=== PATIENT | female | born 1945 | race Caucasian/White ===

== ENCOUNTER 2024-05-15 11:12 | Emergency (ER) | payer OTHER, SELFPAY ==
[2024-05-15] VITALS (11 sets, daily range): BP systolic 132–183; BP diastolic 53–93; PULSE 53–58; RESP 15–20; TEMP 36.6–37.1; O2SAT 95–100; BMI 19.3
--- NOTE | 2024-05-15 11:31 | PD.EDRME ---
Rapid Medical Screening Exam RME Arrival date/time: 05/15/24 11:12 79-year-old female dialysis patient presents the emergency department complains of back pain and low hemoglobin Chief Complaint: Recheck/Abnormal Lab/Rx Vital signs: Vital Signs Temperature 97.9 F 05/15/24 11:24 Pulse Rate 53 L 05/15/24 11:24 Respiratory Rate 15 05/15/24 11:24 Blood Pressure 132/58 H 05/15/24 11:24 Pulse Oximetry (%) 97 05/15/24 11:24 Oxygen Delivery Method Room Air 05/15/24 11:24
--- NOTE | 2024-05-15 11:56 | PD.EDRECHK ---
ED Recheck Abnl Lab Rx-RME/HPI General Chief Complaint: Recheck/Abnormal Lab/Rx Stated Complaint: Low hemoglobin, dry mouth Time Seen by Provider: 05/15/24 11:47 Arrival date/time: 05/15/24 11:12 RME / HPI RME / HPI narrative: 79-year-old female dialysis patient presents the emergency department complains of back pain and low hemoglobin. Patient had hemodialysis yesterday, and was advised to come to the emergency room today for anemia. Patient denies any vomiting blood denies any blood in the stool denies any changes to color of the stool. Denies any blood in the urine also. Also complained of dry mouth for several days now. Also complained of low back pain described as dull ache severity moderate. Denies any fever denies any fall denies any trauma to the back. No medication was taken prior to arrival Related Data Home Medications ?Medication ?Instructions ?Recorded ?Confirmed amiodarone 100 mg tablet 100 mg PO BID 06/03/21 09/03/22 vitamin B complex-vitamin C-folic 1 tab PO DAILY 06/03/21 11/20/22 acid 0.8 mg tablet (Shilpi-Janusz) alprazolam 0.5 mg tablet 0.5 mg PO BID PRN Anxiety 01/17/22 11/20/22 cyclobenzaprine 5 mg tablet 5 mg PO HS PRN Spasms 01/27/22 09/03/22 hydralazine 100 mg tablet 100 mg PO BID 11/20/22 11/20/22 labetalol 100 mg tablet 100 mg PO BID 11/20/22 11/20/22 nicardipine 20 mg capsule 20 mg PO BID 11/20/22 11/20/22 pantoprazole 20 mg tablet,delayed 20 mg PO QDAY 11/20/22 11/20/22 release paroxetine HCl 10 mg tablet 10 mg PO HS PRN Anxiety 11/20/22 11/20/22 Previous Rx's ?Medication ?Instructions ?Recorded valsartan 320 1 tab PO QDAY #30 tabs 11/21/22 mg-hydrochlorothiazide 12.5 mg tablet diphenhydramine HCl 2 % topical 1 applic topical BID #103 mL 06/24/23 gel (Benadryl) glycerin (adult) 1 supp UT QDAY PRN constipation 05/11/24 #12 ea ferrous sulfate, dried 144 mg (45 144 mg PO BID #60 tabs 05/15/24 mg iron) tablet,extended release Allergies Allergy/AdvReac Type Severity Reaction Status Date / Time gabapentin Allergy Intermediate RASH ALL Verified 06/24/23 13:43 OVER lisinopril Allergy Intermediate Rash Verified 06/24/23 13:43 tramadol Allergy Intermediate Redness of Verified 06/24/23 13:43 Skin olmesartan [From Benicar] Allergy Unknown Hypertensio Verified 06/24/23 13:43 n Penicillins AdvReac Severe Swelling Verified 06/24/23 13:43 of Lip/Tongue/Throat Review of Systems Review of Systems Narrative Review of Systems: Review of system reviewed and within normal limits except mentioned in HPI ED Exam Narrative Physical exam: VITAL SIGNS: Reviewed. GENERAL APPEARANCE: Alert and interactive, follows commands, no acute distress, HEAD AND FACE: Non-traumatic. ENT: PERRL, pale conjunctiva, eyelid no trauma, Mucous membrane moist. NECK: Supple, nontender, no nuchal rigidity. CHEST: No tenderness, no crepitus, no paradoxical movement, no retractions. LUNGS: Clear, well ventilated, symmetric, no rales, no wheezing, no ronchi, no stridor, good breath sounds bilaterally. HEART: Regular rate, regular rhythm, no murmur, no gallops. ABDOMEN: Soft, positive bowel sounds, nondistended, no guarding, nontender, no rebound, no masses, RECTAL: Deferred. GENITAL: Deferred. NEUROLOGICAL: Gross motor function intact sensory function intact, Appropriate for age. MUSCULOSKELETAL: low back nontender, full range of motion. EXTREMITIES: Nontender, full range of motion. SKIN: Color pale, dry, no rash, no lacerations, no abrasions, no contusions. LYMPHATICS: Deferred. Course Quality Measures none Orders Category Date Time Status Insert IV NOW Care 05/15/24 11:31 Active Transfuse,blood/blood products ONCE Care 05/15/24 11:55 Active Diet Regular Diet 05/15/24 Dinner Active CBC Stat Lab 05/15/24 12:17 Completed Comprehensive Metabolic Panel Stat Lab 05/15/24 12:17 Completed Lipase Stat Lab 05/15/24 12:17 Completed PT [Prothrombin Time with INR] Stat Lab 05/15/24 12:17 Completed PTT [Partial Thromboplastin Time] Stat Lab 05/15/24 12:17 Completed Type and Screen Stat Lab 05/15/24 12:17 Completed UA, C/S IF [Urinalysis, C/S if Indicated] Stat Lab 05/15/24 17:34 Completed prbc [Red Blood Cells] Stat Lab 05/15/24 12:17 Completed Vital Signs Vital signs: Vital Signs Temperature 97.9 F 05/15/24 11:24 Pulse Rate 53 L 05/15/24 11:24 Respiratory Rate 15 05/15/24 11:24 Blood Pressure 132/58 H 05/15/24 11:24 Pulse Oximetry (%) 97 05/15/24 11:24 Oxygen Delivery Method Room Air 05/15/24 11:24 Recheck / Abnormal Lab / Rx MDM Narrative MDM Narrative:: 79-year-old female dialysis patient presents the emergency department complains of back pain and low hemoglobin. Patient had hemodialysis yesterday, and was advised to come to the emergency room today for anemia. Patient denies any vomiting blood denies any blood in the stool denies any changes to color of the stool. Denies any blood in the urine also. Also complained of dry mouth for several days now. Also complained of low back pain described as dull ache severity moderate. Denies any fever denies any fall denies any trauma to the back. No medication was taken prior travel. Patient data External records reviewed:: None Clinical information provided by:: patient Social determinants that could affect healthcare access:: none Patient has the following chronic illnesses:: Hypertension, ESRD, How is presenting disease/condition affected by chronic disease/condition?: exacerbated by Evaluation data The following diagnostics were reviewed and interpreted by me:: lab results Lab and/or radiology exams considered but not ordered:: None Interpretation Summary: Patient's hemoglobin was noted to be 7.4. CMP significant for CKD/ESRD potassium is normal Medications / Prescriptions Medications or Prescriptions considered but not ordered:: None Medication administrations:: Patient received 2 units packed RBC with no complication noted Consultations Consultation(s) initiated? (list below): No Diagnosis Recheck Differential Diagnosis: other (Anemia of chronic disease, iron deficiency anemia, history of ESRD) Most likely diagnosis given after review of the tests above:: Anemia chronic disease Admission Indicated Admission indicated?: not indicated Admission Request Was there a request for admission?: No Disposition Plan Disposition Plan: Discharge Discharge Attestation Discharge Attestation: The patient was given an opportunity to ask questions and understood the discharge instructions. Discharge instructions specifically effects, indications for sooner follow up or return to the emergency department, and the expected course of current diagnosis. Patient condition: Stable Discharge Plan Plan Patient Disposition: HOME (Self Care) Disposition Comment: Stable Prescriptions/Referrals Prescriptions/Med Rec: New ferrous sulfate, dried 144 mg (45 mg iron) tablet extended release 144 mg PO BID Qty: 60 0RF No Action amiodarone 100 mg Tablet 100 mg PO BID Shilpi-Janusz 0.8 mg tablet 1 tab PO DAILY alprazolam 0.5 mg Tablet 0.5 mg PO BID PRN (Reason: Anxiety) cyclobenzaprine 5 mg tablet 5 mg PO HS PRN (Reason: Spasms) paroxetine HCl 10 mg Tablet 10 mg PO HS PRN (Reason: Anxiety) nicardipine 20 mg Capsule 20 mg PO BID pantoprazole 20 mg Tablet,Delayed Release (Dr/Ec) 20 mg PO QDAY hydralazine 100 mg Tablet 100 mg PO BID labetalol 100 mg Tablet 100 mg PO BID valsartan-hydrochlorothiazide 320-12.5 mg Tablet 1 tab PO QDAY Qty: 30 0RF Benadryl 2 % gel 1 applic topical BID Qty: 103 0RF glycerin (adult) Suppository 1 supp UT QDAY PRN (Reason: constipation) Qty: 12 0RF Referrals: Jaylene Muller MD [Primary Care Provider] - In 1 week Problem List Clinical Impression: Anemia due to chronic kidney disease Patient/Caregiver Discharge Instructions Discharge Activity: activity as tolerated Education Materials: Iron Supplements Additional Instructions: Thank you for the opportunity for serving you today. You are stable for discharged . You are advised to: Follow-up with your PCP in 1 to 2 days Return to ED for worsening of symptoms Take medication as prescribed Print Language: Sinhala Stand Alone Forms: Felisa Award Info., Patient Portal Info Letter PA/[employer] Supervising Physician KORIN/INGRIS Supervising Physician: MD Ben
[2024-05-15 12:39] LABS: Basophils # (Auto) 0.1 Thou/mm3 (0.0-0.2); Basophils % (Auto) 1 % (0-2.5); Eosinophils # (Auto) 0.4 Thou/mm3 (0.0-0.5); Eosinophils % (Auto) 5 % (0-10); Hematocrit 22.2 % (36.0-46.0); Immature Granulocytes % (Auto) 1 % (0-0); Immature Granulocytes Auto 0.04 Thou/mm3 (0.00-0.00); Lymphocytes # (Auto) 1.4 Thou/mm3 (1.0-4.8); Lymphocytes % (Auto) 16 % (10-50); Mean Corpuscular HGB Conc 33.3 g/dl (31.0-37.0); Mean Corpuscular Hemoglobin 31.2 pg (25.0-35.0); Mean Corpuscular Volume 94 fL (80-100); Monocytes # (Auto) 0.9 Thou/mm3 (0.0-0.8); Monocytes % (Auto) 10 % (0-12); Neutrophils # (Auto) 5.9 Thou/mm3 (1.8-7.7); Neutrophils % (Auto) 69 % (37-80); Nucleated Red Blood Cell % 0 /100 WBC (0); Platelet Count 394 Thou/mm3 (140-440); RDW Standard Deviation 53.4 fL (36.4-46.3); Red Blood Count 2.37 Miln/mm3 (4.00-5.20); White Blood Count 8.6 Thou/mm3 (3.6-11.0)
[2024-05-15 12:52] LABS: Partial Thromboplastin Time 24.2 Seconds (22.0-36.0); Prothrombin Time 11.4 Seconds (9.0-12.2)
[2024-05-15 13:07] LABS: Alanine Aminotransferase < 7 U/L (10-49); Albumin, Serum 4.4 gm/dL (3.4-4.8); Albumin/Globulin Ratio 1.4 (1.2-2.2); Alkaline Phosphatase 77 U/L (46-116); Anion Gap 8 (7-16); Aspartate Amino Transferase 17 U/L (0-34); BUN/Creatinine Ratio 5 Ratio (12-20); Bilirubin,Total 0.2 mg/dL (0.3-1.2); Blood Urea Nitrogen 19 mg/dL (9-23); Carbon Dioxide 32.8 mMol/L (20.0-31.0); Chloride 96 mMol/L (98-107); Creatinine (Component) 3.9 mg/dL (0.6-1.3); Globulin 3.1 gm/dL (2.3-3.5); Glucose 110 mg/dL (74-106); Lipase 28 U/L (12-53); Osmolality,Calculated 277 (275-295); Potassium 3.5 mMol/L (3.4-5.1); Sodium 137 mMol/L (136-145); Total Protein 7.5 gm/dL (5.7-8.2); eGFR 11 See Note
[2024-05-15 13:20] LABS: Hemoglobin 7.4 g/dL (12.0-16.0)
[2024-05-15 18:03] LABS: Collection Type, Urine Clean Catch
[2024-05-15 18:29] LABS: Bilirubin,Urine Negative (Negative); Blood,Urine Negative (Negative); Clarity,Urine Clear (Clear/Hazy); Color,Urine Lt-Yellow (Lt Yel-Yel); Culture Indicated,Urine Not Indicated; Glucose, Urine Negative (Negative); Ketones,Urine Negative (Negative); Leukocyte Esterase,Urine Negative (Negative); Nitrite,Urine Negative (Negative); PH,Urine 8.5 (5.0-7.0); Protein,Urine 3+ (Neg - Trace); RBC,Urine 2 /hpf (0-3); Specific Gravity,Urine 1.011 (1.001-1.035); Squamous Epithelial Cell,Urine 5 /hpf (0-5); Urobilinogen,Urine Negative mg/dL (0.0-1.0); WBC,Urine 1 /hpf (0-5)
== END 2024-05-15 21:33 | disposition home or self-care (01) ==
PROVIDERS: Nurse Practitioner Primary Care; Emergency Provider Emergency Medicine; PCP Internal Medicine
DX: N18.6 End stage renal disease (principal); D63.1 Anemia in chronic kidney disease; Z99.2 Dependence on renal dialysis
CPT/HCPCS: 36415; 36430; 80053; 81001; 81025; 83690; 85025; 85610; 85730; 86850; 86900; 86901; 86923; 99285; P9016

== ENCOUNTER 2024-06-02 04:03 | Emergency (ER) | payer OTHER, MEDICARE, SELFPAY ==
[2024-06-02] VITALS (33 sets, daily range): BP systolic 172–257; BP diastolic 80–126; PULSE 63–90; RESP 18–24; TEMP 36.7–36.9; O2SAT 82–99; BMI 19.3
--- NOTE | 2024-06-02 04:28 | PC.NURSE ---
Pt MATT from home, initial EMS call was for constipation. However pt mostly c/o nausea and one episode of non-bloody emesis along with abd pain. Pt states she had small BM this morning but still feels constipated.
--- NOTE | 2024-06-02 05:12 | PD.EDRME ---
Rapid Medical Screening Exam RME Arrival date/time: 06/02/24 04:03 Chief Complaint: Nausea/Vomiting/Diarrhea Vital signs: Vital Signs Temperature 98.2 F 06/02/24 04:19 Pulse Rate 77 06/02/24 04:19 Respiratory Rate 18 06/02/24 04:19 Blood Pressure 245/94 H 06/02/24 04:19 Pulse Oximetry (%) 93 L 06/02/24 04:19 Oxygen Delivery Method Nasal Cannula 06/02/24 04:19 Oxygen Flow Rate 2 06/02/24 04:19 Vital signs reviewed by provider: Yes RME Narrative: 79yo female with pmhx CHF, HTN, ESRD on HD (M/W/F) BIBA from home presents to the ED for complaints of abdominal pain and constipation.
--- NOTE | 2024-06-02 05:29 | XR_ITS ---
Examination: AP chest single view Technique one AP portable upright chest single view Exam date and time: June 02, 2024 at 0544 hrs. Indications: Onset abdominal pain today Shortness of breath chest pain Findings: Mild enlargement cardiac contour Prominent vascular congestion with perihilar edema Probable extensive bilateral pneumonia Pulmonary mass right upper lobe 34 mm Prominent osteopenia Impression: Mild enlargement cardiac contour Extensive pneumonia and/or pulmonary edema bilaterally.
--- NOTE | 2024-06-02 05:35 | PC.NURSE ---
Pt placed on bedpan. Pt urinated but was contaminated with fecal matter.
[2024-06-02] MEDS: SODIUM CHLORIDE 0.9% 500 ML 500 ML 999 ML IV (05:37)
[2024-06-02] MEDS: ONDANSETRON INJ 2 MG/ML INJ 2 ML 4 MG IV (05:37)
[2024-06-02] MEDS: hydrALAZINE INJ 20 MG/ML VIAL IV (05:39)
[2024-06-02 05:40] LABS: Basophils # (Auto) 0.1 Thou/mm3 (0.0-0.2); Basophils % (Auto) 1 % (0-2.5); Eosinophils # (Auto) 0.2 Thou/mm3 (0.0-0.5); Eosinophils % (Auto) 1 % (0-10); Hematocrit 29.8 % (36.0-46.0); Hemoglobin 10.1 g/dL (12.0-16.0); Immature Granulocytes % (Auto) 1 % (0-0); Immature Granulocytes Auto 0.07 Thou/mm3 (0.00-0.00); Lymphocytes % (Auto) 7 % (10-50); Mean Corpuscular HGB Conc 33.9 g/dl (31.0-37.0); Mean Corpuscular Hemoglobin 31.9 pg (25.0-35.0); Mean Corpuscular Volume 94 fL (80-100); Monocytes # (Auto) 0.7 Thou/mm3 (0.0-0.8); Monocytes % (Auto) 4 % (0-12); Neutrophils # (Auto) 13.4 Thou/mm3 (1.8-7.7); Neutrophils % (Auto) 87 % (37-80); Nucleated Red Blood Cell % 0 /100 WBC (0); Platelet Count 412 Thou/mm3 (140-440); RDW Standard Deviation 50.1 fL (36.4-46.3); Red Blood Count 3.17 Miln/mm3 (4.00-5.20); White Blood Count 15.5 Thou/mm3 (3.6-11.0)
[2024-06-02 05:54] LABS: Partial Thromboplastin Time 25.9 Seconds (22.0-36.0); Prothrombin Time 10.7 Seconds (9.0-12.2)
[2024-06-02 06:09] LABS: B-Type Natriuretic Peptide 741 pg/mL (0-100)
[2024-06-02 06:11] LABS: Alanine Aminotransferase < 7 U/L (10-49); Albumin, Serum 4.3 gm/dL (3.4-4.8); Albumin/Globulin Ratio 1.4 (1.2-2.2); Alkaline Phosphatase 74 U/L (46-116); Anion Gap 12 (7-16); Aspartate Amino Transferase 17 U/L (0-34); BUN/Creatinine Ratio 8 Ratio (12-20); Bilirubin,Total 0.3 mg/dL (0.3-1.2); Blood Urea Nitrogen 44 mg/dL (9-23); Chloride 95 mMol/L (98-107); Creatinine (Component) 5.3 mg/dL (0.6-1.3); Estimated Creatinine Clearance 6.9 mL/min (>60); Glucose 131 mg/dL (74-106); Lipase 30 U/L (12-53); Osmolality,Calculated 279 (275-295); Potassium 4.6 mMol/L (3.4-5.1); Sodium 133 mMol/L (136-145); Total Protein 7.3 gm/dL (5.7-8.2); Troponin I < 0.020 ng/mL (0.0-0.045); eGFR 8 See Note
--- NOTE | 2024-06-02 06:19 | PD.EDNV ---
Nausea/Vomit./Diarrhea-RME/HPI General Chief complaint: Nausea/Vomiting/Diarrhea Stated complaint: NAUSEA/VOMITING/CONSTIPATION Time Seen by Provider: 06/02/24 05:29 Arrival date/time: 06/02/24 04:03 Limitations: no limitations RME / HPI RME / HPI Narrative: 79yo female with pmhx CHF, HTN, ESRD on HD (M/W/F) BIBA from home presents to the ED for complaints of abdominal pain and constipation. DR. BLANCA MAIN ED EVALUATION: 79 year old female with history of CVA, AFib, ESRD on HD M/W/F, hypertension, chronic pain on Opioids, chronic constipation, anxiety presents to the ED for complaint of nausea, vomiting, and constipation today. States her last bowel movement was 4 days ago. Accompanied by diffuse abdominal pain. This morning reports her blood pressure dropped and feels that is what caused her to vomit. Patient additionally complains of a headache and shortness of breath that is worse with lying flat. States at home she has taken stool softeners with no relief. Denies fevers, chills, cough, or urinary symptoms. RN later reports the patient admitted to having been diagnosed with a kidney infection/UTI 1 week ago and took antibiotics for 7 days which she took her last dose yesterday. Related Data Home Medications ?Medication ?Instructions ?Recorded ?Confirmed amiodarone 100 mg tablet 100 mg PO BID 06/03/21 09/03/22 vitamin B complex-vitamin C-folic 1 tab PO DAILY 06/03/21 11/20/22 acid 0.8 mg tablet (Shilpi-Janusz) alprazolam 0.5 mg tablet 0.5 mg PO BID PRN Anxiety 01/17/22 11/20/22 cyclobenzaprine 5 mg tablet 5 mg PO HS PRN Spasms 01/27/22 09/03/22 hydralazine 100 mg tablet 100 mg PO BID 11/20/22 06/02/24 labetalol 100 mg tablet 100 mg PO BID 11/20/22 06/02/24 nicardipine 20 mg capsule 20 mg PO BID 11/20/22 11/20/22 pantoprazole 20 mg tablet,delayed 20 mg PO QDAY 11/20/22 11/20/22 release paroxetine HCl 10 mg tablet 10 mg PO HS PRN Anxiety 11/20/22 11/20/22 amiodarone 200 mg tablet 200 mg DAILY 06/02/24 06/02/24 amiodarone 200 mg tablet mg 06/02/24 nifedipine 60 mg tablet,extended 60 mg PO BID 06/02/24 06/02/24 release 24 hr nifedipine 60 mg tablet,extended mg PO 06/02/24 release 24 hr nifedipine 60 mg tablet,extended mg PO 06/02/24 release 24 hr nifedipine 60 mg tablet,extended mg PO 06/02/24 release 24 hr nifedipine 60 mg tablet,extended mg PO 06/02/24 release 24 hr nifedipine 60 mg tablet,extended mg PO 06/02/24 release 24 hr vitamin B complex-vitamin C-folic 0.8 tab PO DAILY 06/02/24 06/02/24 acid 0.8 mg tablet (Shilpi-Janusz) vitamin B complex-vitamin C-folic tab 06/02/24 acid 0.8 mg tablet (Shilpi-Janusz) vitamin B complex-vitamin C-folic tab 06/02/24 acid 0.8 mg tablet (Shilpi-Janusz) vitamin B complex-vitamin C-folic tab 06/02/24 acid 0.8 mg tablet (Shilpi-Janusz) vitamin B complex-vitamin C-folic tab 06/02/24 acid 0.8 mg tablet (Shilpi-Janusz) vitamin B complex-vitamin C-folic tab 06/02/24 acid 0.8 mg tablet (Shilpi-Janusz) vitamin B complex-vitamin C-folic tab 06/02/24 acid 0.8 mg tablet (Shilpi-Janusz) vitamin B complex-vitamin C-folic tab 06/02/24 acid 0.8 mg tablet (Shilpi-Janusz) vitamin B complex-vitamin C-folic tab 06/02/24 acid 0.8 mg tablet (Shilpi-Ajnusz) vitamin B complex-vitamin C-folic tab 06/02/24 06/02/24 acid 0.8 mg tablet (Shilpi-Janusz) Previous Rx's ?Medication ?Instructions ?Recorded valsartan 320 1 tab PO QDAY #30 tabs 11/21/22 mg-hydrochlorothiazide 12.5 mg tablet diphenhydramine HCl 2 % topical 1 applic topical BID #103 mL 06/24/23 gel (Benadryl) glycerin (adult) 1 supp [place] QDAY PRN constipation 11/03/23 #12 ea ferrous sulfate, dried 144 mg (45 144 mg PO BID #60 tabs 05/15/24 mg iron) tablet,extended release Allergies Allergy/AdvReac Type Severity Reaction Status Date / Time gabapentin Allergy Intermediate RASH ALL Verified 06/02/24 04:19 OVER lisinopril Allergy Intermediate Rash Verified 06/02/24 04:19 tramadol Allergy Intermediate Redness of Verified 06/02/24 04:19 Skin olmesartan [From Benicar] Allergy Unknown Hypertensio Verified 06/02/24 04:19 n Penicillins AdvReac Severe Swelling Verified 06/02/24 04:19 of Lip/Tongue/Throat Review of Systems Review of Systems Narrative Review of Systems: GEN: No fever, no chills, no weight loss EYES: No discharge, no visual changes, no pain HEENT: No ear pain, no congestion, no sore throat PULM: + shortness of breath, no cough, no congestion CV: No chest pain, no dyspnea on exertion, no palpitations GI: +nausea, +vomiting, no diarrhea, +pain, +constipation : No frequency, no urgency, no dysuria MUSC/SKEL: No joint pain, no back pain SKIN: No rash NEURO: No weakness, +headache Past Medical History Past Medical History NEUROLOGIC: Positive Neurological Disorders, Cerebrovascular Accident and Migraine CARDIAC: Positive Cardiac Disorders, Atrial Fibrillation, Heart Murmur, Congestive Heart Failure and Hypertension RESPIRATORY: Positive Asthma and Pneumonia GASTROINTESTINAL: Positive Gastrointestinal Disorders, Hepatitis, Gastrointestinal Bleed, Ulcerative Colitis, Ulcer and Gastroesophageal Reflux Disease GENITOURINARY: Positive Genitourinary Disorders, Renal Disease and Dialysis (MON/SUN/SUN) REPRODUCTIVE: Positive Previous Pregnancies MUSCULOSKELETAL: Positive Musculoskeletal Disorders and Arthritis ENT: Positive Cataracts and Macular Degeneration HEMATOLOGIC: Positive Blood Disorders and Anemia PSYCHO/SOCIAL: Positive Psychiatric Problems, Depression and Anxiety OTHER HISTORY: Positive Hospitalization, Shingles, Falls, Blood Transfusions, Chicken Pox, Measles and Mumps Family History FAMILY HISTORY: Positive Family Psychiatric Problems, Family Respiratory Disorders, Family Cardiac Disorders and Family Surgery Surgical History SURGICAL: Positive Tonsillectomy, Abdominal Surgery and Hysterectomy Social History SMOKING STATUS: Former smoker SECOND HAND EXPOSURE: No SUBSTANCE USE: does not use ED Exam General Limitations: Present no limitations General appearance: Present alert and in no apparent distress Head Head exam: Present atraumatic, normocephalic and normal inspection Eye Eye exam: Present normal appearance, PERRL and EOMI ENT ENT exam: Present normal exam, normal oropharynx and mucous membranes moist Neck Neck exam: Present normal inspection, full ROM and trachea midline Chest Chest inspection: Present normal inspection and symmetric chest wall rise Respiratory Respiratory exam: Present normal lung sounds bilaterally and other (Moderate rales bilaterally ); Absent respiratory distress Cardiovascular Cardiovascular exam: Present regular rate, normal rhythm, normal heart sounds and other (2/4 holosystolic murmur) Abdominal Exam Abdominal exam: Present soft, normal bowel sounds and other (Palpable mass in the LLQ that is mildly tender ); Absent distention, guarding, rebound or rigidity Extremities Exam Extremities exam: Present normal inspection and full ROM Back Exam Back exam: Present normal inspection and full ROM Neurological Exam Neurological exam: Present alert, oriented X3 and CN II-XII intact Psychiatric Psychiatric exam: Present normal affect and normal mood Skin Skin exam: Present warm, dry, intact and normal color Course Quality Measures none Orders Category Date Time Status Bedside COVID-19 Antigen Test NOW Care 06/02/24 07:11 Active Oracle Hrms Developer STAT Care 06/02/24 06:44 Active Continuous Pulse Oximetry ONCE Care 06/02/24 06:44 Completed EKG (ED ONLY) *Do not use* NOW Care 06/02/24 04:05 Completed Hemodialysis Urgent Care 06/02/24 08:19 Active Insert IV STAT Care 06/02/24 05:29 Completed Miscellaneous Nursing Order NOW Care 06/02/24 06:41 Active Urinary Catheter STAT Care 06/02/24 06:44 Active CXRP [XR chest 1V portable] Stat Exams 06/02/24 05:29 Completed EKG (ED Only) Stat Exams 06/02/24 04:05 Ordered XR abdomen flat and uprght Stat Exams 06/02/24 06:48 Completed BNP [B-Type Natriuretic Peptide] Stat Lab 06/02/24 05:15 Completed CBC Stat Lab 06/02/24 05:15 Completed Comprehensive Metabolic Panel Stat Lab 06/02/24 05:15 Completed Lipase Stat Lab 06/02/24 05:15 Completed Magnesium Stat Lab 06/02/24 05:15 Completed Partial Thromboplastin Time Stat Lab 06/02/24 05:15 Completed Prothrombin Time with INR Stat Lab 06/02/24 05:15 Completed Troponin I Stat Lab 06/02/24 05:15 Completed Troponin I Stat Lab 06/02/24 07:48 Completed Urinalysis Stat Lab 06/02/24 06:50 Completed Epoetin Russell-Epbx Inj [Retacrit Inj] Med 06/02/24 11:00 Discontinued 10,000 unit SC X1 ONE Furosemide Inj [Lasix Inj] Med 06/02/24 06:42 Discontinued 60 mg IVP X1 ONE Labetalol IV [Trandate IV] Med 06/02/24 06:42 Discontinued 10 mg IVP X1 ONE Labetalol IV [Trandate IV] Med 06/02/24 07:15 Discontinued 10 mg IVP X1 ONE Labetalol IV [Trandate IV] Med 06/02/24 07:47 Discontinued 10 mg IVP X1 ONE Ondansetron Inj [Zofran Inj] Med 06/02/24 05:30 Discontinued 4 mg IV X1 ONE Sodium Chloride 0.9% 500 ml [Ns] 500 ml Med 06/02/24 05:29 Discontinued IV 999 mls/hr cefTRIAXone/D5w 1gm IV premix [Rocephin/D5w 1gm IV Med 06/02/24 06:43 Discontinued premix] 50 ml IV X1 cefTRIAXone/D5w 1gm IV premix [Rocephin/D5w 1gm IV Med 06/02/24 07:13 Discontinued premix] 50 ml IV X1 cloNIDine HCL [Catapres] Med 06/02/24 08:18 Discontinued 0.2 mg PO X1 ONE hydrALAZINE INJ [Apresoline Inj] Med 06/02/24 05:36 Discontinued 20 mg IV X1 ONE Oxygen Delivery NOW RT 06/02/24 06:44 Active Reevaluation(s) Reevaluation #1: Patient was given 20mg IV Hydralazine @ 05:39 am. During my evaluation, patients blood pressure 227/120. Will order 10mg IV Labetalol and 60mg Lasix and reassess. Time: 06:40 Reevaluation #2: Blood pressure 235/94, will order additional 10mg IV Labetalol. Time: 07:10 Reevaluation #3: Blood pressure 211/96, will order additional 10mg IV Labetalol. Time: 07:47 Additional Reevaluation(s): 0815: Blood pressure 219/113, will order 0.2mg Clonidine. 1235: Patient has returned from dialysis, reports feeling somewhat better. Blood pressure 208/87. Plan to admit. 1320: Patient reports she does not want to be admitted. This patient is choosing to leave against medical advice. I discussed a great length that without further evaluation and monitoring there may be unforeseen circumstances and deterioration causing permanent bodily harm or as a result of their choice. The patient is alert, oriented and competent at this time. The patient states that they are aware of the serious risks as explained, but they continue to wish to leave against medical advice. Vital Signs Vital signs: Vital Signs Temperature 98.2 F 06/02/24 04:19 Pulse Rate 77 06/02/24 04:19 Respiratory Rate 18 06/02/24 04:19 Blood Pressure 245/94 H 06/02/24 04:19 Pulse Oximetry (%) 93 L 06/02/24 04:19 Oxygen Delivery Method Nasal Cannula 06/02/24 04:19 Oxygen Flow Rate 2 06/02/24 04:19 Pulse ox is 93% on 4L nasal cannula which is adequate. Nausea/Vomiting/Diarrhea MDM Narrative MDM Narrative:: Odette Flores am scribing for and in the presence of Dr. Blanca. Patient data External records reviewed:: [facility] previous records and EMS form Clinical information provided by:: patient Social determinants that could affect healthcare access:: none Patient has the following chronic illnesses:: CVA, AFib, ESRD on HD M/W/F, hypertension, chronic pain on Opioids, chronic constipation, anxiety How is presenting disease/condition affected by chronic disease/condition?: exacerbated by Evaluation data The following diagnostics were reviewed and interpreted by me:: lab results, radiology exam(s) (CXR my interpretation: Sharp costophrenic angles, normal diaphragmatic edge, small effusion on the right, cardiomegaly, moderate pulmonary edema. Abdominal XR interpreted by me shows large amounts of stool, no air fluid levels. ) and EKG tracing(s) (NSR, rate 76, left axis deviation, no ectopy, LVH, ST abnormalities in the precordial and lateral leads, no signs of acute ischemia ) Lab and/or radiology exams considered but not ordered:: None Interpretation Summary: Ordering Physician: Sara Beach MD Date of Service: 06/02/24 Procedure(s): XR chest 1V portable Accession Number(s): [id number] cc: Ted Alva MD; Sara Beach MD; Jaylene Muller MD~ Examination: AP chest single view Technique one AP portable upright chest single view Exam date and time: June 02, 2024 at 0544 hrs. Indications: Onset abdominal pain today Shortness of breath chest pain Findings: Mild enlargement cardiac contour Prominent vascular congestion with perihilar edema Probable extensive bilateral pneumonia Pulmonary mass right upper lobe 34 mm Prominent osteopenia Impression: Mild enlargement cardiac contour Extensive pneumonia and/or pulmonary edema bilaterally. Dictated By: Ted Alva MD Signed By: <Electronically signed by Ted Alva MD in OV> 06/02/24 0714 Ordering Physician: Dawson Blanca MD Date of Service: 06/02/24 Procedure(s): XR abdomen flat and uprght Accession Number(s): [id number] cc: Ted Alva MD; aDwson Blanca MD; Jaylene Muller MD~ Examination: Abdomen 2 views Technique: AP upright supine abdomen 2 views Exam date and time: June 02, 2024 0705 hrs. Indications: Constipation nausea vomiting today, renal failure patient Findings: Severe osteopenia Heavy vascular calcification Moderate to large amounts of stool throughout the colon especially rectosigmoid No obstruction No free air Impression: Moderate to large amounts of stool throughout the colon especially rectosigmoid Dictated By: Ted Alva MD Signed By: <Electronically signed by Ted Alva MD in OV> 06/02/24 0819 Medications / Prescriptions Medications / Prescriptions considered but not ordered:: None Medication administrations:: Medication Administration History Acetaminophen (Acetaminophen 325 Mg Tablet) 650 mg PO Q6H PRN PRN Reason: Fever >100.3 or pain 1-3 Stop: 07/02/24 11:13 Last Admin: 06/02/24 11:30 Dose: 650 mg Documented By: ED Alprazolam (Alprazolam 0.25 Mg Tablet) 0.5 mg PO BID PRN PRN Reason: anxiety Stop: 06/07/24 20:59 Amiodarone HCl (Amiodarone Hcl 200 Mg Tablet) 200 mg PO QDAY [facility] Stop: 07/03/24 08:59 Hydralazine HCl (Hydralazine Hcl 25 Mg Tablet) 100 mg PO BID [facility] Stop: 07/02/24 11:44 Last Admin: 06/02/24 12:50 Dose: 100 mg Documented By: ED(2) Labetalol HCl (Labetalol 100 Mg Tablet) 100 mg PO BID [facility] Stop: 07/02/24 11:44 Last Admin: 06/02/24 12:52 Dose: 100 mg Documented By: ED(2) Lactulose (Lactulose Syrup 20 Gm/30 Ml Udc) 10 gm PO TID [facility]; Protocol Stop: 07/02/24 13:59 Nifedipine (Nifedipine Xl 30 Mg Tabcr) 60 mg PO BID [facility] Stop: 07/02/24 11:44 Last Admin: 06/02/24 13:39 Dose: 60 mg Documented By: ED(2) Ondansetron HCl (Ondansetron Inj 2 Mg/Ml Inj 2 Ml) 4 mg IV Q6H PRN; Protocol PRN Reason: NAUSEA OR VOMITING Stop: 07/02/24 11:13 Oxycodone/Acetaminophen (Oxycodone/Apap 5/325 Tablet) 1 tab PO Q6H PRN PRN Reason: PAIN SCALE 4-6 (Moderate Stop: 06/07/24 11:13 Pantoprazole Sodium (Pantoprazole 40 Mg Tablet) 40 mg PO QDAY [facility] Stop: 07/03/24 08:59 Paroxetine HCl (Paroxetine Hcl 10 Mg Tablet) 10 mg PO HS [facility] Stop: 07/02/24 20:59 Psyllium Hydrophilic Mucilloid (Psyllium 1 Pkt Packet) 1 pkt PO BID PRN; Protocol PRN Reason: CONSTIPATION Stop: 07/02/24 11:54 Sennosides (Senna Tablet) 1 tab PO QDAY [facility]; Protocol Stop: 07/02/24 11:59 Last Admin: 06/02/24 12:54 Dose: 1 tab Documented By: ED(2) Valsartan (Valsartan 80 Mg Tablet) 320 mg PO QDAY [facility] Stop: 07/02/24 11:59 Last Admin: 06/02/24 13:41 Dose: 320 mg Documented By: ED(2) Discontinued Medications Alprazolam (Alprazolam 0.25 Mg Tablet) 0.5 mg PO BID [facility] Stop: 06/07/24 20:59 Clonidine (Clonidine Hcl 0.1 Mg Tablet) 0.2 mg PO X1 ONE Stop: 06/02/24 08:19 Last Admin: 06/02/24 08:32 Dose: 0.2 mg Documented By: ED(2) Epoetin Russell (Epoetin Russell-Epbx Inj 10,000 Unit/Ml Vial (Non-Esrd)) 10,000 unit SC X1 ONE Stop: 06/02/24 11:01 Last Admin: 06/02/24 10:52 Dose: 10,000 unit Documented By: ED Furosemide (Furosemide Inj 10 Mg/Ml 4ml Vial) 60 mg IVP X1 ONE Stop: 06/02/24 06:43 Last Admin: 06/02/24 06:58 Dose: 60 mg Documented By: GB Hydralazine HCl (Hydralazine Inj 20 Mg/Ml Vial) 20 mg IV X1 ONE Stop: 06/02/24 05:37 Last Admin: 06/02/24 05:39 Dose: 20 mg Documented By: FARZANEH Sodium Chloride (Ns) 500 mls @ 999 mls/hr IV .Q31M ONE Stop: 06/02/24 05:59 Last Infusion: 06/02/24 06:22 Dose: Infused Documented By: Admin: 06/02/24 05:37 Dose: 999 mls/hr Documented By: FARZANEH Ceftriaxone Sodium/Dextrose (Rocephin/D5w 1gm Iv Premix) 50 mls @ 100 mls/hr IV X1 ONE Stop: 06/02/24 07:12 Last Admin: 06/02/24 07:05 Dose: Not Given Documented By: FARZANEH Non-Admin Reason: Allergy Ceftriaxone Sodium/Dextrose (Rocephin/D5w 1gm Iv Premix) 50 mls @ 100 mls/hr IV X1 ONE Stop: 06/02/24 07:42 Last Infusion: 06/02/24 08:25 Dose: Infused Documented By: ED(2) Admin: 06/02/24 07:27 Dose: 100 mls/hr Documented By: ED(2) Labetalol HCl (Labetalol Inj 5 Mg/Ml Vial 20 Ml) 10 mg IVP X1 ONE Stop: 06/02/24 06:43 Last Admin: 06/02/24 06:59 Dose: 10 mg Documented By: GB Labetalol HCl (Labetalol Inj 5 Mg/Ml Vial 20 Ml) 10 mg IVP X1 ONE Stop: 06/02/24 07:16 Last Admin: 06/02/24 07:19 Dose: 10 mg Documented By: ED(2) Labetalol HCl (Labetalol Inj 5 Mg/Ml Vial 20 Ml) 10 mg IVP X1 ONE Stop: 06/02/24 07:48 Last Admin: 06/02/24 07:55 Dose: 10 mg Documented By: ED(2) Ondansetron HCl (Ondansetron Inj 2 Mg/Ml Inj 2 Ml) 4 mg IV X1 ONE Stop: 06/02/24 05:31 Last Admin: 06/02/24 05:37 Dose: 4 mg Documented By: FARZANEH See above Consultations Consultation(s) initiated? (list below): Yes Consultation #1 (Physician, Specialty, Details): I spoke with patient dairy manufacturing technologist Dr. Muller. States pt should have emergent dialysis and will reassess. Time: 08:15 Consultation #2 (Physician, Specialty, Details): Full Roll Inspector Dr. Muller has placed admission orders. Time: 11:15 Diagnosis Nausea Differential Diagnosis: gastroenteritis, drug-induced nausea and vomiting, dehydration and other (Viral illness, constipation ) Most likely diagnosis given after review of the tests above:: Hypertensive emergency CHF Pulmonary edema Admission Indicated Admission indicated?: not indicated Explain why admission is indicated or not indicated:: Admission was indicated however patient signed out AMA Admission Request Was there a request for admission?: No Disposition Plan Disposition Plan: other (specify) (AMA ) Critical Care Time Critical Care Time Critical Care Time: Yes Total Critical Care Time (min.): 60 Attestation: The high probability of sudden, clinically significant deterioration in the patient's condition required the highest level of my preparedness to intervene urgently. The services I provided to this patient were to treat and/or prevent clinically significant deterioration. Services included the following: chart data review, reviewing nursing notes and/or old charts, documentation time, method consultant collaboration regarding findings and treatment options, medication orders and management, direct patient care, vital sign assessments and ordering, interpreting and reviewing diagnostic studies and lab tests. Aggregate critical care time includes only time during which I was engaged in work directly related to the patient's care, as described above, whether at bedside or elsewhere in the Emergency Department. It did not include time spent performing other reported procedures or the services of residents, students, nurses or physician assistants. Discharge Plan Plan Patient Disposition: Left Against Medical Advice Problem List Clinical Impression: Hypertensive emergency, CHF (congestive heart failure), Pulmonary edema
--- NOTE | 2024-06-02 06:48 | XR_ITS ---
Examination: Abdomen 2 views Technique: AP upright supine abdomen 2 views Exam date and time: June 02, 2024 0705 hrs. Indications: Constipation nausea vomiting today, renal failure patient Findings: Severe osteopenia Heavy vascular calcification Moderate to large amounts of stool throughout the colon especially rectosigmoid No obstruction No free air Impression: Moderate to large amounts of stool throughout the colon especially rectosigmoid
[2024-06-02] MEDS: FUROSEMIDE INJ 10 MG/ML 4ML VIAL 60 MG IVP (06:58)
[2024-06-02 06:59] LABS: Collection Type, Urine Voided
[2024-06-02] MEDS: LABETALOL INJ 5 MG/ML VIAL 20 ML 10 MG IVP ×3 (06:59→07:55)
--- NOTE | 2024-06-02 07:14 | PC.NURSE ---
Pt. here from home to room 6, pt. states her and dogs are at home waiting for her, pt. states she is here because her stomach hurts and she feels like she is constipated, pt. has a pain patch to her right upper arm, pt. states she just finished antibiotics yesterday for a UTI/kidney infection. Pt. states she doesn't know the name of it but she took it for 7 days. Pt. resting in bed, pt. states she does dialysis M,W,F.
[2024-06-02] MEDS: cefTRIAXone/D5w 1gm IV premix 50 ML IV (07:27)
[2024-06-02 07:33] LABS: Bilirubin,Urine Negative (Negative); Blood,Urine Trace (Negative); Clarity,Urine Clear (Clear/Hazy); Color,Urine Lt-Yellow (Lt Yel-Yel); Glucose, Urine Trace (Negative); Ketones,Urine Negative (Negative); Leukocyte Esterase,Urine Negative (Negative); Nitrite,Urine Negative (Negative); PH,Urine 8.5 (5.0-7.0); Protein,Urine 3+ (Neg - Trace); RBC,Urine 22 /hpf (0-3); Squamous Epithelial Cell,Urine 1 /hpf (0-5); Urobilinogen,Urine Negative mg/dL (0.0-1.0); WBC,Urine 1 /hpf (0-5)
[2024-06-02 08:14] LABS: Troponin I < 0.020 ng/mL (0.0-0.045)
[2024-06-02] MEDS: cloNIDine HCL 0.1 MG TABLET 0.2 MG PO (08:32)
--- NOTE | 2024-06-02 08:36 | PC.NURSE ---
Pt. taken to dialysis by Vini DOYLE via bed. Pt. states she knows Vini he saved her life twice.
--- NOTE | 2024-06-02 10:15 | PC.NURSE ---
Marilynn with [facility] called and stated pt. is on Hospice with them since 10/02/23. Marilynn states pt. didn't take any of her hypertensive meds last night, Marilynn [phone], pt.'s Trey [phone] would like pt. to come home, Trey states he is power of clinical orthoptist for pt. Trey states pt. is a DNR and he will make sure the paperwork is sent over,
--- NOTE | 2024-06-02 10:45 | PC.NURSE ---
Informed Dr. Ruiz about pt. being on Hospice.
[2024-06-02] MEDS: EPOETIN ALFA-EPBX INJ 10,000 UNIT/ML VIAL (NON-ESRD) 10000 UNIT SC (10:52)
[2024-06-02] MEDS: ACETAMINOPHEN 325 MG TABLET 650 MG PO (11:30)
--- NOTE | 2024-06-02 12:32 | PC.NURSE ---
Pt. back to room 6 from dialysis, Lester states he removed 2.7 L, states pt. tolerated well. Pt. stating she wants to go home now.
--- NOTE | 2024-06-02 12:44 | PC.NURSE ---
Dialysis completed for 3 hrs, tolerated well. Pt no complaints. Respiration even and unlabored. Saturating at 99% on O2 at 3L/min via NC. Able to removed 2700 ml of fluid net. Post tx BP 214/95, HR 69, Temp 98. Pt back in ER room #6. Call light within reached. Report given to Bella DOYLE
[2024-06-02] MEDS: hydrALAZINE HCL 25 MG TABLET 100 MG PO (12:50)
[2024-06-02] MEDS: LABETALOL 100 MG TABLET PO (12:52)
[2024-06-02] MEDS: SENNA TABLET 1 TAB PO (12:54)
--- NOTE | 2024-06-02 13:22 | PC.CC ---
Pt Beth Chen is a 79 yr old female-admitted to hospitalist services for hypertensive urgency. SOFTWARE TEST AUTOMATION ENGINEER CC met with pt at bedside to complete initial assessment. At time of encounter pt is noted to be alert and oriented to person, place and situation. Pt expressed understanding admission orders, but states her preference would be to return home. Pt able to confirm all demographic information. Pt is from home, [facility] [address] [facility]. In the home, pt reports living in the home with her Trey Chen [phone]. Pt identifies her as surrogate DM. In the home pt reports using a walker, cane and wheel chair to support ambulation. Pt reports requiring assist with completing her ADLS. Pt also utilizes a shower chair and bedside commode in the home. Pt reports she is not diabetic, but states she is on dialysis M, W, F with a chair time of 1030 at [facility]. Pt reports her PCP is Dr. Muller. Pt is followed by Dr. Maza for cardiology. At D/c pt reports she would like to return home, with her or friend providing transport. Pt reports having an Advance Directive. SOFTWARE TEST AUTOMATION ENGINEER CC approached by ED attending, pt is on hospice services with [facility]. Pt wishes to return home in order to keep her hospice services. SOFTWARE TEST AUTOMATION ENGINEER CC met with pt at bedside who states her will transport her home. Pt requesting to be D/c to ED Lobby for her to transport her home.
[2024-06-02] MEDS: NIFEdipine XL 30 MG TABCR 60 MG PO (13:39)
[2024-06-02] MEDS: VALSARTAN 80 MG TABLET 320 MG PO (13:41)
--- NOTE | 2024-06-02 13:41 | ESCONSULT_ITS ---
HPI Data of Consult Consult date: 06/02/24 Requesting Physician: Jaylene Muller MD Admitting Provider: Jaylene Muller MD Attending Provider: Jaylene Muller MD Primary Care Provider: Jaylene Muller MD Consult Narrative Reason for consult: constipation, abdominal pain and high BP History of present illness: The patient is a 79-year-old female with a previous medical history of end-stage renal disease (M/W/F), anxiety, status post CVA, A-fib, hypertension, currently on home hospice. She came to the ED with complaints of abdominal pain and constipation, last bowel movement 4 days ago. Patient is a bowel movement at the ED. She also reported mild headache and shortness of breath when lying down flat. She reported skipping her blood pressure medication in the previous day. Last dialysis session was on Sunday last week. ED course: Initially blood pressure was 245/94, was started on NC 2 L, weaned off to room air with good saturation of 99%. Labs were significant for leukocytosis 15.5, hemoglobin 10.1, sodium 133, BUN 44, creatinine 5.3, EGFR 8, BNP 741, urine was negative for signs of UTI. Chest x-ray showed mild CHF, pulmonary edema/pneumonia bilaterally. Abdominal x-ray showed moderate to large amount of stool throughout the colon, especially rectosigmoid. Due to high blood pressure, she underwent emergent hemodialysis. She was given her home blood pressure medications. Patient reported that she would like to go home and resume hospice care, she will be discharged from the ED. cc:: cc: Jaylene Muller MD Review of Systems Review of Systems Systems Reviewed: All systems reviewed, normal except as documented Narrative Review of Systems: General: Denies weight loss, fever and chills. HEENT: Denies changes in vision and hearing. Resp: Denies cough and wheezing. Reports shortness of breath. CVS: Denies palpitations and CP. Has a history of hypertension. GI: Denies diarrhea. Reports abdominal pain, nausea, vomiting. : Denies dysuria and urinary frequency. MSK: Denies myalgia and joint pain. Denies rash and pruritus. Neuro: Denies syncope. Reports headache. Psych: Denies recent changes in mood. Denies anxiety and depression. Past Medical History Past Medical History NEUROLOGIC: Positive Neurological Disorders, Cerebrovascular Accident and Migraine; Negative Seizures CARDIAC: Positive Cardiac Disorders, Atrial Fibrillation, Heart Murmur, Congestive Heart Failure and Hypertension; Negative Hypercholesterolemia, Edema or Cellulitis RESPIRATORY: Positive Asthma and Pneumonia; Negative Chronic Obstructive Pulmonary Disease (COPD) or Cystic Fibrosis GASTROINTESTINAL: Positive Gastrointestinal Disorders, Hepatitis, Gastrointestinal Bleed, Ulcerative Colitis, Ulcer and Gastroesophageal Reflux Disease GENITOURINARY: Positive Genitourinary Disorders, Renal Disease and Dialysis (MON/SUN/SUN) REPRODUCTIVE: Positive Previous Pregnancies MUSCULOSKELETAL: Positive Musculoskeletal Disorders and Arthritis ENT: Positive Cataracts and Macular Degeneration ENDOCRINE: Negative Endocrine Disorders, Diabetes Mellitus Type 1 or Diabetes Mellitus Type 2 HEMATOLOGIC: Positive Blood Disorders and Anemia; Negative Sickle Cell Disease PSYCHO/SOCIAL: Positive Psychiatric Problems, Depression and Anxiety OTHER HISTORY: Positive Hospitalization, Shingles, Falls, Blood Transfusions, Chicken Pox, Measles and Mumps; Negative Autoimmune Disease, Blood Transfusion Reaction, Anesthesia Reactions, Organ Transplant, Chemotherapy, Radiation Therapy, MRSA, VRSA, Vancomycin- Resistant Enterococci or Cancer Family History FAMILY HISTORY: Positive Family Psychiatric Problems, Family Respiratory Disorders, Family Cardiac Disorders and Family Surgery; Negative Family Gastrointestinal Problems, Family Cancer or Family Anesthesia Reaction Surgical History SURGICAL: Positive Tonsillectomy, Abdominal Surgery and Hysterectomy; Negative Pacemaker, Endocrine Surgery, Ear Surgery, Nephrectomy, Joint Replacement, Neurologic Surgery or Organ Transplant Social History SMOKING STATUS: Former smoker SECOND HAND EXPOSURE: No SUBSTANCE USE: does not use Exam Vital Signs Temp Pulse Resp BP Pulse Ox O2 Del Method O2 Flow Rate 98.4 F 63 24 H 217/84 H 99 Room Air 3 06/02/24 13:25 06/02/24 13:39 06/02/24 13:25 06/02/24 13:39 06/02/24 13:25 06/02/24 13:25 06/02/24 12:21 Narrative Exam GENERAL APPEARANCE: Patient seems to be comfortable, adequately hydrated and nourished. Currently seen on dialysis HEENT: EOMI, PERRLA NECK: Neck supple, no JVD or bruit CARDIOVASCULAR: Heart regular, no murmurs LUNGS/CHEST: Chest clear to auscultation. No rales, rhonchi, wheezing ABDOMEN: Soft, nontender, nondistended. No masses. Normal bowel sounds. EXTREMITIES: No edema, clubbing or cyanosis. SKIN: AVF ++ MUSCULOSKELETAL: Musculoskeletal exam normal PSYCHIATRIC: Looks anxious NEUROLOGICAL : No neurological deficits Results Labs 06/02/24 05:15 06/02/24 05:15 Labs: Short CBC 06/02/24 Range/Units 05:15 WBC 15.5 H (3.6-11.0) Thou/mm3 Hgb 10.1 L (12.0-16.0) g/dL Hct 29.8 L (36.0-46.0) % Plt Count 412 (140-440) Thou/mm3 BMP 06/02/24 05:15 Sodium 133 L Potassium 4.6 Chloride 95 L Carbon Dioxide 26.0 BUN 44 H Creatinine 5.3 H* Glucose 131 H Calcium 10.0 Cardiac Enzymes 06/02/24 06/02/24 Range/Units 05:15 07:48 Troponin I < 0.020 < 0.020 (0.0-0.045) ng/mL Liver Function 06/02/24 Range/Units 05:15 Total Bilirubin 0.3 (0.3-1.2) mg/dL AST 17 (0-34) U/L ALT < 7 L (10-49) U/L Alkaline Phosphatase 74 (46-116) U/L Albumin 4.3 (3.4-4.8) gm/dL Urine 06/02/24 Range/Units 06:50 Urine Color Lt-Yellow (Lt Yel-Yel) Urine Clarity Clear (Clear/Hazy) Urine pH 8.5 H (5.0-7.0) Ur Specific Frakes 1.010 (1.001-1.035) Urine Protein 3+ A (Neg - Trace) Urine Glucose (UA) Trace (Negative) Quality Measures Quality Measures none Advance care planning discussed with:: patient and other Medications Home Medications and Allergies Home Medications ?Medication ?Instructions ?Recorded ?Confirmed ?Type amiodarone 100 mg tablet 100 mg PO BID 06/03/21 09/03/22 History vitamin B complex-vitamin C-folic 1 tab PO DAILY 06/03/21 11/20/22 History acid 0.8 mg tablet (Shilpi-Janusz) alprazolam 0.5 mg tablet 0.5 mg PO BID PRN Anxiety 01/17/22 11/20/22 History cyclobenzaprine 5 mg tablet 5 mg PO HS PRN Spasms 01/27/22 09/03/22 History hydralazine 100 mg tablet 100 mg PO BID 11/20/22 06/02/24 History labetalol 100 mg tablet 100 mg PO BID 11/20/22 06/02/24 History nicardipine 20 mg capsule 20 mg PO BID 11/20/22 11/20/22 History pantoprazole 20 mg tablet,delayed 20 mg PO QDAY 11/20/22 11/20/22 History release paroxetine HCl 10 mg tablet 10 mg PO HS PRN Anxiety 11/20/22 11/20/22 History amiodarone 200 mg tablet 200 mg DAILY 06/02/24 06/02/24 History amiodarone 200 mg tablet mg 06/02/24 History nifedipine 60 mg tablet,extended 60 mg PO BID 06/02/24 06/02/24 History release 24 hr nifedipine 60 mg tablet,extended mg PO 06/02/24 History release 24 hr nifedipine 60 mg tablet,extended mg PO 06/02/24 History release 24 hr nifedipine 60 mg tablet,extended mg PO 06/02/24 History release 24 hr nifedipine 60 mg tablet,extended mg PO 06/02/24 History release 24 hr nifedipine 60 mg tablet,extended mg PO 06/02/24 History release 24 hr vitamin B complex-vitamin C-folic 0.8 tab PO DAILY 06/02/24 06/02/24 History acid 0.8 mg tablet (Shilpi-Janusz) vitamin B complex-vitamin C-folic tab 06/02/24 History acid 0.8 mg tablet (Shilpi-Janusz) vitamin B complex-vitamin C-folic tab 06/02/24 History acid 0.8 mg tablet (Shilpi-Janusz) vitamin B complex-vitamin C-folic tab 06/02/24 History acid 0.8 mg tablet (Shilpi-Janusz) vitamin B complex-vitamin C-folic tab 06/02/24 History acid 0.8 mg tablet (Shilpi-Janusz) vitamin B complex-vitamin C-folic tab 06/02/24 History acid 0.8 mg tablet (Shilpi-Janusz) vitamin B complex-vitamin C-folic tab 06/02/24 History acid 0.8 mg tablet (Shilpi-Janusz) vitamin B complex-vitamin C-folic tab 06/02/24 History acid 0.8 mg tablet (Shilpi-Janusz) vitamin B complex-vitamin C-folic tab 06/02/24 History acid 0.8 mg tablet (Shilpi-Janusz) vitamin B complex-vitamin C-folic tab 06/02/24 06/02/24 History acid 0.8 mg tablet (Shilpi-Janusz) Allergies Allergy/AdvReac Type Severity Reaction Status Date / Time gabapentin Allergy Intermediate RASH ALL Verified 06/02/24 04:19 OVER lisinopril Allergy Intermediate Rash Verified 06/02/24 04:19 tramadol Allergy Intermediate Redness of Verified 06/02/24 04:19 Skin olmesartan [From Benicar] Allergy Unknown Hypertensio Verified 06/02/24 04:19 n Penicillins AdvReac Severe Swelling Verified 06/02/24 04:19 of Lip/Tongue/Throat Visit Medications Acetaminophen (Acetaminophen 325 Mg Tablet) 650 mg PO Q6H PRN PRN Reason: Fever >100.3 or pain 1-3 Stop: 07/02/24 11:13 Last Admin: 06/02/24 11:30 Dose: 650 mg Alprazolam (Alprazolam 0.25 Mg Tablet) 0.5 mg PO BID PRN PRN Reason: anxiety Stop: 06/07/24 20:59 Amiodarone HCl (Amiodarone Hcl 200 Mg Tablet) 200 mg PO QDAY COUNT INCLUDES THE [facility] Stop: 07/03/24 08:59 Hydralazine HCl (Hydralazine Hcl 25 Mg Tablet) 100 mg PO BID COUNT INCLUDES THE [facility] Stop: 07/02/24 11:44 Last Admin: 06/02/24 12:50 Dose: 100 mg Labetalol HCl (Labetalol 100 Mg Tablet) 100 mg PO BID COUNT INCLUDES THE [facility] Stop: 07/02/24 11:44 Last Admin: 06/02/24 12:52 Dose: 100 mg Lactulose (Lactulose Syrup 20 Gm/30 Ml Udc) 10 gm PO TID COUNT INCLUDES THE [facility]; Protocol Stop: 07/02/24 13:59 Nifedipine (Nifedipine Xl 30 Mg Tabcr) 60 mg PO BID COUNT INCLUDES THE [facility] Stop: 07/02/24 11:44 Last Admin: 06/02/24 13:39 Dose: 60 mg Ondansetron HCl (Ondansetron Inj 2 Mg/Ml Inj 2 Ml) 4 mg IV Q6H PRN; Protocol PRN Reason: NAUSEA OR VOMITING Stop: 07/02/24 11:13 Oxycodone/Acetaminophen (Oxycodone/Apap 5/325 Tablet) 1 tab PO Q6H PRN PRN Reason: PAIN SCALE 4-6 (Moderate Stop: 06/07/24 11:13 Pantoprazole Sodium (Pantoprazole 40 Mg Tablet) 40 mg PO QDAY HOSSEIN Stop: 07/03/24 08:59 Paroxetine HCl (Paroxetine Hcl 10 Mg Tablet) 10 mg PO HS HOSSEIN Stop: 07/02/24 20:59 Psyllium Hydrophilic Mucilloid (Psyllium 1 Pkt Packet) 1 pkt PO BID PRN; Protocol PRN Reason: CONSTIPATION Stop: 07/02/24 11:54 Sennosides (Senna Tablet) 1 tab PO QDAY HOSSEIN; Protocol Stop: 07/02/24 11:59 Last Admin: 06/02/24 12:54 Dose: 1 tab Valsartan (Valsartan 80 Mg Tablet) 320 mg PO QDAY HOSSEIN Stop: 07/02/24 11:59 Discontinued Medications Alprazolam (Alprazolam 0.25 Mg Tablet) 0.5 mg PO BID HOSSEIN Stop: 06/07/24 20:59 Clonidine (Clonidine Hcl 0.1 Mg Tablet) 0.2 mg PO X1 ONE Stop: 06/02/24 08:19 Last Admin: 06/02/24 08:32 Dose: 0.2 mg Epoetin Russell (Epoetin Russell-Epbx Inj 10,000 Unit/Ml Vial (Non-Esrd)) 10,000 unit SC X1 ONE Stop: 06/02/24 11:01 Last Admin: 06/02/24 10:52 Dose: 10,000 unit Furosemide (Furosemide Inj 10 Mg/Ml 4ml Vial) 60 mg IVP X1 ONE Stop: 06/02/24 06:43 Last Admin: 06/02/24 06:58 Dose: 60 mg Hydralazine HCl (Hydralazine Inj 20 Mg/Ml Vial) 20 mg IV X1 ONE Stop: 06/02/24 05:37 Last Admin: 06/02/24 05:39 Dose: 20 mg Sodium Chloride (Ns) 500 mls @ 999 mls/hr IV .Q31M ONE Stop: 06/02/24 05:59 Last Infusion: 06/02/24 06:22 Dose: Infused Ceftriaxone Sodium/Dextrose (Rocephin/D5w 1gm Iv Premix) 50 mls @ 100 mls/hr IV X1 ONE Stop: 06/02/24 07:12 Last Admin: 06/02/24 07:05 Dose: Not Given Ceftriaxone Sodium/Dextrose (Rocephin/D5w 1gm Iv Premix) 50 mls @ 100 mls/hr IV X1 ONE Stop: 06/02/24 07:42 Last Infusion: 06/02/24 08:25 Dose: Infused Labetalol HCl (Labetalol Inj 5 Mg/Ml Vial 20 Ml) 10 mg IVP X1 ONE Stop: 06/02/24 06:43 Last Admin: 06/02/24 06:59 Dose: 10 mg Labetalol HCl (Labetalol Inj 5 Mg/Ml Vial 20 Ml) 10 mg IVP X1 ONE Stop: 06/02/24 07:16 Last Admin: 06/02/24 07:19 Dose: 10 mg Labetalol HCl (Labetalol Inj 5 Mg/Ml Vial 20 Ml) 10 mg IVP X1 ONE Stop: 06/02/24 07:48 Last Admin: 06/02/24 07:55 Dose: 10 mg Ondansetron HCl (Ondansetron Inj 2 Mg/Ml Inj 2 Ml) 4 mg IV X1 ONE Stop: 06/02/24 05:31 Last Admin: 06/02/24 05:37 Dose: 4 mg Assessment & Plan Plan The patient is a 79-year-old female with a previous medical history of end-stage renal disease (M/W/F), anxiety, status post CVA, A-fib, hypertension, currently on home hospice. She came to the ED with complaints of abdominal pain and constipation, last bowel movement 4 days ago. Patient is a bowel movement at the ED. She also reported mild headache and shortness of breath when lying down flat. She reported skipping her blood pressure medication in the previous day. Last dialysis session was on Sunday last week. #End-stage renal disease on dialysis Plan: ? Continue with dialysis as scheduled #Hypertensive urgency Patient has missed his blood pressure medication dose the previous day. Plan: ? Continue with home blood pressure medications. #Constipation Plan: ?Continue stool softeners ? Diet rich in fibers #History of anxiety #History of A-fib #Status post CVA Stable, no acute problems. Plan: ? Continue with current management Patient decided to go home and continue hospice care after the dialysis session. She is going to be discharged home from the ED. Plan of care discussed with attending Dr. Muller. Princess Cardenas MD, PGY 1. Attending Provider Attestation/Addendum Patient seen and examined with resident physician Dr. Sánchez. Note reviewed, agree with findings and recommendations. Patient currently seen on dialysis. Tolerating dialysis without any problems. Hemodialysis for 3 hours, 2K, ultrafiltration 2-3 L, Epogen 6000, no heparin ordered. Plan of care discussed with the dialysis nurse. Please see dialysis flowsheet for further details. Apparently patient currently on hospice. She declines to stay in the hospital for her hypertension. Wanted to go home and continue hospice services at home. She is going to follow-up with me in my office in 1 to 2 weeks.
== END 2024-06-02 14:40 | disposition left against medical advice (07) ==
LOC: SERX 07:06 → SERHOLD 11:46
PROVIDERS: Emergency Medicine; Emergency Provider Emergency Medicine; PCP Internal Medicine
DX: I13.2 Hypertensive heart and chronic kidney disease with heart failure and with stage 5 chronic kidney disease, or end stage renal disease (principal); N18.6 End stage renal disease; I16.1 Hypertensive emergency; K59.00 Constipation, unspecified; I48.91 Unspecified atrial fibrillation; F41.9 Anxiety disorder, unspecified; G89.29 Other chronic pain; K59.09 Other constipation; Z86.73 Personal history of transient ischemic attack (TIA), and cerebral infarction without residual deficits; Z99.2 Dependence on renal dialysis; Z79.891 Long term (current) use of opiate analgesic; Z53.29 Procedure and treatment not carried out because of patient's decision for other reasons
CPT/HCPCS: 36415; 71045; 74019; 80053; 81001; 83690; 83735; 83880; 84484; 85025; 85610; 85730; 87400; 87811; 93005; 96361; 96365; 96375; 96376; 99291; J0360; J0696; J1940; J2405; J3490; J7040; Q5106; A9270; J1920

== ENCOUNTER 2024-07-02 07:33 | Inpatient (IN) | payer OTHER, MEDICARE, SELFPAY ==
[2024-07-02] VITALS (79 sets, daily range): BP systolic 118–280; BP diastolic 61–128; PULSE 56–84; RESP 8–29; TEMP 36.2–37.1; O2SAT 77–99; BMI 19.3
--- NOTE | 2024-07-02 07:45 | EKG_ITS ---
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
--- NOTE | 2024-07-02 07:45 | XR_ITS ---
Examination: CT brain head without contrast. 2-D sagittal coronal reconstructions Date and time of exam:July 02, 2024 0841 hours Comparison June 24, 2023 INDICATIONS: Interval headaches today, secondary diagnosis uncontrolled hypertension, diagnosis history CVA right occipital lobe CTDI: vol (mGy):47.6 DLP: (mGycm):950 Technique: Multiple CT axial sections of the brain have been obtained, 5 mm slice thickness. Contrast has not been administered. 2-D sagittal, coronal reconstructions have been obtained Low dose protocols were performed. One or more of the following dose reduction techniques were used; automated exposure control, adjustment of the mA and/or KV according to patient size, use of iterative reconstruction technique. Findings: No significant ventricular enlargement. Again noted encephalomalacia in the right occipital lobe Intra-axial or extra-axial hemorrhage density is not seen. No mass effect or midline shift Basal cisterns are not remarkable. Fourth ventricle is midline. Cranial vault intact. Impression: No interval acute hemorrhage, mass effect or midline shift
--- NOTE | 2024-07-02 07:46 | XR_ITS ---
Examination: AP chest single view Technique one AP portable upright chest single view Exam date and time: July 02, 2024 0753 hours Comparison June 02, 2024 INDICATIONS: Shortness of breath today, extensive pneumonia ARDS on chest film June 02, 2024 FINDINGS: Extensive bilateral lung opacity Mild enlargement cardiac contour Ectatic thoracic aorta Moderate right pleural fluid Prominent osteopenia IMPRESSION: Extensive bilateral pneumonia and/or pulmonary edema, clinical correlation advised
--- NOTE | 2024-07-02 07:50 | PC.NURSE ---
PT ARRIVES VIA EMS FROM HOME WITH SEVERE HEADACHE. PT REPORTS THAT SHE HAS NOT TAKEN HER BP MEDICATIONS. FOR EMS BP WAS 200 PALP. WHEN EMS ARRIVED ON SCENE O2 WAS 77% ON RA, THEY PLACED HER ON 6L NC ANS SHE CAME UP TO 92%. PT IS DIALYSIS PT, GOES ON MWF, DUE TODAY. PT IS [facility] 15, NO NEURO DEFICITS AT THIS TIME OR STROKE LIKE SYMPTOMS. CALL PRO IN REACH.
--- NOTE | 2024-07-02 07:58 | EDNOTE_ITS ---
ED Headache RME/HPI General Chief Complaint: Headache Stated Complaint: HEADACHE Time Seen by Provider: 07/02/24 07:36 Arrival date/time: 07/02/24 07:33 RME / HPI RME / HPI Narrative: This section includes all my notes and documentations, including HPI, PE, and ED course. Dean Gamez MD HPI: 79-year-old female here with severe headache and worsening shortness of breath since yesterday. Doesn't feel ill with worsening cough or fever. No chest pain. No speech or visual impairment. No facial droop. No loss of power in the arms or legs. No numbness or tingling. No other complaints. ROS: All negative except as documented in HPI. Physical Exam: General: Alert and oriented. Appears uncomfortable with respiratory distress. Hypoxia noted requiring oxygen. Severely high BP noted. Eyes: Conjunctivae and lids clear. EOMI. PERRL. ENT: No nasal congestion. Pharynx normal. Tympanic membrane normal bilaterally. Neck: Supple. No carotid bruit. No JVD. Heart: RRR. Lungs: Mild respiratory distress. Good air movement with bilateral rails. Chest: No tenderness. Abdomen: Soft and nontender. Normal bowel sounds. No distension. No rebound or guarding. Back: No CVA tenderness. Legs: No clubbing, cyanosis, edema. Skin: Warm and dry. Neuro: Alert and oriented X 3. Cranial Nerves II-XII grossly intact. No peripheral motor deficits. I reviewed all diagnostic test results. My interpretation of the EKG is sinus rhythm with no acute ST?T changes. My interpretation of the chest x-ray is increased vascular congestion. My review of the head CT report is no acute findings. Blood tests remarkable for ESRD and BNP 1493. At this point, diagnoses include malignant hypertension and acute respiratory failure due to CHF. Treatment here included topical NTG, morphine 2 mg IV, IV metoprolol 2.5 mg IV, oral metoprolol 75 mg, Lasix 80 mg IV, and oral clonidine 0.4 mg. Only slight improvement of the BP noted. I discussed the case with Dr. Muller. About the presentation and exam and diagnostics and treatments here. And need of further care in the hospital. Recommended ICU admission, will consult. Recommended nicardipine drip and this was started. I discussed the case with ICU. About the presentation and exam and diagnostics and treatments here. And need of further care in the hospital. Will accept the patient. Dean Gamez MD Related Data Home Medications ?Medication ?Instructions ?Recorded ?Confirmed amiodarone 100 mg tablet 100 mg PO BID 06/03/21 09/03/22 vitamin B complex-vitamin C-folic 1 tab PO DAILY 06/03/21 11/20/22 acid 0.8 mg tablet (Shilpi-Janusz) alprazolam 0.5 mg tablet 0.5 mg PO BID PRN Anxiety 01/17/22 11/20/22 cyclobenzaprine 5 mg tablet 5 mg PO HS PRN Spasms 01/27/22 09/03/22 hydralazine 100 mg tablet 100 mg PO BID 11/20/22 06/02/24 labetalol 100 mg tablet 100 mg PO BID 11/20/22 06/02/24 nicardipine 20 mg capsule 20 mg PO BID 11/20/22 11/20/22 pantoprazole 20 mg tablet,delayed 20 mg PO QDAY 11/20/22 11/20/22 release paroxetine HCl 10 mg tablet 10 mg PO HS PRN Anxiety 11/20/22 11/20/22 amiodarone 200 mg tablet 200 mg DAILY 06/02/24 06/02/24 amiodarone 200 mg tablet mg 06/02/24 nifedipine 60 mg tablet,extended 60 mg PO BID 06/02/24 06/02/24 release 24 hr nifedipine 60 mg tablet,extended mg PO 06/02/24 release 24 hr nifedipine 60 mg tablet,extended mg PO 06/02/24 release 24 hr nifedipine 60 mg tablet,extended mg PO 06/02/24 release 24 hr nifedipine 60 mg tablet,extended mg PO 06/02/24 release 24 hr nifedipine 60 mg tablet,extended mg PO 06/02/24 release 24 hr vitamin B complex-vitamin C-folic 0.8 tab PO DAILY 06/02/24 06/02/24 acid 0.8 mg tablet (Shilpi-Janusz) vitamin B complex-vitamin C-folic tab 06/02/24 acid 0.8 mg tablet (Shilpi-Janusz) vitamin B complex-vitamin C-folic tab 06/02/24 acid 0.8 mg tablet (Shilpi-Janusz) vitamin B complex-vitamin C-folic tab 06/02/24 acid 0.8 mg tablet (Shilpi-Janusz) vitamin B complex-vitamin C-folic tab 06/02/24 acid 0.8 mg tablet (Shilpi-Janusz) vitamin B complex-vitamin C-folic tab 06/02/24 acid 0.8 mg tablet (Shilpi-Janusz) vitamin B complex-vitamin C-folic tab 06/02/24 acid 0.8 mg tablet (Shilpi-Janusz) vitamin B complex-vitamin C-folic tab 06/02/24 acid 0.8 mg tablet (Shilpi-Janusz) vitamin B complex-vitamin C-folic tab 06/02/24 acid 0.8 mg tablet (Shilpi-Janusz) vitamin B complex-vitamin C-folic tab 06/02/24 06/02/24 acid 0.8 mg tablet (Shilpi-Janusz) Previous Rx's ?Medication ?Instructions ?Recorded valsartan 320 1 tab PO QDAY #30 tabs 11/21/22 mg-hydrochlorothiazide 12.5 mg tablet diphenhydramine HCl 2 % topical 1 applic topical BID #103 mL 06/24/23 gel (Benadryl) glycerin (adult) 1 supp UT QDAY PRN constipation 11/03/23 #12 ea ferrous sulfate, dried 144 mg (45 144 mg PO BID #60 tabs 05/15/24 mg iron) tablet,extended release Allergies Allergy/AdvReac Type Severity Reaction Status Date / Time gabapentin Allergy Intermediate RASH ALL Verified 07/02/24 07:43 OVER lisinopril Allergy Intermediate Rash Verified 07/02/24 07:43 tramadol Allergy Intermediate Redness of Verified 07/02/24 07:43 Skin olmesartan [From Benicar] Allergy Unknown Hypertensio Verified 07/02/24 07:43 n morphine Allergy Hallucinati Verified 07/02/24 09:00 ng Penicillins AdvReac Severe Swelling Verified 07/02/24 07:43 of Lip/Tongue/Throat Review of Systems Review of Systems Systems Reviewed: All systems reviewed, normal except as documented Past Medical History Past Medical History NEUROLOGIC: Positive Neurological Disorders, Cerebrovascular Accident and Migraine CARDIAC: Positive Cardiac Disorders, Atrial Fibrillation, Heart Murmur, Congestive Heart Failure and Hypertension RESPIRATORY: Positive Asthma and Pneumonia GASTROINTESTINAL: Positive Gastrointestinal Disorders, Hepatitis, Gastrointestinal Bleed, Ulcerative Colitis, Ulcer and Gastroesophageal Reflux Disease GENITOURINARY: Positive Genitourinary Disorders, Renal Disease and Dialysis (MON/SUN/FRI) REPRODUCTIVE: Positive Previous Pregnancies MUSCULOSKELETAL: Positive Musculoskeletal Disorders and Arthritis ENT: Positive Cataracts and Macular Degeneration HEMATOLOGIC: Positive Blood Disorders and Anemia PSYCHO/SOCIAL: Positive Psychiatric Problems, Depression and Anxiety OTHER HISTORY: Positive Hospitalization, Shingles, Falls, Blood Transfusions, Chicken Pox, Measles and Mumps Family History FAMILY HISTORY: Positive Family Psychiatric Problems, Family Respiratory Disorders, Family Cardiac Disorders and Family Surgery Surgical History SURGICAL: Positive Tonsillectomy, Abdominal Surgery and Hysterectomy Social History SMOKING STATUS: Former smoker SECOND HAND EXPOSURE: No SUBSTANCE USE: does not use ED Exam Narrative Physical exam: As noted in HPI Course Quality Measures none Orders Category Date Time Status COVID-19 Screening Questionnaire NOW Care 07/02/24 11:46 Active Decision to Admit X1 Care 07/02/24 11:46 Completed EKG (ED ONLY) *Do not use* NOW Care 07/02/24 07:45 Completed Saline [Insert IV] NOW Care 07/02/24 07:[address] head/brain wo con Stat Exams 07/02/24 07:45 Completed EKG (ED Only) Stat Exams 07/02/24 07:45 Draft XR chest 1V portable Stat Exams 07/02/24 07:46 Completed ABG [Arterial Blood Gas] Stat Lab 07/02/24 08:22 Completed BNP [B-Type Natriuretic Peptide] Stat Lab 07/02/24 08:48 Completed CBC Stat Lab 07/02/24 08:48 Completed CMP [Comprehensive Metabolic Panel] Stat Lab 07/02/24 08:48 Completed Magnesium Stat Lab 07/02/24 08:48 Completed TSH [Thyroid Stimulating Hormone] Stat Lab 07/02/24 08:48 Completed Troponin I Stat Lab 07/02/24 08:48 Completed Furosemide Inj [Lasix Inj] Med 07/02/24 07:46 Discontinued 80 mg IVP X1 ONE Metoprolol Tartrate Inj [Lopressor Inj] Med 07/02/24 07:43 Discontinued 2.5 mg IVP X1 ONE Metoprolol Tartrate [Lopressor] Med 07/02/24 07:43 Discontinued 75 mg PO X1 ONE Morphine Inj Med 07/02/24 07:43 Discontinued 2 mg IVP X1 ONE Nicardipine/Ns 20Mg Ivpb [Cardene Ivpb] Med 07/02/24 10:31 Active 20 mg in 200 ml IV 5 mg/hr Nitroglycerin Oint 2% [Nitro-paste Oint 2%] Med 07/02/24 07:46 Discontinued 1 inch TOP X1 ONE Ondansetron Inj [Zofran Inj] Med 07/02/24 07:44 Discontinued 4 mg IV X1 ONE cloNIDine HCL [Catapres] Med 07/02/24 07:43 Discontinued 0.4 mg PO X1 ONE Vital Signs Vital signs: Vital Signs Temperature 98.4 F 07/02/24 07:37 Pulse Rate 84 07/02/24 07:37 Respiratory Rate 24 H 07/02/24 07:37 Blood Pressure 280/111 H 07/02/24 07:37 Pulse Oximetry (%) 95 07/02/24 07:37 Oxygen Delivery Method Nasal Cannula 07/02/24 07:37 Oxygen Flow Rate 6 07/02/24 07:37 Pulse ox is 96% on 6L nasal cannula which is adequate. Headache Patient data External records reviewed:: [facility] previous records (I reviewed ED visit on 06/02/2024) and EMS form Clinical information provided by:: patient and EMS Social determinants that could affect healthcare access:: none Patient has the following chronic illnesses:: CVA, AFib, ESRD on HD M/W/F, hypertension, chronic pain, chronic constipation, anxiety How is presenting disease/condition affected by chronic disease/condition?: exacerbated by Evaluation data The following diagnostics were reviewed and interpreted by me:: lab results, radiology exam(s) and EKG tracing(s) (My interpretation of the EKG is: Sinus rhythm (79 bpm) with nonspecific ST-T changes. Dean Gamez MD) Lab and/or radiology exams considered but not ordered:: None Interpretation Summary: Malignant hypertension and acute respiratory failure due to CHF Medications / Prescriptions Medications or Prescriptions considered but not ordered:: None Medication administrations:: Medication Administration History Nicardipine/Sodium Chloride (Cardene Ivpb) 20 mg in 200 mls @ 50 mls/hr IV .Q4H PRN; Protocol PRN Reason: PER PROTOCOL Stop: 08/01/24 10:30 Last Titration: 07/02/24 11:45 Dose: 3 mg/hr, 30 mls/hr Documented By: Titration: 07/02/24 11:35 Dose: 3 mg/hr, 30 mls/hr Documented By: Titration: 07/02/24 11:30 Dose: 10 mg/hr, 100 mls/hr Documented By: Titration: 07/02/24 11:11 Dose: 7.5 mg/hr, 75 mls/hr Documented By: Titration: 07/02/24 11:06 Dose: 7.5 mg/hr, 75 mls/hr Documented By: Admin: 07/02/24 11:01 Dose: 5 mg/hr, 50 mls/hr Documented By: TRAVIS Discontinued Medications Clonidine (Clonidine Hcl 0.1 Mg Tablet) 0.4 mg PO X1 ONE Stop: 07/02/24 07:44 Last Admin: 07/02/24 08:14 Dose: 0.4 mg Documented By: HOLLIE Furosemide (Furosemide Inj 10 Mg/Ml 4ml Vial) 80 mg IVP X1 ONE Stop: 07/02/24 07:47 Last Admin: 07/02/24 08:18 Dose: 80 mg Documented By: HOLLIE Metoprolol Tartrate (Metoprolol Tartrate Inj 1 Mg/Ml Amp 5 Ml) 2.5 mg IVP X1 ONE Stop: 07/02/24 07:44 Last Admin: 07/02/24 08:15 Dose: 2.5 mg Documented By: HOLLIE Metoprolol Tartrate (Metoprolol Tartrate 25 Mg Tablet) 75 mg PO X1 ONE Stop: 07/02/24 07:44 Last Admin: 07/02/24 08:18 Dose: 75 mg Documented By: HOLLIE Morphine Sulfate (Morphine Sulf Inj 10 Mg/Ml Vial) 2 mg IVP X1 ONE Stop: 07/02/24 07:44 Last Admin: 07/02/24 08:27 Dose: Not Given Documented By: TM Non-Admin Reason: Patient Refused Nitroglycerin (Nitroglycerin Oint 2% 1 Inch Packet) 1 inch TOP X1 ONE Stop: 07/02/24 07:47 Last Admin: 07/02/24 08:18 Dose: 1 inch Documented By: TM Ondansetron HCl (Ondansetron Inj 2 Mg/Ml Inj 2 Ml) 4 mg IV X1 ONE; Protocol Stop: 07/02/24 07:45 Last Admin: 07/02/24 08:14 Dose: 4 mg Documented By: TM Patient was given Clonidine, Lasix, Metropolol, Morphine, Nitro, Zofran, nicardipine drip Consultations Consultation(s) initiated? (list below): Yes Consultation #1 (Physician, Specialty, Details): I spoke with patients group therapy counselor Dr. Muller. Discussed patients HPI, ED course, exam findings, labs, and radiology results. She agrees to consult. Advise admitting to the ICU. Time: 10:30 Consultation #2 (Physician, Specialty, Details): I spoke with lead software architect Dr. Goodman. Discussed patients PMHx, HPI, ED course, exam findings, labs, and radiology results. Time: 11:40 Diagnosis Differential diagnosis headache: migraine, tension headache, subarachnoid hemorrhage, headache and other (CVA, brain tumor, DC, PE, CHF, pneumonia) Most likely diagnosis given after review of the tests above:: Malignant hypertension ESRD Acute on chronic respiratory failure with hypoxia Admission Indicated Admission indicated?: indicated Explain why admission is indicated or not indicated:: Malignant hypertension and acute respiratory failure Admission Request Was there a request for admission?: Yes Admission Attestation Admission request attestation: Discussed case with ICU service regarding admission. Discussed patients ED course, exam findings, labs, and radiology results. The Hospitalist [agrees,declines] to accept the patient for admission. Disposition Plan Disposition Plan: Admit Critical Care Time Critical Care Time Critical Care Time: Yes Total Critical Care Time (min.): 48 Attestation: Due to a high probability of clinically significant, life threatening deterioration, the patient required my highest level of preparedness to intervene emergently and I personally spent this critical care time directly and personally managing the patient. This critical care time included obtaining a history; examining the patient; ordering and review of studies; arranging urgent treatment with development of a management plan; evaluation of patient's response to treatment; frequent reassessment; and discussions with family and other providers. It was exclusive of separately billable procedures and treating other patients and teaching time. Dean Gamez MD Discharge Plan Plan Patient Disposition: Admit Acute Care w/in Hospital Prescriptions/Referrals Prescriptions/Med Rec: No Action amiodarone 100 mg Tablet 100 mg PO BID Shilpi-Janusz 0.8 mg tablet 1 tab PO DAILY alprazolam 0.5 mg Tablet 0.5 mg PO BID PRN (Reason: Anxiety) cyclobenzaprine 5 mg tablet 5 mg PO HS PRN (Reason: Spasms) paroxetine HCl 10 mg Tablet 10 mg PO HS PRN (Reason: Anxiety) nicardipine 20 mg Capsule 20 mg PO BID pantoprazole 20 mg Tablet,Delayed Release (Dr/Ec) 20 mg PO QDAY hydralazine 100 mg Tablet 100 mg PO BID labetalol 100 mg Tablet 100 mg PO BID valsartan-hydrochlorothiazide 320-12.5 mg Tablet 1 tab PO QDAY Qty: 30 0RF Benadryl 2 % gel 1 applic topical BID Qty: 103 0RF glycerin (adult) Suppository 1 supp UT QDAY PRN (Reason: constipation) Qty: 12 0RF amiodarone 200 mg tablet 200 mg DAILY Patient Comments: TAKE 1 TABLET BY MOUTH TWICE A DAY FOR THE HEART amiodarone 200 mg tablet Patient Comments: TAKE 1 TABLET BY MOUTH TWICE A DAY FOR THE HEART nifedipine 60 mg tablet extended release 24hr 60 mg PO BID nifedipine 60 mg tablet extended release 24hr PO nifedipine 60 mg tablet extended release 24hr PO nifedipine 60 mg tablet extended release 24hr PO nifedipine 60 mg tablet extended release 24hr PO nifedipine 60 mg tablet extended release 24hr PO Shilpi-Janusz 0.8 mg tablet 0.8 tab PO DAILY Patient Comments: TAKE ONE TABLET BY MOUTH EVERY DAY Shilpi-Janusz 0.8 mg tablet Patient Comments: TAKE ONE TABLET BY MOUTH EVERY DAY Shilpi-Janusz 0.8 mg tablet Patient Comments: TAKE ONE TABLET BY MOUTH EVERY DAY Shilpi-Janusz 0.8 mg tablet Patient Comments: TAKE ONE TABLET BY MOUTH EVERY DAY Shilpi-Janusz 0.8 mg tablet Shilpi-Janusz 0.8 mg tablet Shilpi-Janusz 0.8 mg tablet Patient Comments: TAKE ONE TABLET BY MOUTH EVERY DAY Shilpi-Janusz 0.8 mg tablet Patient Comments: TAKE ONE TABLET BY MOUTH EVERY DAY Shilpi-Janusz 0.8 mg tablet Patient Comments: TAKE ONE TABLET BY MOUTH EVERY DAY Shilpi-Janusz 0.8 mg tablet ferrous sulfate, dried 144 mg (45 mg iron) tablet extended release 144 mg PO BID Qty: 60 0RF Referrals: Jaylene Muller MD [Primary Care Provider] - In 1 week Problem List Clinical Impression: Malignant hypertension, End-stage renal disease (ESRD), Acute on chronic respiratory failure with hypoxia Patient/Caregiver Discharge Instructions Print Language: Guamanian Stand Alone Forms: [employer] Info., Patient Portal Info Letter
[2024-07-02] MEDS: ONDANSETRON INJ 2 MG/ML INJ 2 ML 4 MG IV (08:14)
[2024-07-02] MEDS: cloNIDine HCL 0.1 MG TABLET 0.4 MG PO (08:14)
[2024-07-02] MEDS: METOPROLOL TARTRATE INJ 1 MG/ML AMP 5 ML 2.5 MG IVP (08:15)
[2024-07-02] MEDS: FUROSEMIDE INJ 10 MG/ML 4ML VIAL 80 MG IVP (08:18)
[2024-07-02] MEDS: METOPROLOL TARTRATE 25 MG TABLET 75 MG PO (08:18)
[2024-07-02] MEDS: NITROGLYCERIN OINT 2% 1 INCH PACKET TOP (08:18)
[2024-07-02 08:25] LABS: Base Excess 6 (-3-3); HCO3 30 mEq/L (20-26); Inspired O2, VO2 Liters 3 L/min; O2 Saturation 92 % (91-98); PCO2 37 mmHg (32.0-48.0); pH, Arterial 7.51 (7.35-7.45)
[2024-07-02 08:32] LABS: Allen Test Not Performed; PO2 59 mmHg (83-108); Puncture Site Right Brachial
[2024-07-02 09:17] LABS: Basophils # (Auto) 0.1 Thou/mm3 (0.0-0.2); Basophils % (Auto) 1 % (0-2.5); Eosinophils # (Auto) 0.1 Thou/mm3 (0.0-0.5); Eosinophils % (Auto) 1 % (0-10); Hematocrit 32.7 % (36.0-46.0); Hemoglobin 10.8 g/dL (12.0-16.0); Immature Granulocytes % (Auto) 0 % (0-0); Immature Granulocytes Auto 0.05 Thou/mm3 (0.00-0.00); Lymphocytes # (Auto) 0.8 Thou/mm3 (1.0-4.8); Lymphocytes % (Auto) 6 % (10-50); Mean Corpuscular Hemoglobin 30.9 pg (25.0-35.0); Mean Corpuscular Volume 94 fL (80-100); Monocytes # (Auto) 0.8 Thou/mm3 (0.0-0.8); Monocytes % (Auto) 6 % (0-12); Neutrophils # (Auto) 10.6 Thou/mm3 (1.8-7.7); Neutrophils % (Auto) 86 % (37-80); Nucleated Red Blood Cell % 0 /100 WBC (0); Platelet Count 332 Thou/mm3 (140-440); RDW Standard Deviation 49.7 fL (36.4-46.3); Red Blood Count 3.49 Miln/mm3 (4.00-5.20); White Blood Count 12.3 Thou/mm3 (3.6-11.0)
[2024-07-02 09:33] LABS: Alanine Aminotransferase < 7 U/L (10-49); Albumin, Serum 4.6 gm/dL (3.4-4.8); Albumin/Globulin Ratio 1.4 (1.2-2.2); Alkaline Phosphatase 67 U/L (46-116); Anion Gap 10 (7-16); Aspartate Amino Transferase 21 U/L (0-34); BUN/Creatinine Ratio 9 Ratio (12-20); Bilirubin,Total 0.4 mg/dL (0.3-1.2); Blood Urea Nitrogen 43 mg/dL (9-23); Calcium 10.1 mg/dL (8.3-10.6); Calcium (Corrected) 10.1 mg/dL (8.5-10.1); Carbon Dioxide 27.8 mMol/L (20.0-31.0); Chloride 98 mMol/L (98-107); Creatinine (Component) 4.9 mg/dL (0.6-1.3); Estimated Creatinine Clearance 7.5 mL/min (>60); Globulin 3.3 gm/dL (2.3-3.5); Glucose 118 mg/dL (74-106); Magnesium 2.8 mg/dL (1.6-2.6); Osmolality,Calculated 283 (275-295); Potassium 5.2 mMol/L (3.4-5.1); Sodium 136 mMol/L (136-145); Total Protein 7.9 gm/dL (5.7-8.2); eGFR 9 See Note
[2024-07-02 09:48] LABS: B-Type Natriuretic Peptide 1493 pg/mL (0-100)
--- NOTE | 2024-07-02 11:00 | PC.NURSE ---
Removed Nitro paste from upper left chest prior to Nicardipine infusion.
[2024-07-02] MEDS: NICARDIPINE/NS 20MG IVPB 20 MG/200 ML BAG 50 MG IV ×2 (11:01→16:25)
--- NOTE | 2024-07-02 12:21 | PC.CC ---
Patient is a 79 year-old female who presents to the hospital for Headache. Ambar CORTEZ made [id number] contact with patient. ASW introduced self, role, and reason for visit. Patient appeared alert and oriented to self, location, and situation. Patient was pleasant and engaged in initial assessment. Patient cnfirmed information on demographics and reports to living at home with her Trey Mosley . Patient stated her medical decision maker should she not be able to make her own decisions would be her , Trey Mosley. Patient reports at home she ambulates with a wheelchair and walker. Patient has a caregiver named Oralia who is in process of being approved by [facility]. Patient also receives Home Health Services but does not know which company. Patient primary care provider is Jaylene Muller and pharmacy of [facility]. Patient reports she uses oxygen at home only at night 2L. Upon discharge patient plans to discharge back home. airfield services officer to follow up with any discharge needs.
--- NOTE | 2024-07-02 13:54 | PC.NURSE ---
to dialysis at this time, gave report to follow up clerk and updated on titration and sbp goal.
[2024-07-02 13:56] LABS: Hepatitis A Antibody IgM Non Reactive (Non React); Hepatitis B Core Antibody IgM Non Reactive (Non React); Hepatitis B Surface Ab Reactive (Immune) (Immune); Hepatitis B Surface Antigen Non Reactive (Non React); Hepatitis C Antibody Reactive (Non React)
--- NOTE | 2024-07-02 14:37 | ECHO_ITS ---
Transthoracic Echo Report Ht (in): 63 Wt (lb): 109 Exam Location: Portable Status: Emergency Chlorination Operator: Indications: Procedure Performed: BP: 242 / 95 HR: 63 Rhythm: Sinus Technical Quality: Fair MEASUREMENTS (Male / Female) Normal Values 2D ECHO LV Diastolic Diameter PLAX 4.8 cm 4.2 - 5.9 / 3.9 - 5.3 cm LV Systolic Diameter PLAX 3.0 cm IVS Diastolic Thickness 1.1 cm 0.6 - 1.0 / 0.6 - 0.9 cm LVPW Diastolic Thickness 1.1 cm 0.6 - 1.0 / 0.6 - 0.9 cm LV Relative Wall Thickness 0.5 LVOT Diameter 1.6 cm LA Volume Index 60.9 cm?/m? 16 - 28 cm?/m? Ascending Aorta Diameter 2.4 cm M-MODE Aortic Root Diameter MM 2.6 cm LA Systolic Diameter MM 3.5 cm LA Ao Ratio MM 1.3 AV Cusp Separation MM 2.0 cm DOPPLER AV Peak Velocity 217.0 cm/s AV Peak Gradient 18.8 mmHg AV Mean Gradient 9.0 mmHg AV Velocity Time Integral 53.3 cm LVOT Peak Velocity 150.0 cm/s LVOT Peak Gradient 9.0 mmHg LVOT Velocity Time Integral 35.2 cm LVOT Cardiac Index 3015.9 cm?/min?m? AV Area Cont Eq vti 1.3 cm? AV Area Cont Eq pk 1.4 cm? MV Peak Velocity 185.0 cm/s MV Peak Gradient 13.7 mmHg MV Mean Velocity 78.7 cm/s MV Mean Gradient 3.0 mmHg MV Area PHT 4.2 cm? MR Peak Velocity 706.0 cm/s MR Peak Gradient 199.4 mmHg Mitral E Point Velocity 156.0 cm/s Mitral A Point Velocity 56.8 cm/s Mitral E to A Ratio 2.7 LV E' Lateral Velocity 8.4 cm/s Mitral E to LV E' Lateral Ratio 18.6 LV E' Septal Velocity 4.2 cm/s Mitral E to LV E' Septal Ratio 36.8 TR Peak Velocity 357.7 cm/s TR Peak Gradient 51.2 mmHg FINDINGS Left Ventricle Normal left ventricular size, systolic function with no obvious regional wall motion abnormalities. Mild LVH. The ejection fraction is visually estimated at 60-65%. Right Ventricle The right ventricle is mildly dilated. systolic function. The estimated right ventricular systolic p ressure, 74 mmHg. RAP 15. Left Atrium The left atrium is severely dilated. Right Atrium The right atrium is normal by two-dimensional imaging, color flow and Doppler imaging with no struct ural abnormalities, no thrombus formation present. Atrial Septum The interatrial septum appears normal with no evidence of a shunt. Aorta The aorta is normal by two-dimensional, color flow and Doppler interrogation. Mitral Valve The mitral valve is mildly thicken. There is moderate mitral valve regurgitation. Aortic Valve The aortic valve is trileaflet. LCC mildly calcified. There is mild aortic valve regurgitation. Tricuspid Valve The tricuspid valve is normal by two-dimensional, color flow and Doppler interrogation. There is mil d to moderate tricuspid valve regurgitation. Pulmonic Valve There is no significant pulmonic valve regurgitation. Vessels The pulmonary artery appears normal. The inferior vena cava pulmonary and hepatic veins dilated. Pericardium The pericardium is normal by two-dimensional imaging. There is no significant pericardial effusion. Other Findings Pleural effusion present. CONCLUSIONS Normal LV size and function. Mild LVH. Estimated EF 60-65% RV mildly dilated. Normal RV function. Estimated RVSP 74mmHg LA severely dilated. The mitral valve is mildly thicken. Moderate MR. Aortic LCC is mildly calcified. Mild AI. Mild to moderate TR. Pleural effusion present. Nasreen Rowley (Electronically Signed) Final Date: 04 July 2024 12:05
--- NOTE | 2024-07-02 14:45 | PD.NEPHHP ---
Documentation for date of: 07/02/24 Meds Home Medications and Allergies Home Medications ?Medication ?Instructions ?Recorded ?Confirmed ?Type amiodarone 100 mg tablet 100 mg PO BID 06/03/21 09/03/22 History vitamin B complex-vitamin C-folic 1 tab PO DAILY 06/03/21 11/20/22 History acid 0.8 mg tablet (Shilpi-Janusz) alprazolam 0.5 mg tablet 0.5 mg PO BID PRN Anxiety 01/17/22 11/20/22 History cyclobenzaprine 5 mg tablet 5 mg PO HS PRN Spasms 01/27/22 09/03/22 History hydralazine 100 mg tablet 100 mg PO BID 11/20/22 06/02/24 History labetalol 100 mg tablet 100 mg PO BID 11/20/22 06/02/24 History nicardipine 20 mg capsule 20 mg PO BID 11/20/22 11/20/22 History pantoprazole 20 mg tablet,delayed 20 mg PO QDAY 11/20/22 11/20/22 History release paroxetine HCl 10 mg tablet 10 mg PO HS PRN Anxiety 11/20/22 11/20/22 History amiodarone 200 mg tablet 200 mg DAILY 06/02/24 06/02/24 History amiodarone 200 mg tablet mg 06/02/24 History nifedipine 60 mg tablet,extended 60 mg PO BID 06/02/24 06/02/24 History release 24 hr nifedipine 60 mg tablet,extended mg PO 06/02/24 History release 24 hr nifedipine 60 mg tablet,extended mg PO 06/02/24 History release 24 hr nifedipine 60 mg tablet,extended mg PO 06/02/24 History release 24 hr nifedipine 60 mg tablet,extended mg PO 06/02/24 History release 24 hr nifedipine 60 mg tablet,extended mg PO 06/02/24 History release 24 hr vitamin B complex-vitamin C-folic 0.8 tab PO DAILY 06/02/24 06/02/24 History acid 0.8 mg tablet (Shilpi-Janusz) vitamin B complex-vitamin C-folic tab 06/02/24 History acid 0.8 mg tablet (Shilpi-Janusz) vitamin B complex-vitamin C-folic tab 06/02/24 History acid 0.8 mg tablet (Shilpi-Janusz) vitamin B complex-vitamin C-folic tab 06/02/24 History acid 0.8 mg tablet (Shilpi-Janusz) vitamin B complex-vitamin C-folic tab 06/02/24 History acid 0.8 mg tablet (Shilpi-Janusz) vitamin B complex-vitamin C-folic tab 06/02/24 History acid 0.8 mg tablet (Shilpi-Janusz) vitamin B complex-vitamin C-folic tab 06/02/24 History acid 0.8 mg tablet (Shilpi-Janusz) vitamin B complex-vitamin C-folic tab 06/02/24 History acid 0.8 mg tablet (Shilpi-Janusz) vitamin B complex-vitamin C-folic tab 06/02/24 History acid 0.8 mg tablet (Shilpi-Janusz) vitamin B complex-vitamin C-folic tab 06/02/24 06/02/24 History acid 0.8 mg tablet (Shilpi-Janusz) Allergies Allergy/AdvReac Type Severity Reaction Status Date / Time gabapentin Allergy Intermediate RASH ALL Verified 07/02/24 07:43 OVER lisinopril Allergy Intermediate Rash Verified 07/02/24 07:43 tramadol Allergy Intermediate Redness of Verified 07/02/24 07:43 Skin olmesartan [From Benicar] Allergy Unknown Hypertensio Verified 07/02/24 07:43 n morphine Allergy Hallucinati Verified 07/02/24 09:00 ng Penicillins AdvReac Severe Swelling Verified 07/02/24 07:43 of Lip/Tongue/Throat Exam Vital Signs Temp Pulse Resp BP Pulse Ox O2 Del Method O2 Flow Rate 36.8 C 56 L 15 164/71 H 95 Nasal Cannula 3 07/02/24 14:03 07/02/24 14:30 07/02/24 14:03 07/02/24 14:30 07/02/24 14:03 07/02/24 11:23 07/02/24 14:03 Results: Labs 07/02/24 08:48 07/02/24 08:48 Labs: Short CBC 07/02/24 Range/Units 08:48 WBC 12.3 H (3.6-11.0) Thou/mm3 Hgb 10.8 L (12.0-16.0) g/dL Hct 32.7 L (36.0-46.0) % Plt Count 332 D (140-440) Thou/mm3 BMP 07/02/24 08:48 Sodium 136 Potassium 5.2 H Chloride 98 Carbon Dioxide 27.8 BUN 43 H Creatinine 4.9 H* Glucose 118 H Calcium 10.1 Cardiac Enzymes 07/02/24 Range/Units 08:48 Troponin I 0.020 (0.0-0.045) ng/mL Liver Function 07/02/24 Range/Units 08:48 Total Bilirubin 0.4 (0.3-1.2) mg/dL AST 21 (0-34) U/L ALT < 7 L (10-49) U/L Alkaline Phosphatase 67 (46-116) U/L Albumin 4.6 (3.4-4.8) gm/dL ABG Interpretation ABG results: 07/02/24 08:22 ABG pH 7.51 H ABG pCO2 37 ABG pO2 59 L* ABG HCO3 30 H ABG O2 Saturation 92 ABG Base Excess 6 H Quality Measures Quality Measures none
[2024-07-02] MEDS: EPOETIN ALFA-EPBX INJ 10,000 UNIT/ML VIAL (NON-ESRD) 10000 UNIT SC (15:26)
--- NOTE | 2024-07-02 15:38 | PC.NURSE ---
NURSE CONSULTANT CALLED TO SAY PTS NICARDIPINE GTT RAN OUT, THIS RN CALLED PHARMACY TO HAVE THEM DELIVER MEDICATION TO NURSE CONSULTANT IN DIALYSIS. NURSE CONSULTANT CALLED BACK BY THIS RN TO UPDATE THAT PHARMACY WILL BRING MED TO THEM.
--- NOTE | 2024-07-02 15:41 | ESCONSULT_ITS ---
History of Present Illness Data of Consult Consult date: 07/02/24 Requesting Physician: Glenn Goodman MD Primary Care Provider: Jaylene Muller MD Consult Narrative Reason for consult: ESRD, uncontrolled hypertension and need for emergency dialysis. History of present illness: Ms. Chen is a 79 yo female with past medical history of uncontrolled hypertension x years, ESRD secondary to hypertensive nephrosclerosis on HD MWF, GERD, AFib, CVA with rt sided residual deficits, extreme anxiety, macular degeneration, depression, recurrent anemia (last endoscopy showed AVMs-under the care of Dr. Gaffney) presented to the emergency department weakness and uncontrolled hypertension when she checked her blood pressure at home. Apparently patient's machine showed BP greater than 260 and she called paramedics and brought herself to the ER. Patient is on hospice at home although she do not recall. In the ER her blood pressure was extremely elevated with a systolic blood pressure 280. Patient seems to be confused per ER provider. She was started on nicardipine drip. Renal consultation requested for need for emergency dialysis. When I saw her in the emergency department- She seems to be more lucid. Back to baseline. Denied fevers, chills, sweats, cough, congestion, abdominal pain, or urinary symptoms.patient does use some oxygen at home.? Patient is a former smoker and quit 19 years ago. No reported missed dialysis sessions. Patient denied headache, dizziness, nausea, vomiting, or diarrhea. Please In the emergency department WBC 12.3, hemoglobin 10.8, platelets 332. Sodium 136, potassium 5.2, BUN 43, creatinine 4.9, blood sugar 118, LFTs normal, BNP 1493. TSH 2.1. Hep C positive. Patient admitted to ICU. ICU team at bedside. cc:: cc: Glenn Goodman MD Review of Systems Review of Systems Narrative Review of Systems: CONSTITUTIONAL: Patient denies any fever, chills. HEENT: Patient has visual problems CARDIOVASCULAR: Patient denies any chest pain, shortness of breath, swelling in the lower extremities. PULMONARY: Patient denies any shortness of breath, cough. GASTROINTESTINAL: Patient denies any abdominal pain, nausea, vomiting, diarrhea. Does have constipation problems GENITOURINARY: Patient denies any urinary symptoms of burning or frequency or hematuria, denies any form in the urine. SKIN: Denies any rash. MUSCULOSKELETAL: Back pain from arthritis NEUROLOGICAL: History of stroke. Patient stated she sometimes has word finding difficulty from the stroke. PSYCHIATRIC: Admits depression and anxiety Past Medical History Past Medical History NEUROLOGIC: Positive Neurological Disorders, Cerebrovascular Accident and Migraine; Negative Seizures CARDIAC: Positive Cardiac Disorders, Atrial Fibrillation, Heart Murmur, Congestive Heart Failure and Hypertension; Negative Hypercholesterolemia, Edema or Cellulitis RESPIRATORY: Positive Asthma and Pneumonia; Negative Chronic Obstructive Pulmonary Disease (COPD) or Cystic Fibrosis GASTROINTESTINAL: Positive Gastrointestinal Disorders, Hepatitis, Gastrointestinal Bleed, Ulcerative Colitis, Ulcer and Gastroesophageal Reflux Disease GENITOURINARY: Positive Genitourinary Disorders, Renal Disease and Dialysis REPRODUCTIVE: Positive Previous Pregnancies MUSCULOSKELETAL: Positive Musculoskeletal Disorders and Arthritis ENT: Positive Cataracts and Macular Degeneration ENDOCRINE: Negative Endocrine Disorders, Diabetes Mellitus Type 1 or Diabetes Mellitus Type 2 HEMATOLOGIC: Positive Blood Disorders and Anemia; Negative Sickle Cell Disease PSYCHO/SOCIAL: Positive Psychiatric Problems, Depression and Anxiety OTHER HISTORY: Positive Hospitalization, Shingles, Falls, Blood Transfusions, Chicken Pox, Measles and Mumps; Negative Autoimmune Disease, Blood Transfusion Reaction, Anesthesia Reactions, Organ Transplant, Chemotherapy, Radiation Therapy, MRSA, VRSA, Vancomycin- Resistant Enterococci or Cancer Family History FAMILY HISTORY: Positive Family Psychiatric Problems, Family Respiratory Disorders, Family Cardiac Disorders and Family Surgery; Negative Family Gastrointestinal Problems, Family Cancer or Family Anesthesia Reaction Surgical History SURGICAL: Positive Tonsillectomy, Abdominal Surgery and Hysterectomy; Negative Pacemaker, Endocrine Surgery, Ear Surgery, Nephrectomy, Joint Replacement, Neurologic Surgery or Organ Transplant Social History SMOKING STATUS: Never smoker SECOND HAND EXPOSURE: No SUBSTANCE USE: does not use Past Medical History Comments PMH COMMENT: PMH: Positive for end-stage renal disease (M/W/F), anxiety, status post CVA with left-sided deficits, atrial fibrillation, hypertension, CHF PSHx: Hysterectomy, dental surgery Allergies: Morphine, lisinopril, penicillin Social history: Patient able to participate by herself and ADLs, uses cane/wheelchair for mobilization -Smokin years in the past, less than 1 pack in 1 day -Alcohol Use: Occasional alcohol use in the past -Illicit Drug Use: Denies -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 Meds Home Medications and Allergies Home Medications ?Medication ?Instructions ?Recorded ?Confirmed ?Type amiodarone 100 mg tablet 100 mg PO BID 06/03/21 09/03/22 History vitamin B complex-vitamin C-folic 1 tab PO DAILY 06/03/21 11/20/22 History acid 0.8 mg tablet (Shilpi-Janusz) alprazolam 0.5 mg tablet 0.5 mg PO BID PRN Anxiety 01/17/22 11/20/22 History cyclobenzaprine 5 mg tablet 5 mg PO HS PRN Spasms 01/27/22 09/03/22 History hydralazine 100 mg tablet 100 mg PO BID 11/20/22 06/02/24 History labetalol 100 mg tablet 100 mg PO BID 11/20/22 06/02/24 History nicardipine 20 mg capsule 20 mg PO BID 11/20/22 11/20/22 History pantoprazole 20 mg tablet,delayed 20 mg PO QDAY 11/20/22 11/20/22 History release paroxetine HCl 10 mg tablet 10 mg PO HS PRN Anxiety 11/20/22 11/20/22 History amiodarone 200 mg tablet 200 mg DAILY 06/02/24 06/02/24 History amiodarone 200 mg tablet mg 06/02/24 History nifedipine 60 mg tablet,extended 60 mg PO BID 06/02/24 06/02/24 History release 24 hr nifedipine 60 mg tablet,extended mg PO 06/02/24 History release 24 hr nifedipine 60 mg tablet,extended mg PO 06/02/24 History release 24 hr nifedipine 60 mg tablet,extended mg PO 06/02/24 History release 24 hr nifedipine 60 mg tablet,extended mg PO 06/02/24 History release 24 hr nifedipine 60 mg tablet,extended mg PO 06/02/24 History release 24 hr vitamin B complex-vitamin C-folic 0.8 tab PO DAILY 06/02/24 06/02/24 History acid 0.8 mg tablet (Shilpi-Janusz) vitamin B complex-vitamin C-folic tab 06/02/24 History acid 0.8 mg tablet (Shilpi-Janusz) vitamin B complex-vitamin C-folic tab 06/02/24 History acid 0.8 mg tablet (Shilpi-Janusz) vitamin B complex-vitamin C-folic tab 06/02/24 History acid 0.8 mg tablet (Shilpi-Jaunsz) vitamin B complex-vitamin C-folic tab 06/02/24 History acid 0.8 mg tablet (Shilpi-Janusz) vitamin B complex-vitamin C-folic tab 06/02/24 History acid 0.8 mg tablet (Shilpi-Janusz) vitamin B complex-vitamin C-folic tab 06/02/24 History acid 0.8 mg tablet (Shilpi-Janusz) vitamin B complex-vitamin C-folic tab 06/02/24 History acid 0.8 mg tablet (Shilpi-Janusz) vitamin B complex-vitamin C-folic tab 06/02/24 History acid 0.8 mg tablet (Shilpi-Janusz) vitamin B complex-vitamin C-folic tab 06/02/24 06/02/24 History acid 0.8 mg tablet (Shilpi-Janusz) Allergies Allergy/AdvReac Type Severity Reaction Status Date / Time gabapentin Allergy Intermediate RASH ALL Verified 07/02/24 07:43 OVER lisinopril Allergy Intermediate Rash Verified 07/02/24 07:43 tramadol Allergy Intermediate Redness of Verified 07/02/24 07:43 Skin olmesartan [From Benicar] Allergy Unknown Hypertensio Verified 07/02/24 07:43 n morphine Allergy Hallucinati Verified 07/02/24 09:00 ng Penicillins AdvReac Severe Swelling Verified 07/02/24 07:43 of Lip/Tongue/Throat Exam Vital Signs Temp Pulse Resp BP Pulse Ox O2 Del Method O2 Flow Rate 36.7 C 61 20 184/71 H 98 Nasal Cannula 3 07/02/24 18:30 07/02/24 19:03 07/02/24 19:03 07/02/24 18:30 07/02/24 19:03 07/02/24 18:30 07/02/24 19:03 Narrative Exam GENERAL APPEARANCE: Skinny lady currently seen in emergency department. 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 No masses. Normal bowel sounds. AV fistula EXTREMITIES: No edema, clubbing or cyanosis. SKIN: Skin exam normal without any rashes MUSCULOSKELETAL: In bed PSYCHIATRIC: Has anxiety LYMPHATICS: No lymphadenopathy noted NEUROLOGICAL : Alert and awake. Mild left right-sided weakness Results Labs 07/03/24 04:20 07/02/24 08:48 Labs: Short CBC 07/02/24 Range/Units 08:48 WBC 12.3 H (3.6-11.0) Thou/mm3 Hgb 10.8 L (12.0-16.0) g/dL Hct 32.7 L (36.0-46.0) % Plt Count 332 D (140-440) Thou/mm3 BMP 07/02/24 08:48 Sodium 136 Potassium 5.2 H Chloride 98 Carbon Dioxide 27.8 BUN 43 H Creatinine 4.9 H* Glucose 118 H Calcium 10.1 Cardiac Enzymes 07/02/24 Range/Units 08:48 Troponin I 0.020 (0.0-0.045) ng/mL Liver Function 07/02/24 Range/Units 08:48 Total Bilirubin 0.4 (0.3-1.2) mg/dL AST 21 (0-34) U/L ALT < 7 L (10-49) U/L Alkaline Phosphatase 67 (46-116) U/L Albumin 4.6 (3.4-4.8) gm/dL ABG Interpretation ABG results: 07/02/24 08:22 ABG pH 7.51 H ABG pCO2 37 ABG pO2 59 L* ABG HCO3 30 H ABG O2 Saturation 92 ABG Base Excess 6 H Assessment & Plan Additional Assessment & Plan Additional Plan: Ms. Beth Chen is a 79-year-old female with past medical history of anxiety, CVA with left-sided residuals, ESRD dialysis Sunday, A-fib, and hypertension that presented to the ED with weakness, uncontrolled hypertension ESRD HD MWF Patient currently on dialysis. Tolerating dialysis without any problems. Hemodialysis for 3 hours, 2K, ultrafiltration 2-3 L, Epogen 6000, no heparin ordered. An hour and a half into dialysis-nurse called that patient needs to be dialyzed either in ICU or in the ER due to Cardene drip. Currently in room 309. patient asymptomatic. Did not want to restart dialysis. Will plan for dialysis tomorrow if needed. Had to terminate early. Plan of care discussed with the dialysis nurse. Please see dialysis flowsheet for further details. Avoid nephrotoxic agents Hypertensive emergency Currently on nicardipine drip Low back pain Do recall patient on hospice. Although she was not sure. channel worker to help. Recent admission she went home with hospice. A-fib Patient has history of chronic A-fib Currently sinus rhythm Eliquis was never given due to recurrent GI bleed Thank you Dr. Goodman for allowing me to participate in the care of of Ms. Chen
--- NOTE | 2024-07-02 16:11 | ESHP_ITS ---
<Statement entered by Kar Karimi DO - 07/02/24 22:51> Senior attestation: Patient was examined and case was reviewed with team including attending physician. Note reviewed, I agree with most of its contents and agree with the patient's care. In summary, patient is a 79 year old female with history of ESRD (M/W/F), anxiety, status post CVA with left-sided deficits, atrial fibrillation, hypertension and HFpEF who presented to the ED with concerns of blurring vision, headache, and hypertension, found to have systolic blood pressure of 280/111. Will be admitted to the ICU for hypertensive emergency and started on IV nicardipine drip with goal of 25% BP reduction in 24 hours, goal of sBP 210-220. After 24 hours, intend to wean off the nicardipine drip and transition to oral antihypertensive agent. Initial head CT negative for hemorrhage, will continue q2hour neurochecks and consider repeat CT imaging if any mentation or neurological changes are found. Patient noted to be hypertensive despite multiple antihypertensive medication regimen, will order aldosterone/renin levels for suspected hyperaldosteronism. Will consult nephrology for patient's history ESRD on HD, we appreciate recommendations. Will resume home paroxetine, complete med rec pending, will plan to start labetalol tomorrow once transitioning off nicardipine. Kar Karimi DO PGY-3 Documentation for date of: 07/02/24 HPI History of Present Illness Chief complaint: Blurring of vision, headache and elevated blood pressure History of present illness: Ms. Chen is a 79-year-old female with past medical history of end-stage renal disease (M/W/F), anxiety, status post CVA with left-sided deficits, atrial fibrillation, hypertension and CHF who presented to [facility] on 07/02/24 with a chief complaint of blurring of vision, occipital headache and elevated blood pressure. Patient reported that her symptoms started yesterday when she had blurring of vision and occipital headaches, checked her blood pressure at home was significantly elevated and she decided to call EMS, was brought in by ambulance to the ED blood pressure 280/111, was given clonidine 0.4 mg x 1, metoprolol tartrate 2.5 IVP and metoprolol tartrate 75 p.o. and patient's blood pressure did not improve, eventually patient started on nicardipine drip in the ICU, nephrology was consulted recommended ICU admission. Patient at bedside did not endorse any shortness of breath, increased requirement of supplemental oxygen from 2 L noted on presentation in ED, patient required 6 L via nasal cannula, was given Lasix 80 mg x 1 in ED. Patient otherwise denies any chest pain, shortness of breath, fever, sick contacts and recent travel. ED Course: ED Vitals: On presentation in ED BP 280/111, P84, RR 24, temp 98.4, O2 sat 95 on 6 L nasal cannula ED Labs: On presentation ED labs significant for WBC 12.3, RBC 3.49, hemoglobin 10.8, hematocrit 32.7, neutrophil 86%, pH 7.51 pCO2 59 ED Imaging:Head CT in ED shows no interval acute hemorrhage, mass effect or midline shift. Chest x-ray shows extensive bilateral pneumonia and/or pulmonary edema.EKG shows sinus rhythm ED Treatment:Patient was given clonidine 0.4 mg x 1, Zofran 4 mg x 1, metoprolol tartrate 2.5 IVP x 1, metoprolol tartrate 75 p.o. x 1, furosemide 80 mg IV push x 1, nitroglycerin topical x 1 and morphine sulfate 2 mg IVP x 1 in ED. patient will receive dialysis treatment today. Review of Systems Review of Systems Narrative Review of Systems: ROS: -CONSTITUTIONAL: Denies weight loss, fever and chills. -HEENT: Positive for blurring in vision and denies changes hearing. Positive for headache, occipital. -RESPIRATORY: Denies SOB and cough. -CV: Denies palpitations and Chest Pain. -GI: Positive for abdominal pain, nausea, vomiting, denies constipation and diarrhea. -: Denies dysuria and urinary frequency. -MSK: Denies myalgia and joint pain. -SKIN: Denies rash and pruritus. -NEUROLOGICAL: Positive for headache and denies syncope. -PSYCHIATRIC: Denies recent changes in mood. 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 Exam Vital Signs Temp Pulse Resp BP Pulse Ox O2 Del Method O2 Flow Rate 98.2 F 63 15 202/80 H 97 Nasal Cannula 3 07/02/24 16:05 07/02/24 16:05 07/02/24 16:05 07/02/24 16:00 07/02/24 16:05 07/02/24 11:23 07/02/24 16:05 Narrative Exam Physical Exam General: Awake and in no acute distress. Conversational and non-toxic appearing. Old frail lady. HEENT: Normocephalic, atraumatic, mucous membranes moist. Pupils reactive bilaterally. Heart: Regular rate and rhythm, no murmurs. Lungs: Clear to auscultation with no wheezing or crackles. Abdomen: Soft, nondistended, tenderness noted in epigastrium, positive bowel sounds. ?No guarding or rebound tenderness. Neurologic: Alert and oriented x3, no gross neurological deficit, and patient able to move all 4 extremities. Left-sided deficits noted. Extremities: No edema. Skin: No rash or ecchymoses. Results: Labs 07/03/24 04:20 07/02/24 08:48 Labs: Short CBC 07/02/24 Range/Units 08:48 WBC 12.3 H (3.6-11.0) Thou/mm3 Hgb 10.8 L (12.0-16.0) g/dL Hct 32.7 L (36.0-46.0) % Plt Count 332 D (140-440) Thou/mm3 BMP 07/02/24 08:48 Sodium 136 Potassium 5.2 H Chloride 98 Carbon Dioxide 27.8 BUN 43 H Creatinine 4.9 H* Glucose 118 H Calcium 10.1 Cardiac Enzymes 07/02/24 Range/Units 08:48 Troponin I 0.020 (0.0-0.045) ng/mL Liver Function 07/02/24 Range/Units 08:48 Total Bilirubin 0.4 (0.3-1.2) mg/dL AST 21 (0-34) U/L ALT < 7 L (10-49) U/L Alkaline Phosphatase 67 (46-116) U/L Albumin 4.6 (3.4-4.8) gm/dL ABG Interpretation ABG results: 07/02/24 08:22 ABG pH 7.51 H ABG pCO2 37 ABG pO2 59 L* ABG HCO3 30 H ABG O2 Saturation 92 ABG Base Excess 6 H Quality Measures Quality Measures none Advance care planning discussed with:: patient and spouse Medications Home Medications and Allergies Home Medications ?Medication ?Instructions ?Recorded ?Confirmed ?Type amiodarone 100 mg tablet 100 mg PO BID 06/03/21 09/03/22 History vitamin B complex-vitamin C-folic 1 tab PO DAILY 06/03/21 11/20/22 History acid 0.8 mg tablet (Shilpi-Janusz) alprazolam 0.5 mg tablet 0.5 mg PO BID PRN Anxiety 01/17/22 11/20/22 History cyclobenzaprine 5 mg tablet 5 mg PO HS PRN Spasms 01/27/22 09/03/22 History hydralazine 100 mg tablet 100 mg PO BID 11/20/22 06/02/24 History labetalol 100 mg tablet 100 mg PO BID 11/20/22 06/02/24 History nicardipine 20 mg capsule 20 mg PO BID 11/20/22 11/20/22 History pantoprazole 20 mg tablet,delayed 20 mg PO QDAY 11/20/22 11/20/22 History release paroxetine HCl 10 mg tablet 10 mg PO HS PRN Anxiety 11/20/22 11/20/22 History amiodarone 200 mg tablet 200 mg DAILY 06/02/24 06/02/24 History amiodarone 200 mg tablet mg 06/02/24 History nifedipine 60 mg tablet,extended 60 mg PO BID 06/02/24 06/02/24 History release 24 hr nifedipine 60 mg tablet,extended mg PO 06/02/24 History release 24 hr nifedipine 60 mg tablet,extended mg PO 06/02/24 History release 24 hr nifedipine 60 mg tablet,extended mg PO 06/02/24 History release 24 hr nifedipine 60 mg tablet,extended mg PO 06/02/24 History release 24 hr nifedipine 60 mg tablet,extended mg PO 06/02/24 History release 24 hr vitamin B complex-vitamin C-folic 0.8 tab PO DAILY 06/02/24 06/02/24 History acid 0.8 mg tablet (Shilpi-Janusz) vitamin B complex-vitamin C-folic tab 06/02/24 History acid 0.8 mg tablet (Shilpi-Janusz) vitamin B complex-vitamin C-folic tab 06/02/24 History acid 0.8 mg tablet (Shilpi-Janusz) vitamin B complex-vitamin C-folic tab 06/02/24 History acid 0.8 mg tablet (Shilpi-Janusz) vitamin B complex-vitamin C-folic tab 06/02/24 History acid 0.8 mg tablet (Shilpi-Janusz) vitamin B complex-vitamin C-folic tab 06/02/24 History acid 0.8 mg tablet (Shilpi-Janusz) vitamin B complex-vitamin C-folic tab 06/02/24 History acid 0.8 mg tablet (Shilpi-Janusz) vitamin B complex-vitamin C-folic tab 06/02/24 History acid 0.8 mg tablet (Shilpi-Janusz) vitamin B complex-vitamin C-folic tab 06/02/24 History acid 0.8 mg tablet (Shilpi-Janusz) vitamin B complex-vitamin C-folic tab 06/02/24 06/02/24 History acid 0.8 mg tablet (Shilpi-Janusz) Allergies Allergy/AdvReac Type Severity Reaction Status Date / Time gabapentin Allergy Intermediate RASH ALL Verified 07/02/24 07:43 OVER lisinopril Allergy Intermediate Rash Verified 07/02/24 07:43 tramadol Allergy Intermediate Redness of Verified 07/02/24 07:43 Skin olmesartan [From Benicar] Allergy Unknown Hypertensio Verified 07/02/24 07:43 n morphine Allergy Hallucinati Verified 07/02/24 09:00 ng Penicillins AdvReac Severe Swelling Verified 07/02/24 07:43 of Lip/Tongue/Throat Visit Medications Acetaminophen (Acetaminophen 325 Mg Tablet) 650 mg PO Q4HR PRN PRN Reason: Fever > 100.4 Stop: 08/01/24 14:25 Heparin Sodium (Porcine) (Heparin Sod Inj 5000 Unit/Ml Vial) 5,000 unit SC Q8HR HOSSEIN Stop: 07/16/24 21:59 Nicardipine/Sodium Chloride (Cardene Ivpb) 20 mg in 200 mls @ 50 mls/hr IV .Q4H PRN; Protocol PRN Reason: PER PROTOCOL Stop: 08/01/24 10:30 Ondansetron HCl (Ondansetron Inj 2 Mg/Ml Inj 2 Ml) 4 mg IV Q6HR PRN PRN Reason: NAUSEA OR VOMITING Stop: 08/01/24 14:25 Paroxetine HCl (Paroxetine Hcl 10 Mg Tablet) 10 mg PO QDAY HOSSEIN Stop: 08/02/24 08:59 Discontinued Medications Clonidine (Clonidine Hcl 0.1 Mg Tablet) 0.4 mg PO X1 ONE Stop: 07/02/24 07:44 Last Admin: 07/02/24 08:14 Dose: 0.4 mg Epoetin Russell (Epoetin Russell-Epbx Inj 10,000 Unit/Ml Vial (Non-Esrd)) 10,000 unit SC X1 ONE Stop: 07/02/24 15:01 Last Admin: 07/02/24 15:26 Dose: 10,000 unit Furosemide (Furosemide Inj 10 Mg/Ml 4ml Vial) 80 mg IVP X1 ONE Stop: 07/02/24 07:47 Last Admin: 07/02/24 08:18 Dose: 80 mg Nicardipine/Sodium Chloride (Cardene Ivpb) 20 mg in 200 mls @ 50 mls/hr IV .Q4H PRN; Protocol PRN Reason: PER PROTOCOL Stop: 08/01/24 10:30 Last Titration: 07/02/24 13:53 Dose: 3 mg/hr, 30 mls/hr Metoprolol Tartrate (Metoprolol Tartrate Inj 1 Mg/Ml Amp 5 Ml) 2.5 mg IVP X1 ONE Stop: 07/02/24 07:44 Last Admin: 07/02/24 08:15 Dose: 2.5 mg Metoprolol Tartrate (Metoprolol Tartrate 25 Mg Tablet) 75 mg PO X1 ONE Stop: 07/02/24 07:44 Last Admin: 07/02/24 08:18 Dose: 75 mg Morphine Sulfate (Morphine Sulf Inj 10 Mg/Ml Vial) 2 mg IVP X1 ONE Stop: 07/02/24 07:44 Last Admin: 07/02/24 08:27 Dose: Not Given Nitroglycerin (Nitroglycerin Oint 2% 1 Inch Packet) 1 inch TOP X1 ONE Stop: 07/02/24 07:47 Last Admin: 07/02/24 08:18 Dose: 1 inch Ondansetron HCl (Ondansetron Inj 2 Mg/Ml Inj 2 Ml) 4 mg IV X1 ONE; Protocol Stop: 07/02/24 07:45 Last Admin: 07/02/24 08:14 Dose: 4 mg Assessment & Plan Plan Assessment and plan: Summary: Ms. Chen is a 79-year-old female with past medical history of end- stage renal disease (M/W/F), anxiety, status post CVA with left-sided deficits, atrial fibrillation, hypertension and CHF who presented to [facility] on 07/02/24 with a chief complaint of blurring of vision, occipital headache and elevated blood pressure. Patient admitted to ICU for further management of hypertensive emergency. Neurological #Headache Complains of occipital headache high suspicion of headache being secondary to high blood pressure Started yesterday, does have history of migraines, uses sumatriptan per medication review A&O x 3, conversational. Plan: -Treat underlying hypertension -Tylenol as needed # History of CVA with left-sided deficits -Patient not on aspirin per medication review, pending med reconciliation #History of depression/anxiety -Patient currently on paroxetine daily, resumed Cardiology # Hypertensive emergency Patient presented with blood pressure of 280/111 to the ED, complained of blurring of vision and occipital headache.A&O x 3. Blood pressure did not improve with clonidine 0.4 mg, metoprolol tartrate IV and metoprolol tartrate oral in ED Eventually patient started on nicardipine drip in ED. Clonidine 0.2 mg, labetalol 100 mg twice daily, valsartan 320?hydrochlorothiazide 12.5 mg daily at home for blood pressure control, pending med reconciliation though Patient on Plan: -Titrate nicardipine drip with goal SBP 210 -Plan to reduce blood pressure by 25% in 24 hours -Complete med reconciliation -Will consider starting on oral anti-hypertensives in a.m. -Neurocheck every 2 hours -Consulted nephrology #Atrial fibrillation Patient on labetalol 100 mg twice daily at home Currently regular, rate controlled rhythm [id number] score 7 Plan: -Continue telemonitoring #Congestive heart failure Patient reports history of congestive heart failure Last echo done in 2022 shows ejection fraction 60 to 65% Currently does not appear fluid overloaded though chest x-ray does show pulmonary edema On 2 to 3 L oxygen at home Plan: -Strict EMIGDIO's -Daily weight -Ordered echo -Continue supplemental oxygen as needed Pulmonary #Chronic respiratory failure secondary to CHF Patient on 2 to 3 L oxygen at home Plan: -Continue supplemental oxygen as needed Gastrointestinal #GI prophylaxis not indicated, patient able to tolerate diet Renal/Genitourinary #End-stage renal disease on hemodialysis M/W/F #Hyperkalemia -Will resume dialysis in-patient -Consulted nephrology Endocrine Stable Hematology #Anemia of chronic disease Patient has end-stage renal disease, per chart review hemoglobin has been low Plan Monitor CBC in a.m. #Leukocytosis Possibly reactive will monitor CBC in a.m. DVT prophylaxis: Heparin GI prophylaxis: Not indicated Diet: Cardiac, renal Lines: Peripheral IV Code status: DNR/DNI Case discussed with Attending Dr. Goodman and Dr. Karimi PGY3. Mary Grace Carlson PGY1 Attending Provider Attestation/Addendum Patient seen and examined with above resident, Mary Grace Carlson MD. I agree with the findings, assessment, and plan of care as documented except for any differences below. Patient with longstanding history of end-stage renal disease on hemodialysis. Patient presenting with accelerated hypertension and failed to respond to multiple oral and IV medication administration in the emergency department. Patient with significant headache but no evidence of cardiac ischemia, pulmonary edema, or intracranial pathology. Patient with some blurry vision which may also be endorgan damage. Patient started on nicardipine drip with goal to obtain blood pressure around 220 as she started with a systolic blood pressure as high as 280 when she checked at home and upon arrival initially to the emergency department. Will initiate oral regimen as we also will perform workup for secondary hypertension that this is all likely related to her end-stage renal disease. Nephrology also notified and has been assisting with ongoing plan of care including plan for hemodialysis for optimization of fluid status. Total critical care time: I personally spent 35 minutes for review of physiologic parameters, directing plan of care throughout the day, coordination of care with other subspecialists, and counseling patient at bedside. This is exclusive of time spent teaching housestaff or performing any separate billable procedures. Patient continues require critical care services for accelerated hypertension with potential endorgan damage. Patient remains at high risk for morbidity and mortality warranting ongoing monitoring and care only available in the intensive care setting.
--- NOTE | 2024-07-02 16:22 | PC.NURSE ---
Dialysis discontinue with 1hr 15 mins left due to elevated BP and pt needs to be on Nicardipine drip/titrate. All blood returned. ER nurse Vandana DOYLE came to start the meds. Pt no complaints. Able to removed 1500 ml of fluid net. Post tx bp 193/75, HR 63, Temp 98.2, O2 sat 97% on O2 at 2L/min via nc. Pressure dressing on left upper arm AV fistula c/d/i no active bleeding noted. Pressure dressing needs to be remove around 1800. Report given to Vandana DOYLE.
--- NOTE | 2024-07-02 16:59 | PC.NURSE ---
Spoke w/hospice nurse aMrilynn, as pts called her because he thought pt could not come to hospital or be admitted while on hospice. wanted pt to come home and not be admitted. This RN called to confirm his wishes, updated him on pts situation, and high blood pressure, as well as the medication gtt she is is on to maintain a lower BP at this time, and patients risk of going home and having a stroke, with BP being so high. Pts updated that this RN and pt has spoken to social service worker Zara who spoke w/pt and told her that once pt is discharged from hospital pt can be resume hospice care. in agreement w/pt being admitted and resuming hospice care upon discharge. This RN called hospice nurse Marilynn back to update her. Per Marilynn, both the pt and her are currently in her care for hospice, however the pt has been declining mentally, calling ambulances for herself, forgetting that she is on hospice.
--- NOTE | 2024-07-02 17:14 | PC.NURSE ---
Spoke w/Mickie, to see if pt is able to be downgraded as pt is maxed out on dilt gtt. Provider to call this RN back.
--- NOTE | 2024-07-02 17:29 | PC.CC ---
Ambar CORTEZ and VIVEK Ross met with patient who confirmed information on Advance Health Care Directive. Patient continues to be DNR/DNI and is receiving Hospice with [facility], VIVEK Subramanian. VIVEK Ross will provide will be updating physician regarding this patient being DNR/DNI.
--- NOTE | 2024-07-02 17:37 | PC.NURSE ---
Pt put in as Full code, pt has advance directive that is DNR/DNI. table worker packager pulled this RN in to room w/pt to confirm, pt called who confirmed pt is to remain DNR/DNI. This RN called ICU spoke w/provider, who will confirm.
--- NOTE | 2024-07-02 19:28 | PC.NURSE ---
pt wanting to sign out ama, does not want to stay anymore. dr. kaur at bedside to speak with pt. awaiting icu doctor to come see pt.
--- NOTE | 2024-07-02 19:48 | PC.NURSE ---
DR. OWENS ICU RESIDENT DR AT BEDSIDE SPEAKING WITH PT.
[2024-07-02] MEDS: HYDROcodone/APAP 5/325 TABLET 1 TAB PO (19:59)
[2024-07-02] MEDS: ALPRazoLAM 0.25 MG TABLET 0.5 MG PO (20:00)
[2024-07-03] VITALS (63 sets, daily range): BP systolic 172–253; BP diastolic 76–158; PULSE 58–75; RESP 12–42; TEMP 36.2–37.3; O2SAT 78–99; BMI 18.1
[2024-07-03 05:49] LABS: Basophils # (Auto) 0.1 Thou/mm3 (0.0-0.2); Basophils % (Auto) 1 % (0-2.5); Eosinophils # (Auto) 0.3 Thou/mm3 (0.0-0.5); Eosinophils % (Auto) 4 % (0-10); Hematocrit 27.8 % (36.0-46.0); Immature Granulocytes % (Auto) 0 % (0-0); Immature Granulocytes Auto 0.02 Thou/mm3 (0.00-0.00); Lymphocytes # (Auto) 1.8 Thou/mm3 (1.0-4.8); Lymphocytes % (Auto) 19 % (10-50); Mean Corpuscular HGB Conc 32.4 g/dl (31.0-37.0); Mean Corpuscular Hemoglobin 30.7 pg (25.0-35.0); Mean Corpuscular Volume 95 fL (80-100); Monocytes % (Auto) 10 % (0-12); Neutrophils # (Auto) 6.2 Thou/mm3 (1.8-7.7); Neutrophils % (Auto) 66 % (37-80); Nucleated Red Blood Cell % 0 /100 WBC (0); Platelet Count 288 Thou/mm3 (140-440); RDW Standard Deviation 49.5 fL (36.4-46.3); Red Blood Count 2.93 Miln/mm3 (4.00-5.20); White Blood Count 9.4 Thou/mm3 (3.6-11.0)
[2024-07-03 06:42] LABS: Alanine Aminotransferase < 7 U/L (10-49); Albumin/Globulin Ratio 1.4 (1.2-2.2); Alkaline Phosphatase 54 U/L (46-116); Anion Gap 8 (7-16); Aspartate Amino Transferase 12 U/L (0-34); BUN/Creatinine Ratio 9 Ratio (12-20); Bilirubin,Total 0.3 mg/dL (0.3-1.2); Blood Urea Nitrogen 36 mg/dL (9-23); Calcium 9.3 mg/dL (8.3-10.6); Calcium (Corrected) 9.3 mg/dL (8.5-10.1); Carbon Dioxide 29.8 mMol/L (20.0-31.0); Chloride 99 mMol/L (98-107); Creatinine (Component) 3.9 mg/dL (0.6-1.3); Estimated Creatinine Clearance 8.9 mL/min (>60); Globulin 2.9 gm/dL (2.3-3.5); Glucose 107 mg/dL (74-106); Osmolality,Calculated 282 (275-295); Potassium 4.7 mMol/L (3.4-5.1); Sodium 137 mMol/L (136-145); Total Protein 6.9 gm/dL (5.7-8.2); eGFR 11 See Note
[2024-07-03 08:25] LABS: Misc Send Out* See Sep Rpt
[2024-07-03] MEDS: HYDROcodone/APAP 5/325 TABLET 1 TAB PO ×2 (08:36→20:21)
[2024-07-03] MEDS: PANTOPRAZOLE 40 MG TABLET PO (08:36)
[2024-07-03] MEDS: PARoxetine HCL 10 MG TABLET PO (08:36)
[2024-07-03] MEDS: ALPRazoLAM 0.25 MG TABLET PO ×2 (08:36→21:21)
[2024-07-03] MEDS: SENNA TABLET 1 TAB PO (08:45)
--- NOTE | 2024-07-03 08:48 | PC.PT ---
PT eval received. Upon chart review patient is under hospice care confirmed by RN. Will cancel PT eval.
[2024-07-03] MEDS: NIFEdipine XL 30 MG TABCR 60 MG PO ×2 (10:31→20:20)
[2024-07-03] MEDS: hydrALAZINE HCL 25 MG TABLET 100 MG PO ×2 (10:31→20:20)
[2024-07-03] MEDS: LABETALOL 100 MG TABLET PO ×2 (10:31→20:20)
[2024-07-03] MEDS: hydroCHLOROthiazide 12.5 MG CAPSULE PO (11:21)
[2024-07-03] MEDS: cloNIDine HCL (Patch) 0.1 MG/24 HR TDSY TOP (11:22)
[2024-07-03] MEDS: VALSARTAN 80 MG TABLET 320 MG PO (11:22)
--- NOTE | 2024-07-03 13:33 | PC.SS ---
MACHINE TOOL OPERATOR conducted bedside contact with the patient. Patient confirmed alignment with [facility]. Patient confirmed plan to re-establish hospice services upon discharge.
--- NOTE | 2024-07-03 13:41 | PC.SS ---
Update: Patient on 2L nasal cannula. Patient P.O. feeding. No skin issues present. Patient is not receiving pressor support.
[2024-07-03] MEDS: LIDOCAINE 5% 1 PATCH TOP (14:30)
[2024-07-03] MEDS: SPIRONOLACTONE 25 MG TABLET PO ×2 (16:09→20:20)
--- NOTE | 2024-07-03 16:11 | ESPR_ITS ---
<Statement entered by Kar Karimi DO - 07/03/24 21:39> Senior attestation: Patient was examined and case was reviewed with team including attending physician. Note reviewed, I agree with most of its contents and agree with the patient's care. Patient's blood pressure noted to improve to overnight before IV nicardipine drip was stopped, goal was reduction to ~ sBP 210 in first 24 hours. Today, blood pressure noted to worsen after drip was stopped, around 240s. Transitioned to patient's home antihypertensive regimen including labetalol 100 mg BID, hydralazine 100 mg BID, HCTZ 12.5mg qd, valsartan 320 mg qday, and nifedipine 60mg BID. Clonidine 0.1mg patch was placed. Blood pressures were noted to remain elevated around 220-230s, will add spironolactone 25 mg BID. At this time, patient's headache has resolved and visual symptoms have returned to baseline, which is blurry at baseline as patient endorses history of macular degeneration. Patient will be downgraded to medical floors, our team recommends increasing spironolactone or labetalol dose or considering alternative agent if hypertension persists. Renin and aldosterone levels were ordered to further investigate hyperaldosteronism contributing to hypertension as patient is noted to have hypertension despite multiple antihypertensive agents, aldosterone and renin levels pending. Patient noted to be asymptomatic at blood pressures > 220, if patient experiences symptomatic hypertensive emergency or if systolic BP worsens to > 250, advise nursing staff to contact primary team and/or ICU for further management. Kar Karimi DO PGY-3 Documentation for date of: 07/03/24 Subjective Subjective Interval history: Ms. Chen is a 79-year-old female with past medical history of end-stage renal disease (M/W/F), anxiety, status post CVA with left-sided deficits, atrial fibrillation, macular degeneration, hypertension and CHF who presented to [facility] on 07/02/24 with a chief complaint of blurring of vision, occipital headache and elevated blood pressure. Patient reported that her symptoms started yesterday when she had blurring of vision and occipital headaches, checked her blood pressure at home was significantly elevated and she decided to call EMS, was brought in by ambulance to the ED blood pressure 280/111, was given clonidine 0.4 mg x 1, metoprolol tartrate 2.5 IVP and metoprolol tartrate 75 p.o. and patient's blood pressure did not improve, eventually patient started on nicardipine drip in the ICU, nephrology was consulted recommended ICU admission. Patient at bedside did not endorse any shortness of breath, increased requirement of supplemental oxygen from 2 L noted on presentation in ED, patient required 6 L via nasal cannula, was given Lasix 80 mg x 1 in ED. Patient otherwise denies any chest pain, shortness of breath, fever, sick contacts and recent travel. 07/03/2024: Patient seen and examined at bedside, patient's blood pressure goal overnight was 210 for systolic blood pressure, patient started on p.o. home medication Labetalol 100 p.o. twice daily, hydralazine 100 twice daily, hydrochlorothiazide 12.5 daily, valsartan 320 mg p.o. daily, nifedipine 60 mg twice daily and clonidine 0.1 mg patch. Patient's blood pressure continued to remain high, patient started on spironolactone 25 mg p.o. twice daily. Patient today reported that she has history of macular degeneration and has blurred vision for the last 10 years. If patient's blood pressure continues to remain high, plan to increase spironolactone dose, consider minoxidil if blood pressure still uncontrolled. Nephrology on board, patient will be downgraded to the service of primary care physician Dr. Muller starting tomorrow. Allow permissive hypertension on telemetry for blood pressure to 250. Patient is stable for downgrade. Exam Vital Signs Temp Pulse Resp BP Pulse Ox O2 Del Method O2 Flow Rate 98.2 F 72 18 217/85 H 94 L Nasal Cannula 2 07/03/24 07:30 07/03/24 16:09 07/03/24 15:00 07/03/24 16:09 07/03/24 15:00 07/03/24 04:00 07/03/24 07:40 Narrative Exam Physical Exam General: Awake and in no acute distress. Conversational and non-toxic appearing. Old frail lady. HEENT: Normocephalic, atraumatic, mucous membranes moist. Pupils reactive bilaterally. Heart: Regular rate and rhythm, no murmurs. Lungs: Clear to auscultation with no wheezing or crackles. Abdomen: Soft, nondistended, tenderness noted in epigastrium, positive bowel sounds. ?No guarding or rebound tenderness. Neurologic: Alert and oriented x3, no gross neurological deficit, and patient able to move all 4 extremities. Left-sided deficits noted. Extremities: No edema. Skin: No rash or ecchymoses. Objective Labs 07/04/24 03:55 07/04/24 03:55 Labs: Laboratory Results - last 24 hr 07/03/24 04:20 WBC 9.4 RBC 2.93 L Hgb 9.0 L Hct 27.8 L MCV 95 MCH 30.7 MCHC 32.4 RDW Std Deviation 49.5 H Plt Count 288 D Neut % (Auto) 66 Lymph % (Auto) 19 [place] % (Auto) 10 Eos % (Auto) 4 Baso % (Auto) 1 Neut # (Auto) 6.2 Lymph # (Auto) 1.8 [place] # (Auto) 1.0 H Eos # (Auto) 0.3 Baso # (Auto) 0.1 Immature Gran # (Auto) 0.02 H Absolute Nucleated RBC 0.00 Immature Gran % 0 Nucleated RBC % 0 Sodium 137 Potassium 4.7 D Chloride 99 Carbon Dioxide 29.8 Anion Gap 8 BUN 36 H Creatinine 3.9 H D Estim Creat Clear Calc 8.9 L eGFR 11 L* BUN/Creatinine Ratio 9 L Glucose [address] Glu mg/dL Cancelled Hemoglobin A1c Cancelled Calculated Osmolality 282 Calcium 9.3 Corrected Calcium 9.3 Total Bilirubin 0.3 AST 12 ALT < 7 L Alkaline Phosphatase 54 Total Protein 6.9 Albumin 4.0 D Globulin 2.9 Albumin/Globulin Ratio 1.4 ABG Interpretation ABG results: 07/02/24 08:22 ABG pH 7.51 H ABG pCO2 37 ABG pO2 59 L* ABG HCO3 30 H ABG O2 Saturation 92 ABG Base Excess 6 H Quality Measures Quality Measures none Advance care planning discussed with:: patient and spouse Assessment & Plan Assessment Current Active Medications: Generic Name Dose Route Start Last Admin Trade Name Freq PRN Reason Stop Dose Admin Acetaminophen 650 mg 07/02/24 14:26 Acetaminophen 325 Mg Tablet PO 08/01/24 14:25 Q4HR PRN Fever > 100.4 Hydrocodone Bitart/Acetaminophen 1 tab 07/03/24 07:56 07/03/24 08:36 Hydrocodone/Apap 5/325 Tablet PO 07/08/24 07:55 1 tab Q6HR PRN Administration PAIN Alprazolam 0.25 mg 07/03/24 07:56 07/03/24 08:36 Alprazolam 0.25 Mg Tablet PO 07/08/24 07:55 0.25 mg BID PRN Administration ANXIETY Clonidine HCl 0.1 mg 07/03/24 10:00 07/03/24 11:22 Clonidine Hcl (Patch) 0.1 Mg/24 Hr Tdsy TOP 08/02/24 09:59 0.1 mg Q7D HOSSEIN Administration Heparin Sodium (Porcine) 5,000 unit 07/02/24 22:00 07/03/24 13:32 Heparin Sod Inj 5000 Unit/Ml Vial SC 07/16/24 21:59 Not Given Q8HR HOSSEIN Hydralazine HCl 100 mg 07/03/24 10:00 07/03/24 10:31 Hydralazine Hcl 25 Mg Tablet PO 08/02/24 09:59 100 mg BID HOSSEIN Administration Hydrochlorothiazide 12.5 mg 07/03/24 11:00 07/03/24 11:21 Hydrochlorothiazide 12.5 Mg Capsule PO 08/02/24 10:59 12.5 mg QDAY [facility] Administration Labetalol HCl 100 mg 07/03/24 10:00 07/03/24 10:31 Labetalol 100 Mg Tablet PO 08/02/24 09:59 100 mg BID HOSSEIN Administration Lidocaine 1 patch 07/03/24 14:05 07/03/24 14:30 Lidocaine 5% 1 Patch TOP 08/02/24 14:04 1 patch UD PRN Administration PAIN Nifedipine 60 mg 07/03/24 21:00 Nifedipine Xl 30 Mg Tabcr PO 08/02/24 20:59 BID HOSSEIN Ondansetron HCl 4 mg 07/02/24 14:26 Ondansetron Inj 2 Mg/Ml Inj 2 Ml IV 08/01/24 14:25 Q6HR PRN NAUSEA OR VOMITING Pantoprazole Sodium 40 mg 07/03/24 09:00 07/03/24 08:36 Pantoprazole 40 Mg Tablet PO 08/02/24 08:59 40 mg QDAY [facility]OS[facility] Administration Paroxetine HCl 10 mg 07/03/24 09:00 07/03/24 08:36 Paroxetine Hcl 10 Mg Tablet PO 08/02/24 08:59 10 mg QDAY [facility]OS[facility] Administration Sennosides 1 tab 07/03/24 09:00 07/03/24 08:45 Senna Tablet PO 08/02/24 08:59 1 tab QDAY [facility]OS[facility] Administration Protocol Spironolactone 25 mg 07/03/24 15:50 07/03/24 16:09 Spironolactone 25 Mg Tablet PO 08/02/24 15:49 25 mg BID HOSSEIN Administration Valsartan 320 mg 07/03/24 11:00 07/03/24 11:22 Valsartan 80 Mg Tablet PO 08/02/24 10:59 320 mg QDAY [facility] Administration Plan Summary: Ms. Chen is a 79-year-old female with past medical history of end- stage renal disease (M/W/F), anxiety, status post CVA with left-sided deficits, atrial fibrillation, hypertension and CHF who presented to [facility] on 07/02/24 with a chief complaint of blurring of vision, occipital headache and elevated blood pressure. Patient admitted to ICU for further management of hypertensive emergency. Neurological #Headache Complains of occipital headache high suspicion of headache being secondary to high blood pressure Started yesterday, does have history of migraines, uses sumatriptan per medication review A&O x 3, conversational. Plan: -Treat underlying hypertension -Tylenol as needed # History of CVA with left-sided deficits -Patient not on aspirin per medication review, pending med reconciliation #History of depression/anxiety -Patient currently on paroxetine daily, resumed # History of macular degeneration -Patient has blurring of vision at baseline, since the last 10 years Cardiology # Hypertensive emergency Patient presented with blood pressure of 280/111 to the ED, complained of worsening of blurring of vision and occipital headache.A&O x 3. Blood pressure did not improve with clonidine 0.4 mg, metoprolol tartrate IV and metoprolol tartrate oral in ED Eventually patient started on nicardipine drip in ED. Clonidine 0.2 mg, labetalol 100 mg twice daily, valsartan 320?hydrochlorothiazide 12.5 mg daily at home for blood pressure control, pending med reconciliation though Patient on Plan: -Discontinued nicardipine drip -Started home medications labetalol 100 p.o. twice daily, hydralazine 100 twice daily, hydrochlorothiazide 12.5 daily, valsartan 320 mg p.o. daily, nifedipine 60 mg twice daily and clonidine 0.1 mg patch. -Goal blood pressure 160 systolic till AM -Plan to reduce blood pressure by 25% in 24 hours -Started on Aldactone 25 mg twice daily -Neurocheck every 4 hours -Consulted nephrology #Atrial fibrillation Patient on labetalol 100 mg twice daily at home Currently regular, rate controlled rhythm [id number] score 7 Plan: -Continue telemonitoring #Congestive heart failure Patient reports history of congestive heart failure Last echo done in 2022 shows ejection fraction 60 to 65% Currently does not appear fluid overloaded though chest x-ray does show pulmonary edema On 2 to 3 L oxygen at home Plan: -Strict EMIGDIO's -Daily weight -Ordered echo, pending read -Continue supplemental oxygen as needed Pulmonary #Chronic respiratory failure secondary to CHF Patient on 2 to 3 L oxygen at home Plan: -Continue supplemental oxygen as needed Gastrointestinal #GI prophylaxis not indicated, patient able to tolerate diet Renal/Genitourinary #End-stage renal disease on hemodialysis M// #Hyperkalemia -Will resume dialysis in-patient -Consulted nephrology Endocrine Stable Hematology #Anemia of chronic disease Patient has end-stage renal disease, per chart review hemoglobin has been low Plan Monitor CBC in a.m. #Leukocytosis Possibly reactive will monitor CBC in a.m. DVT prophylaxis: Heparin GI prophylaxis: Not indicated Diet: Cardiac, renal Lines: Peripheral IV Code status: DNR/DNI Case discussed with Attending Dr. Goodman and Dr. Karimi PGY3. Mary Grace Carlson PGY1 Attending Provider Attestation/Addendum Patient seen and examined with above resident, Mary Grace Carlson MD. I agree with the findings, assessment, and plan of care as documented except for any differences below. Patient notably had already been enrolled in hospice and has longstanding history of multiple symptoms that she had described on arrival even with blood pressure in improved range. Nephrology aware of the patient and planning for hemodialysis on her normal schedule. Multiple agents were reinitiated by mouth with significant improvement in her blood pressure but she continues to have BP in the 220s to 240 range systolic. Patient was placed on Aldactone as well. She does not have any other acute symptoms at this point suggesting endorgan damage. Patient will be transition to telemetry sterling for ongoing management and optimization of BP prior to discharge back home on hospice care. Total critical care time: I personally spent 30 minutes for review of physiologic parameters, directing plan of care throughout the day, coordination of care with other subspecialists/specialties, and counseling patient at bedside. This is exclusive of time spent teaching housestaff or performing any separate billable procedures. Patient continues require critical care services for accelerated hypertension with potential for endorgan damage associated morbidity and mortality. Patient's condition warranted ongoing close management and care only available in the intensive care unit.
[2024-07-03] MEDS: ALPRazoLAM 0.25 MG TABLET 0.5 MG PO (16:15)
[2024-07-04] VITALS (48 sets, daily range): BP systolic 136–203; BP diastolic 64–120; PULSE 61–85; RESP 10–34; TEMP 36.4–37.2; O2SAT 84–97; BMI 18.1
[2024-07-04 04:42] LABS: Basophils # (Auto) 0.1 Thou/mm3 (0.0-0.2); Basophils % (Auto) 1 % (0-2.5); Eosinophils # (Auto) 0.6 Thou/mm3 (0.0-0.5); Eosinophils % (Auto) 5 % (0-10); Hematocrit 27.2 % (36.0-46.0); Immature Granulocytes % (Auto) 0 % (0-0); Immature Granulocytes Auto 0.05 Thou/mm3 (0.00-0.00); Lymphocytes # (Auto) 1.8 Thou/mm3 (1.0-4.8); Lymphocytes % (Auto) 13 % (10-50); Mean Corpuscular HGB Conc 33.1 g/dl (31.0-37.0); Mean Corpuscular Hemoglobin 31.3 pg (25.0-35.0); Mean Corpuscular Volume 94 fL (80-100); Monocytes # (Auto) 1.3 Thou/mm3 (0.0-0.8); Monocytes % (Auto) 10 % (0-12); Neutrophils # (Auto) 9.6 Thou/mm3 (1.8-7.7); Neutrophils % (Auto) 71 % (37-80); Nucleated Red Blood Cell % 0 /100 WBC (0); Platelet Count 326 Thou/mm3 (140-440); RDW Standard Deviation 49.5 fL (36.4-46.3); Red Blood Count 2.88 Miln/mm3 (4.00-5.20); White Blood Count 13.5 Thou/mm3 (3.6-11.0)
[2024-07-04 05:22] LABS: Alanine Aminotransferase < 7 U/L (10-49); Albumin, Serum 4.3 gm/dL (3.4-4.8); Albumin/Globulin Ratio 1.4 (1.2-2.2); Alkaline Phosphatase 61 U/L (46-116); Anion Gap 11 (7-16); Aspartate Amino Transferase 15 U/L (0-34); BUN/Creatinine Ratio 11 Ratio (12-20); Bilirubin,Total 0.4 mg/dL (0.3-1.2); Blood Urea Nitrogen 52 mg/dL (9-23); Calcium 9.9 mg/dL (8.3-10.6); Calcium (Corrected) 9.9 mg/dL (8.5-10.1); Carbon Dioxide 26.2 mMol/L (20.0-31.0); Chloride 99 mMol/L (98-107); Creatinine (Component) 4.8 mg/dL (0.6-1.3); Estimated Creatinine Clearance 7.2 mL/min (>60); Globulin 3.1 gm/dL (2.3-3.5); Glucose 107 mg/dL (74-106); Osmolality,Calculated 285 (275-295); Potassium 4.9 mMol/L (3.4-5.1); Sodium 136 mMol/L (136-145); Total Protein 7.4 gm/dL (5.7-8.2); eGFR 9 See Note
[2024-07-04] MEDS: ALPRazoLAM 0.25 MG TABLET PO ×2 (06:23→16:46)
[2024-07-04] MEDS: NIFEdipine XL 30 MG TABCR 60 MG PO (08:07)
[2024-07-04] MEDS: hydrALAZINE HCL 25 MG TABLET 100 MG PO (08:07)
[2024-07-04] MEDS: VALSARTAN 80 MG TABLET 320 MG PO (08:07)
[2024-07-04] MEDS: LABETALOL 100 MG TABLET PO (08:08)
[2024-07-04] MEDS: SENNA TABLET 1 TAB PO (08:08)
[2024-07-04] MEDS: PARoxetine HCL 10 MG TABLET PO (08:08)
[2024-07-04] MEDS: SPIRONOLACTONE 25 MG TABLET PO (08:08)
[2024-07-04] MEDS: hydroCHLOROthiazide 12.5 MG CAPSULE PO (08:08)
[2024-07-04] MEDS: PANTOPRAZOLE 40 MG TABLET PO (08:09)
--- NOTE | 2024-07-04 10:30 | PD.RESDS ---
Planned Discharge Date 07/04/24 DS: Providers Provider Date of admission: 07/02/24 14:26 Primary care physician: Jaylene Muller MD Admitting Provider: Glenn Goodman MD Attending Provider on Admission: Glenn Goodman MD Consults: 07/02/24 16:16 Consult to Nephrology Routine Comment: Consulting Provider: Jaylene Muller 07/02/24 20:57 Referral Respiratory Therapy Routine Comment: Attending Provider on DC: Zulema Slade MD Discharging Provider: Zulema Slade MD DS: Diagnosis Problem List Completed Was Problem List Reviewed/Reconciled?: Yes Hospital Course Hospital Course Hospital course: A 79-year-old female patient with past medical history of uncontrolled hypertension, ESRD on dialysis MWF, GERD, A-fib, history of CVA with right-sided residual deficit, hep C positive, severe anxiety, depression, macular degeneration, GI AVM malformation, came to the ED due to severe headache and mild shortness of breath for 1 day. Patient checked her blood pressure at home she noticed that the blood pressure was significantly elevated and it was greater than 260 for systolic and greater than 115 for diastolic. In evaluation patient was found to have blood pressure of 280/[address] scan was done for the brain and it was negative for any hemorrhage or mass effect, patient was oriented x 3, EKG was within normal limits, troponin was within normal limits, BNP was 1400, chest x-ray vascular congestion. Patient was admitted to the ICU and was started on nicardipine drip. Patient blood pressure down trended to 210 systolic nicardipine drip was discontinued and was resumed home medications labetalol, hydralazine, hydrochlorothiazide, valsartan, nifedipine was increased to 60 mg twice daily, and clonidine patch 0.1 mg, we added for the patient spironolactone 25 mg twice daily p.o. Her blood pressure continues to downtrend and patient was downgraded to telemetry and her last blood pressure was 180/95. For that reason patient was stable for discharge and follow-up in outpatient settings. Discharging diagnosis #Hypertension emergency #Pulmonary congestion #History of ESRD #History of A-fib #History of CVA #History of severe anxiety #History of chronic pain #History of hep C #History of diabetes mellitus #History of depression #History of macular degeneration #History of AV malformation - Patient's plan and care discussed with my attending, Dr. Renzo Slade MD Internal Medicine PGY-2 Status at Discharge Cognitive/behavioral status at discharge: stable Functional status at discharge: independent ambulation Overall status at discharge: patient is progressing back to baseline Time Spent with Patient Time attestation: Total time spent providing and/or coordinating discharge services: Time spent: Greater than 30 minutes Exam Vital Signs Temp Pulse Resp BP Pulse Ox O2 Del Method O2 Flow Rate 98.9 F 72 34 H 185/74 H 91 L Nasal Cannula 2 07/04/24 04:00 07/04/24 08:08 07/04/24 06:00 07/04/24 08:08 07/04/24 06:00 07/04/24 02:01 07/04/24 02:01 Narrative Exam GEN: AOx3, able to speak full sentences HEENT: NC/AC, oral mucosa moist, neck supple CVS: RRR, S1-S2 present, no murmurs appreciated RESP: CTAB GI: soft,non distended, non tender, NBS MSK: able to move all 4 limbs, no lower extremity edema SKIN: warm and dry MOTION 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 Discharge Plan Plan Patient Disposition: Home w/HOSPICE Patient condition on transfer: Stable and Benefits outweigh risks Care Plan Goals: ? Follow-up with your primary care physician within 1 week from discharge ? Follow-up with a neurologist within 1 week from discharge ? Decrease salt intake to less than 2 g/day ? Continue dialysis as per schedule ? It is very important to use your blood pressure medications as prescribed, changes within as below. ? In case of worsening of your symptoms please return to the ED as soon as possible Prescriptions/Referrals Prescriptions/Med Rec: New clonidine 0.1 mg/24 hr Patch Weekly 0.1 mg top Q7D 28 Days Qty: 4 0RF nifedipine 60 mg tablet extended release 60 mg PO BID Qty: 14 0RF spironolactone 25 mg tablet 25 mg PO BID 30 Days Qty: 60 0RF Continued Shilpi-Janusz 0.8 mg tablet 1 tab PO DAILY alprazolam 0.5 mg Tablet 0.5 mg PO BID PRN (Reason: Anxiety) cyclobenzaprine 5 mg tablet 5 mg PO HS PRN (Reason: Spasms) paroxetine HCl 10 mg Tablet 10 mg PO HS PRN (Reason: Anxiety) pantoprazole 20 mg Tablet,Delayed Release (Dr/Ec) 20 mg PO QDAY hydralazine 100 mg Tablet 100 mg PO BID labetalol 100 mg Tablet 100 mg PO BID valsartan-hydrochlorothiazide 320-12.5 mg Tablet 1 tab PO QDAY Qty: 30 0RF Benadryl 2 % gel 1 applic topical BID Qty: 103 0RF hydrocodone-acetaminophen 10-325 mg Tablet 1 tab PO BID PRN (Reason: Pain, Moderate) hydroxyzine HCl 25 mg Tablet 25 mg PO BID PRN (Reason: Itching) calcium acetate(phosphat bind) 667 mg Capsule 667 mg PO TID Discontinued amiodarone 100 mg Tablet 100 mg PO BID nifedipine 60 mg tablet extended release 24hr 60 mg PO BID clonidine 0.2 mg/24 hr Patch Weekly 0.2 mg TOPICAL TID Referrals: Jaylene Muller MD [Primary Care Provider] - Outpatient Orders (i.e. Home Health, Labs, Imaging): Hospice-Home Care (Routine) Location: None Selected Ordered By: Denisha Soni Patient/Caregiver Discharge Instructions Discharge Activity: activity as tolerated Education Materials: Hypertension and Kidney Disease, Hypertension Dc Print Language: Turkish Stand Alone Forms: Felisa Award Info., Patient Portal Info Letter Discharge Order Discharge Orders: Discharge (Routine); Ordered 07/04/24 Ordered By: Zulema Slade Quality Discharge Quality Measures VTE prophylaxis Attestestation MD Attestation Patient seen and examined with resident physician Dr. Poole. Note reviewed, agree with recommendations. Patient insisted on going home. Patient currently seen on dialysis. Tolerating dialysis without any problems. Hemodialysis for 3 hours, 2K, ultrafiltration 2-3 L, Epogen 6000, no heparin ordered. Plan of care discussed with the dialysis nurse. Please see dialysis flowsheet for further details. Postdialysis will be sent home with hospice.
--- NOTE | 2024-07-04 11:00 | CHAP ---
Patient was visited by the Spiritual Care Volunteer who prayed for them. (Volunteer was sin the hospital from 09:30-11:00)
[2024-07-04] MEDS: EPOETIN ALFA-EPBX INJ 10,000 UNIT/ML VIAL (ESRD) 10000 UNIT SC (14:22)
--- NOTE | 2024-07-04 14:42 | PC.SS ---
Update: Patient has been downgraded from ICU.
[2024-07-04] MEDS: HYDROcodone/APAP 5/325 TABLET 1 TAB PO (14:43)
--- NOTE | 2024-07-04 14:44 | PC.SS ---
RETAIL GROCER informed ICU resident of need for hospice order to re-establish patient with [facility] hospice upon discharge. RETAIL GROCER informed that patient has been downgraded. ICU resident to reach out to Dr. Strauss to submit hospice order.
--- NOTE | 2024-07-04 15:13 | PC.SS ---
Updated documentation submitted to [facility] via [employer] platform. Awaiting placement of hospice order. Once hospice order placed, documentation will need to be submitted to [facility] to resume services for the patient upon discharge.
--- NOTE | 2024-07-04 15:15 | PC.SS ---
Update: Patient receiving dialysis today.
--- NOTE | 2024-07-04 15:46 | PC.SS ---
MASH GRINDER confirmed with [facility] staff, Leticia ; submittal of hospice order is pending.
--- NOTE | 2024-07-04 18:49 | PC.NURSE ---
I contaccted [facility] to ask if any order or arrangements needed for discharge. Roz will be calling to findout if anything is required of us.
--- NOTE | 2024-07-04 20:41 | PC.NURSE ---
Patient states she is seeing someone running around the room, patient reoriented to time and place. Patient reports Oh I know I was just testing you before I left
--- NOTE | 2024-07-04 20:43 | PC.NURSE ---
Patient discharged with daughter at bedside. Pt GCS 15 alert and oriented, VS within acceptable limits per patient medical history and sent down with Fiordaliza LANTIGUA. Fiordaliza LANTIGUA reports successful transfer into private vehicle with daughter and saw them leave the hospital grounds.
[2024-07-09 06:31] LABS: Aldosterone* 16 ng/dL
== END 2024-07-04 20:14 | disposition hospice, home (50) | DRG 304 ==
LOC: SERX 11:48 → SERHOLD 14:45 → S2SX 20:08
PROVIDERS: Student in an Organized Health Care Education/Training Program; Admitting Provider Internal Medicine Critical Care Medicine; Emergency Provider Emergency Medicine; PCP Internal Medicine; Visit Provider Internal Medicine Critical Care Medicine
DX: I16.1 Hypertensive emergency (principal); N18.6 End stage renal disease; I50.32 Chronic diastolic (congestive) heart failure; I48.20 Chronic atrial fibrillation, unspecified; R51.9 Headache, unspecified; I13.2 Hypertensive heart and chronic kidney disease with heart failure and with stage 5 chronic kidney disease, or end stage renal disease; Z99.2 Dependence on renal dialysis; F41.9 Anxiety disorder, unspecified; I50.9 Heart failure, unspecified; E87.5 Hyperkalemia; D63.1 Anemia in chronic kidney disease; Z66 Do not resuscitate; D72.829 Elevated white blood cell count, unspecified; B19.20 Unspecified viral hepatitis C without hepatic coma; K21.9 Gastro-esophageal reflux disease without esophagitis; F32.A Depression, unspecified; I48.91 Unspecified atrial fibrillation; I69.30 Unspecified sequelae of cerebral infarction; E11.22 Type 2 diabetes mellitus with diabetic chronic kidney disease; G89.29 Other chronic pain; R09.89 Other specified symptoms and signs involving the circulatory and respiratory systems; H35.30 Unspecified macular degeneration
CPT/HCPCS: 36415; 36600; 70450; 71045; 80053; 80074; 82088; 82803; 83036; 83735; 83880; 84244; 84443; 84484; 85025; 86706; 87081; 93306; J1940; J2270; J2404; J2405; J3490; Q5105; Q5106; A9270

== ENCOUNTER 2024-08-14 10:32 | Emergency (ER) | payer OTHER, SELFPAY ==
[2024-08-14] VITALS (14 sets, daily range): BP systolic 107–169; BP diastolic 45–86; PULSE 55–71; RESP 12–24; TEMP 36.7–37.3; O2SAT 92–99; BMI 19.3
--- NOTE | 2024-08-14 11:32 | PD.EDADULT ---
ED General RME/HPI General Chief complaint: General Adult/Misc Complain Stated complaint: Low hemoglobin Time Seen by Provider: 08/14/24 11:12 Arrival date/time: 08/14/24 10:32 RME / HPI RME / HPI narrative: 79-year-old female patient came in for evaluation regarding request for blood transfusion. Patient will had hemodialysis yesterday, and was advised to come to the emergency room for blood transfusion due to hemoglobin of 7.0. Patient denies any vomiting blood blood in the stool or changes to color of the stool. Patient's only complaint is generalized body weakness. Related Data Home Medications ?Medication ?Instructions ?Recorded ?Confirmed vitamin B complex-vitamin C-folic 1 tab PO DAILY 06/03/21 07/03/24 acid 0.8 mg tablet (Shilpi-Janusz) alprazolam 0.5 mg tablet 0.5 mg PO BID PRN Anxiety 01/17/22 07/03/24 cyclobenzaprine 5 mg tablet 5 mg PO HS PRN Spasms 01/27/22 07/03/24 hydralazine 100 mg tablet 100 mg PO BID 11/20/22 07/03/24 labetalol 100 mg tablet 100 mg PO BID 11/20/22 07/03/24 pantoprazole 20 mg tablet,delayed 20 mg PO QDAY 11/20/22 07/03/24 release paroxetine HCl 10 mg tablet 10 mg PO HS PRN Anxiety 11/20/22 07/03/24 calcium acetate(phosphat bind) 667 667 mg PO TID 07/03/24 07/03/24 mg capsule hydrocodone 10 mg-acetaminophen 1 tab PO BID PRN Pain, Moderate 07/03/24 07/03/24 325 mg tablet hydroxyzine HCl 25 mg tablet 25 mg PO BID PRN Itching 07/03/24 07/03/24 Previous Rx's ?Medication ?Instructions ?Recorded valsartan 320 1 tab PO QDAY #30 tabs 11/21/22 mg-hydrochlorothiazide 12.5 mg tablet diphenhydramine HCl 2 % topical 1 applic topical BID #103 mL 06/24/23 gel (Benadryl) nifedipine 60 mg tablet,extended 60 mg PO BID #14 tabs 07/04/24 release Allergies Allergy/AdvReac Type Severity Reaction Status Date / Time gabapentin Allergy Intermediate RASH ALL Verified 07/02/24 07:43 OVER lisinopril Allergy Intermediate Rash Verified 07/02/24 07:43 tramadol Allergy Intermediate Redness of Verified 07/02/24 07:43 Skin olmesartan (From Benicar) Allergy Unknown Hypertensio Verified 07/02/24 07:43 n morphine Allergy Hallucinati Verified 07/02/24 09:00 ng Penicillins AdvReac Severe Swelling Verified 07/02/24 07:43 of Lip/Tongue/Throat Review of Systems Review of Systems Narrative Review of Systems: Review of system reviewed and within normal limits except mentioned in HPI ED Exam Narrative Physical exam: VITAL SIGNS: Reviewed. GENERAL APPEARANCE: Alert and interactive, follows commands, no acute distress, HEAD AND FACE: Non-traumatic. ENT: PERRL, pale conjunctiva, eyelid no trauma, Mucous membrane moist. NECK: Supple, nontender, no nuchal rigidity. CHEST: No tenderness, no crepitus, no paradoxical movement, no retractions. LUNGS: Clear, well ventilated, symmetric, no rales, no wheezing, no ronchi, no stridor, good breath sounds bilaterally. HEART: Regular rate, regular rhythm, no murmur, no gallops. ABDOMEN: Soft, positive bowel sounds, nondistended, no guarding, nontender, no rebound, no masses, RECTAL: Deferred. GENITAL: Deferred. NEUROLOGICAL: Gross motor function intact sensory function intact, Appropriate for age. MUSCULOSKELETAL: low back nontender, full range of motion. EXTREMITIES: Nontender, full range of motion. SKIN: Color pale, dry, no rash, no lacerations, no abrasions, no contusions. LYMPHATICS: Deferred. Course Quality Measures none Orders Category Date Time Status Transfuse,blood/blood products ONCE Care 08/14/24 11:31 Active CBC Stat Lab 08/14/24 12:32 Completed Comprehensive Metabolic Panel Stat Lab 08/14/24 12:32 [address] Review Blood Smear Stat Lab 08/14/24 12:32 Completed Red Blood Cells Stat Lab 08/14/24 12:32 Completed Type and Screen Stat Lab 08/14/24 12:32 Completed Acetaminophen Tab [Tylenol Tab] Med 08/14/24 19:26 Discontinued 650 mg PO X1 ONE HYDROcodone/APAP 10/325 [[place] 10/325] Med 08/14/24 17:33 Discontinued 1 tab PO X1 ONE Vital Signs Vital signs: Vital Signs Temperature 98.4 F 08/14/24 11:16 Pulse Rate 69 08/14/24 11:16 Respiratory Rate 14 08/14/24 11:16 Blood Pressure 107/45 L 08/14/24 11:16 Pulse Oximetry (%) 99 08/14/24 11:16 Oxygen Delivery Method Room Air 08/14/24 11:16 MDM Patient data External records reviewed:: None Clinical information provided by:: none Social determinants that could affect healthcare access:: none Patient has the following chronic illnesses:: History of anemia, ESRD How is presenting disease/condition affected by chronic disease/condition?: exacerbated by Evaluation data The following diagnostics were reviewed and interpreted by me:: lab results Lab and/or radiology exams considered but not ordered:: None Interpretation Summary: See results in MDM Medications Medications considered but not ordered:: None Medication administrations:: Medication Administration History Discontinued Medications Acetaminophen (Acetaminophen 325 Mg Tablet) 650 mg PO X1 ONE Stop: 08/14/24 19:27 Last Admin: 08/14/24 19:28 Dose: 650 mg Documented By: KG Hydrocodone Bitart/Acetaminophen (Hydrocodone/Apap 10/325 Tab) 1 tab PO X1 ONE Stop: 08/14/24 17:34 Last Admin: 08/14/24 17:35 Dose: 1 tab Documented By: CHAVEZ [place], Tylenol and 2 units packed RBC Consultations Consultation(s) initiated? (list below): No Diagnosis Differential Diagnosis ED Complaint MDM: Anemia, ESRD anemia of chronic disease Most likely diagnosis given after review of the tests above:: Anemia Admission Indicated Admission indicated?: not indicated Explain why admission is indicated or not indicated:: Stable Admission Request Was there a request for admission?: No Disposition Plan Disposition Plan: Discharge Discharge Attestation Discharge Attestation: The patient was given an opportunity to ask questions and understood the discharge instructions. Discharge instructions specifically effects, indications for sooner follow up or return to the emergency department, and the expected course of current diagnosis. Patient condition: Stable Medical Decision Making MDM Narrative MDM Narrative: 79-year-old female patient came in for evaluation regarding request for blood transfusion. Patient will had hemodialysis yesterday, and was advised to come to the emergency room for blood transfusion due to hemoglobin of 7.0. Patient denies any vomiting blood blood in the stool or changes to color of the stool. Patient's only complaint is generalized body weakness. CBC showed hemoglobin of 6.5, hematocrit of 19.7. CMP showed chronic kidney disease potassium is normal. Patient received 2 units of packed RBC. Patient tolerated blood transfusion. Patient appears nontoxic and hemodynamically stable. Patient discharged home and instructed to follow-up with primary care provider in 24 to 48 hours. Instructed to return to the emergency department immediately if worsening of symptoms Differential Diagnosis Differential Diagnosis: Anemia, ESRD anemia of chronic disease Lab Data 08/14/24 12:32 08/14/24 12:32 Labs: Lab Results 08/14/24 Range/Units 12:32 WBC 10.0 (3.6-11.0) Thou/mm3 RBC 2.11 L (4.00-5.20) Miln/mm3 Hgb 6.5 L* (12.0-16.0) g/dL Hct 19.7 L* (36.0-46.0) % MCV 93 (80-100) fL MCH 30.8 (25.0-35.0) pg MCHC 33.0 (31.0-37.0) g/dl RDW Std Deviation 60.4 H (36.4-46.3) fL Plt Count 397 D (140-440) Thou/mm3 Neut % (Auto) 75 (37-80) % Lymph % (Auto) 11 (10-50) % [place] % (Auto) 9 (0-12) % Eos % (Auto) 4 (0-10) % Baso % (Auto) 1 (0-2.5) % Neut # (Auto) 7.5 (1.8-7.7) Thou/mm3 Lymph # (Auto) 1.1 (1.0-4.8) Thou/mm3 [place] # (Auto) 0.9 H (0.0-0.8) Thou/mm3 Eos # (Auto) 0.4 (0.0-0.5) Thou/mm3 Baso # (Auto) 0.1 (0.0-0.2) Thou/mm3 Immature Gran # (Auto) 0.02 H (0.00-0.00) Thou/mm3 Absolute Nucleated RBC 0.00 (0.00-0.00) Thou/mm3 Immature Gran % 0 (0-0) % Nucleated RBC % 0 (0) /100 WBC Smear Path Review Sent to Pathologist Sodium 137 (136-145) mMol/L Potassium 5.0 (3.4-5.1) mMol/L Chloride 96 L (98-107) mMol/L Carbon Dioxide 30.2 (20.0-31.0) mMol/L Anion Gap 11 (7-16) BUN 24 H (9-23) mg/dL Creatinine 3.5 H (0.6-1.3) mg/dL Estim Creat Clear Calc 10.5 L (>60) mL/min eGFR 13 L* (60 - ) See Note BUN/Creatinine Ratio 7 L (12-20) Ratio Glucose 108 H (74-106) mg/dL Calculated Osmolality 278 (275-295) Calcium 10.1 (8.3-10.6) mg/dL Corrected Calcium 10.1 (8.5-10.1) mg/dL Total Bilirubin 0.2 L (0.3-1.2) mg/dL AST 14 (0-34) U/L ALT < 7 L (10-49) U/L Alkaline Phosphatase 55 (46-116) U/L Total Protein 7.4 (5.7-8.2) gm/dL Albumin 4.2 (3.4-4.8) gm/dL Globulin 3.2 (2.3-3.5) gm/dL Albumin/Globulin Ratio 1.3 (1.2-2.2) Blood Type O Negative Antibody Screen NEGATIVE Crossmatch See Detail Blood Bank Wristband ID Yes Discharge Plan Plan Patient Disposition: HOME (Self Care) Disposition Comment: Stable Prescriptions/Referrals Prescriptions/Med Rec: No Action Shilpi-Janusz 0.8 mg tablet 1 tab PO DAILY alprazolam 0.5 mg Tablet 0.5 mg PO BID PRN (Reason: Anxiety) cyclobenzaprine 5 mg tablet 5 mg PO HS PRN (Reason: Spasms) paroxetine HCl 10 mg Tablet 10 mg PO HS PRN (Reason: Anxiety) pantoprazole 20 mg Tablet,Delayed Release (Dr/Ec) 20 mg PO QDAY hydralazine 100 mg Tablet 100 mg PO BID labetalol 100 mg Tablet 100 mg PO BID valsartan-hydrochlorothiazide 320-12.5 mg Tablet 1 tab PO QDAY Qty: 30 0RF Benadryl 2 % gel 1 applic topical BID Qty: 103 0RF hydrocodone-acetaminophen 10-325 mg Tablet 1 tab PO BID PRN (Reason: Pain, Moderate) hydroxyzine HCl 25 mg Tablet 25 mg PO BID PRN (Reason: Itching) calcium acetate(phosphat bind) 667 mg Capsule 667 mg PO TID nifedipine 60 mg tablet extended release 60 mg PO BID Qty: 14 0RF Referrals: Jaylene Muller MD [Primary Care Provider] - In 1 week Problem List Clinical Impression: Anemia, ESRF (end stage renal failure) Patient/Caregiver Discharge Instructions Discharge Activity: activity as tolerated Education Materials: Anemia Additional Instructions: Thank you for the opportunity for serving you today. You are stable for discharged . You are advised to: Follow-up with your PCP in 1 to 2 days Return to ED for worsening of symptoms Print Language: Arabic Stand Alone Forms: Felisa Award Info., Patient Portal Info Letter PA/MANAGER QUALITY COMPLIANCE Supervising Physician KORIN/MANAGER QUALITY COMPLIANCE Supervising Physician: Md Joseph
[2024-08-14 13:07] LABS: Basophils # (Auto) 0.1 Thou/mm3 (0.0-0.2); Basophils % (Auto) 1 % (0-2.5); Eosinophils # (Auto) 0.4 Thou/mm3 (0.0-0.5); Eosinophils % (Auto) 4 % (0-10); Immature Granulocytes % (Auto) 0 % (0-0); Immature Granulocytes Auto 0.02 Thou/mm3 (0.00-0.00); Lymphocytes # (Auto) 1.1 Thou/mm3 (1.0-4.8); Lymphocytes % (Auto) 11 % (10-50); Mean Corpuscular Hemoglobin 30.8 pg (25.0-35.0); Mean Corpuscular Volume 93 fL (80-100); Monocytes # (Auto) 0.9 Thou/mm3 (0.0-0.8); Monocytes % (Auto) 9 % (0-12); Neutrophils # (Auto) 7.5 Thou/mm3 (1.8-7.7); Neutrophils % (Auto) 75 % (37-80); Nucleated Red Blood Cell % 0 /100 WBC (0); Platelet Count 397 Thou/mm3 (140-440); RDW Standard Deviation 60.4 fL (36.4-46.3); Red Blood Count 2.11 Miln/mm3 (4.00-5.20)
[2024-08-14 13:14] LABS: Hematocrit 19.7 % (36.0-46.0); Hemoglobin 6.5 g/dL (12.0-16.0)
[2024-08-14 13:24] LABS: Alanine Aminotransferase < 7 U/L (10-49); Albumin, Serum 4.2 gm/dL (3.4-4.8); Albumin/Globulin Ratio 1.3 (1.2-2.2); Alkaline Phosphatase 55 U/L (46-116); Anion Gap 11 (7-16); Aspartate Amino Transferase 14 U/L (0-34); BUN/Creatinine Ratio 7 Ratio (12-20); Bilirubin,Total 0.2 mg/dL (0.3-1.2); Blood Urea Nitrogen 24 mg/dL (9-23); Calcium 10.1 mg/dL (8.3-10.6); Calcium (Corrected) 10.1 mg/dL (8.5-10.1); Carbon Dioxide 30.2 mMol/L (20.0-31.0); Chloride 96 mMol/L (98-107); Creatinine (Component) 3.5 mg/dL (0.6-1.3); Estimated Creatinine Clearance 10.5 mL/min (>60); Globulin 3.2 gm/dL (2.3-3.5); Glucose 108 mg/dL (74-106); Osmolality,Calculated 278 (275-295); Sodium 137 mMol/L (136-145); Total Protein 7.4 gm/dL (5.7-8.2); eGFR 13 See Note
[2024-08-14 16:13] LABS: Path Review Blood Smear Sent to Pathologist
[2024-08-14] MEDS: HYDROcodone/APAP 10/325 TAB PO (17:35)
[2024-08-14] MEDS: ACETAMINOPHEN 325 MG TABLET 650 MG PO (19:28)
== END 2024-08-14 22:22 | disposition home or self-care (01) ==
PROVIDERS: Nurse Practitioner Family; Emergency Provider Emergency Medicine; PCP Internal Medicine
DX: N18.6 End stage renal disease (principal); D63.1 Anemia in chronic kidney disease
CPT/HCPCS: 36415; 36430; 80053; 85025; 86850; 86900; 86901; 86923; 99285; P9016; A9270

== ENCOUNTER 2024-08-25 10:25 | Inpatient (IN) | payer OTHER, MEDICARE, SELFPAY ==
[2024-08-25] VITALS (23 sets, daily range): BP systolic 158–203; BP diastolic 68–108; PULSE 64–78; RESP 14–20; TEMP 36.8–37.1; O2SAT 92–97; BMI 18.0
--- NOTE | 2024-08-25 11:16 | XR_ITS ---
Examination: Shoulder,left, 3 views Technique: Shoulder AP internal rotation, AP external rotation, Y view shoulder, 3 views Exam date and time :August 25, 2024 1216 hours INDICATIONS: Patient fell yesterday with injury to the shoulder, shoulder pain FINDINGS: Prominent osteopenia No shoulder fracture or dislocation No foreign body IMPRESSION: No fracture or shoulder dislocation
--- NOTE | 2024-08-25 11:16 | XR_ITS ---
Examination:Left hip AP, lateral, AP pelvis 3 views Technique: Hip AP lateral, AP pelvis, 3 views Exam date and time:August 25, 2024 1233 hours INDICATIONS: Patient fell yesterday with injury of the hip, hip pain. FINDINGS: Acute angulated displaced fracture femoral neck. Right hip bones of the pelvis intact Severe osteopenia IMPRESSION: Acute angulated displaced fracture humeral neck
--- NOTE | 2024-08-25 11:20 | XR_ITS ---
Examination: CT brain head without contrast. 2-D sagittal coronal reconstructions Date and time of exam:August 25, 2024 1129 hours Comparison July 02, 2024 INDICATIONS: Patient fell this morning with injury to the head, head pain CTDI: vol (mGy):47.6 DLP: (mGycm):3 Technique: Multiple CT axial sections of the brain have been obtained, 5 mm slice thickness. Contrast has not been administered. 2-D sagittal, coronal reconstructions have been obtained Low dose protocols were performed. One or more of the following dose reduction techniques were used; automated exposure control, adjustment of the mA and/or KV according to patient size, use of iterative reconstruction technique. Findings: No significant ventricular enlargement. Stable encephalomalacia right occipital lobe compared with July 02, 2024 Intra-axial or extra-axial hemorrhage density is not seen. No mass effect or midline shift Basal cisterns are not remarkable. Fourth ventricle is midline. Cranial vault intact. Large retention cysts in the maxillary antra Impression: Negative for acute hemorrhage, mass effect or midline shift
--- NOTE | 2024-08-25 11:20 | XR_ITS ---
Examination: CT cervical spine without contrast 2-D sagittal reconstructions 2-D coronal reconstructions 3-D reconstructions. Exam date and time:August 25, 2024 1129 hours INDICATIONS: Patient fell this morning with injury to the neck, neck pain CTDI:vol (mGy) 7.18 DLP: (mGycm) 141 Technique: Multiple 2 mm axial sections of the cervical spine have been obtained. The coronal and sagittal reconstructions have been obtained. 3-D reconstructions have been obtained. Low dose protocols were performed. One or more of the following dose reduction techniques were used; automated exposure control, adjustment of the mA and/or KV according to patient size, use of iterative reconstruction technique. Findings: Axial sections demonstrate intact base of the skull. C1 exhibit satisfactory relationship to the odontoid. No acute cervical vertebral body fracture seen. More pronounced anterolisthesis C4 on C5, 5 mm compared to 2.5 mm on July 17, 2022 Advanced degenerative disc disease C4-C5, C5-C6, C6-C7 Impression: No acute cervical fracture. More pronounced anterolisthesis C4 on C5, 5 mm on the current study, which may produce cervical spinal stenosis If there are focal neurologic findings relative to cervical spinal stenosis, consider MRI cervical spine without contrast follow-up
--- NOTE | 2024-08-25 11:21 | EDNOTE_ITS ---
ED General RME/HPI General Chief complaint: Hip Injury/Pain Stated complaint: LEFT HIP PAIN Time Seen by Provider: 08/25/24 10:49 Arrival date/time: 08/25/24 10:25 CC: Left hip pain left arm pain HPI status post fall unclear when the fall was initial report was yesterday, Sunday, patient states she thinks she fell on Sunday. Patient states she is on hospice. Localized pain is 4-5 on a 10 scale 9 when patient attempts to move her left leg. Does not recall if she had loss of consciousness or not. Related Data Home Medications ?Medication ?Instructions ?Recorded ?Confirmed vitamin B complex-vitamin C-folic 1 tab PO DAILY 06/0308/26/24 acid 0.8 mg tablet (Shilpi-Janusz) alprazolam 0.5 mg tablet 0.5 mg PO TID Anxiety 08/26/24 cyclobenzaprine 5 mg tablet 5 mg PO HS PRN Spasms 11/1307/03/24 hydralazine 100 mg tablet 100 mg PO BID 11/20/2208/26 labetalol 100 mg tablet 100 mg PO BID 11/20/2208/26 pantoprazole 20 mg tablet,delayed 20 mg PO QDAY 08/26/24 release paroxetine HCl 10 mg tablet 10 mg PO QDAY depression 0 11/20/22 08/26/24 calcium acetate(phosphat bind) 667 667 mg PO TID 07/0308/26/24 mg capsule hydrocodone 10 mg-acetaminophen 1 tab PO BID PRN Pain, Moderate 07/03/24 08/26/24 325 mg tablet hydroxyzine HCl 25 mg tablet 25 mg PO BID Itching 03/1908/26/24 acetaminophen 500 mg capsule 1,000 mg PO Q6H PRN fever or pain 08/26/24 08/26/24 acetaminophen 650 mg rectal 650 mg CA Q4H PRN fever 08/26/24 suppository amiodarone 100 mg tablet 100 mg PO BID 08/26/2408/26 bisacodyl 10 mg rectal suppository 10 mg CA Q72H PRN c onstipation 08/26/24 08/26/24 (Dulcolax (bisacodyl)) clonidine HCl 0.1 mg tablet 0.1 mg PO BID PRN hyperten aries 08/26/24 08/26/24 docusate sodium 50 mg capsule 100 mg PO HS PRN constip ation 08/26/24 08/26/24 fluocinonide-emollient 0.05 % 1 applic topical BID fun gal 08/26/24 08/26/24 topical cream (Fluocinonide-E) dermatitis to head hydrocodone 10 mg-acetaminophen 1 tab PO Q6H PRN pain 08/26/24 08/26/24 325 mg tablet hyoscyamine sulfate 0.125 mg/5 mL 1 ml PO .q2hrs PRN o ral secretions 08/26/24 08/26/24 oral elixir lidocaine 4 % topical patch 1 patch topical Q24H 08/2608/26/24 ondansetron 4 mg disintegrating 4 mg PO Q4H PRN nausea 08/26/24 08/26/24 tablet oxycodone-acetaminophen 10 mg-325 1 tab PO Q4H PRN odette n 08/26/24 08/26/24 mg tablet sennosides 8.6 mg-docusate sodium 1 tab-cap PO BID PRN constipation 08/26/24 08/26/24 50 mg tablet (Senna Plus) spironolactone 25 mg tablet 25 mg PO BID 08/26/2410/17 vitamin B complex-vitamin C-folic 1 tab PO QDAY 08/26/24 acid 0.8 mg tablet (Nephro Vitamins) Previous Rx's ?Medication ?Instructions ?Recorded valsartan 320 1 tab PO QDAY #30 tabs 11/21 mg-hydrochlorothiazide 12.5 mg tablet diphenhydramine HCl 2 % topical 1 applic topical BID # 103 mL 06/24/23 gel (Benadryl) nifedipine 60 mg tablet,extended 60 mg PO BID #14 tabs 07/04/24 release apixaban 2.5 mg tablet (Eliquis) 2.5 mg PO BID 1 month #60 tabs 08/29/24 Allergies Allergy/AdvReac Type Severity Reaction Status Date / Time gabapentin Allergy Intermediate RASH ALL Verified 07/02/24 07:43 OVER lisinopril Allergy Intermediate Rash Verified 07/02/24 07:43 tramadol Allergy Intermediate Redness of Verified 07/02/24 07:43 Skin olmesartan (From Benicar) Allergy Unknown Hypertensio Verified 07/02/24 07:43 n morphine Allergy Hallucinati Verified 07/02/24 09:00 ng Penicillins AdvReac Severe Swelling Verified 07/02/24 07:43 of Lip/Tongue/Throat Review of Systems Review of Systems Narrative Review of Systems: GEN: No fever, no chills, no weight loss EYES: No discharge, no visual changes, no pain HEENT: No ear pain, no congestion, no sore throat PULM: No shortness of breath, no cough, no congestion CV: No chest pain, no dyspnea on exertion, no palpitations GI: No nausea, no vomiting, no diarrhea, no pain, no constipation : No frequency, no urgency, no dysuria MUSC/SKEL: + joint pain, no back pain SKIN: No rash PSYCH: No hallucinations, no depression HEME/LYMPH: No easy bleeding or bruising tendencies NEURO: No weakness, no headache ED Exam Narrative Physical exam: [General: Deconditioned, appears not in any acute distress Head small forehead abrasion, otherwise normocephalic HEENT: Eyes pupils are PERRLA EOMs are intact mouth pink dry membranes uvula is midline swallow symmetrical within acceptable limits Neck is supple nontender Chest equal chest rise nontender to palpation Respiratory: Clear to auscultation no wheezes crackles or rubs CV: Rate rhythm is regular no murmurs rubs or clicks Abdomen is flat, soft nontender no masses positive bowel sounds all 4 quadrants Back: No CVA tenderness no spinous process tenderness from cervical spine thoracic and lumbar spine Skin: Intact no petechiae rash induration ulceration or crepitus Extremities: Obvious shortening of the left. Pain with palpation to the left shoulder. Leg cap refill less than 2 seconds moving all extremities weakly secondary to deconditioning. Neuro: Awake alert oriented x3 Glascow coma 15 no focal deficits] Course Course Course Narrative: Patient case discussed with Dr. Andrews, who agrees to accept the patient for orthopedic consultation. Patient's case then discussed with resident for Dr. Olguin who agrees to accept the patient for admission. Quality Measures VTE prophylaxis Orders Category Date Time Status EKG (ED ONLY) *Do not use* NOW Care 08/25/24 14:38 Completed Consult to Orthopedic Stat Cons 08/25/24 14:[address] cervical spine wo con Stat Exams 08/25/24 11:[address] head/brain wo con Stat Exams 08/25/24 11:20 Completed EKG (ED Only) Stat Exams 08/25/24 14:38 Draft XR chest 1V Stat Exams 08/25/24 14:38 Completed XR femur LT 2V Stat Exams 08/25/24 14:35 Completed XR hip LT w pelvis 2-3V Stat Exams 08/25/24 11:16 Completed XR shoulder LT min 2V Stat Exams 08/25/24 11:16 Completed CBC Stat Lab 08/25/24 11:50 Completed CMP [Comprehensive Metabolic Panel] Stat Lab 08/25/24 11:50 Completed PT [Prothrombin Time with INR] Stat Lab 08/25/24 11:20 Completed PTT [Partial Thromboplastin Time] Stat Lab 08/25/24 11:20 Completed fentaNYL INJ [Sublimaze Inj] Med 08/25/24 12:24 Discontinued 50 mcg IVP X1 ONE Vital Signs Vital signs: Vital Signs Temperature 98.7 F 08/25/24 10:43 Pulse Rate 73 08/25/24 10:43 Respiratory Rate 17 08/25/24 10:43 Blood Pressure 175/108 H 08/25/24 10:43 Pulse Oximetry (%) 92 L 08/25/24 10:43 Oxygen Delivery Method Nasal Cannula 08/25/24 10:43 Oxygen Flow Rate 3 08/25/24 10:43 [facility] Patient data External records reviewed:: [facility] previous records and EMS form Clinical information provided by:: patient and EMS Social determinants that could affect healthcare access:: none Patient has the following chronic illnesses:: ESRD hypertension CHF How is presenting disease/condition affected by chronic disease/condition?: u neffected by Evaluation data The following diagnostics were reviewed and interpreted by me:: lab results, radiology exam(s) and EKG tracing(s) Lab and/or radiology exams considered but not ordered:: CBC shows leukocytosis and H&H of 10.8 and a 33.5 respectively no thrombocytopenia INR is within and coags within acceptable limits Sodium 128 potassium 5.8 chloride of 90 BUN of 45 creatinine of 5.8 total bili of 0.[address] head and C-spine is interpreted by me read by radiology as negative for any acute finding. Shoulder x-ray is negative. EKG performed at 1510 shows a ventricular rate of 68 CA interval 82 QRS of 92 QTc of 422's of junctional rhythm and left axis deviation. Abnormal EKG. Interpretation Summary: Left femoral neck fracture Medications Medications considered but not ordered:: None Medication administrations:: Medication Administration History Discontinued Medications Acetaminophen (Acetaminophen 325 Mg Tablet) 650 mg PO Q6H PRN PRN Reason: Pain 1-3 and/or Fever >100.1 Stop: 09/24/24 15:30 Last Admin: 08/30/24 10:55 Dose: 650 mg Documented By: Admin: 08/29/24 21:11 Dose: 650 mg Documented By: Admin: 08/28/24 15:02 Dose: 650 mg Documented By: Admin: 08/28/24 05:45 Dose: 650 mg Documented By: Admin: 08/26/24 03:09 Dose: 650 mg Documented By: KATALINA Hydrocodone Bitart/Acetaminophen (Hydrocodone/Apap 5/325 Tablet) 1 tab PO Q6HR PRN PRN Reason: PAIN SCALE 4-10(Mod-Sev Stop: 09/02/24 17:35 Last Admin: 08/29/24 14:24 Dose: 1 tab Documented By: Admin: 08/29/24 08:12 Dose: 1 tab Documented By: Admin: 08/29/24 01:04 Dose: 1 tab Documented By: Admin: 08/28/24 19:31 Dose: 1 tab Documented By: Amiodarone HCl (Amiodarone Hcl 200 Mg Tablet) 100 mg PO BID [facility]OSSEIN Stop: 09/25/24 08:59 Last Admin: 08/30/24 09:06 Dose: 100 mg Documented By: Admin: 08/29/24 20:55 Dose: 100 mg Documented By: Admin: 08/29/24 11:47 Dose: 100 mg Documented By: Admin: 08/29/24 11:45 Dose: Not Given Documented By: BLUE Non-Admin Reason: Held for Dialysis Admin: 08/28/24 21:29 Dose: 100 mg Documented By: Admin: 08/28/24 08:21 Dose: 100 mg Documented By: Admin: 08/27/24 23:38 Dose: 100 mg Documented By: JENNIFER Comments: did not give medication earlier due to many bp medications Admin: 08/27/24 10:01 Dose: 100 mg Documented By: Admin: 08/26/24 21:27 Dose: 100 mg Documented By: Admin: 08/26/24 08:52 Dose: 100 mg Documented By: JAMES Apixaban (Apixaban 2.5 Mg Tablet) 2.5 mg PO BID HOSSEIN Stop: 09/27/24 08:59 Last Admin: 08/30/24 09:08 Dose: 2.5 mg Documented By: Admin: 08/29/24 20:55 Dose: 2.5 mg Documented By: Admin: 08/29/24 11:46 Dose: 2.5 mg Documented By: Admin: 08/29/24 11:44 Dose: Not Given Documented By: BLUE Non-Admin Reason: Held for Dialysis Admin: 08/28/24 21:29 Dose: 2.5 mg Documented By: Admin: 08/28/24 08:23 Dose: 2.5 mg Documented By: LILLIE Bisacodyl (Bisacodyl 10 Mg Supp) 10 mg CA X1 ONE; Protocol Stop: 08/29/24 09:31 Last Admin: 08/29/24 12:55 Dose: 10 mg Documented By: BLUE Clindamycin Phosphate (Clindamycin Phos Inj 150 Mg/Ml Vial 6 Ml) Confirm Administered Dose 900 mg .ROUTE .STK-MED ONE Stop: 08/27/24 15:57 Clonidine (Clonidine Hcl 0.1 Mg Tablet) 0.1 mg PO BID PRN PRN Reason: hypertension Stop: 09/25/24 22:59 Last Admin: 08/28/24 18:33 Dose: 0.1 mg Documented By: Admin: 08/26/24 23:54 Dose: 0.1 mg Documented By: MARIE Dextrose (Dextrose 50%-Water Inj 50 Ml Syringe) 50 ml IV X1 ONE Stop: 08/25/24 15:38 Last Admin: 08/25/24 16:40 Dose: 50 ml Documented By: LENA Diphenhydramine HCl (Diphenhydramine Inj 50 Mg/Ml Vial) 12.5 mg IV X1 ONE Stop: 08/27/24 17:51 Last Admin: 08/27/24 17:58 Dose: 12.5 mg Documented By: LEIDY Epoetin Russell (Epoetin Russell-Epbx Inj 10,000 Unit/Ml Vial (Esrd)) 10,000 unit SC X1 ONE Stop: 08/25/24 16:37 Last Admin: 08/25/24 20:24 Dose: 10,000 unit Documented By: ANDRE Epoetin Russell (Epoetin Russell-Epbx Inj 10,000 Unit/Ml Vial (Non-Esrd)) 10,000 unit SC X1 ONE Stop: 08/27/24 10:01 Last Admin: 08/27/24 10:13 Dose: 10,000 unit Documented By: ED Epoetin Russell (Epoetin Russell-Epbx Inj 10,000 Unit/Ml Vial (Esrd)) 10,000 unit SC X1 ONE Stop: 08/29/24 07:01 Last Admin: 08/29/24 10:54 Dose: 10,000 unit Documented By: Admin: 08/29/24 10:52 Dose: 10,000 unit Documented By: ANDRE Fentanyl Citrate (Fentanyl Cit Inj 50 Mcg/Ml Amp 2ml) 50 mcg IVP X1 ONE Stop: 08/25/24 12:25 Last Admin: 08/25/24 12:28 Dose: 50 mcg Documented By: DAY Fentanyl Citrate (Fentanyl Cit Inj 50 Mcg/Ml Amp 2ml) Confirm Administered Dose 100 mcg .ROUTE .STK-MED ONE Stop: 08/27/24 14:47 Fentanyl Citrate (Fentanyl Cit Inj 50 Mcg/Ml Amp 2ml) 50 mcg IV Q5M PRN PRN Reason: PAIN SCALE 4-6 (Moderate Stop: 08/27/24 18:42 Heparin Sodium (Porcine) (Heparin Sod Inj 5000 Unit/Ml Vial) 5,000 unit SC Q12HR HOSSEIN Stop: 09/08/24 20:59 Last Admin: 08/27/24 21:21 Dose: 5,000 unit Documented By: CM Co-signed By: RC Admin: 08/26/24 08:54 Dose: 5,000 unit Documented By: JAMES Co-signed By: CELESTINA Admin: 08/25/24 22:21 Dose: 5,000 unit Documented By: CTF Co-signed By: BERONICA Hydralazine HCl (Hydralazine Hcl 25 Mg Tablet) 100 mg PO BID HOSSEIN Stop: 09/25/24 10:44 Last Admin: 08/27/24 10:00 Dose: 100 mg Documented By: Admin: 08/26/24 21:26 Dose: 100 mg Documented By: Admin: 08/26/24 11:51 Dose: 100 mg Documented By: JAMES Hydralazine HCl (Hydralazine Inj 20 Mg/Ml Vial) 10 mg IV X1 ONE Stop: 08/27/24 05:20 Last Admin: 08/27/24 05:45 Dose: 10 mg Documented By: MARIE Hydralazine HCl (Hydralazine Hcl 25 Mg Tablet) 100 mg PO TID HOSSEIN Stop: 09/26/24 13:59 Last Admin: 08/30/24 05:10 Dose: 100 mg Documented By: Admin: 08/29/24 21:11 Dose: 100 mg Documented By: Admin: 08/29/24 14:24 Dose: 100 mg Documented By: Admin: 08/29/24 05:20 Dose: 100 mg Documented By: Admin: 08/28/24 21:31 Dose: 100 mg Documented By: Admin: 08/28/24 13:44 Dose: 100 mg Documented By: Admin: 08/28/24 05:50 Dose: Not Given Documented By: JENNIFER Non-Admin Reason: Vital Signs Admin: 08/27/24 21:18 Dose: 100 mg Documented By: Admin: 08/27/24 13:55 Dose: 100 mg Documented By: FLORENCIO Hydromorphone HCl (Hydromorphone Inj 2 Mg/Ml Vial) 0.25 mg IVP Q2H PRN PRN Reason: Pain 7-10 Stop: 08/30/24 15:30 Last Admin: 08/26/24 22:45 Dose: 0.25 mg Documented By: Admin: 08/26/24 16:42 Dose: 0.25 mg Documented By: Admin: 08/26/24 04:58 Dose: 0.25 mg Documented By: Admin: 08/25/24 18:20 Dose: 0.25 mg Documented By: Admin: 08/25/24 16:12 Dose: 0.25 mg Documented By: LENA Hydromorphone HCl (Hydromorphone Hcl 2 Mg Tablet) 2 mg PO Q3HR PRN PRN Reason: Pain 4-10 Stop: 09/03/24 14:31 Last Admin: 08/29/24 16:42 Dose: 2 mg Documented By: BLUE Hydromorphone HCl (Hydromorphone Hcl 2 Mg Tablet) 2 mg PO X1 ONE Stop: 08/29/24 17:39 Last Admin: 08/29/24 17:48 Dose: 2 mg Documented By: BLUE Hydroxyzine HCl (Hydroxyzine Hcl 25 Mg Tablet) 25 mg PO BID [facility] Stop: 09/27/24 10:14 Last Admin: 08/30/24 09:06 Dose: 25 mg Documented By: Admin: 08/29/24 20:55 Dose: 25 mg Documented By: Admin: 08/29/24 11:46 Dose: 25 mg Documented By: Admin: 08/29/24 11:44 Dose: Not Given Documented By: VRS Non-Admin Reason: Held for Dialysis Admin: 08/28/24 21:29 Dose: 25 mg Documented By: Admin: 08/28/24 11:56 Dose: 25 mg Documented By: MGArina Ceftriaxone Sodium 1,000 mg/ (Sodium Chloride) 50 mls @ 100 mls/hr IV QDAY [facility] Stop: 09/01/24 15:47 Last Admin: 08/26/24 05:59 Dose: Not Given Documented By: CTF Non-Admin Reason: Discontinued Ciprofloxacin/Dextrose (Cipro Ivpb) 400 mg in 200 mls @ 200 mls/hr IV Q24H [facility] Stop: 09/01/24 20:59 Last Admin: 08/26/24 21:28 Dose: 200 mls/hr Documented By: Infusion: 08/26/24 00:27 Dose: Infused Documented By: Admin: 08/25/24 23:27 Dose: 200 mls/hr Documented By: CTF Acetaminophen (Ofirmev Inj) 1,000 mg in 100 mls @ 250 mls/hr IV PRN PRN PRN Reason: PAIN 1-6 (mild-mod Stop: 08/27/24 18:43 Insulin Human Regular (Insulin Hum Regular 1 Unit/0.01 Ml (Per Unit)) 5 unit SC X1 ONE Stop: 08/25/24 15:38 Last Admin: 08/25/24 16:45 Dose: Not Given Documented By: DB Non-Admin Reason: Cancelled by Provider Insulin Human Regular (Insulin Hum Regular 1 Unit/0.01 Ml (Per Unit)) 5 unit IV X1 ONE Stop: 08/25/24 16:29 Last Admin: 08/25/24 16:39 Dose: 5 unit Documented By: LENA Co-signed By: LALA Labetalol HCl (Labetalol 100 Mg Tablet) 100 mg PO BID [facility] Stop: 09/25/24 08:59 Last Admin: 08/30/24 09:07 Dose: 100 mg Documented By: Admin: 08/29/24 20:55 Dose: 100 mg Documented By: Admin: 08/29/24 11:46 Dose: 100 mg Documented By: Admin: 08/29/24 11:45 Dose: Not Given Documented By: VRS Non-Admin Reason: Held for Dialysis Admin: 08/28/24 20:13 Dose: 100 mg Documented By: Admin: 08/28/24 08:23 Dose: 100 mg Documented By: Admin: 08/27/24 21:19 Dose: 100 mg Documented By: Admin: 08/27/24 10:03 Dose: 100 mg Documented By: Admin: 08/26/24 21:27 Dose: 100 mg Documented By: Admin: 08/26/24 08:55 Dose: 100 mg Documented By: JAMES Labetalol HCl (Labetalol Inj 5 Mg/Ml Vial 20 Ml) 10 mg IVP X1 ONE Stop: 08/27/24 01:06 Last Admin: 08/27/24 01:38 Dose: 10 mg Documented By: MARIE Lidocaine (Lidocaine 5% 1 Patch) 1 patch TOP X1 ONE Stop: 08/28/24 20:40 Last Admin: 08/28/24 21:32 Dose: 1 patch Documented By: Lidocaine HCl (Lidocaine Inj Pf 2% 2 Ml Vial) Confirm Administered Dose 2 ml .ROUTE .STK-MED ONE Stop: 08/27/24 14:51 Magnesium Hydroxide (Milk Of Magnesia Susp 30 Ml Udc) 30 ml PO X1 ONE; Protocol Stop: 08/28/24 09:01 Last Admin: 08/28/24 08:21 Dose: 30 ml Documented By: LILLIE Midazolam HCl (Midazolam Inj 1 Mg/Ml Vial 2 Ml) Confirm Administered Dose 2 mg .ROUTE .STK-MED ONE Stop: 08/27/24 14:47 Nifedipine (Nifedipine Xl 30 Mg Tabcr) 60 mg PO BID [facility] Stop: 09/25/24 08:59 Last Admin: 08/30/24 09:09 Dose: 60 mg Documented By: Admin: 08/29/24 20:57 Dose: 60 mg Documented By: Admin: 08/29/24 11:47 Dose: 60 mg Documented By: Admin: 08/29/24 11:44 Dose: Not Given Documented By: VRS Non-Admin Reason: Held for Dialysis Admin: 08/28/24 20:13 Dose: 60 mg Documented By: Admin: 08/28/24 08:24 Dose: 60 mg Documented By: MGArina Admin: 08/27/24 21:20 Dose: 60 mg Documented By: Admin: 08/27/24 09:59 Dose: 60 mg Documented By: Admin: 08/26/24 21:26 Dose: 60 mg Documented By: Admin: 08/26/24 08:52 Dose: 60 mg Documented By: JAMES Ondansetron HCl (Ondansetron Inj 2 Mg/Ml Inj 2 Ml) 4 mg IV Q6H PRN; Protocol PRN Reason: NAUSEA OR VOMITING Stop: 09/24/24 15:30 Last Admin: 08/25/24 16:12 Dose: 4 mg Documented By: LENA Paroxetine HCl (Paroxetine Hcl 10 Mg Tablet) 10 mg PO QDAY [facility] Stop: 09/25/24 08:59 Last Admin: 08/30/24 09:08 Dose: 10 mg Documented By: Admin: 08/29/24 11:46 Dose: 10 mg Documented By: Admin: 08/29/24 11:44 Dose: Not Given Documented By: VRS Non-Admin Reason: Held for Dialysis Admin: 08/28/24 08:23 Dose: 10 mg Documented By: Admin: 08/27/24 10:03 Dose: 10 mg Documented By: Admin: 08/26/24 08:52 Dose: 10 mg Documented By: JAMES Propofol (Propofol Inj 10 Mg/Ml Vial 20 Ml) Confirm Administered Dose 200 mg IV .STK-MED ONE Stop: 08/27/24 14:47 Ropivacain/Epineph/Clonidin/Ketorol (Ropiv/Epi/Clonidine/Ket (R.E.C.K.) 50 Ml Syringe) Confirm Administered Dose 50 ml PERIARTIC .STK-MED ONE Stop: 08/27/24 16:35 Sennosides (Senna Tablet) 1 tab PO QDAY [facility]OSSEIN; Protocol Stop: 09/25/24 08:59 Last Admin: 08/30/24 09:08 Dose: 1 tab Documented By: Admin: 08/29/24 11:45 Dose: 1 tab Documented By: Admin: 08/29/24 11:44 Dose: Not Given Documented By: BLUE Non-Admin Reason: Held for Dialysis Admin: 08/28/24 08:22 Dose: 1 tab Documented By: Admin: 08/27/24 09:59 Dose: 1 tab Documented By: Admin: 08/26/24 08:51 Dose: 1 tab Documented By: LH Tranexamic Acid (Tranexamic Acid Inj 1,000 Mg/10 Ml Vial) Confirm Administered Dose 1,000 mg .ROUTE .ST-MED ONE Stop: 08/27/24 16:16 None Consultations Consultation(s) initiated? (list below): No Diagnosis Differential Diagnosis ED Complaint MDM: Hip fracture, hip dislocation, fracture and dislocation closed head injury Most likely diagnosis given after review of the tests above:: Fall hip fracture Admission Indicated Admission indicated?: indicated Explain why admission is indicated or not indicated:: Quires further medical management Admission Request Was there a request for admission?: No Disposition Plan Disposition Plan: Admit Medical Decision Making Differential Diagnosis Differential Diagnosis: Hip fracture, hip dislocation, fracture and dislocation closed head injury Lab Data 08/30/24 05:21 08/30/24 05:21 Labs: Lab Results 08/25/24 08/25/24 Range/Units 11:20 11:50 WBC 14.4 H (3.6-11.0) Thou/mm3 RBC 3.69 L (4.00-5.20) Miln/mm3 Hgb 10.8 L (12.0-16.0) g/dL Hct 33.5 L (36.0-46.0) % MCV 91 (80-100) fL MCH 29.3 (25.0-35.0) pg MCHC 32.2 (31.0-37.0) g/dl RDW Std Deviation 53.2 H (36.4-46.3) fL Plt Count 438 D (140-440) Thou/mm3 Neut % (Auto) 82 H (37-80) % Lymph % (Auto) 5 L (10-50) % [place] % (Auto) 8 (0-12) % Eos % (Auto) 4 (0-10) % Baso % (Auto) 0 (0-2.5) % Neut # (Auto) 11.8 H (1.8-7.7) Thou/mm3 Lymph # (Auto) 0.8 L (1.0-4.8) Thou/mm3 [place] # (Auto) 1.2 H (0.0-0.8) Thou/mm3 Eos # (Auto) 0.6 H (0.0-0.5) Thou/mm3 Baso # (Auto) 0.0 (0.0-0.2) Thou/mm3 Immature Gran # (Auto) 0.04 H (0.00-0.00) Thou/mm3 Absolute Nucleated RBC 0.00 (0.00-0.00) Thou/mm3 Immature Gran % 0 (0-0) % Nucleated RBC % 0 (0) /100 WBC PT 11.1 (9.0-12.2) Seconds INR 1.0 (0.9-1.3) APTT 23.4 (22.0-36.0) Seconds Sodium 128 L (136-145) mMol/L Potassium 5.8 H (3.4-5.1) mMol/L Chloride 90 L (98-107) mMol/L Carbon Dioxide 23.5 (20.0-31.0) mMol/L Anion Gap 15 (7-16) BUN 45 H (9-23) mg/dL Creatinine 5.8 H* (0.6-1.3) mg/dL Estim Creat Clear Calc 5.9 L (>60) mL/min eGFR 7 L* (60 - ) See Note BUN/Creatinine Ratio 8 L (12-20) Ratio Glucose 107 H (74-106) mg/dL Calculated Osmolality 268 L (275-295) Calcium 10.2 (8.3-10.6) mg/dL Corrected Calcium 10.2 H (8.5-10.1) mg/dL Total Bilirubin 0.2 L (0.3-1.2) mg/dL AST 29 (0-34) U/L ALT < 7 L (10-49) U/L Alkaline Phosphatase 66 (46-116) U/L Total Protein 8.1 (5.7-8.2) gm/dL Albumin 4.7 (3.4-4.8) gm/dL Globulin 3.4 (2.3-3.5) gm/dL Albumin/Globulin Ratio 1.4 (1.2-2.2) PTH Intact 398.4 H (18.5-88.0) pg/ml Discharge Plan Plan Patient Disposition: Admit Acute Care w/in Hospital Patient condition on transfer: Stable Problem List Clinical Impression: Closed fracture of neck of right femur 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
[2024-08-25] MEDS: fentaNYL CIT INJ 50 mCg/ML AMP 2ML IVP (12:28)
[2024-08-25 12:33] LABS: Basophils % (Auto) 0 % (0-2.5); Eosinophils # (Auto) 0.6 Thou/mm3 (0.0-0.5); Eosinophils % (Auto) 4 % (0-10); Hematocrit 33.5 % (36.0-46.0); Hemoglobin 10.8 g/dL (12.0-16.0); Immature Granulocytes % (Auto) 0 % (0-0); Immature Granulocytes Auto 0.04 Thou/mm3 (0.00-0.00); Lymphocytes # (Auto) 0.8 Thou/mm3 (1.0-4.8); Lymphocytes % (Auto) 5 % (10-50); Mean Corpuscular HGB Conc 32.2 g/dl (31.0-37.0); Mean Corpuscular Hemoglobin 29.3 pg (25.0-35.0); Mean Corpuscular Volume 91 fL (80-100); Monocytes # (Auto) 1.2 Thou/mm3 (0.0-0.8); Monocytes % (Auto) 8 % (0-12); Neutrophils # (Auto) 11.8 Thou/mm3 (1.8-7.7); Neutrophils % (Auto) 82 % (37-80); Nucleated Red Blood Cell % 0 /100 WBC (0); Platelet Count 438 Thou/mm3 (140-440); RDW Standard Deviation 53.2 fL (36.4-46.3); Red Blood Count 3.69 Miln/mm3 (4.00-5.20); White Blood Count 14.4 Thou/mm3 (3.6-11.0)
[2024-08-25 12:47] LABS: Partial Thromboplastin Time 23.4 Seconds (22.0-36.0); Prothrombin Time 11.1 Seconds (9.0-12.2)
[2024-08-25 12:54] LABS: Alanine Aminotransferase < 7 U/L (10-49); Albumin, Serum 4.7 gm/dL (3.4-4.8); Albumin/Globulin Ratio 1.4 (1.2-2.2); Alkaline Phosphatase 66 U/L (46-116); Anion Gap 15 (7-16); Aspartate Amino Transferase 29 U/L (0-34); BUN/Creatinine Ratio 8 Ratio (12-20); Bilirubin,Total 0.2 mg/dL (0.3-1.2); Blood Urea Nitrogen 45 mg/dL (9-23); Calcium 10.2 mg/dL (8.3-10.6); Calcium (Corrected) 10.2 mg/dL (8.5-10.1); Carbon Dioxide 23.5 mMol/L (20.0-31.0); Chloride 90 mMol/L (98-107); Creatinine (Component) 5.8 mg/dL (0.6-1.3); Estimated Creatinine Clearance 5.9 mL/min (>60); Globulin 3.4 gm/dL (2.3-3.5); Glucose 107 mg/dL (74-106); Osmolality,Calculated 268 (275-295); Potassium 5.8 mMol/L (3.4-5.1); Sodium 128 mMol/L (136-145); Total Protein 8.1 gm/dL (5.7-8.2); eGFR 7 See Note
--- NOTE | 2024-08-25 13:11 | PC.SS ---
ASW contacted patient's spouse, Trey Chen . Informs the patient is aligned with [facility]. Patient is also on dialysis Dr. Muller her dialysis schedule is //. Code status reported DNR/DNI. Updated Titus.
--- NOTE | 2024-08-25 14:35 | XR_ITS ---
Examination: Left femur 2 views Technique one AP lateral left femur 2 views Exam date and time: July 28, 2024 1443 hours INDICATIONS: Patient fell today with injury to the femur, femur pain. FINDINGS: Acute displaced fracture left femoral neck, at least 9 mm offset at the fracture site Prominent osteopenia [place] of the femur intact IMPRESSION: Acute displaced angulated fracture left femoral neck
--- NOTE | 2024-08-25 14:38 | EKG_ITS ---
[facility] Test Date: 2024-08-25 Pat Name: ERNESTO RAMÍREZ Department: Room: - Gender: Female [employer] Helper: : 1945 Requested By: Titus Cm Order Number: [id number] Reading MD: Titus Cm Measurements Intervals [place] Rate: 68 P: -65 GA: 82 QRS: -47 QRSD: 92 T: 76 QT: 404 QTc: 432 Interpretive Statements JUNCTIONAL RHYTHM LEFT AXIS DEVIATION [QRS AXIS < -30] VOLTAGE CRITERIA FOR LVH [MEETS CRITERIA IN ONE OF: R(aVL), S(V1), R(V5), R(V5/V6)+S(V1)] POSSIBLE ANTERIOR MYOCARDIAL INFARCTION , PROBABLY OLD [30 ms Q WAVE IN V3/V4, OR R < 0.2 mV IN V4] Compared to ECG 07/02/2024 08:17:18 Junctional rhythm now present Left ventricular hypertrophy now present Myocardial infarct finding now present Sinus rhythm no longer present T-wave abnormality no longer present /store/S0/[id number]/ecg/[id number].pdf
--- NOTE | 2024-08-25 14:38 | XR_ITS ---
Examination: AP chest single view TECHNIQUE: AP portable supine chest single view Exam date and time: August 25, 2024 1435 hours Comparison July 02, 2024 INDICATIONS: Injury to the hips today hip fracture preop chest x-ray FINDINGS: Mild to moderate CHF Mild enlargement cardiac contour Metallic enlarged thoracic aorta Prominent right superior mediastinum Prominent vascular congestion with perihilar edema Severe osteopenia IMPRESSION: Mild to moderate CHF
--- NOTE | 2024-08-25 15:34 | ECHO_ITS ---
Transthoracic Echo Report Ht (in): 63 Wt (lb): 102 Exam Location: Echo Lab Status: Emergency Radiator Mechanic: Lesia Jones Indications: Procedure Performed: BP: 188 / 83 HR: 75 Technical Quality: Technically difficult study MEASUREMENTS (Male / Female) Normal Values 2D ECHO LV Diastolic Diameter PLAX 4.3 cm 4.2 - 5.9 / 3.9 - 5.3 cm LV Systolic Diameter PLAX 3.2 cm IVS Diastolic Thickness 1.3 cm 0.6 - 1.0 / 0.6 - 0.9 cm LVPW Diastolic Thickness 1.4 cm 0.6 - 1.0 / 0.6 - 0.9 cm LV Relative Wall Thickness 0.6 LVOT Diameter 1.6 cm LA Volume Index 31.5 cm?/m? 16 - 28 cm?/m? DOPPLER AV Peak Velocity 203.0 cm/s AV Peak Gradient 16.5 mmHg AV Mean Gradient 7.0 mmHg AV Velocity Time Integral 42.5 cm LVOT Peak Velocity 133.0 cm/s LVOT Peak Gradient 7.1 mmHg LVOT Velocity Time Integral 30.2 cm LVOT Cardiac Index 3192.4 cm?/min?m? AV Area Cont Eq vti 1.4 cm? AV Area Cont Eq pk 1.3 cm? MR Peak Velocity 335.0 cm/s MR Peak Gradient 44.9 mmHg Mitral E Point Velocity 129.7 cm/s Mitral A Point Velocity 58.2 cm/s Mitral E to A Ratio 2.2 LV E' Lateral Velocity 4.1 cm/s Mitral E to LV E' Lateral Ratio 31.4 LV E' Septal Velocity 4.3 cm/s Mitral E to LV E' Septal Ratio 29.8 TR Peak Velocity 409.0 cm/s TR Peak Gradient 66.9 mmHg PV Peak Velocity 81.7 cm/s PV Peak Gradient 2.7 mmHg FINDINGS Left Ventricle Normal left ventricular size,systolic function with no obvious regional wall motion abnormalities. Mild LVH. The ejection fraction is visually estimated at 60-65 %. Right Ventricle The right ventricle is normal in size and systolic function. The estimated right ventricular systolic pressure, 60 mmHg. RAP 5. Left Atrium The left atrium is normal by two-dimensional, color flow and Doppler imaging with no structural abnormalities, no thrombus formation present. Right Atrium The right atrium is normal by two-dimensional imaging, color flow and Doppler imaging with no structural abnormalities, no thrombus formation present. Atrial Septum The interatrial septum appears normal with no evidence of a shunt. Aorta The aorta is normal by two-dimensional, color flow and Doppler interrogation. Mitral Valve The mitral valve is normal by two-dimensional, color flow and Doppler interrogation. There is mild mitral valve regurgitation, stenosis or prolapse. Aortic Valve Mild thickening of the aortic valve leaflets. Tricuspid Valve The tricuspid valve is normal by two-dimensional, color flow and Doppler interrogation. There is there is moderate tricuspid regurgitation. Pulmonic Valve The pulmonic valve is not well visualized. There is no significant pulmonic valve regurgitation. Vessels The pulmonary artery appears normal. The inferior vena cava pulmonary and hepatic veins appear normal. Pericardium The pericardium is normal by two-dimensional imaging. There is no significant pericardial effusion. CONCLUSIONS Indication: Cardiac clearance for hip surgery Normal LV sizewith concentric LVH. Estimated EF 60-65 %. RV is normal in size and systolic function. Moderate to severe pulmonary hypertension Estimated RVSP, 60 mmHg. Mild MR. Moderate TR. Aortic avlve sclerosis with no stenosis. Karen Kuo (Electronically Signed) Final Date: 26 August 2024 13:03
--- NOTE | 2024-08-25 15:41 | ESHP_ITS ---
<Statement entered by Rocco Santiago MD - 08/30/24 21:51> I reviewed above note and agree with findings and plans. I have also personally examined the patient with medicine team and went over assessment and plan with medical team including internal controls analyst and resident physician. <Statement entered by Harriet Prieto MD - 08/26/24 00:42> Patient was seen and examined by me personally. I have directly supervised and reviewed the above documentation by the team resident and agree with its findings with any exceptions or additional findings as below. Plan of care was discussed with the attending, Dr. Santiago. Patient is a 79-year-old female with past medical history of ESRD on HD M/W/F, anxiety, CVA with left-sided deficits, atrial fibrillation, hypertension, and CHF who presented to the ED on 08/25/2024 due to increased left hip pain following a ground-level fall on Sunday, 2 days ago. Of note the patient has been on hospice for the last few years for a diagnosis of CHF but is DNR and is continuing to receive dialysis. Patient was found to have left acute angulated displaced fracture of the femoral neck. Will have it fixed for symptomatic relief. The patient is mostly wheelchair-bound. Orthopedic surgery Dr. Andrews was consulted and procedure is planned for Sunday. Patient was additionally endorsing left ankle pain so left ankle X-ray was ordered. Patient will be evaluated by Cardiology Dr. Maza for cardiac clearance. Nephrology Dr. Muller consulted for dialysis. Insulin regular 5 units and D50 given for hyperkalemia of 5.8. Will follow labs in AM. Harriet Prieto, PGY-2 Documentation for date of: 08/25/24 HPI History of Present Illness Chief complaint: Ground level fall History of present illness: 79-year-old female with past medical history of end-stage renal disease (M/W/F), anxiety, status post CVA with left-sided deficits, atrial fibrillation, hypertension and CHF who presented to the ED on 08/25/2024 with episode of ground- level fall on Wednesday 08/23 after she was attempting to ambulate from her wheelchair to the bathroom. Patient states that during this episode the patient felt dizzy and that the room was spinning and fell forward on her left hip. Patient did not lose consciousness but is not the best historian as she is acutely debilitated and has difficulty completing her sentences. Patient is on home with hospice secondary to end-stage heart failure and remote history of CVA. Patient has been on hospice for about 2 years but has been receiving dialysis with Dr. Muller. Patient lives with her who is bedside and provided some additional history. Patient also states that she has been having some stinging sensation while urinating but that has been present for several weeks now. Medical history: As stated above Surgical history: Hysterectomy, dental surgery Allergies: Morphine, lisinopril, penicillin Medications: Pending official med rec Family history: Positive for stroke in mother positive for heart disease in mother, positive for hypertension and diabetes in mother and father. Social history: Patient able to participate by herself and ADLs, uses cane/wheelchair for mobilization, 35-dgci-stsk smoking history, occasional alcohol use in the past, denies illicit drug use. ROS: All 12 systems assessed and the patient denies unless otherwise stated in HPI In the ED, patient presented hypertensive blood pressure 175/108, heart rate 73, respiratory rate 17, afebrile satting 92 on 3 L nasal cannula. Pertinent lab findings include WBC 14.4, hemoglobin 10.8 with MCV 91, platelet 438, sodium 128, potassium 5.8, BUN 45, creatinine 5.8, GFR 7, corrected calcium 10.2, urinalysis pending. Imaging findings included hip pelvis x-ray which showed acute angulated displaced fracture of the femoral neck, shoulder x-ray which was negative, cervical CT spine which showed no acute cervical fracture but there was pronounced anterolisthesis of the C4 on C5, head CT was negative for any acute process, femur x-ray showed confirmed acute displaced angulated fracture of the left femoral neck chest x-ray showed mild to moderate CHF and EKG showed junctional rhythm and left axis deviation. Patient will be admitted for left hip fracture and assessed by orthopedic surgery for surgical needs; moreover, will need cardiac clearance as well as nephrology for dialysis inpatient. Exam Vital Signs Temp Pulse Resp BP Pulse Ox O2 Del Method O2 Flow Rate 98.6 F 64 14 176/74 H 95 Nasal Cannula 3 08/25/24 13:54 08/25/24 13:54 08/25/24 13:54 08/25/24 13:54 08/25/24 13:54 08/25/24 13:54 08/25/24 13:54 Narrative Exam Physical Exam: GENERAL: Awake, answering questions appropriately but is in acute pain secondary to hip fracture, appears stated age HEENT: NC/AT. Moist mucosa. PERRLA/EOMI. CARDIO: Heart RRR, no obvious murmurs, no JVD. PULM: No coughing or visible SOB. Lungs CTA B/L. Patient on 3 L nasal cannula GI: Abdomen soft, NT/ND, +BS. SKIN/MSK/EXT: Patient has a patent (with thrill) left upper extremity AV fistula noted. No wounds/discoloration/rashes/edema/amputations noted. +Pedal pulses present B/L. NEURO: Oriented x3, no focal neurologic deficits noted Results: Labs 08/25/24 11:50 08/25/24 11:50 Labs: Short CBC 08/25/24 Range/Units 11:50 WBC 14.4 H (3.6-11.0) Thou/mm3 Hgb 10.8 L (12.0-16.0) g/dL Hct 33.5 L (36.0-46.0) % Plt Count 438 D (140-440) Thou/mm3 BMP 08/25/24 11:50 Sodium 128 L Potassium 5.8 H Chloride 90 L Carbon Dioxide 23.5 BUN 45 H Creatinine 5.8 H* Glucose 107 H Calcium 10.2 Liver Function 08/25/24 Range/Units 11:50 Total Bilirubin 0.2 L (0.3-1.2) mg/dL AST 29 (0-34) U/L ALT < 7 L (10-49) U/L Alkaline Phosphatase 66 (46-116) U/L Albumin 4.7 (3.4-4.8) gm/dL Quality Measures Quality Measures VTE prophylaxis Advance care planning discussed with:: patient and spouse Medications Home Medications and Allergies Home Medications ?Medication ?Instructions ?Recorded ?Confirmed ?Type vitamin B complex-vitamin C-folic 1 tab PO DAILY 06/0307/03/24 History acid 0.8 mg tablet (Shilpi-Janusz) alprazolam 0.5 mg tablet 0.5 mg PO TID Anxiety 08/26/24 History cyclobenzaprine 5 mg tablet 5 mg PO HS PRN Spasms 11/1307/03/24 History hydralazine 100 mg tablet 100 mg PO BID 11/20/2208/26 History labetalol 100 mg tablet 100 mg PO BID 11/20/2208/26 History pantoprazole 20 mg tablet,delayed 20 mg PO QDAY 07/03/24 History release paroxetine HCl 10 mg tablet 10 mg PO QDAY depression 0 11/20/22 08/26/24 History calcium acetate(phosphat bind) 667 667 mg PO TID 07/0307/03/24 History mg capsule hydrocodone 10 mg-acetaminophen 1 tab PO BID PRN Pain, Moderate 07/03/24 07/03/24 History 325 mg tablet hydroxyzine HCl 25 mg tablet 25 mg PO BID Itching 03/1908/26/24 History amiodarone 100 mg tablet 100 mg PO BID 08/26/2408/26 History spironolactone 25 mg tablet 25 mg PO BID 08/26/2410/17 History Allergies Allergy/AdvReac Type Severity Reaction Status Date / Time gabapentin Allergy Intermediate RASH ALL Verified 07/02/24 07:43 OVER lisinopril Allergy Intermediate Rash Verified 07/02/24 07:43 tramadol Allergy Intermediate Redness of Verified 07/02/24 07:43 Skin olmesartan (From Benicar) Allergy Unknown Hypertensio Verified 07/02/24 07:43 n morphine Allergy Hallucinati Verified 07/02/24 09:00 ng Penicillins AdvReac Severe Swelling Verified 07/02/24 07:43 of Lip/Tongue/Throat Visit Medications Acetaminophen (Acetaminophen 325 Mg Tablet) 650 mg PO Q6H PRN PRN Reason: Pain 1-3 and/or Fever >100.1 Stop: 09/24/24 15:30 Heparin Sodium (Porcine) (Heparin Sod Inj 5000 Unit/Ml Vial) 5,000 unit SC Q12HR HOSSEIN Stop: 09/08/24 20:59 Hydromorphone HCl (Hydromorphone Inj 2 Mg/Ml Vial) 0.25 mg IVP Q2H PRN PRN Reason: Pain 7-10 Stop: 08/30/24 15:30 Ondansetron HCl (Ondansetron Inj 2 Mg/Ml Inj 2 Ml) 4 mg IV Q6H PRN; Protocol PRN Reason: NAUSEA OR VOMITING Stop: 09/24/24 15:30 Sennosides (Senna Tablet) 1 tab PO QDAY HOSSEIN; Protocol Stop: 09/25/24 08:59 Discontinued Medications Dextrose (Dextrose 50%-Water Inj 50 Ml Syringe) 50 ml IV X1 ONE Stop: 08/25/24 15:38 Fentanyl Citrate (Fentanyl Cit Inj 50 Mcg/Ml Amp 2ml) 50 mcg IVP X1 ONE Stop: 08/25/24 12:25 Last Admin: 08/25/24 12:28 Dose: 50 mcg Insulin Human Regular (Insulin Hum Regular 1 Unit/0.01 Ml (Per Unit)) 5 unit SC X1 ONE Stop: 08/25/24 15:38 Assessment & Plan Plan 79-year-old female with past medical history of end-stage renal disease (M/W/F), anxiety, status post CVA with left-sided deficits, atrial fibrillation, hypertension and CHF who presented with episode of ground-level fall on Wednesday 08/23 after she was attempting to ambulate from her wheelchair to the bathroom will be admitted for left hip fracture and assessed by orthopedic surgery for surgical needs; moreover, will need cardiac clearance as well as nephrology for dialysis inpatient. #Acute displaced angulated fracture left femoral neck #Ground-level fall As noted in HPI, patient had a ground-level fall on Wednesday 08/23 Presenting with acute pain on the left side Imaging findings included hip pelvis x-ray which showed acute angulated displaced fracture of the femoral neck, shoulder x-ray which was negative, cervical CT spine which showed no acute cervical fracture but there was pronounced anterolisthesis of the C4 on C5, head CT was negative for any acute process, femur x-ray showed confirmed acute displaced angulated fracture of the left femoral neck Dr. Andrews contacted - is planning on doing surgery Sunday 08/27 if/when patient is stabilized and cleared by cardiology Plan: Multimodal pain management Orthopedics consulted, appreciate recommendations Additionally ordered xr of b/l ankles secondary to patient stating she has pain on L ankle #ESRD on HD (M/W/F) #Hypertensive emergency #Hyperkalemia Patient follows Dr. Muller outpatient for dialysis; last session was Sunday08/22/24 Presenting today with hypertensive emergency Potassium of 5.8 and worsened kidney function Patient has a L-sided upper extremity AVF which is patent w/thrill Plan: Nephrology consulted, appreciate recommendations HD scheduled for today IV regular insulin 5u + 50ml of D50w Will plan on restarting blood pressure medications after dialysis, pending med rec #Leukocytosis #Likely urinary tract infection? Patient states that she has been having burning sensation with urination She wears adult diapers WBCs elevated at 14.4 with 82% neutrophils Plan: Pending urinalysis and urine culture Will start on empiric ceftriaxone 1 g daily once cultures are taken Cunningham inserted #Atrial fibrillation, rate controlled [id number] score 7 Patient on labetalol 100 mg twice daily at home Currently regular, rate controlled rhythm Plan: Tele #Congestive heart failure, not in acute exacerbation #Chronic respiratory failure secondary to CHF Patient reports history of congestive heart failure Last echo done in 2022 shows ejection fraction 60 to 65% Currently does not appear fluid overloaded though chest x-ray does show pulmonary edema On 2 to 3 L oxygen at home Echo from 06/2024 shows: Normal LV size and function. Mild LVH. Estimated EF 60- 65%. RV mildly dilated. Normal RV function. Estimated RVSP 74mmHg. LA severely dilated. The mitral valve is mildly thicken. Moderate MR. Aortic LCC is mildly calcified. Mild AI. Mild to moderate TR. Pleural effusion present. Plan: Strict I&O Daily weight Fluid restriction 1800ml Supplemental oxygen as needed Plan: Continue supplemental oxygen as needed #Anemia of chronic disease Patient has end-stage renal disease, per chart review hemoglobin has been low Plan: Monitor with morning labs # History of CVA with left-sided deficits pending med reconciliation #History of depression/anxiety Patient currently on paroxetine daily Plan: Will resume pending med rec Hospital Management: Lines: PIV, Cunningham Diet: Cadiac/Renal + Dysphagia I (pureed) Bowel: Senna GI Prophylaxis: Not needed DVT Prophylaxis: heparin subq Dispo: Pending HD with Dr. Muller, cardiac clearance with Dr. Maza and orthopedic consultation with Dr. Andrews Code: DNR Patient seen and assessed with attending Dr. Santiago and senior resident Dr. Ida Borges, PGY-1
--- NOTE | 2024-08-25 15:51 | XR_ITS ---
Examination: Ankle Bilateral, 4 views Technique: AP lateral each ankle total 4 views INDICATIONS: Patient fell today with injury to both ankles, bilateral ankle pain Date and time of exam: September 21, 2024 1556 hours findings: Severe osteopenia Nonstandard views No acute fracture is depicted No Avery dislocations IMPRESSION: No acute ankle fractures
--- NOTE | 2024-08-25 16:02 | PC.SS ---
Initial assessment: this is 79 year old female who presents from home with complain of hip pain. Confirmed demographic information. Patient resides at home with spouse, Trey Chen. Trey identified as emergency contact. Patient has been wheel chair bound for some time now. Per spouse, the patient is aligned with [facility] for a few years now. Patient is also aligned with dialysis, followed by Dr. Muller. Dialysis schedule is M//. Patient followed by Dr. Corado for primary care. Patient has a wheelchair walker and home oxygen per spouse. Patient currently planned to be admitted for hip pain. visitor services coordinator to follow up on discharge plan. D/c plan: Pending Next of kin: spouse, Trey Chen
[2024-08-25] MEDS: ONDANSETRON INJ 2 MG/ML INJ 2 ML 4 MG IV (16:12)
[2024-08-25] MEDS: HYDROmorphone INJ 2 MG/ML VIAL 0.25 MG IVP ×2 (16:12→18:20)
--- NOTE | 2024-08-25 16:14 | PC.SS ---
[facility] sent medication list and POLST form on behalf of the patient. Printed and placed in patient's chart.
--- NOTE | 2024-08-25 16:26 | PD.RESCONSUL ---
HPI Data of Consult Consult date: 08/25/24 Requesting Physician: Rocco Santiago MD Admitting Provider: Rocco Santiago MD Attending Provider: Rocco Santiago MD Primary Care Provider: Physician No Primary/Family Consult Narrative Reason for consult: ESRD on HD History of present illness: Ms. Chen is a 79-year-old female with past medical history of ESRD on HD [M/W/F], CVA with residual left-sided deficits, anxiety, depression, atrial fibrillation, hypertension and CHF( under Dr. Kuo) presented to the hospital with chief complaints of ground-level fall on 08/23/2024. Patient was mostly wheelchair-bound, on the day of the fall patient was trying to get up from the wheelchair to go to the bathroom during which she felt dizzy and had a fall. Patient denies palpitations, skipped beats, loss of consciousness, involuntary movements at the time of the fall. Patient's called the ambulance but patient denied admission to hospital for which she received some pain medications. As patient is still not able to mobilize and skipped her dialysis session on Sunday and on the day of admission, called the ambulance following which patient was brought to the ED. Complaining of severe pain at the site of left hip fracture. Nephrology is consulted as the patient is on HD 3 times per week and missed last 2 dialysis sessions. ED Course: -Initial vitals were 175/108 mmHg, pulse rate 73 bpm, respiratory rate 17/min, temperature 98.7 ?F, SpO2 92% with oxygen through nasal cannula. -Labs significant for WBC 14.4, Hb 10.8, platelets 438, sodium 128, potassium 5.8, chloride 90, BUN 45, creatinine 5.8, corrected calcium 10.2, ALP 66. -Hip and pelvis x-ray showed acute angulated displaced fracture humeral neck. Shoulder x-ray showed no fracture or dislocation. Cervical spine CT showed no acute cervical fracture. Head CT showed no acute hemorrhage, mass effect or midline shift. Femur x-ray showed acute displaced angulated fracture of left femoral neck. Chest x-ray showed mild to moderate CHF. EKG showed normal sinus rhythm. -In the ED, patient was given hydromorphone, fentanyl -Patient was admitted for acute left hip fracture. Past medical history: ESRD, CVA, anxiety, atrial fibrillation, hypertension, CHF Past surgical history: Hysterectomy, dental surgery Social history: 22-nlgb-dyld smoking history and denies any other illicit drug abuse. Mostly wheelchair-bound and lives with her . On hospice cc:: cc: Rocco Santiago MD Review of Systems Review of Systems Narrative Review of Systems: Constitutional: No Weight Change, No Fever, No Chills, No Night Sweats, No Fatigue, No Malaise ENT/Mouth: No Hearing Changes, No Ear Pain, No Nasal Congestion, No Sinus Pain, No Hoarseness, No sore throat, No Rhinorrhea, No Swallowing Difficulty Eyes: No Eye Pain, No Swelling, No Redness, No Foreign Body, No Discharge, No Vision Changes Cardiovascular: No Chest Pain, No SOB, No PND, No Dyspnea on Exertion, No Orthopnea, No Edema, No Palpitations Respiratory: No Cough, No Sputum, No Wheezing, No Dyspnea Gastrointestinal: No Nausea, No Vomiting, No Diarrhea, No Constipation, No Pain, No Heartburn, No Anorexia, No Dysphagia, No Hematochezia, No Melena, No Flatulence, No Jaundice Genitourinary: No Dysuria, No Urinary Frequency, No Hematuria, No Urinary Incontinence, No Urgency, No Flank Pain, No Urinary Flow Changes, No Hesitancy Musculoskeletal: No Arthralgias, No Myalgias, No Joint Swelling, No Joint Stiffness, No Back Pain, No Neck Pain, injury of left hip Skin: No Skin Lesions, No Pruritis Neuro: No Weakness, No Numbness, No Paresthesias, No Loss of Consciousness, No Syncope, No Dizziness, No Headache, No Coordination Changes, No Recent Falls Past Medical History Past Medical History NEUROLOGIC: Positive Cerebrovascular Accident CARDIAC: Positive Congestive Heart Failure and Hypertension RESPIRATORY: Positive Smoking and Tobacco Use Exam Vital Signs Temp Pulse Resp BP Pulse Ox O2 Del Method O2 Flow Rate 98.8 F 72 18 202/99 H 92 L Nasal Cannula 3 08/25/24 15:39 08/25/24 16:24 08/25/24 16:24 08/25/24 15:39 08/25/24 16:24 08/25/24 15:39 08/25/24 16:24 Narrative Exam General: Awake. Cachectic. In moderate distress HEENT: Normocephalic, atraumatic, mucous membranes dry. Heart: Regular rate and rhythm, no murmurs. Lungs: Clear to auscultation with no wheezing or crackles. Abdomen: Soft, nondistended, nontender, positive bowel sounds. ?No guarding or rebound tenderness. Neurologic: Alert and oriented x3, no gross neurological deficit, and patient able to move all 4 extremities. Extremities: No edema. Skin: No rash or ecchymoses. Results Labs 08/25/24 11:50 08/25/24 11:50 Labs: Short CBC 08/25/24 Range/Units 11:50 WBC 14.4 H (3.6-11.0) Thou/mm3 Hgb 10.8 L (12.0-16.0) g/dL Hct 33.5 L (36.0-46.0) % Plt Count 438 D (140-440) Thou/mm3 BMP 08/25/24 11:50 Sodium 128 L Potassium 5.8 H Chloride 90 L Carbon Dioxide 23.5 BUN 45 H Creatinine 5.8 H* Glucose 107 H Calcium 10.2 Liver Function 08/25/24 Range/Units 11:50 Total Bilirubin 0.2 L (0.3-1.2) mg/dL AST 29 (0-34) U/L ALT < 7 L (10-49) U/L Alkaline Phosphatase 66 (46-116) U/L Albumin 4.7 (3.4-4.8) gm/dL Quality Measures Quality Measures VTE prophylaxis Advance care planning discussed with:: patient and spouse Medications Home Medications and Allergies Home Medications ?Medication ?Instructions ?Recorded ?Confirmed ?Type vitamin B complex-vitamin C-folic 1 tab PO DAILY 06/03/21 08/26/24 History acid 0.8 mg tablet (Shilpi-Janusz) alprazolam 0.5 mg tablet 0.5 mg PO TID Anxiety 01/17/22 08/26/24 History cyclobenzaprine 5 mg tablet 5 mg PO HS PRN Spasms 01/27/22 07/03/24 History hydralazine 100 mg tablet 100 mg PO BID 11/20/22 08/26/24 History labetalol 100 mg tablet 100 mg PO BID 11/20/22 08/26/24 History pantoprazole 20 mg tablet,delayed 20 mg PO QDAY 11/20/22 08/26/24 History release paroxetine HCl 10 mg tablet 10 mg PO QDAY depression 11/20/22 08/26/24 History calcium acetate(phosphat bind) 667 667 mg PO TID 07/03/24 08/26/24 History mg capsule hydrocodone 10 mg-acetaminophen 1 tab PO BID PRN Pain, Moderate 07/03/24 08/26/24 History 325 mg tablet hydroxyzine HCl 25 mg tablet 25 mg PO BID Itching 07/03/24 08/26/24 History acetaminophen 500 mg capsule 1,000 mg PO Q6H PRN fever or pain 08/26/24 08/26/24 History acetaminophen 650 mg rectal 650 mg NV Q4H PRN fever 08/26/24 08/26/24 History suppository amiodarone 100 mg tablet 100 mg PO BID 08/26/24 08/26/24 History bisacodyl 10 mg rectal suppository 10 mg NV Q72H PRN constipation 08/26/24 08/26/24 History (Dulcolax (bisacodyl)) clonidine HCl 0.1 mg tablet 0.1 mg PO BID PRN hypertension 08/26/24 08/26/24 History docusate sodium 50 mg capsule 100 mg PO HS PRN constipation 08/26/24 08/26/24 History fluocinonide-emollient 0.05 % 1 applic topical BID fungal 08/26/24 08/26/24 History topical cream (Fluocinonide-E) dermatitis to head hydrocodone 10 mg-acetaminophen 1 tab PO Q6H PRN pain 08/26/24 08/26/24 History 325 mg tablet hyoscyamine sulfate 0.125 mg/5 mL 1 ml PO .q2hrs PRN oral secretions 08/26/24 08/26/24 History oral elixir lidocaine 4 % topical patch 1 patch topical Q24H 08/26/24 08/26/24 History ondansetron 4 mg disintegrating 4 mg PO Q4H PRN nausea 08/26/24 08/26/24 History tablet oxycodone-acetaminophen 10 mg-325 1 tab PO Q4H PRN pain 08/26/24 08/26/24 History mg tablet sennosides 8.6 mg-docusate sodium 1 tab-cap PO BID PRN constipation 08/26/24 08/26/24 History 50 mg tablet (Senna Plus) spironolactone 25 mg tablet 25 mg PO BID 08/26/24 08/26/24 History vitamin B complex-vitamin C-folic 1 tab PO QDAY 08/26/24 08/26/24 History acid 0.8 mg tablet (Nephro Vitamins) Allergies Allergy/AdvReac Type Severity Reaction Status Date / Time gabapentin Allergy Intermediate RASH ALL Verified 07/02/24 07:43 OVER lisinopril Allergy Intermediate Rash Verified 07/02/24 07:43 tramadol Allergy Intermediate Redness of Verified 07/02/24 07:43 Skin olmesartan (From Benicar) Allergy Unknown Hypertensio Verified 07/02/24 07:43 n morphine Allergy Hallucinati Verified 07/02/24 09:00 ng Penicillins AdvReac Severe Swelling Verified 07/02/24 07:43 of Lip/Tongue/Throat Visit Medications Acetaminophen (Acetaminophen 325 Mg Tablet) 650 mg PO Q6H PRN PRN Reason: Pain 1-3 and/or Fever >100.1 Stop: 09/24/24 15:30 Heparin Sodium (Porcine) (Heparin Sod Inj 5000 Unit/Ml Vial) 5,000 unit SC Q12HR [facility] Stop: 09/08/24 20:59 Hydromorphone HCl (Hydromorphone Inj 2 Mg/Ml Vial) 0.25 mg IVP Q2H PRN PRN Reason: Pain 7-10 Stop: 08/30/24 15:30 Last Admin: 08/25/24 16:12 Dose: 0.25 mg Ceftriaxone Sodium 1,000 mg/ (Sodium Chloride) 50 mls @ 100 mls/hr IV QDAY [facility] Stop: 09/01/24 15:47 Ondansetron HCl (Ondansetron Inj 2 Mg/Ml Inj 2 Ml) 4 mg IV Q6H PRN; Protocol PRN Reason: NAUSEA OR VOMITING Stop: 09/24/24 15:30 Last Admin: 08/25/24 16:12 Dose: 4 mg Sennosides (Senna Tablet) 1 tab PO QDAY [facility]; Protocol Stop: 09/25/24 08:59 Discontinued Medications Dextrose (Dextrose 50%-Water Inj 50 Ml Syringe) 50 ml IV X1 ONE Stop: 08/25/24 15:38 Fentanyl Citrate (Fentanyl Cit Inj 50 Mcg/Ml Amp 2ml) 50 mcg IVP X1 ONE Stop: 08/25/24 12:25 Last Admin: 08/25/24 12:28 Dose: 50 mcg Insulin Human Regular (Insulin Hum Regular 1 Unit/0.01 Ml (Per Unit)) 5 unit SC X1 ONE Stop: 08/25/24 15:38 Assessment & Plan Plan A 79-year-old female with past medical history of ESRD on HD [M/W/F], CVA with residual left-sided deficits, anxiety, atrial fibrillation, hypertension and CHF presented to the hospital with chief complaints of ground-level fall on 08/23/2024 and admitted for left hip fracture. Consulted for hemodialysis # ESRD on hemodialysis [M/W/F] -Patient is on hospice and continues to receive hemodialysis 3 times per week -Patient is mostly wheelchair-bound and ambulates only for minimal activities -Per patient , patient missed 2 dialysis sessions before the day of admission -Does not appear to be fluid overloaded as of now -Labs on 08/25/2024 showed BUN 45, creatinine 5.8 Plan -Will do hemodialysis session today -Will continue further sessions as per her routine schedule -Avoid nephrotoxic medications and renally dose medications. # Hypertension, uncontrolled -Blood pressure at the time of admission is 175/108 mmHg Plan -Resume her home medications -Recommended to monitor her blood pressures # Hyperkalemia -Potassium at the time of admission is 5.8, likely due to ESRD and patient missed her dialysis sessions Plan -EKG did not showed any hyperkalemic changes -Will start on dialysis today -Recommended to monitor potassium levels # Hypoosmolar hyponatremia -Likely due to poor oral intake, as patient looks clinically dehydrated Plan -Recommended to take adequate oral intake -Scheduled for HD today -Recommended to monitor serum electrolytes. # Mild hypercalcemia Likely due to dehydration vs immobilization VS hyperparathyroidism -Recommended adequate oral hydration -Scheduled for HD today -Monitor electrolytes -Ordered PTH and phosphorus levels #Anemia of chronic disease Hemoglobin at the time of admission is 10.8 Plan: Will give erythropoietin injection during dialysis Continue to monitor CBC #Acute displaced angulated fracture left femoral neck #Ground-level fall #Leukocytosis #Likely urinary tract infection? #Atrial fibrillation, rate controlled #Congestive heart failure, not in acute exacerbation #Chronic respiratory failure secondary to CHF # History of CVA with left-sided deficits #History of depression/anxiety -As per primary team Thank you for allowing us to participate in the care of the patient Patient plan of care was discussed with the attending physician,Dr. Renzo Howe, PGY1 Attending Provider Attestation/Addendum Patient seen and examined with resident physician Dr. Bentley. Note reviewed, agree with findings and recommendations. Patient well-known to me from my dialysis unit. Missed dialysis on Sunday due to pain. Currently she is on hospice for stroke/pain management. Status post fall with left femur fracture. Seems to be still slightly confused. Patient currently seen on dialysis. Tolerating dialysis without any problems. Hemodialysis for 3 hours, 2K, ultrafiltration 0 L, Epogen 6000, no heparin ordered. Plan of care discussed with the dialysis nurse. Please see dialysis flowsheet for further details. Thank you Dr. Santiago for allowing me to participate in the care of Ms. Chen
[2024-08-25] MEDS: INSULIN HUM REGULAR 1 UNIT/0.01 ML (PER UNIT) 5 UNIT IV (16:39)
[2024-08-25] MEDS: DEXTROSE 50%-WATER INJ 50 ML SYRINGE IV (16:40)
--- NOTE | 2024-08-25 16:53 | ESCONSULT_ITS ---
<Statement entered by Chris Maza MD - 08/26/24 13:28> I personally examined evaluated the patient along with resident physician PGY 2 I have known this patient for several years multiple medical problems mainly hypertension I reviewed the cardiac echo appears to have normal left-sided function left-sided hypertrophy mild aortic valve calcification mild mitral regurgitation. Based on examination and patient's clinical status appears to be stable proceed with orthopedic surgery. She does have moderate pulmonary hypertension possibly due to HFpEF. Patient appears low risk for orthopedic surgery currently will give cardiac clearance for any questions please free to contact me HPI Data of Consult Requesting Physician: Rocco Santiago MD Admitting Provider: Rocco Santiago MD Attending Provider: Rocco Santiago MD Primary Care Provider: Physician No Primary/Family Consult Narrative Reason for consult: cardiac clearance for surgery History of present illness: The patient is a 79 y/o female, past medical history of CKD, Afib, hx of AVM, uncontrolled hypertension, CVA with residual deficits, atrial fibrillation, heart failure with preserved ejection fraction, history of pulmonary mass, was previously on hospice, who presented to the ER following a mechanical fall and increased left hip pain, found to have left acute angulated displaced fracture of femoral neck, orthopedic consult Dr. Andrews was placed, tentative plan for surgery on Sunday. The patient is somnolent but easily arousable, complaining of persistent pain in her lower extremity as well as upper back, is able to provide limited history. The patient denied any chest pain or pressure, denied orthopnea or shortness of breath. No patient uses oxygen at home. Reported she was trying to get up and walk when she tripped and fell breaking her hip. Denied any history of syncope or vertigo. In the ER, patient was found to have systolic blood pressure in the 200s, hyperkalemia in the setting of ESRD, primary team consulted [employer] marker Dr Muller for urgent hemodialysis. EKG showed normal sinus rhythm, Cardiology was consulted for cardiac clearance prior to surgery. cc:: cc: Rocco Santiago MD Review of Systems Review of Systems Systems Reviewed: All systems reviewed, normal except as documented Past Medical History Past Medical History NEUROLOGIC: Positive Neurological Disorders, Cerebrovascular Accident (left sided weakness) and Migraine; Negative Seizures CARDIAC: Positive Cardiac Disorders, Atrial Fibrillation, Heart Murmur, Congestive Heart Failure and Hypertension; Negative Hypercholesterolemia, Edema or Cellulitis RESPIRATORY: Positive Asthma, Pneumonia, Smoking and Tobacco Use; Negative Chronic Obstructive Pulmonary Disease (COPD) or Cystic Fibrosis GASTROINTESTINAL: Positive Gastrointestinal Disorders, Hepatitis, Gastrointestinal Bleed, Ulcerative Colitis, Ulcer and Gastroesophageal Reflux Disease GENITOURINARY: Positive Genitourinary Disorders, Renal Disease and Dialysis (M,W,F) REPRODUCTIVE: Positive Previous Pregnancies MUSCULOSKELETAL: Positive Musculoskeletal Disorders and Arthritis ENT: Positive Cataracts and Macular Degeneration ENDOCRINE: Negative Endocrine Disorders, Diabetes Mellitus Type 1 or Diabetes Mellitus Type 2 HEMATOLOGIC: Positive Blood Disorders and Anemia; Negative Sickle Cell Disease PSYCHO/SOCIAL: Positive Psychiatric Problems, Depression and Anxiety OTHER HISTORY: Positive Hospitalization, Shingles, Falls, Blood Transfusions, Chicken Pox, Measles and Mumps; Negative Autoimmune Disease, Blood Transfusion Reaction, Anesthesia Reactions, Organ Transplant, Chemotherapy, Radiation Therapy, MRSA, VRSA, Vancomycin- Resistant Enterococci or Cancer Family History FAMILY HISTORY: Positive Family Psychiatric Problems, Family Respiratory Disorders, Family Cardiac Disorders and Family Surgery; Negative Family Gastrointestinal Problems, Family Cancer or Family Anesthesia Reaction Surgical History SURGICAL: Positive Tonsillectomy, Abdominal Surgery and Hysterectomy; Negative Pacemaker, Endocrine Surgery, Ear Surgery, Nephrectomy, Joint Replacement, Neurologic Surgery or Organ Transplant Social History SMOKING STATUS: Former smoker SECOND HAND EXPOSURE: No (smokes outside. QUIT 22 yrs ago.) SUBSTANCE USE: does not use Exam Vital Signs Temp Pulse Resp BP Pulse Ox O2 Del Method O2 Flow Rate 98.8 F 72 18 202/99 H 92 L Nasal Cannula 3 08/25/24 15:39 08/25/24 16:24 08/25/24 16:24 08/25/24 15:39 08/25/24 16:24 08/25/24 15:39 08/25/24 16:24 Narrative Exam General: AOx2, cooperative, but somnolent, able to provide limited H&P. Skin: Intact, no cyanosis or edema noted. HEENT: Atraumatic/normocephalic, SINDI, neck supple Heart: RRR, S1 and S2 and systolic murmur grade 4/6 Lungs: Clear on auscultation bilaterally, no difficulty breathing Abdomen: Soft, nontender. Bowel sounds present . Vascular: Peripheral pulses palpable Neuro: Motor weakness left extremity. Results Labs 08/26/24 05:09 08/26/24 05:09 Labs: Short CBC 08/25/24 Range/Units 11:50 WBC 14.4 H (3.6-11.0) Thou/mm3 Hgb 10.8 L (12.0-16.0) g/dL Hct 33.5 L (36.0-46.0) % Plt Count 438 D (140-440) Thou/mm3 BMP 08/25/24 11:50 Sodium 128 L Potassium 5.8 H Chloride 90 L Carbon Dioxide 23.5 BUN 45 H Creatinine 5.8 H* Glucose 107 H Calcium 10.2 Liver Function 08/25/24 Range/Units 11:50 Total Bilirubin 0.2 L (0.3-1.2) mg/dL AST 29 (0-34) U/L ALT < 7 L (10-49) U/L Alkaline Phosphatase 66 (46-116) U/L Albumin 4.7 (3.4-4.8) gm/dL Impressions Impression: Met voltage criteria for LVH, sinus rhythm, left axis deviation and poor R wave progression in chest leads. Imaging and Cardiology Chest x-ray: Additional comments: Chest x-ray reported as concerning for mild to moderate CHF, prominent right superior mediastinum, metallic enlarged thoracic aorta. Of note, prior chest x- ray 06/02/2024 reported as a pulmonary mass right upper lobe 34 mm. echocardiogram: Additional comments: Prior echocardiogram in June 2024 showed EF 60 to 65%, mild LVH, dilated RV, RVSP 74 mm, severely dilated left atrium, mitral valve thickening, moderate MR, mild aortic insufficiency, mild to moderate TR. Presence of pleural effusions. Quality Measures Quality Measures VTE prophylaxis Advance care planning discussed with:: patient Medications Home Medications and Allergies Home Medications ?Medication ?Instructions ?Recorded ?Confirmed ?Type vitamin B complex-vitamin C-folic 1 tab PO DAILY 06/0308/26/24 History acid 0.8 mg tablet (Shilpi-Janusz) alprazolam 0.5 mg tablet 0.5 mg PO TID Anxiety 08/26/24 History cyclobenzaprine 5 mg tablet 5 mg PO HS PRN Spasms 11/1307/03/24 History hydralazine 100 mg tablet 100 mg PO BID 11/20/2208/26 History labetalol 100 mg tablet 100 mg PO BID 11/20/2208/26 History pantoprazole 20 mg tablet,delayed 20 mg PO QDAY 08/26/24 History release paroxetine HCl 10 mg tablet 10 mg PO QDAY depression 0 11/20/22 08/26/24 History calcium acetate(phosphat bind) 667 667 mg PO TID 07/0308/26/24 History mg capsule hydrocodone 10 mg-acetaminophen 1 tab PO BID PRN Pain, Moderate 07/03/24 08/26/24 History 325 mg tablet hydroxyzine HCl 25 mg tablet 25 mg PO BID Itching 03/1908/26/24 History acetaminophen 500 mg capsule 1,000 mg PO Q6H PRN fever or pain 08/26/24 08/26/24 History acetaminophen 650 mg rectal 650 mg MA Q4H PRN fever 08/26/24 History suppository amiodarone 100 mg tablet 100 mg PO BID 08/26/2408/26 History bisacodyl 10 mg rectal suppository 10 mg MA Q72H PRN c onstipation 08/26/24 08/26/24 History (Dulcolax (bisacodyl)) clonidine HCl 0.1 mg tablet 0.1 mg PO BID PRN hyperten aries 08/26/24 08/26/24 History docusate sodium 50 mg capsule 100 mg PO HS PRN constip ation 08/26/24 08/26/24 History fluocinonide-emollient 0.05 % 1 applic topical BID fun gal 08/26/24 08/26/24 History topical cream (Fluocinonide-E) dermatitis to head hydrocodone 10 mg-acetaminophen 1 tab PO Q6H PRN pain 08/26/24 08/26/24 History 325 mg tablet hyoscyamine sulfate 0.125 mg/5 mL 1 ml PO .q2hrs PRN o ral secretions 08/26/24 08/26/24 History oral elixir lidocaine 4 % topical patch 1 patch topical Q24H 08/2608/26/24 History ondansetron 4 mg disintegrating 4 mg PO Q4H PRN nausea 08/26/24 08/26/24 History tablet oxycodone-acetaminophen 10 mg-325 1 tab PO Q4H PRN odette n 08/26/24 08/26/24 History mg tablet sennosides 8.6 mg-docusate sodium 1 tab-cap PO BID PRN constipation 08/26/24 08/26/24 History 50 mg tablet (Senna Plus) spironolactone 25 mg tablet 25 mg PO BID 08/26/2410/17 History vitamin B complex-vitamin C-folic 1 tab PO QDAY 08/26/24 History acid 0.8 mg tablet (Nephro Vitamins) Allergies Allergy/AdvReac Type Severity Reaction Status Date / Time gabapentin Allergy Intermediate RASH ALL Verified 07/02/24 07:43 OVER lisinopril Allergy Intermediate Rash Verified 07/02/24 07:43 tramadol Allergy Intermediate Redness of Verified 07/02/24 07:43 Skin olmesartan (From Benicar) Allergy Unknown Hypertensio Verified 07/02/24 07:43 n morphine Allergy Hallucinati Verified 07/02/24 09:00 ng Penicillins AdvReac Severe Swelling Verified 07/02/24 07:43 of Lip/Tongue/Throat Visit Medications Acetaminophen (Acetaminophen 325 Mg Tablet) 650 mg PO Q6H PRN PRN Reason: Pain 1-3 and/or Fever >100.1 Stop: 09/24/24 15:30 Heparin Sodium (Porcine) (Heparin Sod Inj 5000 Unit/Ml Vial) 5,000 unit SC Q12HR [facility] Stop: 09/08/24 20:59 Hydromorphone HCl (Hydromorphone Inj 2 Mg/Ml Vial) 0.25 mg IVP Q2H PRN PRN Reason: Pain 7-10 Stop: 08/30/24 15:30 Last Admin: 08/25/24 16:12 Dose: 0.25 mg Ceftriaxone Sodium 1,000 mg/ (Sodium Chloride) 50 mls @ 100 mls/hr IV QDAY [facility] Stop: 09/01/24 15:47 Ondansetron HCl (Ondansetron Inj 2 Mg/Ml Inj 2 Ml) 4 mg IV Q6H PRN; Protocol PRN Reason: NAUSEA OR VOMITING Stop: 09/24/24 15:30 Last Admin: 08/25/24 16:12 Dose: 4 mg Sennosides (Senna Tablet) 1 tab PO QDAY [facility]; Protocol Stop: 09/25/24 08:59 Discontinued Medications Dextrose (Dextrose 50%-Water Inj 50 Ml Syringe) 50 ml IV X1 ONE Stop: 08/25/24 15:38 Last Admin: 08/25/24 16:40 Dose: 50 ml Epoetin Russell (Epoetin Russell-Epbx Inj 10,000 Unit/Ml Vial (Esrd)) 10,000 unit SC X1 ONE Stop: 08/25/24 16:37 Fentanyl Citrate (Fentanyl Cit Inj 50 Mcg/Ml Amp 2ml) 50 mcg IVP X1 ONE Stop: 08/25/24 12:25 Last Admin: 08/25/24 12:28 Dose: 50 mcg Insulin Human Regular (Insulin Hum Regular 1 Unit/0.01 Ml (Per Unit)) 5 unit SC X1 ONE Stop: 08/25/24 15:38 Last Admin: 08/25/24 16:45 Dose: Not Given Insulin Human Regular (Insulin Hum Regular 1 Unit/0.01 Ml (Per Unit)) 5 unit IV X1 ONE Stop: 08/25/24 16:29 Last Admin: 08/25/24 16:39 Dose: 5 unit Assessment & Plan Plan The patient is a 79 y/o female, past medical history of CKD, Afib, hx of AVM, uncontrolled hypertension, CVA with residual deficits, atrial fibrillation, heart failure with preserved ejection fraction, history of pulmonary mass, was previously on hospice, who presented to the ER following a mechanical fall and increased left hip pain, found to have left acute angulated displaced fracture of femoral neck, orthopedic consult Dr. Andrews was placed, tentative plan for surgery on Sunday. Home medications include amiodarone 100 mg twice daily, clonidine 0.1 mg twice daily as needed, hydralazine 100 mg 3 times daily, labetalol 100 mg twice daily, nifedipine 60 mg twice daily, paroxetine 10 mg daily, pantoprazole 20 mg daily, spironolactone 25 mg twice daily, hydroxyzine 25 mg twice daily, [place] as needed for pain, docusate, bisacodyl, multivitamins, alprazolam for anxiety. Problems: 1. Heart failure with preserved ejection fraction 2. Hypertensive urgency 3. History of atrial fibrillation, now in sinus rhythm 4. Moderate mitral regurgitation 5. Concern for pulmonary hypertension 6. End-stage renal disease, on hemodialysis 7. Hyperkalemia 8. Displaced fracture left femoral neck On initial presentation to ER, systolic blood pressure in the 200s, EKG shows sinus rhythm, history of A-fib, not on any anticoagulation likely due to history of AV malformations and GI tract, no documented or reported history of coronary artery disease, the patient has a loud systolic murmur likely secondary to mitral regurgitation, also concern for pulmonary hypertension as prior echocardiogram showed RVSP 74 mm, patient uses oxygen at home during the night. On multiple medications for resistant hypertension, given underlying end-stage renal disease, on clinical assessment patient does not seem to be volume overloaded, has dry mucous membranes and tongue, chest x-ray is concerning for vascular congestion and findings of CHF, also noted pulmonary mass right upper lobe which was seen on previous chest imaging from few months ago. Patient was on hospice prior to arrival, but was not able to volunteer information as to reason for hospice. Currently seen on hemodialysis, urgent hemodialysis in the setting of hyperkalemia, no ultrafiltration as patient is likely intravascularly volume depleted. Of note patient was last seen at admissions counselor Dr. Darien Maza's office in 2021, but she was lost to follow-up. Patient reported she has been compliant with her medications, which were refilled by her primary doctor but no longer follows a admissions counselor. Will order repeat echocardiogram, recommend continuing home medications including amiodarone, labetalol, nifedipine and hydralazine as blood pressure allows. Recommend holding off on spironolactone due to concurrent hyperkalemia. Plan of care was discussed with my attending admissions counselor Dr. Darien Woo PGY2
--- NOTE | 2024-08-25 17:46 | PD.ANESPROG ---
Documentation for date of: 08/25/24 BRIEF PRE-OP ANESTHESIA NOTE: Dr. Andrews requested anesthesia consult on this patient with left hip fx for possible surgery. I saw her in ER and then in dialysis unit. She was awake, appeared lethargic and spoke briefly, was on [place] O2, which she endorsed she uses at night. She denied recent chest pains and worsening dyspnea. She has h/o HTN, currently with very elevated SBP 180s, h/o A fib currently in sinus, h/o ESRD, also h/o CVA. Unless emergent, I recommend cardiology clearance/optimization, which is already being done, ongoing dialysis as per nephrology, and gradual improvement of her BP prior to proceeding. [place] time for surgery would be after dialysis, if possible one day after dialysis. Recommend reasonable electrolytes, Na+ > 130, K+ 3/3.5 to 5. Hopefully she maintains sinus rhythm, avoid A fib RVR. She may need re-evaluation if her condition worsens or just prior to surgery. Rick Brown MD Anesthesia Progress Note Progress Note Most recent Vital Signs: Last Vital Signs Temp 98.6 F 08/25/24 17:23 Pulse 75 08/25/24 17:45 Resp 20 08/25/24 17:23 BP 183/83 H 08/25/24 17:45 Pulse Ox 94 L 08/25/24 17:23 O2 Del Method Nasal Cannula 08/25/24 15:39 O2 Flow Rate 3 08/25/24 17:23
--- NOTE | 2024-08-25 17:50 | PC.NURSE ---
Received Hand off report over telephone at 17:50 from Macario DOYLE in the ER. During report, Macario said patient went to dialysis at approximately 17:00. Has not arrived on the floor yet.
--- NOTE | 2024-08-25 18:23 | PC.NURSE ---
Pt. co hip pain, from fx, 910. Medicated with hydromophone 0.25 mg IVP.
[2024-08-25 19:13] LABS: Parathyroid Hormone Intact 398.4 pg/ml (18.5-88.0)
[2024-08-25] MEDS: EPOETIN ALFA-EPBX INJ 10,000 UNIT/ML VIAL (ESRD) 10000 UNIT SC (20:24)
--- NOTE | 2024-08-25 21:58 | PC.NURSE ---
pt very confused, calling her , calling [facility] to pick her up, I wanna go home . Called 911, 2 to 3 times. Avasure initiated. Reorientation done.
[2024-08-25] MEDS: HEPARIN SOD INJ 5000 UNIT/ML VIAL SC (22:21)
[2024-08-25 22:33] LABS: Collection Type, Urine Catheter
[2024-08-25 22:39] LABS: Bilirubin,Urine Negative (Negative); Blood,Urine 1+ (Negative); Clarity,Urine Clear (Clear/Hazy); Color,Urine Lt-Yellow (Lt Yel-Yel); Glucose, Urine 1+ (Negative); Hyaline Casts,Urine < 1 /hpf (0-1); Ketones,Urine Negative (Negative); Leukocyte Esterase,Urine Negative (Negative); Nitrite,Urine Negative (Negative); PH,Urine 8.5 (5.0-7.0); Protein,Urine 3+ (Neg - Trace); RBC,Urine 47 /hpf (0-3); Specific Gravity,Urine 1.012 (1.001-1.035); Squamous Epithelial Cell,Urine < 1 /hpf (0-5); Urobilinogen,Urine Negative mg/dL (0.0-1.0); WBC,Urine 15 /hpf (0-5)
[2024-08-25] MEDS: CIPROFLOXACIN/D5w 400 MG IVPB 400 MG/200 ML BAG 200 MG IV (23:27)
[2024-08-26] VITALS (18 sets, daily range): BP systolic 145–207; BP diastolic 65–88; PULSE 70–95; RESP 16–23; TEMP 36.6–37.3; O2SAT 92–96; BMI 18.7
[2024-08-26] MEDS: ACETAMINOPHEN 325 MG TABLET 650 MG PO (03:09)
[2024-08-26] MEDS: HYDROmorphone INJ 2 MG/ML VIAL 0.25 MG IVP ×3 (04:58→22:45)
[2024-08-26 05:43] LABS: Basophils % (Auto) 0 % (0-2.5); Eosinophils # (Auto) 0.3 Thou/mm3 (0.0-0.5); Eosinophils % (Auto) 2 % (0-10); Hematocrit 28.6 % (36.0-46.0); Hemoglobin 9.4 g/dL (12.0-16.0); Immature Granulocytes % (Auto) 0 % (0-0); Immature Granulocytes Auto 0.05 Thou/mm3 (0.00-0.00); Lymphocytes # (Auto) 0.5 Thou/mm3 (1.0-4.8); Lymphocytes % (Auto) 4 % (10-50); Mean Corpuscular HGB Conc 32.9 g/dl (31.0-37.0); Mean Corpuscular Hemoglobin 29.9 pg (25.0-35.0); Mean Corpuscular Volume 91 fL (80-100); Monocytes # (Auto) 1.5 Thou/mm3 (0.0-0.8); Monocytes % (Auto) 12 % (0-12); Neutrophils # (Auto) 9.9 Thou/mm3 (1.8-7.7); Neutrophils % (Auto) 81 % (37-80); Nucleated Red Blood Cell % 0 /100 WBC (0); Platelet Count 375 Thou/mm3 (140-440); RDW Standard Deviation 53.4 fL (36.4-46.3); Red Blood Count 3.14 Miln/mm3 (4.00-5.20); White Blood Count 12.3 Thou/mm3 (3.6-11.0)
[2024-08-26 05:59] LABS: INR 1.1 (0.9-1.3); Prothrombin Time 11.6 Seconds (9.0-12.2)
[2024-08-26 06:44] LABS: Alanine Aminotransferase < 7 U/L (10-49); Albumin, Serum 4.1 gm/dL (3.4-4.8); Albumin/Globulin Ratio 1.3 (1.2-2.2); Alkaline Phosphatase 60 U/L (46-116); Anion Gap 11 (7-16); Aspartate Amino Transferase 13 U/L (0-34); BUN/Creatinine Ratio 6 Ratio (12-20); Bilirubin,Total 0.4 mg/dL (0.3-1.2); Blood Urea Nitrogen 20 mg/dL (9-23); Calcium 9.7 mg/dL (8.3-10.6); Calcium (Corrected) 9.7 mg/dL (8.5-10.1); Carbon Dioxide 27.5 mMol/L (20.0-31.0); Chloride 97 mMol/L (98-107); Creatinine (Component) 3.3 mg/dL (0.6-1.3); Estimated Creatinine Clearance 10.8 mL/min (>60); Globulin 3.1 gm/dL (2.3-3.5); Glucose 111 mg/dL (74-106); Magnesium 2.2 mg/dL (1.6-2.6); Osmolality,Calculated 273 (275-295); Phosphorous 3.5 mg/dL (2.4-5.1); Sodium 135 mMol/L (136-145); Total Protein 7.2 gm/dL (5.7-8.2); eGFR 14 See Note
[2024-08-26] MEDS: SENNA TABLET 1 TAB PO (08:51)
[2024-08-26] MEDS: NIFEdipine XL 30 MG TABCR 60 MG PO ×2 (08:52→21:26)
[2024-08-26] MEDS: PARoxetine HCL 10 MG TABLET PO (08:52)
[2024-08-26] MEDS: AMIODARONE HCL 200 MG TABLET 100 MG PO ×2 (08:52→21:27)
[2024-08-26] MEDS: HEPARIN SOD INJ 5000 UNIT/ML VIAL SC (08:54)
[2024-08-26] MEDS: LABETALOL 100 MG TABLET PO ×2 (08:55→21:27)
--- NOTE | 2024-08-26 09:30 | PD.ORTHCON ---
HPI Consult details Reason for consultation narrative: Left hip pain History of present illness: Lauren is a pleasant 79-year-old female with a left hip pain and a displaced femoral neck fracture. She had a ground-level fall. She is significant medical home morbidities and is on dialysis and has a history of malignant hypertension. She is on hospice and is DNR/DNI. Past Medical History Past Medical History Comments PMH COMMENT: Past medical history is very significant including anxiety, A-fib, COPD, End-stage renal disease on dialysis Meds Home Medications and Allergies Home Medications ?Medication ?Instructions ?Recorded ?Confirmed ?Type vitamin B complex-vitamin C-folic 1 tab PO DAILY 06/03/21 08/26/24 History acid 0.8 mg tablet (Shilpi-Janusz) alprazolam 0.5 mg tablet 0.5 mg PO TID Anxiety 01/17/22 08/26/24 History cyclobenzaprine 5 mg tablet 5 mg PO HS PRN Spasms 01/27/22 07/03/24 History hydralazine 100 mg tablet 100 mg PO BID 11/20/22 08/26/24 History labetalol 100 mg tablet 100 mg PO BID 11/20/22 08/26/24 History pantoprazole 20 mg tablet,delayed 20 mg PO QDAY 11/20/22 08/26/24 History release paroxetine HCl 10 mg tablet 10 mg PO QDAY depression 11/20/22 08/26/24 History calcium acetate(phosphat bind) 667 667 mg PO TID 07/03/24 08/26/24 History mg capsule hydrocodone 10 mg-acetaminophen 1 tab PO BID PRN Pain, Moderate 07/03/24 08/26/24 History 325 mg tablet hydroxyzine HCl 25 mg tablet 25 mg PO BID Itching 07/03/24 08/26/24 History acetaminophen 500 mg capsule 1,000 mg PO Q6H PRN fever or pain 08/26/24 08/26/24 History acetaminophen 650 mg rectal 650 mg SC Q4H PRN fever 08/26/24 08/26/24 History suppository amiodarone 100 mg tablet 100 mg PO BID 08/26/24 08/26/24 History bisacodyl 10 mg rectal suppository 10 mg SC Q72H PRN constipation 08/26/24 08/26/24 History (Dulcolax (bisacodyl)) clonidine HCl 0.1 mg tablet 0.1 mg PO BID PRN hypertension 08/26/24 08/26/24 History docusate sodium 50 mg capsule 100 mg PO HS PRN constipation 08/26/24 08/26/24 History fluocinonide-emollient 0.05 % 1 applic topical BID fungal 08/26/24 08/26/24 History topical cream (Fluocinonide-E) dermatitis to head hydrocodone 10 mg-acetaminophen 1 tab PO Q6H PRN pain 08/26/24 08/26/24 History 325 mg tablet hyoscyamine sulfate 0.125 mg/5 mL 1 ml PO .q2hrs PRN oral secretions 08/26/24 08/26/24 History oral elixir lidocaine 4 % topical patch 1 patch topical Q24H 08/26/24 08/26/24 History ondansetron 4 mg disintegrating 4 mg PO Q4H PRN nausea 08/26/24 08/26/24 History tablet oxycodone-acetaminophen 10 mg-325 1 tab PO Q4H PRN pain 08/26/24 08/26/24 History mg tablet sennosides 8.6 mg-docusate sodium 1 tab-cap PO BID PRN constipation 08/26/24 08/26/24 History 50 mg tablet (Senna Plus) spironolactone 25 mg tablet 25 mg PO BID 08/26/24 08/26/24 History vitamin B complex-vitamin C-folic 1 tab PO QDAY 08/26/24 08/26/24 History acid 0.8 mg tablet (Nephro Vitamins) Allergies Allergy/AdvReac Type Severity Reaction Status Date / Time gabapentin Allergy Intermediate RASH ALL Verified 07/02/24 07:43 OVER lisinopril Allergy Intermediate Rash Verified 07/02/24 07:43 tramadol Allergy Intermediate Redness of Verified 07/02/24 07:43 Skin olmesartan (From Benicar) Allergy Unknown Hypertensio Verified 07/02/24 07:43 n morphine Allergy Hallucinati Verified 07/02/24 09:00 ng Penicillins AdvReac Severe Swelling Verified 07/02/24 07:43 of Lip/Tongue/Throat Exam Vital Signs Temp Pulse Resp BP Pulse Ox O2 Del Method O2 Flow Rate 99.2 F 78 19 188/74 H 94 L Nasal Cannula 3 08/26/24 08:00 08/26/24 08:55 08/26/24 08:00 08/26/24 08:55 08/26/24 08:00 08/26/24 08:00 08/26/24 08:00 Additional findings Additional findings: Patient is inSignificant pain Breathing is nonlabored. In no respiratory distress. Bilateral extremities were evaluated and demonstrates sensation intact to light touch. Palpable pedal pulses are present. No significant edema is present. Left lower extremity is shortened and externally rotated Results - Ortho Labs 08/27/24 05:07 08/27/24 05:07 Labs: Short CBC 08/25/24 08/26/24 Range/Units 11:50 05:09 WBC 14.4 H 12.3 H (3.6-11.0) Thou/mm3 Hgb 10.8 L 9.4 L (12.0-16.0) g/dL Hct 33.5 L 28.6 L (36.0-46.0) % Plt Count 438 D 375 D (140-440) Thou/mm3 BMP 08/25/24 08/26/24 11:50 05:09 Sodium 128 L 135 L Potassium 5.8 H 4.0 D Chloride 90 L 97 L Carbon Dioxide 23.5 27.5 BUN 45 H 20 Creatinine 5.8 H* 3.3 H D Glucose 107 H 111 H Calcium 10.2 9.7 Liver Function 08/25/24 08/26/24 Range/Units 11:50 05:09 Total Bilirubin 0.2 L 0.4 (0.3-1.2) mg/dL AST 29 13 (0-34) U/L ALT < 7 L < 7 L (10-49) U/L Alkaline Phosphatase 66 60 (46-116) U/L Albumin 4.7 4.1 D (3.4-4.8) gm/dL Urine 08/25/24 Range/Units 21:52 Urine Color Lt-Yellow (Lt Yel-Yel) Urine Clarity Clear (Clear/Hazy) Urine pH 8.5 H (5.0-7.0) Ur Specific [place] 1.012 (1.001-1.035) Urine Protein 3+ A (Neg - Trace) Urine Glucose (UA) 1+ A (Negative) Assessment & Plan Problem List (1) Left displaced femoral neck fracture: Status: Acute Assessment and plan: Patient is a 79-year-old female with multiple medical comorbidities on hospice who is DNR/DNI with left hip pain after a fall. She is found to have a left displaced femoral neck fracture. We discussed hemiarthroplasty is a reasonable option versus nonoperative treatment. She wants to proceed with surgery. We discussed that she is at high risk of medical complications including infection, morbidity, mortality, PE, and worsening of her end-stage renal disease. I also discussed that she is at high risk for fracture and dislocation. She would like to proceed with surgery. I discussed again with her that she is going to be considered very high risk given her medical history. She still wants to proceed.
[2024-08-26] MEDS: hydrALAZINE HCL 25 MG TABLET 100 MG PO ×2 (11:51→21:26)
--- NOTE | 2024-08-26 12:32 | ESPR_ITS ---
<Statement entered by Harriet Prieto MD - 08/26/24 23:05> Patient was seen and examined by me personally. I have directly supervised and reviewed documentation by the team resident and agree with its findings with any exceptions or additional findings as below. Plan of care was discussed with the attending, Dr. Allred. This morning patient was seen and she was found to be quite confused, tangential in speech. She was denying any pain. Caregiver present at bedside reports that the patient should not receive either morphine or Ativan due to previous history of irritable reaction. Patient has been receiving Dilaudid thus far as needed for pain. Patient is planned for surgery tomorrow for the left hip with Dr. Andrews after cardiac clearance. SubQ heparin was held and she was placed NPO after midnight. Harriet Prieto, PGY-2 Documentation for date of: 08/26/24 Subjective Subjective Interval history: 08/26/2024: Overnight, the patient's ankle x-ray was negative for any fractures and the patient's IV antibiotics were switched to ciprofloxacin. This morning, patient seen and assessed in hospital bed. Completed dialysis session on 08/[address] Muller. Patient's blood pressure remained elevated; moreover, restarted most of her home medications (amiodarone, labetalol, nifedipine, hydralazine), will consider adding clonidine the patient's blood pressure remained elevated. Patient was also assessed by anesthesiologist for preop requirements. Dr. Andrews, orthopedic surgeon, spoke with the patient extensively regarding the risks involved with surgery since she is at high risk with multiple comorbidities and advanced age. Patient would like to proceed with surgery. Exam Vital Signs Temp Pulse Resp BP Pulse Ox O2 Del Method O2 Flow Rate 99.2 F 74 19 188/74 H 94 L Nasal Cannula 3 08/26/24 08:00 08/26/24 11:51 08/26/24 08:00 08/26/24 11:51 08/26/24 08:00 08/26/24 08:00 08/26/24 08:00 Narrative Exam Physical Exam: GENERAL: Awake, answering questions appropriately but is in acute pain secondary to hip fracture, appears stated age HEENT: NC/AT. Moist mucosa. PERRLA/EOMI. CARDIO: Heart RRR, no obvious murmurs, no JVD. PULM: No coughing or visible SOB. Lungs CTA B/L. Patient on 3 L nasal cannula GI: Abdomen soft, NT/ND, +BS. SKIN/MSK/EXT: Patient has a patent (with thrill) left upper extremity AV fistula noted. No wounds/discoloration/rashes/edema/amputations noted. +Pedal pulses present B/L. NEURO: Oriented x3, no focal neurologic deficits noted Objective Labs 08/26/24 05:09 08/26/24 05:09 Labs: Laboratory Results - last 24 hr 08/25/24 08/25/24 08/25/24 11:20 11:50 21:52 WBC 14.4 H RBC 3.69 L Hgb 10.8 L Hct 33.5 L MCV 91 MCH 29.3 MCHC 32.2 RDW Std Deviation 53.2 H Plt Count 438 D Neut % (Auto) 82 H Lymph % (Auto) 5 L [place] % (Auto) 8 Eos % (Auto) 4 Baso % (Auto) 0 Neut # (Auto) 11.8 H Lymph # (Auto) 0.8 L [place] # (Auto) 1.2 H Eos # (Auto) 0.6 H Baso # (Auto) 0.0 Immature Gran # (Auto) 0.04 H Absolute Nucleated RBC 0.00 Immature Gran % 0 Nucleated RBC % 0 PT 11.1 INR 1.0 APTT 23.4 Sodium 128 L Potassium 5.8 H Chloride 90 L Carbon Dioxide 23.5 Anion Gap 15 BUN 45 H Creatinine 5.8 H* Estim Creat Clear Calc 5.9 L eGFR 7 L* BUN/Creatinine Ratio 8 L Glucose 107 H Calculated Osmolality 268 L Calcium 10.2 Corrected Calcium 10.2 H Phosphorus Magnesium Total Bilirubin 0.2 L AST 29 ALT < 7 L Alkaline Phosphatase 66 Total Protein 8.1 Albumin 4.7 Globulin 3.4 Albumin/Globulin Ratio 1.4 PTH Intact 398.4 H Ur Collection Type Catheter Urine Color Lt-Yellow Urine Clarity Clear Urine pH 8.5 H Ur Specific [place] 1.012 Urine Protein 3+ A Urine Glucose (UA) 1+ A Urine Ketones Negative Urine Blood 1+ A Urine Nitrite Negative Urine Bilirubin Negative Urine Urobilinogen (Auto) Negative Ur Leukocyte Esterase Negative Urine RBC 47 H Urine WBC 15 H Ur Squamous Epith Cells < 1 Urine Bacteria None Hyaline Casts < 1 Crossmatch 08/26/24 08/26/24 05:09 12:22 WBC 12.3 H RBC 3.14 L Hgb 9.4 L Hct 28.6 L MCV 91 MCH 29.9 MCHC 32.9 RDW Std Deviation 53.4 H Plt Count 375 D Neut % (Auto) 81 H Lymph % (Auto) 4 L [place] % (Auto) 12 Eos % (Auto) 2 Baso % (Auto) 0 Neut # (Auto) 9.9 H Lymph # (Auto) 0.5 L [place] # (Auto) 1.5 H Eos # (Auto) 0.3 Baso # (Auto) 0.0 Immature Gran # (Auto) 0.05 H Absolute Nucleated RBC 0.00 Immature Gran % 0 Nucleated RBC % 0 PT 11.6 INR 1.1 APTT Sodium 135 L Potassium 4.0 D Chloride 97 L Carbon Dioxide 27.5 Anion Gap 11 BUN 20 Creatinine 3.3 H D Estim Creat Clear Calc 10.8 L eGFR 14 L* BUN/Creatinine Ratio 6 L Glucose 111 H Calculated Osmolality 273 L Calcium 9.7 Corrected Calcium 9.7 Phosphorus 3.5 Magnesium 2.2 Total Bilirubin 0.4 AST 13 ALT < 7 L Alkaline Phosphatase 60 Total Protein 7.2 Albumin 4.1 D Globulin 3.1 Albumin/Globulin Ratio 1.3 PTH Intact Ur Collection Type Urine Color Urine Clarity Urine pH Ur Specific [place] Urine Protein Urine Glucose (UA) Urine Ketones Urine Blood Urine Nitrite Urine Bilirubin Urine Urobilinogen (Auto) Ur Leukocyte Esterase Urine RBC Urine WBC Ur Squamous Epith Cells Urine Bacteria Hyaline Casts Crossmatch See Detail Quality Measures Quality Measures VTE prophylaxis Advance care planning discussed with:: patient and spouse Assessment & Plan Assessment Current Active Medications: Generic Name Dose Route Start Last Admin Trade Name Freq PRN Reason Stop Dose Admin Acetaminophen 650 mg 08/25/24 15:31 08/26/24 03:09 Acetaminophen 325 Mg Tablet PO 09/24/24 15:30 650 mg Q6H PRN Administration Pain 1-3 and/or Fever >100.1 Amiodarone HCl 100 mg 08/26/24 09:00 08/26/24 08:52 Amiodarone Hcl 200 Mg Tablet PO 09/25/24 08:59 100 mg BID HOSSEIN Administration Heparin Sodium (Porcine) 5,000 unit 08/25/24 21:00 08/26/24 08:54 Heparin Sod Inj 5000 Unit/Ml Vial SC 09/08/24 20:59 5,000 unit Q12HR HOSSEIN Administration Hydralazine HCl 100 mg 08/26/24 10:45 08/26/24 11:51 Hydralazine Hcl 25 Mg Tablet PO 09/25/24 10:44 100 mg BID HOSSEIN Administration Hydromorphone HCl 0.25 mg 08/25/24 15:31 08/26/24 04:58 Hydromorphone Inj 2 Mg/Ml Vial IVP 08/30/24 15:30 0.25 mg Q2H PRN Administration Pain 7-10 Ciprofloxacin/Dextrose 400 mg in 200 mls @ 200 mls/hr 08/25/24 21:00 08/25/24 23:27 Cipro Ivpb IV 09/01/24 20:59 200 mls/hr Q24H HOSSEIN Administration Labetalol HCl 100 mg 08/26/24 09:00 08/26/24 08:55 Labetalol 100 Mg Tablet PO 09/25/24 08:59 100 mg BID HOSSEIN Administration Nifedipine 60 mg 08/26/24 09:00 08/26/24 08:52 Nifedipine Xl 30 Mg Tabcr PO 09/25/24 08:59 60 mg BID HOSSEIN Administration Ondansetron HCl 4 mg 08/25/24 15:31 08/25/24 16:12 Ondansetron Inj 2 Mg/Ml Inj 2 Ml IV 09/24/24 15:30 4 mg Q6H PRN Administration NAUSEA OR VOMITING Protocol Paroxetine HCl 10 mg 08/26/24 09:00 08/26/24 08:52 Paroxetine Hcl 10 Mg Tablet PO 09/25/24 08:59 10 mg QDAY HOSSEIN Administration Sennosides 1 tab 08/26/24 09:00 08/26/24 08:51 Senna Tablet PO 09/25/24 08:59 1 tab QDAY HOSSEIN Administration Protocol Plan 79-year-old female with past medical history of end-stage renal disease (M/W/F), anxiety, status post CVA with left-sided deficits, atrial fibrillation, hypertension and CHF who presented with episode of ground-level fall on Wednesday 08/23 after she was attempting to ambulate from her wheelchair to the bathroom will be admitted for left hip fracture and assessed by orthopedic surgery for surgical needs; moreover, will need cardiac clearance as well as nephrology for dialysis inpatient. #Acute displaced angulated fracture left femoral neck #Ground-level fall As noted in HPI, patient had a ground-level fall on Wednesday 08/23 Presenting with acute pain on the left side Imaging findings included hip pelvis x-ray which showed acute angulated displaced fracture of the femoral neck, shoulder x-ray which was negative, cervical CT spine which showed no acute cervical fracture but there was pronounced anterolisthesis of the C4 on C5, head CT was negative for any acute process, femur x-ray showed confirmed acute displaced angulated fracture of the left femoral neck Dr. Andrews contacted - is planning on doing surgery Sunday 08/27 if/when patient is stabilized and cleared by cardiology XR of b/l ankles is negative for any acute fractures Plan: Multimodal pain management Orthopedics consulted, appreciate recommendations Tentatively plan surgery with Dr. Andrews on 08/27/2024 upon cardiac clearance 1 unit of PRBC ordered by anesthesiology for possible need intraoperatively/postoperatively #ESRD on HD (M/W/F) #Hypertensive emergency #Hypertension #Hyperkalemia Patient follows Dr. Muller outpatient for dialysis; last session was Sunday08/22/24 Presenting today with hypertensive emergency Potassium of 5.8 and worsened kidney function Patient has a L-sided upper extremity AVF which is patent w/thrill Completed HD on 08/[address] Muller Plan: Nephrology consulted, appreciate recommendations Restarted patient's labetalol, nifedipine, hydralazine and will consider adding clonidine if she remains hypertensive #Leukocytosis, downtrending #Likely urinary tract infection? Patient states that she has been having burning sensation with urination She wears adult diapers Initially WBCs elevated at 14.4 with 82% neutrophils Urinalysis does not show any signs of urinary tract infection Plan: Pending urine culture Switch to ciprofloxacin from IV ceftriaxone, will DC pending urine cultures Cunningham inserted, will DC after surgery #Atrial fibrillation, rate controlled [id number] score 7 Patient on labetalol 100 mg twice daily at home Currently regular, rate controlled rhythm Plan: Tele Restarted patient's amiodarone 100 mg p.o. twice daily #Congestive heart failure, not in acute exacerbation #Chronic respiratory failure secondary to CHF #History of CVA with left-sided deficits Patient reports history of congestive heart failure Last echo done in 2022 shows ejection fraction 60 to 65% Currently does not appear fluid overloaded though chest x-ray does show pulmonary edema On 2 to 3 L oxygen at home Echo from 06/2024 shows: Normal LV size and function. Mild LVH. Estimated EF 60- 65%. RV mildly dilated. Normal RV function. Estimated RVSP 74mmHg. LA severely dilated. The mitral valve is mildly thicken. Moderate MR. Aortic LCC is mildly calcified. Mild AI. Mild to moderate TR. Pleural effusion present. Plan: Strict I&O Daily weight Fluid restriction 1800ml Supplemental oxygen as needed Plan: Continue supplemental oxygen as needed #Anemia of chronic disease Patient has end-stage renal disease, per chart review hemoglobin has been low Plan: Monitor with morning labs #History of depression/anxiety Patient currently on paroxetine daily Plan: Restarted paroxetine 10 mg daily Hospital Management: Lines: PIV, Cunningham Diet: N.p.o. after midnight Bowel: Senna GI Prophylaxis: Not needed DVT Prophylaxis: heparin subq Dispo: HD with Dr. Muller, cardiac clearance with Dr. Maza and orthopedic consultation with Dr. Andrews; surgery tentatively planned for 08/27/2024 Code: DNR Patient seen and assessed with attending Dr. Allred and senior resident Dr. Ida Borges, PGY-1 Attending Provider Attestation/Addendum I have examined the patient, reviewed labs and imaging findings, discussed the case with the resident(s), and reviewed entered orders. I agree with the plan of care as outlined in this note, with these additional summaries/recommendations: Patient seen at bedside. No acute overnight events. Patient is alert and oriented x 2 this morning. She appears to have labile mood at times. She reports her pain is currently controlled on current pain regimen. She is pending cardiac clearance for left displaced femoral neck fracture. Orthopedics following. Echocardiogram pending. Continue home antihypertensives. Patient has history of ESRD. Nephrology following for inpatient hemodialysis. PTH 398.4 indicating renal osteodystrophy. Leukocytosis is present but most likely reactive. Repeat hematology and chemistry panel in AM. Dr. Chalino MD
--- NOTE | 2024-08-26 15:42 | ESPR_ITS ---
Documentation for date of: 08/26/24 Subjective Subjective Interval history: Ms. Chen is a 79-year-old female with past medical history of ESRD on HD [M/W/F], CVA with residual left-sided deficits, anxiety, depression, atrial fibrillation, hypertension and CHF( under Dr. Kuo) presented to the hospital with chief complaints of ground-level fall on 08/23/2024. Patient was mostly wheelchair-bound, on the day of the fall patient was trying to get up from the wheelchair to go to the bathroom during which she felt dizzy and had a fall. Patient denies palpitations, skipped beats, loss of consciousness, involuntary movements at the time of the fall. Patient's called the ambulance but patient denied admission to hospital for which she received some pain medications. As patient is still not able to mobilize and skipped her dialysis session on Sunday and on the day of admission, called the ambulance following which patient was brought to the ED. Complaining of severe pain at the site of left hip fracture. Nephrology is consulted as the patient is on HD 3 times per week and missed last 2 dialysis sessions. ED Course: -Initial vitals were 175/108 mmHg, pulse rate 73 bpm, respiratory rate 17/min, temperature 98.7 ?F, SpO2 92% with oxygen through nasal cannula. -Labs significant for WBC 14.4, Hb 10.8, platelets 438, sodium 128, potassium 5.8, chloride 90, BUN 45, creatinine 5.8, corrected calcium 10.2, ALP 66. -Hip and pelvis x-ray showed acute angulated displaced fracture humeral neck. Shoulder x-ray showed no fracture or dislocation. Cervical spine CT showed no acute cervical fracture. Head CT showed no acute hemorrhage, mass effect or midline shift. Femur x-ray showed acute displaced angulated fracture of left femoral neck. Chest x-ray showed mild to moderate CHF. EKG showed normal sinus rhythm. -In the ED, patient was given hydromorphone, fentanyl -Patient was admitted for acute left hip fracture. 08/26/2024 Patient was seen and examined at bedside in the telemetry No acute overnight events. But patient seems to be pretty much confused and called ambulance 30 times during night Patient received Dilaudid for her pain following which she had auditory hallucinations, seems pretty anxious and endorsed that she wants to get out of the hospital, likely sensitive to the Dilaudid On physical examination, there is a ejection systolic murmur heard at the aortic area and PSM heard at tricuspid area Will continue dialysis as per her routine schedule Exam Vital Signs Temp Pulse Resp BP Pulse Ox O2 Del Method O2 Flow Rate 99.2 F 74 19 188/74 H 94 L Nasal Cannula 3 08/26/24 08:00 08/26/24 12:40 08/26/24 08:00 08/26/24 11:51 08/26/24 08:00 08/26/24 08:00 08/26/24 08:00 Narrative Exam General: Awake. HEENT: Normocephalic, atraumatic, mucous membranes moist. Heart: Regular rate and rhythm, ESM at aortic area, PSM at tricuspid area Lungs: Clear to auscultation with no wheezing or crackles. Abdomen: Soft, nondistended, nontender, positive bowel sounds. ?No guarding or rebound tenderness. Neurologic: Confused, left-sided stroke. Extremities: No edema. Left hip fracture. Skin: No rash or ecchymoses. Objective Labs 08/26/24 05:09 08/26/24 05:09 Labs: Laboratory Results - last 24 hr 08/25/24 08/25/24 08/26/24 11:50 21:52 05:09 WBC 12.3 H RBC 3.14 L Hgb 9.4 L Hct 28.6 L MCV 91 MCH 29.9 MCHC 32.9 RDW Std Deviation 53.4 H Plt Count 375 D Neut % (Auto) 81 H Lymph % (Auto) 4 L [place] % (Auto) 12 Eos % (Auto) 2 Baso % (Auto) 0 Neut # (Auto) 9.9 H Lymph # (Auto) 0.5 L [place] # (Auto) 1.5 H Eos # (Auto) 0.3 Baso # (Auto) 0.0 Immature Gran # (Auto) 0.05 H Absolute Nucleated RBC 0.00 Immature Gran % 0 Nucleated RBC % 0 PT 11.6 INR 1.1 Sodium 135 L Potassium 4.0 D Chloride 97 L Carbon Dioxide 27.5 Anion Gap 11 BUN 20 Creatinine 3.3 H D Estim Creat Clear Calc 10.8 L eGFR 14 L* BUN/Creatinine Ratio 6 L Glucose 111 H Calculated Osmolality 273 L Calcium 9.7 Corrected Calcium 9.7 Phosphorus 3.5 Magnesium 2.2 Total Bilirubin 0.4 AST 13 ALT < 7 L Alkaline Phosphatase 60 Total Protein 7.2 Albumin 4.1 D Globulin 3.1 Albumin/Globulin Ratio 1.3 PTH Intact 398.4 H Ur Collection Type Catheter Urine Color Lt-Yellow Urine Clarity Clear Urine pH 8.5 H Ur Specific [place] 1.012 Urine Protein 3+ A Urine Glucose (UA) 1+ A Urine Ketones Negative Urine Blood 1+ A Urine Nitrite Negative Urine Bilirubin Negative Urine Urobilinogen (Auto) Negative Ur Leukocyte Esterase Negative Urine RBC 47 H Urine WBC 15 H Ur Squamous Epith Cells < 1 Urine Bacteria None Hyaline Casts < 1 Blood Type Antibody Screen Crossmatch Blood Bank Wristband ID 08/26/24 12:22 WBC RBC Hgb Hct MCV MCH MCHC RDW Std Deviation Plt Count Neut % (Auto) Lymph % (Auto) [place] % (Auto) Eos % (Auto) Baso % (Auto) Neut # (Auto) Lymph # (Auto) [place] # (Auto) Eos # (Auto) Baso # (Auto) Immature Gran # (Auto) Absolute Nucleated RBC Immature Gran % Nucleated RBC % PT INR Sodium Potassium Chloride Carbon Dioxide Anion Gap BUN Creatinine Estim Creat Clear Calc eGFR BUN/Creatinine Ratio Glucose Calculated Osmolality Calcium Corrected Calcium Phosphorus Magnesium Total Bilirubin AST ALT Alkaline Phosphatase Total Protein Albumin Globulin Albumin/Globulin Ratio PTH Intact Ur Collection Type Urine Color Urine Clarity Urine pH Ur Specific [place] Urine Protein Urine Glucose (UA) Urine Ketones Urine Blood Urine Nitrite Urine Bilirubin Urine Urobilinogen (Auto) Ur Leukocyte Esterase Urine RBC Urine WBC Ur Squamous Epith Cells Urine Bacteria Hyaline Casts Blood Type O Negative Antibody Screen NEGATIVE Crossmatch See Detail Blood Bank Wristband ID Yes Quality Measures Quality Measures VTE prophylaxis Advance care planning discussed with:: patient Assessment & Plan Assessment Current Active Medications: Generic Name Dose Route Start Last Admin Trade Name Freq PRN Reason Stop Dose Admin Acetaminophen 650 mg 08/25/24 15:31 08/26/24 03:09 Acetaminophen 325 Mg Tablet PO 09/24/24 15:30 650 mg Q6H PRN Administration Pain 1-3 and/or Fever >100.1 Amiodarone HCl 100 mg 08/26/24 09:00 08/26/24 08:52 Amiodarone Hcl 200 Mg Tablet PO 09/25/24 08:59 100 mg BID HOSSEIN Administration Heparin Sodium (Porcine) 5,000 unit 08/25/24 21:00 08/26/24 08:54 Heparin Sod Inj 5000 Unit/Ml Vial SC 09/08/24 20:59 5,000 unit Q12HR HOSSEIN Administration Hydralazine HCl 100 mg 08/26/24 10:45 08/26/24 11:51 Hydralazine Hcl 25 Mg Tablet PO 09/25/24 10:44 100 mg BID HOSSEIN Administration Hydromorphone HCl 0.25 mg 08/25/24 15:31 08/26/24 04:58 Hydromorphone Inj 2 Mg/Ml Vial IVP 08/30/24 15:30 0.25 mg Q2H PRN Administration Pain 7-10 Ciprofloxacin/Dextrose 400 mg in 200 mls @ 200 mls/hr 08/25/24 21:00 08/25/24 23:27 Cipro Ivpb IV 09/01/24 20:59 200 mls/hr Q24H HOSSEIN Administration Labetalol HCl 100 mg 08/26/24 09:00 08/26/24 08:55 Labetalol 100 Mg Tablet PO 09/25/24 08:59 100 mg BID HOSSEIN Administration Nifedipine 60 mg 08/26/24 09:00 08/26/24 08:52 Nifedipine Xl 30 Mg Tabcr PO 09/25/24 08:59 60 mg BID HOSSEIN Administration Ondansetron HCl 4 mg 08/25/24 15:31 08/25/24 16:12 Ondansetron Inj 2 Mg/Ml Inj 2 Ml IV 09/24/24 15:30 4 mg Q6H PRN Administration NAUSEA OR VOMITING Protocol Paroxetine HCl 10 mg 08/26/24 09:00 08/26/24 08:52 Paroxetine Hcl 10 Mg Tablet PO 09/25/24 08:59 10 mg QDAY HOSSEIN Administration Sennosides 1 tab 08/26/24 09:00 08/26/24 08:51 Senna Tablet PO 09/25/24 08:59 1 tab QDAY HOSSEIN Administration Protocol Plan A 79-year-old female with past medical history of ESRD on HD [M/W/F], CVA with residual left-sided deficits, anxiety, atrial fibrillation, HCV, hypertension and CHF presented to the hospital with chief complaints of ground-level fall on 08/23/2024 and admitted for left hip fracture. Consulted for hemodialysis # ESRD on hemodialysis [M/W/F] -Patient is on hospice and continues to receive hemodialysis 3 times per week -Patient is mostly wheelchair-bound and ambulates only for minimal activities -Per patient , patient missed 2 dialysis sessions before the day of admission -Does not appear to be fluid overloaded as of now -Labs on 08/26/2024 showed BUN 20, creatinine 3.3 Plan -Patient underwent dialysis on 08/25/2024 -Will continue further sessions as per her routine schedule -Avoid nephrotoxic medications and renally dose medications. # Hypertension, uncontrolled -Patient has uncontrolled hypertension for more than 20 years. -Plasma aldosterone levels done in 06/2024 is 16, renin levels are 0.12 -Metanephrines, normetanephrine's done in 2022 seems to be elevated -CT abdomen/pelvis done in 2022 did not show any adrenal tumor. -Blood pressure at the time of admission is 175/108 mmHg -Still blood pressures tend to be around 160-180/70-75 -Patient is currently receiving hydralazine 100 Mg p.o. twice daily, labetalol 100 Mg p.o. twice daily and nifedipine 60 Mg p.o. twice daily Plan -Continue blood pressure medications -If not controlled with the current medications, can increase hydralazine from 100 Mg p.o. twice daily to 3 times daily -Recommended to monitor her blood pressures # Hyperkalemia, resolved -Potassium at the time of admission is 5.8, likely due to ESRD and patient missed her dialysis sessions -Potassium as of 08/26/2024 is 4 Plan -Started on her routine dialysis schedule -Recommended to monitor potassium levels # Hypoosmolar hyponatremia, resolved -Likely due to poor oral intake, as patient looks clinically dehydrated Plan -Recommended to monitor serum electrolytes. # Mild hypercalcemia Likely due to immobilisation vs dehydration -Monitor electrolytes -Calcium and phosphorus levels are within normal limits on 08/26/2024 -PTH levels are 398.4, which is appropriately elevated for ESRD -25-hydroxy vitamin D levels are ordered #Anemia of chronic disease Hemoglobin at the time of admission is 10.8 Plan: Will give erythropoietin injection during dialysis Continue to monitor CBC #Acute displaced angulated fracture left femoral neck #Ground-level fall #Leukocytosis #Likely urinary tract infection? #Atrial fibrillation, rate controlled #Congestive heart failure, not in acute exacerbation #Chronic respiratory failure secondary to CHF # History of CVA with left-sided deficits #History of depression/anxiety -As per primary team Thank you for allowing us to participate in the care of the patient Patient plan of care was discussed with the attending physician,Dr. Renzo Howe, PGY1 Attending Provider Attestation/Addendum Status post fall with a left femur fracture. Pending cardiology clearance for fixation. Spoke to Dr. Kuo. She called my office at least 20 times. Patient seems to be confused. Patient seen and examined with resident physician Dr. Bentley. Note reviewed, agree with findings and recommendations.
[2024-08-26 16:27] LABS: Vitamin D 25 Hydroxy Total 31.4 ng/mL (7.3-40.2)
--- NOTE | 2024-08-26 16:56 | ESPR_ITS ---
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 Reassurance was provided. Sshe is fairly asymptomatic, pain is well-controlled, no active complaint of shortness of breath or chest pressure. Of note, chart review showed patient was worked up for resistant hypertension despite multiple antihypertensive drugs when she was in ICU last month renin levels 0.12, aldosterone levels 16, renin aldosterone ratio more than 30, which is virtually diagnostic of hyperaldosteronism, though given patient's overall clinical picture, being on hospice and multiple comorbidities likely will hold off on any aggressive intervention at this point, but it continues to be of academic interest. Patient will be cleared for surgery, will reach out to weatherization crew leader about resuming MRA/spironolactone due to likely diagnosis of hyperaldosteronism. Exam Vital Signs Temp Pulse Resp BP Pulse Ox O2 Del Method O2 Flow Rate 99.2 F 74 19 188/74 H 94 L Nasal Cannula 3 08/26/24 08:00 08/26/24 12:40 08/26/24 08:00 08/26/24 11:51 08/26/24 08:00 08/26/24 08:00 08/26/24 08:00 Narrative Exam General: AOx3, cooperative, more alert today Skin: Intact, no cyanosis or edema noted. HEENT: Atraumatic/normocephalic, SINDI, neck supple Heart: RRR, S1 and S2 and systolic murmur grade 4/6, more prominent mitral area. Lungs: Clear on auscultation bilaterally, no difficulty breathing Abdomen: Soft, nontender. Bowel sounds present . Vascular: Peripheral pulses palpable, AVF fistula bruit present Neuro: Motor weakness left extremity. Objective Labs 08/26/24 05:09 08/26/24 05:09 Labs: Laboratory Results - last 24 hr 08/25/24 08/25/24 08/26/24 11:50 21:52 05:09 WBC 12.3 H RBC 3.14 L Hgb 9.4 L Hct 28.6 L MCV 91 MCH 29.9 MCHC 32.9 RDW Std Deviation 53.4 H Plt Count 375 D Neut % (Auto) 81 H Lymph % (Auto) 4 L [place] % (Auto) 12 Eos % (Auto) 2 Baso % (Auto) 0 Neut # (Auto) 9.9 H Lymph # (Auto) 0.5 L [place] # (Auto) 1.5 H Eos # (Auto) 0.3 Baso # (Auto) 0.0 Immature Gran # (Auto) 0.05 H Absolute Nucleated RBC 0.00 Immature Gran % 0 Nucleated RBC % 0 PT 11.6 INR 1.1 Sodium 135 L Potassium 4.0 D Chloride 97 L Carbon Dioxide 27.5 Anion Gap 11 BUN 20 Creatinine 3.3 H D Estim Creat Clear Calc 10.8 L eGFR 14 L* BUN/Creatinine Ratio 6 L Glucose 111 H Calculated Osmolality 273 L Calcium 9.7 Corrected Calcium 9.7 Phosphorus 3.5 Magnesium 2.2 Total Bilirubin 0.4 AST 13 ALT < 7 L Alkaline Phosphatase 60 Total Protein 7.2 Albumin 4.1 D Globulin 3.1 Albumin/Globulin Ratio 1.3 25-OH Vitamin D Total 31.4 PTH Intact 398.4 H Ur Collection Type Catheter Urine Color Lt-Yellow Urine Clarity Clear Urine pH 8.5 H Ur Specific [place] 1.012 Urine Protein 3+ A Urine Glucose (UA) 1+ A Urine Ketones Negative Urine Blood 1+ A Urine Nitrite Negative Urine Bilirubin Negative Urine Urobilinogen (Auto) Negative Ur Leukocyte Esterase Negative Urine RBC 47 H Urine WBC 15 H Ur Squamous Epith Cells < 1 Urine Bacteria None Hyaline Casts < 1 Blood Type Antibody Screen Crossmatch Blood Bank Wristband ID 08/26/24 12:22 WBC RBC Hgb Hct MCV MCH MCHC RDW Std Deviation Plt Count Neut % (Auto) Lymph % (Auto) [place] % (Auto) Eos % (Auto) Baso % (Auto) Neut # (Auto) Lymph # (Auto) [place] # (Auto) Eos # (Auto) Baso # (Auto) Immature Gran # (Auto) Absolute Nucleated RBC Immature Gran % Nucleated RBC % PT INR Sodium Potassium Chloride Carbon Dioxide Anion Gap BUN Creatinine Estim Creat Clear Calc eGFR BUN/Creatinine Ratio Glucose Calculated Osmolality Calcium Corrected Calcium Phosphorus Magnesium Total Bilirubin AST ALT Alkaline Phosphatase Total Protein Albumin Globulin Albumin/Globulin Ratio 25-OH Vitamin D Total PTH Intact Ur Collection Type Urine Color Urine Clarity Urine pH Ur Specific [place] Urine Protein Urine Glucose (UA) Urine Ketones Urine Blood Urine Nitrite Urine Bilirubin Urine Urobilinogen (Auto) Ur Leukocyte Esterase Urine RBC Urine WBC Ur Squamous Epith Cells Urine Bacteria Hyaline Casts Blood Type O Negative Antibody Screen NEGATIVE Crossmatch See Detail Blood Bank Wristband ID Yes Quality Measures Quality Measures VTE prophylaxis Advance care planning discussed with:: patient Assessment & Plan Assessment Current Active Medications: Generic Name Dose Route Start Last Admin Trade Name Freq PRN Reason Stop Dose Admin Acetaminophen 650 mg 08/25/24 15:31 08/26/24 03:09 Acetaminophen 325 Mg Tablet PO 09/24/24 15:30 650 mg Q6H PRN Administration Pain 1-3 and/or Fever >100.1 Amiodarone HCl 100 mg 08/26/24 09:00 08/26/24 08:52 Amiodarone Hcl 200 Mg Tablet PO 09/25/24 08:59 100 mg BID HOSSEIN Administration Heparin Sodium (Porcine) 5,000 unit 08/25/24 21:00 08/26/24 08:54 Heparin Sod Inj 5000 Unit/Ml Vial SC 09/08/24 20:59 5,000 unit Q12HR HOSSEIN Administration Hydralazine HCl 100 mg 08/26/24 10:45 08/26/24 11:51 Hydralazine Hcl 25 Mg Tablet PO 09/25/24 10:44 100 mg BID HOSSEIN Administration Hydromorphone HCl 0.25 mg 08/25/24 15:31 08/26/24 16:42 Hydromorphone Inj 2 Mg/Ml Vial IVP 08/30/24 15:30 0.25 mg Q2H PRN Administration Pain 7-10 Ciprofloxacin/Dextrose 400 mg in 200 mls @ 200 mls/hr 08/25/24 21:00 08/25/24 23:27 Cipro Ivpb IV 09/01/24 20:59 200 mls/hr Q24H HOSSEIN Administration Labetalol HCl 100 mg 08/26/24 09:00 08/26/24 08:55 Labetalol 100 Mg Tablet PO 09/25/24 08:59 100 mg BID HOSSEIN Administration Nifedipine 60 mg 08/26/24 09:00 08/26/24 08:52 Nifedipine Xl 30 Mg Tabcr PO 09/25/24 08:59 60 mg BID HOSSEIN Administration Ondansetron HCl 4 mg 08/25/24 15:31 08/25/24 16:12 Ondansetron Inj 2 Mg/Ml Inj 2 Ml IV 09/24/24 15:30 4 mg Q6H PRN Administration NAUSEA OR VOMITING Protocol Paroxetine HCl 10 mg 08/26/24 09:00 08/26/24 08:52 Paroxetine Hcl 10 Mg Tablet PO 09/25/24 08:59 10 mg QDAY HOSSEIN Administration Sennosides 1 tab 08/26/24 09:00 08/26/24 08:51 Senna Tablet PO 09/25/24 08:59 1 tab QDAY HOSSEIN Administration Protocol Plan The patient is a 79 y/o female, past medical history of CKD, Afib, hx of AVM, uncontrolled hypertension, CVA with residual deficits, atrial fibrillation, heart failure with preserved ejection fraction, history of pulmonary mass, was previously on hospice, who presented to the ER following a mechanical fall and increased left hip pain, found to have left acute angulated displaced fracture of femoral neck, orthopedic consult Dr. Andrews was placed, tentative plan for surgery on Sunday. Home medications include amiodarone 100 mg twice daily, clonidine 0.1 mg twice daily as needed, hydralazine 100 mg 3 times daily, labetalol 100 mg twice daily, nifedipine 60 mg twice daily, paroxetine 10 mg daily, pantoprazole 20 mg daily, spironolactone 25 mg twice daily, hydroxyzine 25 mg twice daily, Galva as needed for pain, docusate, bisacodyl, multivitamins, alprazolam for anxiety. Problems: 1. Heart failure with preserved ejection fraction 2. Resistant hypertension 3. History of atrial fibrillation, now in sinus rhythm 4. Moderate Tricuspid regurgitation, mild MR 5. Pulmonary hypertension, type 2 - Echocardiogram shows concentric LVH, EF 65%, moderate to severe pulmonary hypertension, mild MR moderate TR, aortic valve sclerosis. Chest x-ray shows pulmonary vascular congestion irregularity, prominent right superior mediastinum, pulmonary mass not reported on this imaging study, but present on prior chest imaging results. Given that patient is clinically dry, no peripheral edema, no JV distention, no acute worsening and oxygen requirements as noted, will hold off on aggressive diuresis at this point. Hemodialysis per schedule. Stable pulmonary HTN, maintiaing o2 sats on 3L 02 via NC. 6. End-stage renal disease, on hemodialysis 7. Hyperkalemia- now resolved - Hemodialysis per schedule, Nephrology following. 8. Displaced fracture left femoral neck - Management per Orthopedics, multimodal analgesia per primary team. Patient will be cleared for surgery, keeping in mind hightened risks due to multiple comorbids and patient's informed decision to proceed with surgery despite risks involved. 9. Hyperaldosteronism Of note, chart review showed patient was worked up for resistant hypertension despite multiple antihypertensive drugs when she was in ICU last month renin levels 0.12, aldosterone levels 16, renin aldosterone ratio > 30, which is virtually diagnostic of hyperaldosteronism, though given patient's overall clinical picture, being on hospice and multiple comorbidities likely will hold off on any aggressive intervention at this point, but it continues to be of academic interest. Also noted medications affecting Renin levels including Clonidine and spironolactone, which can alter serum renin levels, as well as concurrent hemodialysis . will reach out to weatherization crew leader about resuming MRA/spironolactone due to likely diagnosis of hyperaldosteronism. Plan of care was discussed with my attending garbage truck dispatcher Dr. Darien Woo PGY2
[2024-08-26] MEDS: CIPROFLOXACIN/D5w 400 MG IVPB 400 MG/200 ML BAG 200 MG IV (21:28)
--- NOTE | 2024-08-26 23:28 | PC.NURSE ---
1128: phoned Dr Slade pt BP 196/88, Clonidine 0.01mg PO ordered.
[2024-08-26] MEDS: cloNIDine HCL 0.1 MG TABLET PO (23:54)
[2024-08-27] VITALS (45 sets, daily range): BP systolic 134–203; BP diastolic 58–88; PULSE 62–80; RESP 14–25; TEMP 36.7–37.2; O2SAT 92–98; BMI 19.1
--- NOTE | 2024-08-27 00:53 | PC.NURSE ---
0053: called Dr Cline pt BP 203/77, Labatalol 10mg IV x1 ordered.
[2024-08-27] MEDS: LABETALOL INJ 5 MG/ML VIAL 20 ML 10 MG IVP (01:38)
--- NOTE | 2024-08-27 03:20 | PC.NURSE ---
[facility] downtime occurred on August 27, 2024 from 0200 to 0320.
[2024-08-27 05:29] LABS: Basophils % (Auto) 0 % (0-2.5); Eosinophils # (Auto) 0.5 Thou/mm3 (0.0-0.5); Eosinophils % (Auto) 4 % (0-10); Hematocrit 29.4 % (36.0-46.0); Hemoglobin 9.5 g/dL (12.0-16.0); Immature Granulocytes % (Auto) 0 % (0-0); Immature Granulocytes Auto 0.05 Thou/mm3 (0.00-0.00); Lymphocytes # (Auto) 0.8 Thou/mm3 (1.0-4.8); Lymphocytes % (Auto) 7 % (10-50); Mean Corpuscular HGB Conc 32.3 g/dl (31.0-37.0); Mean Corpuscular Hemoglobin 29.6 pg (25.0-35.0); Mean Corpuscular Volume 92 fL (80-100); Monocytes # (Auto) 1.4 Thou/mm3 (0.0-0.8); Monocytes % (Auto) 12 % (0-12); Neutrophils # (Auto) 9.2 Thou/mm3 (1.8-7.7); Neutrophils % (Auto) 77 % (37-80); Nucleated Red Blood Cell % 0 /100 WBC (0); Platelet Count 401 Thou/mm3 (140-440); RDW Standard Deviation 54.2 fL (36.4-46.3); Red Blood Count 3.21 Miln/mm3 (4.00-5.20)
[2024-08-27] MEDS: hydrALAZINE INJ 20 MG/ML VIAL 10 MG IV (05:45)
[2024-08-27 05:47] LABS: INR 1.1 (0.9-1.3); Prothrombin Time 11.6 Seconds (9.0-12.2)
[2024-08-27 06:30] LABS: Alanine Aminotransferase < 7 U/L (10-49); Albumin, Serum 3.8 gm/dL (3.4-4.8); Albumin/Globulin Ratio 1.3 (1.2-2.2); Alkaline Phosphatase 57 U/L (46-116); Anion Gap 11 (7-16); Aspartate Amino Transferase 14 U/L (0-34); BUN/Creatinine Ratio 7 Ratio (12-20); Bilirubin,Total 0.3 mg/dL (0.3-1.2); Blood Urea Nitrogen 31 mg/dL (9-23); Calcium 9.6 mg/dL (8.3-10.6); Calcium (Corrected) 9.8 mg/dL (8.5-10.1); Chloride 98 mMol/L (98-107); Creatinine (Component) 4.6 mg/dL (0.6-1.3); Estimated Creatinine Clearance 7.9 mL/min (>60); Glucose 120 mg/dL (74-106); Osmolality,Calculated 275 (275-295); Potassium 4.6 mMol/L (3.4-5.1); Sodium 134 mMol/L (136-145); Total Protein 6.8 gm/dL (5.7-8.2); eGFR 9 See Note
--- NOTE | 2024-08-27 07:15 | PC.NURSE ---
[address] Slade pt BP is still elevated at 196/78. hydralazine 10mg IV x1 ordered.
--- NOTE | 2024-08-27 09:48 | ESPR_ITS ---
<Statement entered by Harriet Prieto MD - 08/27/24 16:11> Patient was seen and examined by me personally. I have directly supervised and reviewed documentation by the team resident and agree with its findings with any exceptions or additional findings as below. Plan of care was discussed with the attending, Dr. Allred. Patient continued to have hypertension overnight with SBP in the 180-190 range. Home clonidine was restarted. Patient was still hypertensive to the 170s/70s in the morning so hydralazine 100 mg dose was increased from BID to TID. Patient will have left hip surgery today with Dr. Andrews. Patient will subsequently have physical therapy and in the following days will plan for acute rehab placement versus back home with hospice for discharge according to the patient and family's wishes and goals. Harriet Prieto, PGY-2 Documentation for date of: 08/27/24 Subjective Subjective Interval history: 08/27/2024: No acute overnight events to report. Patient was restarted on the clonidine overnight as the patient has resistant hypertension and likely primary hyperaldosteronism as noted from previous notes. Cardiology cleared the patient for surgery patient will have surgery completed with Dr. Andrews this afternoon (08/27/2024). Patient also completed dialysis session today 08/[address] Muller with no acute complications. Patient will need extensive physical therapy; moreover, will continue to monitor patient for any acute changes. Exam Vital Signs Temp Pulse Resp BP Pulse Ox O2 Del Method O2 Flow Rate 98.1 F 80 16 183/79 H 95 Nasal Cannula 2 08/27/24 07:45 08/27/24 09:45 08/27/24 07:45 08/27/24 09:45 08/27/24 07:45 08/27/24 07:30 08/27/24 07:45 Narrative Exam Physical Exam: GENERAL: Awake, answering questions appropriately but is in acute pain secondary to hip fracture, appears stated age HEENT: NC/AT. Moist mucosa. PERRLA/EOMI. CARDIO: Heart RRR, no obvious murmurs, no JVD. PULM: No coughing or visible SOB. Lungs CTA B/L. Patient on 2 L nasal cannula GI: Abdomen soft, NT/ND, +BS. SKIN/MSK/EXT: Patient has a patent (with thrill) left upper extremity AV fistula noted. No wounds/discoloration/rashes/edema/amputations noted. +Pedal pulses present B/L. NEURO: Oriented x3, no focal neurologic deficits noted Objective Labs 08/28/24 05:18 08/28/24 05:18 Labs: Laboratory Results - last 24 hr 08/26/24 08/26/24 08/27/24 05:09 12:22 05:07 WBC 12.0 H RBC 3.21 L Hgb 9.5 L Hct 29.4 L MCV 92 MCH 29.6 MCHC 32.3 RDW Std Deviation 54.2 H Plt Count 401 Neut % (Auto) 77 Lymph % (Auto) 7 L [place] % (Auto) 12 Eos % (Auto) 4 Baso % (Auto) 0 Neut # (Auto) 9.2 H Lymph # (Auto) 0.8 L [place] # (Auto) 1.4 H Eos # (Auto) 0.5 Baso # (Auto) 0.0 Immature Gran # (Auto) 0.05 H Absolute Nucleated RBC 0.00 Immature Gran % 0 Nucleated RBC % 0 PT 11.6 INR 1.1 Sodium 134 L Potassium 4.6 D Chloride 98 Carbon Dioxide 25.0 Anion Gap 11 BUN 31 H Creatinine 4.6 H* D Estim Creat Clear Calc 7.9 L eGFR 9 L* BUN/Creatinine Ratio 7 L Glucose 120 H Calculated Osmolality 275 Calcium 9.6 Corrected Calcium 9.8 Total Bilirubin 0.3 AST 14 ALT < 7 L Alkaline Phosphatase 57 Total Protein 6.8 Albumin 3.8 Globulin 3.0 Albumin/Globulin Ratio 1.3 25-OH Vitamin D Total 31.4 Blood Type O Negative Antibody Screen NEGATIVE Crossmatch See Detail Blood Bank Wristband ID Yes Quality Measures Quality Measures VTE prophylaxis Advance care planning discussed with:: patient and spouse Assessment & Plan Assessment Current Active Medications: Generic Name Dose Route Start Last Admin Trade Name Freq PRN Reason Stop Dose Admin Acetaminophen 650 mg 08/25/24 15:31 08/26/24 03:09 Acetaminophen 325 Mg Tablet PO 09/24/24 15:30 650 mg Q6H PRN Administration Pain 1-3 and/or Fever >100.1 Amiodarone HCl 100 mg 08/26/24 09:00 08/26/24 21:27 Amiodarone Hcl 200 Mg Tablet PO 09/25/24 08:59 100 mg BID HOSSEIN Administration Clonidine 0.1 mg 08/26/24 23:00 08/26/24 23:54 Clonidine Hcl 0.1 Mg Tablet PO 09/25/24 22:59 0.1 mg BID PRN Administration hypertension Epoetin Russell 10,000 unit 08/27/24 10:00 Epoetin Russell-Epbx Inj 10,000 Unit/Ml Vial (Non-Esrd) SC 08/27/24 10:01 X1 ONE Heparin Sodium (Porcine) 5,000 unit 08/25/24 21:00 08/26/24 08:54 Heparin Sod Inj 5000 Unit/Ml Vial SC 09/08/24 20:59 5,000 unit Q12HR HOSSEIN Administration Hydralazine HCl 100 mg 08/26/24 10:45 08/26/24 21:26 Hydralazine Hcl 25 Mg Tablet PO 09/25/24 10:44 100 mg BID HOSSEIN Administration Hydromorphone HCl 0.25 mg 08/25/24 15:31 08/26/24 22:45 Hydromorphone Inj 2 Mg/Ml Vial IVP 08/30/24 15:30 0.25 mg Q2H PRN Administration Pain 7-10 Ciprofloxacin/Dextrose 400 mg in 200 mls @ 200 mls/hr 08/25/24 21:00 08/26/24 21:28 Cipro Ivpb IV 09/01/24 20:59 200 mls/hr Q24H HOSSEIN Administration Labetalol HCl 100 mg 08/26/24 09:00 08/26/24 21:27 Labetalol 100 Mg Tablet PO 09/25/24 08:59 100 mg BID HOSSEIN Administration Nifedipine 60 mg 08/26/24 09:00 08/26/24 21:26 Nifedipine Xl 30 Mg Tabcr PO 09/25/24 08:59 60 mg BID HOSSEIN Administration Ondansetron HCl 4 mg 08/25/24 15:31 08/25/24 16:12 Ondansetron Inj 2 Mg/Ml Inj 2 Ml IV 09/24/24 15:30 4 mg Q6H PRN Administration NAUSEA OR VOMITING Protocol Paroxetine HCl 10 mg 08/26/24 09:00 08/26/24 08:52 Paroxetine Hcl 10 Mg Tablet PO 09/25/24 08:59 10 mg QDAY HOSSEIN Administration Sennosides 1 tab 08/26/24 09:00 08/26/24 08:51 Senna Tablet PO 09/25/24 08:59 1 tab QDAY HOSSEIN Administration Protocol Plan 79-year-old female with past medical history of end-stage renal disease (M/W/F), anxiety, status post CVA with left-sided deficits, atrial fibrillation, hypertension and CHF who presented with episode of ground-level fall on Wednesday 08/23 after she was attempting to ambulate from her wheelchair to the bathroom will be admitted for left hip fracture and assessed by orthopedic surgery for surgical needs; moreover, will need cardiac clearance as well as nephrology for dialysis inpatient. #Acute displaced angulated fracture left femoral neck #Ground-level fall As noted in HPI, patient had a ground-level fall on Wednesday 08/23 Presenting with acute pain on the left side Imaging findings included hip pelvis x-ray which showed acute angulated displaced fracture of the femoral neck, shoulder x-ray which was negative, cervical CT spine which showed no acute cervical fracture but there was pronounced anterolisthesis of the C4 on C5, head CT was negative for any acute process, femur x-ray showed confirmed acute displaced angulated fracture of the left femoral neck Dr. Andrews contacted - is planning on doing surgery Sunday 08/27 if/when patient is stabilized and cleared by cardiology XR of b/l ankles is negative for any acute fractures Orthopedics consulted, appreciate recommendations Plan: Multimodal pain management Surgery completed on 08/27/2024 2 unit of PRBC ordered by anesthesiology for possible need intraoperatively/postoperatively Ordered PT Will discontinue Cunningham upon physical therapy #ESRD on HD (M/W/F) #Hypertensive emergency #Hypertension #Primary hyperaldosteronism #Hyperkalemia, improving Patient follows Dr. Muller outpatient for dialysis; last session was Sunday08/22/24 Presenting today with hypertensive emergency Potassium of 5.8 and worsened kidney function Patient has a L-sided upper extremity AVF which is patent w/thrill Completed HD on 08/25 and 08/[address] Muller Patient has extensive history of resistant hypertension on 5 different medications; moreover, on past admission patient had workup for secondary causes of hypertension along with renin/aldosterone ratio Patient has a increased level of aldosterone and likely has primary hyperaldosteronism Plan: Nephrology consulted, appreciate recommendations Continue patient's labetalol, nifedipine, hydralazine Patient was restarted on clonidine, home dose Will consider restarting spironolactone on discharge to prevent hypokalemia secondary to hyperaldosteronism Monitor with morning labs #Atrial fibrillation, rate controlled [id number] score 7 Patient on labetalol 100 mg twice daily at home Currently regular, rate controlled rhythm Plan: Tele Continue patient's amiodarone 100 mg p.o. twice daily #Congestive heart failure, not in acute exacerbation #Chronic respiratory failure secondary to CHF #History of CVA with left-sided deficits Patient reports history of congestive heart failure Last echo done in 2022 shows ejection fraction 60 to 65% Currently does not appear fluid overloaded though chest x-ray does show pulmonary edema On 2 to 3 L oxygen at home Echo from 06/2024 shows: Normal LV size and function. Mild LVH. Estimated EF 60- 65%. RV mildly dilated. Normal RV function. Estimated RVSP 74mmHg. LA severely dilated. The mitral valve is mildly thicken. Moderate MR. Aortic LCC is mildly calcified. Mild AI. Mild to moderate TR. Pleural effusion present. Plan: Strict I&O Daily weight Fluid restriction 1800ml Supplemental oxygen as needed Plan: Continue supplemental oxygen as needed #Anemia of chronic disease Patient has end-stage renal disease, per chart review hemoglobin has been low Plan: Monitor with morning labs #History of depression/anxiety Patient currently on paroxetine daily Plan: Continue paroxetine 10 mg daily Hospital Management: Lines: PIV, Cunningham Diet: N.p.o. after midnight Bowel: Senna GI Prophylaxis: Not needed DVT Prophylaxis: heparin subq Dispo: Surgery completed with Dr. Andrews on 08/27, physical therapy on 08/28 Code: DNR Patient seen and assessed with attending Dr. Allred and senior resident Dr. Ida Borges, PGY-1 Attending Provider Attestation/Addendum I have examined the patient, reviewed labs and imaging findings, discussed the case with the resident(s), and reviewed entered orders. I agree with the plan of care as outlined in this note, with these additional summaries/recommendations: Patient seen at bedside. No acute overnight events. Patient reports her pain is controlled this morning. She would like to proceed with surgery. Patient is cleared for surgery from cardiac standpoint. Echo revealed ejection fraction of 60 to 65% with moderate to severe pulmonary hypertension with estimated RVSP 60 mmHg. Systolic blood pressure was noted to trend up into the 170s this morning although likely component of pain contributing. We will continue to adjust antihypertensive regimen as needed. Nephrology following for end-stage renal disease and patient underwent hemodialysis today and tolerated well. Leukocytosis is present although most likely reactive and no growth on urine culture. DC antibiotic. Continue amiodarone for atrial fibrillation. Patient updated on the plan and in agreement. Repeat hematology and chemistry panel in AM. Dr. Chalino MD
[2024-08-27] MEDS: NIFEdipine XL 30 MG TABCR 60 MG PO ×2 (09:59→21:20)
[2024-08-27] MEDS: SENNA TABLET 1 TAB PO (09:59)
[2024-08-27] MEDS: hydrALAZINE HCL 25 MG TABLET 100 MG PO ×3 (10:00→21:18)
[2024-08-27] MEDS: AMIODARONE HCL 200 MG TABLET 100 MG PO ×2 (10:01→23:38)
[2024-08-27] MEDS: LABETALOL 100 MG TABLET PO ×2 (10:03→21:19)
[2024-08-27] MEDS: PARoxetine HCL 10 MG TABLET PO (10:03)
[2024-08-27] MEDS: EPOETIN ALFA-EPBX INJ 10,000 UNIT/ML VIAL (NON-ESRD) 10000 UNIT SC (10:13)
--- NOTE | 2024-08-27 10:42 | PC.SS ---
Update: Patient receiving dialysis today. Plan is for the patient to undergo surgery following dialysis. Dr. Andrews to conduct surgery.
--- NOTE | 2024-08-27 11:23 | PC.NURSE ---
Dialysis completed for 3 hrs, tolerated well.? Pt awake, A/O x4, no complaint of pain.? Respiration even and unlabored? O2 sat 97% on O2 at 2L/min via nc.? No fluid removal per MD.? Post tx BP 164/69, HR 69, Temp 98.2.?? Pt back in her room.? Call light within reached. Pressure dressing on left upper arm AV graft clean/dry/intact. No bleeding.? Pressure dressing to be remove around 1300.? Report given to Abdirahman DOYLE
--- NOTE | 2024-08-27 11:44 | PD.RESPRO ---
Documentation for date of: 08/27/24 Subjective Subjective Interval history: Ms. Chen is a 79-year-old female with past medical history of ESRD on HD [M/W/F], CVA with residual left-sided deficits, anxiety, depression, atrial fibrillation, hypertension and CHF( under Dr. Kuo) presented to the hospital with chief complaints of ground-level fall on 08/23/2024. Patient was mostly wheelchair-bound, on the day of the fall patient was trying to get up from the wheelchair to go to the bathroom during which she felt dizzy and had a fall. Patient denies palpitations, skipped beats, loss of consciousness, involuntary movements at the time of the fall. Patient's called the ambulance but patient denied admission to hospital for which she received some pain medications. As patient is still not able to mobilize and skipped her dialysis session on Sunday and on the day of admission, called the ambulance following which patient was brought to the ED. Complaining of severe pain at the site of left hip fracture. Nephrology is consulted as the patient is on HD 3 times per week and missed last 2 dialysis sessions. ED Course: -Initial vitals were 175/108 mmHg, pulse rate 73 bpm, respiratory rate 17/min, temperature 98.7 ?F, SpO2 92% with oxygen through nasal cannula. -Labs significant for WBC 14.4, Hb 10.8, platelets 438, sodium 128, potassium 5.8, chloride 90, BUN 45, creatinine 5.8, corrected calcium 10.2, ALP 66. -Hip and pelvis x-ray showed acute angulated displaced fracture humeral neck. Shoulder x-ray showed no fracture or dislocation. Cervical spine CT showed no acute cervical fracture. Head CT showed no acute hemorrhage, mass effect or midline shift. Femur x-ray showed acute displaced angulated fracture of left femoral neck. Chest x-ray showed mild to moderate CHF. EKG showed normal sinus rhythm. -In the ED, patient was given hydromorphone, fentanyl -Patient was admitted for acute left hip fracture. 08/26/2024 Patient was seen and examined at bedside in the telemetry No acute overnight events. But patient seems to be pretty much confused and called ambulance 30 times during night Patient received Dilaudid for her pain following which she had auditory hallucinations, seems pretty anxious and endorsed that she wants to get out of the hospital, likely sensitive to the Dilaudid On physical examination, there is a ejection systolic murmur heard at the aortic area and PSM heard at tricuspid area Will continue dialysis as per her routine schedule 08/27/2024 Patient was seen and examined at bedside in the dialysis unit Patient is still confused and very emotional. Scheduled for surgery today Patient is tolerating dialysis well. Will continue dialysis as per her routine schedule. Exam Vital Signs Temp Pulse Resp BP Pulse Ox O2 Del Method O2 Flow Rate 98.2 F 69 16 164/69 H 97 Nasal Cannula 2 08/27/24 10:54 08/27/24 10:54 08/27/24 10:54 08/27/24 10:54 08/27/24 10:54 08/27/24 07:30 08/27/24 10:54 Narrative Exam General: Confused HEENT: Normocephalic, atraumatic, mucous membranes moist. Heart: Regular rate and rhythm, no murmurs. Lungs: Clear to auscultation with no wheezing or crackles. Abdomen: Soft, nondistended, nontender, positive bowel sounds. ?No guarding or rebound tenderness. Neurologic: Confused, no gross neurological deficit, and patient able to move all 4 extremities. Extremities: No edema. Skin: No rash or ecchymoses. Objective Labs 08/28/24 05:18 08/28/24 05:18 Labs: Laboratory Results - last 24 hr 08/26/24 08/26/24 08/27/24 05:09 12:22 05:07 WBC 12.0 H RBC 3.21 L Hgb 9.5 L Hct 29.4 L MCV 92 MCH 29.6 MCHC 32.3 RDW Std Deviation 54.2 H Plt Count 401 Neut % (Auto) 77 Lymph % (Auto) 7 L [place] % (Auto) 12 Eos % (Auto) 4 Baso % (Auto) 0 Neut # (Auto) 9.2 H Lymph # (Auto) 0.8 L [place] # (Auto) 1.4 H Eos # (Auto) 0.5 Baso # (Auto) 0.0 Immature Gran # (Auto) 0.05 H Absolute Nucleated RBC 0.00 Immature Gran % 0 Nucleated RBC % 0 PT 11.6 INR 1.1 Sodium 134 L Potassium 4.6 D Chloride 98 Carbon Dioxide 25.0 Anion Gap 11 BUN 31 H Creatinine 4.6 H* D Estim Creat Clear Calc 7.9 L eGFR 9 L* BUN/Creatinine Ratio 7 L Glucose 120 H Calculated Osmolality 275 Calcium 9.6 Corrected Calcium 9.8 Total Bilirubin 0.3 AST 14 ALT < 7 L Alkaline Phosphatase 57 Total Protein 6.8 Albumin 3.8 Globulin 3.0 Albumin/Globulin Ratio 1.3 25-OH Vitamin D Total 31.4 Blood Type O Negative Antibody Screen NEGATIVE Crossmatch See Detail Blood Bank Wristband ID Yes Quality Measures Quality Measures VTE prophylaxis Advance care planning discussed with:: patient Assessment & Plan Assessment Current Active Medications: Generic Name Dose Route Start Last Admin Trade Name Freq PRN Reason Stop Dose Admin Acetaminophen 650 mg 08/25/24 15:31 08/26/24 03:09 Acetaminophen 325 Mg Tablet PO 09/24/24 15:30 650 mg Q6H PRN Administration Pain 1-3 and/or Fever >100.1 Amiodarone HCl 100 mg 08/26/24 09:00 08/27/24 10:01 Amiodarone Hcl 200 Mg Tablet PO 09/25/24 08:59 100 mg BID HOSSEIN Administration Clonidine 0.1 mg 08/26/24 23:00 08/26/24 23:54 Clonidine Hcl 0.1 Mg Tablet PO 09/25/24 22:59 0.1 mg BID PRN Administration hypertension Heparin Sodium (Porcine) 5,000 unit 08/25/24 21:00 08/26/24 08:54 Heparin Sod Inj 5000 Unit/Ml Vial SC 09/08/24 20:59 5,000 unit Q12HR HOSSEIN Administration Hydralazine HCl 100 mg 08/27/24 14:00 Hydralazine Hcl 25 Mg Tablet PO 09/26/24 13:59 TID HOSSEIN Hydromorphone HCl 0.25 mg 08/25/24 15:31 08/26/24 22:45 Hydromorphone Inj 2 Mg/Ml Vial IVP 08/30/24 15:30 0.25 mg Q2H PRN Administration Pain 7-10 Labetalol HCl 100 mg 08/26/24 09:00 08/27/24 10:03 Labetalol 100 Mg Tablet PO 09/25/24 08:59 100 mg BID HOSSEIN Administration Nifedipine 60 mg 08/26/24 09:00 08/27/24 09:59 Nifedipine Xl 30 Mg Tabcr PO 09/25/24 08:59 60 mg BID HOSSEIN Administration Ondansetron HCl 4 mg 08/25/24 15:31 08/25/24 16:12 Ondansetron Inj 2 Mg/Ml Inj 2 Ml IV 09/24/24 15:30 4 mg Q6H PRN Administration NAUSEA OR VOMITING Protocol Paroxetine HCl 10 mg 08/26/24 09:00 08/27/24 10:03 Paroxetine Hcl 10 Mg Tablet PO 09/25/24 08:59 10 mg QDAY HOSSEIN Administration Sennosides 1 tab 08/26/24 09:00 08/27/24 09:59 Senna Tablet PO 09/25/24 08:59 1 tab QDAY HOSSEIN Administration Protocol Plan A 79-year-old female with past medical history of ESRD on HD [M/W/F], CVA with residual left-sided deficits, anxiety, atrial fibrillation, HCV, hypertension and CHF presented to the hospital with chief complaints of ground-level fall on 08/23/2024 and admitted for left hip fracture. Consulted for hemodialysis # ESRD on hemodialysis [M/W/F] -Patient is on hospice and continues to receive hemodialysis 3 times per week -Patient is mostly wheelchair-bound and ambulates only for minimal activities -Per patient , patient missed 2 dialysis sessions before the day of admission -Does not appear to be fluid overloaded as of now -Labs on 08/27/2024 showed BUN 31, creatinine 4.6 Plan -Patient underwent dialysis on 08/25/2024, 08/27 -Will continue further sessions as per her routine schedule -Avoid nephrotoxic medications and renally dose medications. # Hypertension, uncontrolled -Patient has uncontrolled hypertension for more than 20 years. -Plasma aldosterone levels done in 06/2024 is 16, renin levels are 0.12 -Metanephrines, normetanephrine's done in 2022 seems to be elevated -CT abdomen/pelvis done in 2022 did not show any adrenal tumor. -Blood pressure at the time of admission is 175/108 mmHg -Still blood pressures tend to be around 160-180/70-75 -Patient is currently receiving hydralazine 100 Mg p.o. twice daily, labetalol 100 Mg p.o. twice daily and nifedipine 60 Mg p.o. twice daily Plan -Continue blood pressure medications -If not controlled with the current medications, can increase hydralazine from 100 Mg p.o. twice daily to 3 times daily -Recommended to monitor her blood pressures # Hyperkalemia, resolved -Potassium at the time of admission is 5.8, likely due to ESRD and patient missed her dialysis sessions -Potassium as of 08/27/2024 is 4.6 Plan -Started on her routine dialysis schedule -Recommended to monitor potassium levels # Hypoosmolar hyponatremia, resolved -Likely due to poor oral intake, as patient looks clinically dehydrated Plan -Recommended to monitor serum electrolytes. # Mild hypercalcemia Likely due to immobilisation vs dehydration -Monitor electrolytes -Calcium and phosphorus levels are within normal limits since 08/26/2024 -PTH levels are 398.4, which is appropriately elevated for ESRD -25-hydroxy vitamin D levels are ordered #Anemia of chronic disease Hemoglobin at the time of admission is 10.8 Plan: Will give erythropoietin injection during dialysis Continue to monitor CBC #Acute displaced angulated fracture left femoral neck #Ground-level fall #Leukocytosis #Likely urinary tract infection? #Atrial fibrillation, rate controlled #Congestive heart failure, not in acute exacerbation #Chronic respiratory failure secondary to CHF # History of CVA with left-sided deficits #History of depression/anxiety -As per primary team Thank you for allowing us to participate in the care of the patient Patient plan of care was discussed with the attending physician,Dr. Renzo Howe, PGY1 Attending Provider Attestation/Addendum Patient seen and examined with resident physician Dr. Bentley. Note reviewed, agree with findings and recommendations. Patient currently seen on dialysis. Tolerating dialysis without any problems. Hemodialysis for 3 hours, 2K, ultrafiltration 0 L, Epogen 6000, no heparin ordered. Plan of care discussed with the dialysis nurse. Please see dialysis flowsheet for further details.
--- NOTE | 2024-08-27 14:17 | PC.SS ---
Rounding Note: Patient undergoing surgery today. Dr. Andrews performing procedure.
--- NOTE | 2024-08-27 16:23 | XR_ITS ---
Examination: Left hip AP single view TECHNIQUE: Portable AP supine left hip single view Exam date and time: August 27, 2024 1639 hours INDICATIONS: Acute displaced fracture left femoral neck August 25, 2024, postop hip arthroplasty today. FINDINGS: Left hip bipolar hemiarthroplasty. Satisfactory alignment Prominent osteopenia IMPRESSION: Left hip bipolar hemiarthroplasty with satisfactory alignment
--- NOTE | 2024-08-27 16:50 | XR_ITS ---
Examination:Left hip AP, lateral, AP pelvis 3 views Technique: Hip AP lateral, AP pelvis, 3 views Exam date and time:August 27, 2024 1808 hours INDICATIONS: Postop left hip replacement FINDINGS: Left hip hemiarthroplasty. Satisfactory alignment Prominent osteopenia No fracture IMPRESSION: Left hip bipolar hemiarthroplasty with satisfactory alignment.
--- NOTE | 2024-08-27 16:51 | PD.SUROPNT ---
Date of Procedure 08/27/24 Pre Op Diagnosis left hip femoral neck fracture discplaced Post Op Diagnosis left hip femoral neck fracture discplaced Procedure left hip hemiarthroplasty Findings left hip femoral neck fracture Procedure Description Indications: The patient is a 79y.o. year-old with a left femoral neck fracture after ground-level fall. After considering the patient's condition and the impact of their hip injury on the patient's quality of life and risks of nonoperative treatment, total hip replacement was offered as a reasonable option. Prior to the surgery I discussed the nature of the hip replacement surgery including alternatives to surgery and the purpose of, and indications for proceeding with surgery. I discussed that this surgery is a shared decision between the patient and the surgeon. Risks and benefits and alternatives of the procedure have been explained to the patient and their family. Anesthesia complications and risks include but are not limited to stroke, heart attack, and . The surgical risks include but are not limited to infection, instability/dislocation, bleeding, nerve and blood vessel injury, deep vein thrombosis, pulmonary embolus, stiffness, pain, scar, need for reoperation, leg length discrepancy, thigh numbness, weakness, and mechanical failure of the implant including loosening, metal complications, metal allergy, wear or breakage. I discussed the expected recovery from surgery and the importance of compliance with all our pre and post-operative recommendations in order to maximize the recovery. The patient/family understands the risks of loss of life, loss of limb and, loss of function and wishes to proceed. They understand they are at increased risk for infection given their history of smoking. A signed and witnessed consent was obtained and placed in the chart. We also discussed that she is at risk for wound complications because of her blood thinner history. Patient Positioning: The patient was placed in the lateral decubitus position on a standard table using a pegboard. An axillary role was placed. All extremities were padded to ensure adequate protection. A carreno catheter was aseptically inserted. Time Out: A timeout was performed prior to the procedure which verified the correct patient, positioning, operation to be performed, operative site, antibiotics, allergies, imaging, and any other concerns. All parties were in agreement. Procedure in detail: The operative site was cleaned and draped in the usual sterile fashion. A final timeout was performed with all parties in agreement. A modified anterolateral approach to the hip was utilized. A 16cm skin incision was made centered over the greater trochanter in line with the femur. This was taken down through skin and subcutaneous tissue using a 10 blade. Bleeding was controlled using electrocautery. The fascia was identified and split in line with the femur. The charnley retractor was then placed. The abductor insertion was identified and a split made in the anterior 1/3 of the tendon proximally. Retractors were placed and the gluteus minimus was visualized. A capsulotomy was made down to the femoral neck anterior to the minimus. A split was then made in the anterior 1/3 of the vastus lateralis. A retractor was then placed anterior to the femoral shaft, the tendon was tagged with #1 ethibond sutures and a U-shaped split was made in the anterior 1/3 of the abductor tendon being careful to leave enough tendon to re-attach. The hip was then gently externally rotated as the anterior tissues were taken down with the tendon and capsule as one sleeve. A femoral neck fracture was visualized. The hip was gently dislocated. Retractors were placed around the femoral neck and the femoral neck osteotomy was then made to freshen up the cut. The femoral head was then removed. We then turned our attention to the femur. The leg was brought into external rotation and the femur was exposed. A canal finder was used followed by a box osteotomy and the femur was broached sequentially. The trial stem was then left in and the hip was trialed using various neck offsets and head sizes until the appropriate size was found based on leg length, stability. Once we were satisfied with the construct a cross-table AP pelvis radiograph was obtained to confirm appropriate positioning and sizing. The hip was then dislocated and the trials were then removed and the final stem impacted into placed. The hip was then again trialed and the appropriate head size identified. The [place] taper was then cleaned and dried and the final head impact into place and tested. The acetabulum was irrigated and confirmed to be free of debris. The hip was then reduced and taken through range of motion. The hip was stable in abduction and external rotation, adduction and external rotation, flexion past 90 degrees and internal rotation past 20 degrees. It did not sublux throughout range of motion and no impingement was detected. Leg lengths were appropriately restored based on preoperative leg lengths and intraoperative testing. . The hip was then copiously irrigated with dilute betadine followed by normal saline. The hip was then injected with the cocktail per protocol The hip was the closed in layers. The abductor tendon was closed with #1 ethibond. The fascia was closed with 0 Vicryl followed by an 0 V-lock. . The deep layer was closed with 0-Vicryl and the subcutaneous layer by a 2-0 Vicryl. The subdermal layer was closed with a 3-0 monocryl. The skin was then cleaned and dried and steri-strips placed followed by a sterile dressing. The drapes were then taken down and the patient was placed supine. Leg lengths were confirmed to be appropriate and the patient's lower extremities were warm and well perfused with brisk capillary refill and palpable pulses. The patient was then awoken, transferred to the [facility] and taken to the PACU in stable condition. They tolerated the procedure well. The patient's family/caregiviers were made aware of their condition. Postoperative plan Activity: WBAT, no hip precautions , no active hip abduction DVT Prophylaxis: resume eliquis Antibiotics: Standard postoperative antibiotics x 24 hours Implants: [place] 42 bipolar head, 3 standard insignia Implants richardson insignia 3 standard, 42 bipolar head -4 Pathology / specimen None Pathology comment: none Estimated Blood Loss 100 Condition Stable Disposition floor Surgeon Eben Andrews MD Surgical Staff Operation Date: 08/27/24 15:45 <No data on this case meets the specified criteria>
--- NOTE | 2024-08-27 17:17 | SUR.PHASEI ---
pt received to [facility]. awake and asking questions. denies pain and nausea. vss. dressing to left hip cdi. able to monzon well. report from nurse clint and parth slaughter.
[2024-08-27] MEDS: DiphenhydrAMINE INJ 50 MG/ML VIAL 12.5 MG IV (17:58)
--- NOTE | 2024-08-27 18:30 | SUR.PHASEI ---
report called to [facility] on tele. denies pain and nausea. vss. breathing even and unlabored. good cms noted. xray done. itching getting better per patient. fc draining to gravity. dressing remains cdi. transported to room via bed.
--- NOTE | 2024-08-27 21:13 | ESPR_ITS ---
<Statement entered by Chris Maza MD - 08/31/24 16:56> I examined the patient with DR WOO PGY 2, agree with assessment and recommendations, has ESRD and hypertension stable today controlled well, no furthur work at this time proceed with surgery Documentation for date of: 08/27/24 Subjective Subjective Interval history: The patient examined this a.m. at bedside. The patient has no active complaints, completed dialysis today, tentative plan for surgery by orthopedic surgeon. pt is NPO. Exam Vital Signs Temp Pulse Resp BP Pulse Ox O2 Del Method O2 Flow Rate 98.0 F 69 19 163/65 H 97 Nasal Cannula 2 08/27/24 20:00 08/27/24 20:00 08/27/24 20:00 08/27/24 20:00 08/27/24 20:00 08/27/24 20:00 08/27/24 20:00 Narrative Exam General: mildy confused speech Skin: Intact, no cyanosis or edema noted. HEENT: Atraumatic/normocephalic, SINDI, neck supple Heart: RRR, S1 and S2 and systolic murmur grade 4/6, more prominent mitral area. Lungs: Clear on auscultation bilaterally, no difficulty breathing Abdomen: Soft, nontender. Bowel sounds present . Vascular: Peripheral pulses palpable, AVF fistula bruit present Neuro: slight Motor weakness left extremity when compared to right side, but able to move against gravity. Objective Labs 08/27/24 05:07 08/27/24 05:07 Labs: Laboratory Results - last 24 hr 08/27/24 05:07 WBC 12.0 H RBC 3.21 L Hgb 9.5 L Hct 29.4 L MCV 92 MCH 29.6 MCHC 32.3 RDW Std Deviation 54.2 H Plt Count 401 Neut % (Auto) 77 Lymph % (Auto) 7 L [place] % (Auto) 12 Eos % (Auto) 4 Baso % (Auto) 0 Neut # (Auto) 9.2 H Lymph # (Auto) 0.8 L [place] # (Auto) 1.4 H Eos # (Auto) 0.5 Baso # (Auto) 0.0 Immature Gran # (Auto) 0.05 H Absolute Nucleated RBC 0.00 Immature Gran % 0 Nucleated RBC % 0 PT 11.6 INR 1.1 Sodium 134 L Potassium 4.6 D Chloride 98 Carbon Dioxide 25.0 Anion Gap 11 BUN 31 H Creatinine 4.6 H* D Estim Creat Clear Calc 7.9 L eGFR 9 L* BUN/Creatinine Ratio 7 L Glucose 120 H Calculated Osmolality 275 Calcium 9.6 Corrected Calcium 9.8 Total Bilirubin 0.3 AST 14 ALT < 7 L Alkaline Phosphatase 57 Total Protein 6.8 Albumin 3.8 Globulin 3.0 Albumin/Globulin Ratio 1.3 Quality Measures Quality Measures VTE prophylaxis Advance care planning discussed with:: patient Assessment & Plan Assessment Current Active Medications: Generic Name Dose Route Start Last Admin Trade Name Freq PRN Reason Stop Dose Admin Acetaminophen 650 mg 08/25/24 15:31 08/26/24 03:09 Acetaminophen 325 Mg Tablet PO 09/24/24 15:30 650 mg Q6H PRN Administration Pain 1-3 and/or Fever >100.1 Amiodarone HCl 100 mg 08/26/24 09:00 08/27/24 10:01 Amiodarone Hcl 200 Mg Tablet PO 09/25/24 08:59 100 mg BID HOSSEIN Administration Clonidine 0.1 mg 08/26/24 23:00 08/26/24 23:54 Clonidine Hcl 0.1 Mg Tablet PO 09/25/24 22:59 0.1 mg BID PRN Administration hypertension Heparin Sodium (Porcine) 5,000 unit 08/25/24 21:00 08/26/24 08:54 Heparin Sod Inj 5000 Unit/Ml Vial SC 09/08/24 20:59 5,000 unit Q12HR HOSSEIN Administration Hydralazine HCl 100 mg 08/27/24 14:00 08/27/24 13:55 Hydralazine Hcl 25 Mg Tablet PO 09/26/24 13:59 100 mg TID HOSSEIN Administration Hydromorphone HCl 0.25 mg 08/25/24 15:31 08/26/24 22:45 Hydromorphone Inj 2 Mg/Ml Vial IVP 08/30/24 15:30 0.25 mg Q2H PRN Administration Pain 7-10 Labetalol HCl 100 mg 08/26/24 09:00 08/27/24 10:03 Labetalol 100 Mg Tablet PO 09/25/24 08:59 100 mg BID HOSSEIN Administration Nifedipine 60 mg 08/26/24 09:00 08/27/24 09:59 Nifedipine Xl 30 Mg Tabcr PO 09/25/24 08:59 60 mg BID HOSSENI Administration Ondansetron HCl 4 mg 08/25/24 15:31 08/25/24 16:12 Ondansetron Inj 2 Mg/Ml Inj 2 Ml IV 09/24/24 15:30 4 mg Q6H PRN Administration NAUSEA OR VOMITING Protocol Ondansetron HCl 4 mg 08/27/24 16:42 Ondansetron Inj 2 Mg/Ml Inj 2 Ml IV 09/26/24 16:41 Q6HR PRN NAUSEA OR VOMITING Protocol Paroxetine HCl 10 mg 08/26/24 09:00 08/27/24 10:03 Paroxetine Hcl 10 Mg Tablet PO 09/25/24 08:59 10 mg QDAY HOSSEIN Administration Sennosides 1 tab 08/26/24 09:00 08/27/24 09:59 Senna Tablet PO 09/25/24 08:59 1 tab QDAY HOSSEIN Administration Protocol Plan The patient is a 79 y/o female, past medical history of CKD, Afib, hx of AVM, uncontrolled hypertension, CVA with residual deficits, atrial fibrillation, heart failure with preserved ejection fraction, history of pulmonary mass, was previously on hospice, who presented to the ER following a mechanical fall and increased left hip pain, found to have left acute angulated displaced fracture of femoral neck, orthopedic consult Dr. Andrews was placed, tentative plan for surgery on Sunday. Home medications include amiodarone 100 mg twice daily, clonidine 0.1 mg twice daily as needed, hydralazine 100 mg 3 times daily, labetalol 100 mg twice daily, nifedipine 60 mg twice daily, paroxetine 10 mg daily, pantoprazole 20 mg daily, spironolactone 25 mg twice daily, hydroxyzine 25 mg twice daily, [place] as needed for pain, docusate, bisacodyl, multivitamins, alprazolam for anxiety. Problems: 1. Heart failure with preserved ejection fraction 2. Resistant hypertension 3. History of atrial fibrillation, now in sinus rhythm 4. Moderate Tricuspid regurgitation, mild MR 5. Pulmonary hypertension, type 2 - Echocardiogram shows concentric LVH, EF 65%, moderate to severe pulmonary hypertension, mild MR moderate TR, aortic valve sclerosis. Chest x-ray shows pulmonary vascular congestion irregularity, prominent right superior mediastinum, pulmonary mass not reported on this imaging study, but present on prior chest imaging results. Given that patient is clinically dry, no peripheral edema, no JV distention, no acute worsening and oxygen requirements as noted, will hold off on aggressive diuresis at this point. Hemodialysis per schedule. Stable pulmonary HTN, maintiaing o2 sats on 3L 02 via [place]. 6. End-stage renal disease, on hemodialysis 7. Hyperkalemia- now resolved - Hemodialysis per schedule, Nephrology following. 8. Displaced fracture left femoral neck - Management per Orthopedics, multimodal analgesia per primary team. Patient will be cleared for surgery, keeping in mind hightened risks due to multiple comorbids and patient's informed decision to proceed with surgery despite risks involved. 9. Hyperaldosteronism Of note, chart review showed patient was worked up for resistant hypertension despite multiple antihypertensive drugs when she was in ICU last month renin levels 0.12, aldosterone levels 16, renin aldosterone ratio > 30, which is virtually diagnostic of hyperaldosteronism, though given patient's overall clinical picture, being on hospice and multiple comorbidities likely will hold off on any aggressive intervention at this point, but it continues to be of academic interest. Also noted medications affecting Renin levels including Clonidine and spironolactone, which can alter serum renin levels, as well as concurrent hemodialysis . will reach out to publication director about resuming MRA/spironolactone due to likely diagnosis of hyperaldosteronism. Plan of care was discussed with my attending special agent secret service Dr. Darien Woo PGY2
[2024-08-27] MEDS: HEPARIN SOD INJ 5000 UNIT/ML VIAL SC (21:21)
[2024-08-28] VITALS (16 sets, daily range): BP systolic 124–189; BP diastolic 57–92; PULSE 65–81; RESP 16–21; TEMP 36.1–37.7; O2SAT 89–98; BMI 19.1; BMI 12.0
[2024-08-28] MEDS: ACETAMINOPHEN 325 MG TABLET 650 MG PO ×2 (05:45→15:02)
[2024-08-28 06:04] LABS: Basophils % (Auto) 0 % (0-2.5); Eosinophils # (Auto) 0.1 Thou/mm3 (0.0-0.5); Eosinophils % (Auto) 1 % (0-10); Hemoglobin 9.1 g/dL (12.0-16.0); Immature Granulocytes % (Auto) 0 % (0-0); Immature Granulocytes Auto 0.04 Thou/mm3 (0.00-0.00); Lymphocytes # (Auto) 0.7 Thou/mm3 (1.0-4.8); Lymphocytes % (Auto) 7 % (10-50); Mean Corpuscular HGB Conc 32.5 g/dl (31.0-37.0); Mean Corpuscular Hemoglobin 29.7 pg (25.0-35.0); Mean Corpuscular Volume 92 fL (80-100); Monocytes # (Auto) 1.2 Thou/mm3 (0.0-0.8); Monocytes % (Auto) 11 % (0-12); Neutrophils % (Auto) 80 % (37-80); Nucleated Red Blood Cell % 0 /100 WBC (0); Platelet Count 368 Thou/mm3 (140-440); RDW Standard Deviation 54.5 fL (36.4-46.3); Red Blood Count 3.06 Miln/mm3 (4.00-5.20); White Blood Count 11.1 Thou/mm3 (3.6-11.0)
[2024-08-28 06:08] LABS: INR 1.1 (0.9-1.3); Prothrombin Time 12.1 Seconds (9.0-12.2)
[2024-08-28 06:39] LABS: Alanine Aminotransferase 9 U/L (10-49); Albumin, Serum 3.9 gm/dL (3.4-4.8); Albumin/Globulin Ratio 1.3 (1.2-2.2); Alkaline Phosphatase 53 U/L (46-116); Anion Gap 13 (7-16); Aspartate Amino Transferase 32 U/L (0-34); BUN/Creatinine Ratio 6 Ratio (12-20); Bilirubin,Total 0.3 mg/dL (0.3-1.2); Blood Urea Nitrogen 20 mg/dL (9-23); Calcium 9.7 mg/dL (8.3-10.6); Calcium (Corrected) 9.8 mg/dL (8.5-10.1); Carbon Dioxide 24.5 mMol/L (20.0-31.0); Chloride 102 mMol/L (98-107); Creatinine (Component) 3.2 mg/dL (0.6-1.3); Estimated Creatinine Clearance 11.4 mL/min (>60); Glucose 93 mg/dL (74-106); Osmolality,Calculated 280 (275-295); Sodium 139 mMol/L (136-145); Total Protein 6.9 gm/dL (5.7-8.2); eGFR 14 See Note
[2024-08-28] MEDS: AMIODARONE HCL 200 MG TABLET 100 MG PO ×2 (08:21→21:29)
[2024-08-28] MEDS: Milk Of Magnesia Susp 30 ML UDC PO (08:21)
[2024-08-28] MEDS: SENNA TABLET 1 TAB PO (08:22)
[2024-08-28] MEDS: PARoxetine HCL 10 MG TABLET PO (08:23)
[2024-08-28] MEDS: LABETALOL 100 MG TABLET PO ×2 (08:23→20:13)
[2024-08-28] MEDS: APIXABAN 2.5 MG TABLET PO ×2 (08:23→21:29)
[2024-08-28] MEDS: NIFEdipine XL 30 MG TABCR 60 MG PO ×2 (08:24→20:13)
--- NOTE | 2024-08-28 08:39 | ESPR_ITS ---
Documentation for date of: 08/28/24 Subjective Subjective Interval history: Ms. Chen is a 79-year-old female with past medical history of ESRD on HD [M/W/F], CVA with residual left-sided deficits, anxiety, depression, atrial fibrillation, hypertension and CHF( under Dr. Kuo) presented to the hospital with chief complaints of ground-level fall on 08/23/2024. Patient was mostly wheelchair-bound, on the day of the fall patient was trying to get up from the wheelchair to go to the bathroom during which she felt dizzy and had a fall. Patient denies palpitations, skipped beats, loss of consciousness, involuntary movements at the time of the fall. Patient's called the ambulance but patient denied admission to hospital for which she received some pain medications. As patient is still not able to mobilize and skipped her dialysis session on Sunday and on the day of admission, called the ambulance following which patient was brought to the ED. Complaining of severe pain at the site of left hip fracture. Nephrology is consulted as the patient is on HD 3 times per week and missed last 2 dialysis sessions. ED Course: -Initial vitals were 175/108 mmHg, pulse rate 73 bpm, respiratory rate 17/min, temperature 98.7 ?F, SpO2 92% with oxygen through nasal cannula. -Labs significant for WBC 14.4, Hb 10.8, platelets 438, sodium 128, potassium 5.8, chloride 90, BUN 45, creatinine 5.8, corrected calcium 10.2, ALP 66. -Hip and pelvis x-ray showed acute angulated displaced fracture humeral neck. Shoulder x-ray showed no fracture or dislocation. Cervical spine CT showed no acute cervical fracture. Head CT showed no acute hemorrhage, mass effect or midline shift. Femur x-ray showed acute displaced angulated fracture of left femoral neck. Chest x-ray showed mild to moderate CHF. EKG showed normal sinus rhythm. -In the ED, patient was given hydromorphone, fentanyl -Patient was admitted for acute left hip fracture. 08/26/2024 Patient was seen and examined at bedside in the telemetry No acute overnight events. But patient seems to be pretty much confused and called ambulance 30 times during night Patient received Dilaudid for her pain following which she had auditory hallucinations, seems pretty anxious and endorsed that she wants to get out of the hospital, likely sensitive to the Dilaudid On physical examination, there is a ejection systolic murmur heard at the aortic area and PSM heard at tricuspid area Will continue dialysis as per her routine schedule 08/27/2024 Patient was seen and examined at bedside in the dialysis unit Patient is still confused and very emotional. Scheduled for surgery today Patient is tolerating dialysis well. Will continue dialysis as per her routine schedule. 08/28/2024 Patient was seen and examined at bedside in the telemetry Patient underwent successful hip surgery on 08/27/2024 Patient still appears to be confused and complaining of pain at the back of head, on examination unremarkable Will continue dialysis as per her routine schedule Recommended to adjust pain medications as it might be worsening the confusion Exam Vital Signs Temp Pulse Resp BP Pulse Ox O2 Del Method O2 Flow Rate 98.7 F 74 20 174/71 H 97 Nasal Cannula 2 08/28/24 08:00 08/28/24 08:24 08/28/24 08:00 08/28/24 08:24 08/28/24 08:00 08/28/24 08:00 08/28/24 08:00 Narrative Exam General: Awake. Still confused HEENT: Normocephalic, atraumatic, mucous membranes moist. Heart: Regular rate and rhythm, no murmurs. Lungs: Clear to auscultation with no wheezing or crackles. Abdomen: Soft, nondistended, nontender, positive bowel sounds. ?No guarding or rebound tenderness. Neurologic: Confused, no gross neurological deficit, and patient able to move all 4 extremities. Extremities: No edema. Skin: No rash or ecchymoses. Objective Labs 08/28/24 05:18 08/28/24 05:18 Labs: Laboratory Results - last 24 hr 08/28/24 05:18 WBC 11.1 H RBC 3.06 L Hgb 9.1 L Hct 28.0 L MCV 92 MCH 29.7 MCHC 32.5 RDW Std Deviation 54.5 H Plt Count 368 D Neut % (Auto) 80 Lymph % (Auto) 7 L [place] % (Auto) 11 Eos % (Auto) 1 Baso % (Auto) 0 Neut # (Auto) 9.0 H Lymph # (Auto) 0.7 L [place] # (Auto) 1.2 H Eos # (Auto) 0.1 Baso # (Auto) 0.0 Immature Gran # (Auto) 0.04 H Absolute Nucleated RBC 0.00 Immature Gran % 0 Nucleated RBC % 0 PT 12.1 INR 1.1 Sodium 139 Potassium 4.0 D Chloride 102 Carbon Dioxide 24.5 Anion Gap 13 BUN 20 Creatinine 3.2 H D Estim Creat Clear Calc 11.4 L eGFR 14 L* BUN/Creatinine Ratio 6 L Glucose 93 Calculated Osmolality 280 Calcium 9.7 Corrected Calcium 9.8 Total Bilirubin 0.3 AST 32 ALT 9 L Alkaline Phosphatase 53 Total Protein 6.9 Albumin 3.9 Globulin 3.0 Albumin/Globulin Ratio 1.3 Quality Measures Quality Measures VTE prophylaxis Advance care planning discussed with:: patient and other Assessment & Plan Assessment Current Active Medications: Generic Name Dose Route Start Last Admin Trade Name Freq PRN Reason Stop Dose Admin Acetaminophen 650 mg 08/25/24 15:31 08/28/24 05:45 Acetaminophen 325 Mg Tablet PO 09/24/24 15:30 650 mg Q6H PRN Administration Pain 1-3 and/or Fever >100.1 Amiodarone HCl 100 mg 08/26/24 09:00 08/28/24 08:21 Amiodarone Hcl 200 Mg Tablet PO 09/25/24 08:59 100 mg BID HOSSEIN Administration Apixaban 2.5 mg 08/28/24 09:00 08/28/24 08:23 Apixaban 2.5 Mg Tablet PO 09/27/24 08:59 2.5 mg BID HOSSEIN Administration Clonidine 0.1 mg 08/26/24 23:00 08/26/24 23:54 Clonidine Hcl 0.1 Mg Tablet PO 09/25/24 22:59 0.1 mg BID PRN Administration hypertension Hydralazine HCl 100 mg 08/27/24 14:00 08/28/24 05:50 Hydralazine Hcl 25 Mg Tablet PO 09/26/24 13:59 Not Given TID HOSSEIN Hydromorphone HCl 0.25 mg 08/25/24 15:31 08/26/24 22:45 Hydromorphone Inj 2 Mg/Ml Vial IVP 08/30/24 15:30 0.25 mg Q2H PRN Administration Pain 7-10 Labetalol HCl 100 mg 08/26/24 09:00 08/28/24 08:23 Labetalol 100 Mg Tablet PO 09/25/24 08:59 100 mg BID HOSSEIN Administration Magnesium Hydroxide 30 ml 08/28/24 09:00 08/28/24 08:21 Milk Of Magnesia Susp 30 Ml Udc PO 08/28/24 09:01 30 ml X1 ONE Administration Protocol Nifedipine 60 mg 08/26/24 09:00 08/28/24 08:24 Nifedipine Xl 30 Mg Tabcr PO 09/25/24 08:59 60 mg BID HOSSEIN Administration Ondansetron HCl 4 mg 08/25/24 15:31 08/25/24 16:12 Ondansetron Inj 2 Mg/Ml Inj 2 Ml IV 09/24/24 15:30 4 mg Q6H PRN Administration NAUSEA OR VOMITING Protocol Paroxetine HCl 10 mg 08/26/24 09:00 08/28/24 08:23 Paroxetine Hcl 10 Mg Tablet PO 09/25/24 08:59 10 mg QDAY HOSSEIN Administration Sennosides 1 tab 08/26/24 09:00 08/28/24 08:22 Senna Tablet PO 09/25/24 08:59 1 tab QDAY HOSSEIN Administration Protocol Plan A 79-year-old female with past medical history of ESRD on HD [M/W/F], CVA with residual left-sided deficits, anxiety, atrial fibrillation, HCV, hypertension and CHF presented to the hospital with chief complaints of ground-level fall on 08/23/2024 and admitted for left hip fracture. Consulted for hemodialysis # ESRD on hemodialysis [M/W/F] -Patient is on hospice and continues to receive hemodialysis 3 times per week -Patient is mostly wheelchair-bound and ambulates only for minimal activities -Per patient , patient missed 2 dialysis sessions before the day of admission -Does not appear to be fluid overloaded as of now -Labs on 08/28/2024 showed BUN 20, creatinine 3.2 Plan -Patient underwent dialysis on 08/25/2024, 08/27 -Will continue further sessions as per her routine schedule -Avoid nephrotoxic medications and renally dose medications. # Hypertension, uncontrolled -Patient has uncontrolled hypertension for more than 20 years. -Plasma aldosterone levels done in 06/2024 is 16, renin levels are 0.12 -Metanephrines, normetanephrine's done in 2022 seems to be elevated -CT abdomen/pelvis done in 2022 did not show any adrenal tumor. -Blood pressure at the time of admission is 175/108 mmHg -Still blood pressures tend to be around 160-180/70-75 -Patient is currently receiving hydralazine 100 Mg p.o. thrice daily, labetalol 100 Mg p.o. twice daily and nifedipine 60 Mg p.o. twice daily Plan -Continue blood pressure medications -Recommended to monitor her blood pressures and adjust the medications as needed # Hyperkalemia, resolved -Potassium at the time of admission is 5.8, likely due to ESRD and patient missed her dialysis sessions -Potassium as of 08/28/2024 is 4.0 Plan -Started on her routine dialysis schedule -Recommended to monitor potassium levels # Hypoosmolar hyponatremia, resolved -Likely due to poor oral intake, as patient looks clinically dehydrated at the time of admission. Plan -Recommended to monitor serum electrolytes. # Mild hypercalcemia, resolved Likely due to immobilisation vs dehydration -Monitor electrolytes -Calcium and phosphorus levels are within normal limits since 08/26/2024 -PTH levels are 398.4, which is appropriately elevated for ESRD -25-hydroxy vitamin D levels are within normal limits #Anemia of chronic disease Hemoglobin at the time of admission is 10.8 Plan: Will give erythropoietin injection during dialysis Continue to monitor CBC #Acute displaced angulated fracture left femoral neck #Ground-level fall #Leukocytosis #Likely urinary tract infection? #Atrial fibrillation, rate controlled #Congestive heart failure, not in acute exacerbation #Chronic respiratory failure secondary to CHF # History of CVA with left-sided deficits #History of depression/anxiety -As per primary team Thank you for allowing us to participate in the care of the patient Patient plan of care was discussed with the attending physician,Dr. Renzo Howe, PGY1 Attending Provider Attestation/Addendum Patient seen and examined with resident physician Dr. Bentley. Note reviewed, agree with findings and recommendations. Next dialysis scheduled for tomorrow. Patient still remains confused. Discontinue Dilaudid. Continue with [place].
--- NOTE | 2024-08-28 09:03 | PD.RESPRO ---
Documentation for date of: 08/28/24 Subjective Subjective Interval history: The patient is seen today at the bedside. resting comfortably, she is s/p orthopedic surgery, in no acute distress, saturating 86% , she has her nasal canula removed, stating she only takes oxygen during night at her home, counselled her regarding keeping o2 sats in a safe range 88-92% and using o2 during day time too. The patient has no active complaints. was present at the bedside in a wheel chair. Blood pressure stayed in the 170's , likely secondary hypertension secondary to hyperaldosteronism, considering pt's overall prognosis and clinical morbidity and frailty, will defer further workup and definitive treatment which may include surgery, recommned conitnuning on medical management, nephrology is following the patient, hemodialysis per schedule. Exam Vital Signs Temp Pulse Resp BP Pulse Ox O2 Del Method O2 Flow Rate 98.7 F 74 20 174/71 H 97 Nasal Cannula 2 08/28/24 08:00 08/28/24 08:24 08/28/24 08:00 08/28/24 08:24 08/28/24 08:00 08/28/24 08:00 08/28/24 08:00 Narrative Exam General: alert oriented x 3 Skin: Intact, no cyanosis or edema noted. HEENT: Atraumatic/normocephalic, SINDI, neck supple Heart: RRR, S1 and S2 and systolic murmur grade 4/6, more prominent mitral area. Lungs: Clear on auscultation bilaterally, no difficulty breathing Abdomen: Soft, nontender. Bowel sounds present . Vascular: Peripheral pulses palpable, AVF fistula bruit present Neuro: slight Motor weakness left extremity when compared to right side, but able to move against gravity. Objective Labs 08/28/24 05:18 08/28/24 05:18 Labs: Laboratory Results - last 24 hr 08/28/24 05:18 WBC 11.1 H RBC 3.06 L Hgb 9.1 L Hct 28.0 L MCV 92 MCH 29.7 MCHC 32.5 RDW Std Deviation 54.5 H Plt Count 368 D Neut % (Auto) 80 Lymph % (Auto) 7 L [place] % (Auto) 11 Eos % (Auto) 1 Baso % (Auto) 0 Neut # (Auto) 9.0 H Lymph # (Auto) 0.7 L [place] # (Auto) 1.2 H Eos # (Auto) 0.1 Baso # (Auto) 0.0 Immature Gran # (Auto) 0.04 H Absolute Nucleated RBC 0.00 Immature Gran % 0 Nucleated RBC % 0 PT 12.1 INR 1.1 Sodium 139 Potassium 4.0 D Chloride 102 Carbon Dioxide 24.5 Anion Gap 13 BUN 20 Creatinine 3.2 H D Estim Creat Clear Calc 11.4 L eGFR 14 L* BUN/Creatinine Ratio 6 L Glucose 93 Calculated Osmolality 280 Calcium 9.7 Corrected Calcium 9.8 Total Bilirubin 0.3 AST 32 ALT 9 L Alkaline Phosphatase 53 Total Protein 6.9 Albumin 3.9 Globulin 3.0 Albumin/Globulin Ratio 1.3 Quality Measures Quality Measures VTE prophylaxis Advance care planning discussed with:: patient Assessment & Plan Assessment Current Active Medications: Generic Name Dose Route Start Last Admin Trade Name Freq PRN Reason Stop Dose Admin Acetaminophen 650 mg 08/25/24 15:31 08/28/24 05:45 Acetaminophen 325 Mg Tablet PO 09/24/24 15:30 650 mg Q6H PRN Administration Pain 1-3 and/or Fever >100.1 Amiodarone HCl 100 mg 08/26/24 09:00 08/28/24 08:21 Amiodarone Hcl 200 Mg Tablet PO 09/25/24 08:59 100 mg BID HOSSEIN Administration Apixaban 2.5 mg 08/28/24 09:00 08/28/24 08:23 Apixaban 2.5 Mg Tablet PO 09/27/24 08:59 2.5 mg BID HSOSEIN Administration Clonidine 0.1 mg 08/26/24 23:00 08/26/24 23:54 Clonidine Hcl 0.1 Mg Tablet PO 09/25/24 22:59 0.1 mg BID PRN Administration hypertension Hydralazine HCl 100 mg 08/27/24 14:00 08/28/24 05:50 Hydralazine Hcl 25 Mg Tablet PO 09/26/24 13:59 Not Given TID HOSSEIN Hydromorphone HCl 0.25 mg 08/25/24 15:31 08/26/24 22:45 Hydromorphone Inj 2 Mg/Ml Vial IVP 08/30/24 15:30 0.25 mg Q2H PRN Administration Pain 7-10 Labetalol HCl 100 mg 08/26/24 09:00 08/28/24 08:23 Labetalol 100 Mg Tablet PO 09/25/24 08:59 100 mg BID HOSSEIN Administration Nifedipine 60 mg 08/26/24 09:00 08/28/24 08:24 Nifedipine Xl 30 Mg Tabcr PO 09/25/24 08:59 60 mg BID HOSSEIN Administration Ondansetron HCl 4 mg 08/25/24 15:31 08/25/24 16:12 Ondansetron Inj 2 Mg/Ml Inj 2 Ml IV 09/24/24 15:30 4 mg Q6H PRN Administration NAUSEA OR VOMITING Protocol Paroxetine HCl 10 mg 08/26/24 09:00 08/28/24 08:23 Paroxetine Hcl 10 Mg Tablet PO 09/25/24 08:59 10 mg QDAY HOSSEIN Administration Sennosides 1 tab 08/26/24 09:00 08/28/24 08:22 Senna Tablet PO 09/25/24 08:59 1 tab QDAY HOSSEIN Administration Protocol Plan The patient is a 79 y/o female, past medical history of CKD, Afib, hx of AVM, uncontrolled hypertension, CVA with residual deficits, atrial fibrillation, heart failure with preserved ejection fraction, history of pulmonary mass, was previously on hospice, who presented to the ER following a mechanical fall and increased left hip pain, found to have left acute angulated displaced fracture of femoral neck, orthopedic consult Dr. Andrews was placed, tentative plan for surgery on Sunday. Home medications include amiodarone 100 mg twice daily, clonidine 0.1 mg twice daily as needed, hydralazine 100 mg 3 times daily, labetalol 100 mg twice daily, nifedipine 60 mg twice daily, paroxetine 10 mg daily, pantoprazole 20 mg daily, spironolactone 25 mg twice daily, hydroxyzine 25 mg twice daily, [place] as needed for pain, docusate, bisacodyl, multivitamins, alprazolam for anxiety. Problems: 1. Heart failure with preserved ejection fraction 2. Resistant hypertension 3. History of atrial fibrillation, now in sinus rhythm 4. Moderate Tricuspid regurgitation, mild MR 5. Pulmonary hypertension, type 2 - Echocardiogram shows concentric LVH, EF 65%, moderate to severe pulmonary hypertension, mild MR moderate TR, aortic valve sclerosis. Chest x-ray shows pulmonary vascular congestion irregularity, prominent right superior mediastinum, pulmonary mass not reported on this imaging study, but present on prior chest imaging results. Given that patient is clinically dry, no peripheral edema, no JV distention, no acute worsening and oxygen requirements as noted, will hold off on aggressive diuresis at this point. Hemodialysis per schedule. Stable pulmonary HTN, maintiaing o2 sats on 3L 02 via [place]. 6. End-stage renal disease, on hemodialysis 7. Hyperkalemia- now resolved - Hemodialysis per schedule, Nephrology following. 8. Displaced fracture left femoral neck - Management per Orthopedics, multimodal analgesia per primary team. Patient will be cleared for surgery, keeping in mind hightened risks due to multiple comorbids and patient's informed decision to proceed with surgery despite risks involved. 9. Hyperaldosteronism Of note, chart review showed patient was worked up for resistant hypertension despite multiple antihypertensive drugs when she was in ICU last month renin levels 0.12, aldosterone levels 16, renin aldosterone ratio > 30, which is virtually diagnostic of hyperaldosteronism, though given patient's overall clinical picture, being on hospice and multiple comorbidities likely will hold off on any aggressive intervention at this point, but it continues to be of academic interest. Also noted medications affecting Renin levels including Clonidine and spironolactone, which can alter serum renin levels, as well as concurrent hemodialysis . will reach out to web retailer about resuming MRA/spironolactone due to likely diagnosis of hyperaldosteronism. Plan of care was discussed with my attending yard coordinator Dr. Darien Woo PGY2
--- NOTE | 2024-08-28 09:43 | PC.SS ---
Update: Patient to undergo hip surgery today with Dr. Andrews.
--- NOTE | 2024-08-28 10:33 | PC.SS ---
O[employer] WE[employer] PU[employer]ER conducted bedside contact with patient and spouse to discuss discharge plan. Plan is for patient to transition to SNF for short term placement. Preferred SNF is [facility]. Spouse confirmed that patient aligned with [facility] upon admission. Spouse and patient acknowledged that patient will discharge from hospital without hospice services. Spouse relayed to [employer] that [facility] has been notified of decision.
[2024-08-28] MEDS: hydrOXYzine HCL 25 MG TABLET PO ×2 (11:56→21:29)
--- NOTE | 2024-08-28 13:18 | PC.SS ---
PASSR completed. Patient meets Level II criteria. PASSR follow up pending.
--- NOTE | 2024-08-28 13:34 | PC.SS ---
SNF referral submitted on [facility]. Awaiting responses. Preferred SNF is [facility].
[2024-08-28] MEDS: hydrALAZINE HCL 25 MG TABLET 100 MG PO ×2 (13:44→21:31)
--- NOTE | 2024-08-28 14:00 | ESPR_ITS ---
Documentation for date of: 08/28/24 POST ANESTHESIA NOTE: Patient had spinal anesthesia (without intrathecal Duramorph) for L hip repair yesterday. She was dialyzed yesterday morning before the surgery. She did well intra-op, spinal placed uneventfully, vitals well maintained, and later the case was taken over by on-call COLL[employer] TURNER OPERATOR. Her L arm AVF had palpable thrill before I left. I saw her briefly in 272 earlier today and she was alert and calm in bed, NAD, smiled, on 2 l/min NC O2, denied any problems from anesthesia, denied chest pain and back pain. Rick Brown MD Anesthesia Progress Note Progress Note Most recent Vital Signs: Last Vital Signs Temp 99.8 F 08/28/24 12:00 Pulse 78 08/28/24 13:44 Resp 18 08/28/24 12:00 BP 173/74 H 08/28/24 13:44 Pulse Ox 96 08/28/24 12:00 O2 Del Method Nasal Cannula 08/28/24 12:00 O2 Flow Rate 2 08/28/24 12:00
--- NOTE | 2024-08-28 14:24 | PC.SS ---
Rounding Note: Eliquis started today. Physical therapy evaluation is pending.
--- NOTE | 2024-08-28 14:42 | ESPR_ITS ---
<Statement entered by Harriet Prieto MD - 08/28/24 21:57> Patient was seen and examined by me personally. I have directly supervised and reviewed documentation by the team resident and agree with its findings with any exceptions or additional findings as below. Plan of care was discussed with the attending, Dr. Allred. Patient is 1 day post-op left hip surgery with Dr. Andrews. Reports doing well, minimal pain. Discontinued the patient's Dilaudid as it may have been contributing to confusion the last few days. Added [place] prn for pain control. Patient to work with PT and acute rehab is recommended for discharge; patient and spouse were in agreement. Per case management the patient's hospice will be put on hold while she is undergoing acute rehab. Eliquis 2.5 mg BID was added for DVT prophylaxis. Patient was not previously on anticoagulation despite history of afib; she states that she had been taken off of it previously. Continue all home BP medications including labetalol, nifedipine, hydralazine, and clonidine for resistant hypertension. Home hydroxyzine was continued for itchiness. Patient will undergo dialysis tomorrow as scheduled. Harriet Prieto, PGY-2 Documentation for date of: 08/28/24 Subjective Subjective Interval history: 08/28/2024: No acute overnight events to report. Patient seen and examined in hospital bed, denies any concerning symptoms at this time. Pain is well controlled; however, she does have generalized itchiness. Restarted patient's home hydoxyzine and will continue to monitor. Physical therapy to work with patient; she would prefer to be sent home but I let her know that she will likely need SNF placement, especially for the short-term. Will continue to monitor for any acute changes. Exam Vital Signs Temp Pulse Resp BP Pulse Ox O2 Del Method O2 Flow Rate 99.8 F 78 18 173/74 H 96 Nasal Cannula 2 08/28/24 12:00 08/28/24 13:44 08/28/24 12:00 08/28/24 13:44 08/28/24 12:00 08/28/24 12:00 08/28/24 12:00 Narrative Exam Physical Exam: GENERAL: Awake, answering questions appropriately but is in acute pain secondary to hip fracture, appears stated age HEENT: NC/AT. Moist mucosa. PERRLA/EOMI. CARDIO: Heart RRR, no obvious murmurs, no JVD. PULM: No coughing or visible SOB. Lungs CTA B/L. Patient on 1-2 L nasal cannula GI: Abdomen soft, NT/ND, +BS. SKIN/MSK/EXT: Patient has a patent (with thrill) left upper extremity AV fistula noted. No wounds/discoloration/rashes/edema/amputations noted. +Pedal pulses present B/L. NEURO: Oriented x3, no focal neurologic deficits noted Objective Labs 08/28/24 05:18 08/28/24 05:18 Labs: Laboratory Results - last 24 hr 08/28/24 05:18 WBC 11.1 H RBC 3.06 L Hgb 9.1 L Hct 28.0 L MCV 92 MCH 29.7 MCHC 32.5 RDW Std Deviation 54.5 H Plt Count 368 D Neut % (Auto) 80 Lymph % (Auto) 7 L [place] % (Auto) 11 Eos % (Auto) 1 Baso % (Auto) 0 Neut # (Auto) 9.0 H Lymph # (Auto) 0.7 L [place] # (Auto) 1.2 H Eos # (Auto) 0.1 Baso # (Auto) 0.0 Immature Gran # (Auto) 0.04 H Absolute Nucleated RBC 0.00 Immature Gran % 0 Nucleated RBC % 0 PT 12.1 INR 1.1 Sodium 139 Potassium 4.0 D Chloride 102 Carbon Dioxide 24.5 Anion Gap 13 BUN 20 Creatinine 3.2 H D Estim Creat Clear Calc 11.4 L eGFR 14 L* BUN/Creatinine Ratio 6 L Glucose 93 Calculated Osmolality 280 Calcium 9.7 Corrected Calcium 9.8 Total Bilirubin 0.3 AST 32 ALT 9 L Alkaline Phosphatase 53 Total Protein 6.9 Albumin 3.9 Globulin 3.0 Albumin/Globulin Ratio 1.3 Quality Measures Quality Measures VTE prophylaxis Advance care planning discussed with:: patient and spouse Assessment & Plan Assessment Current Active Medications: Generic Name Dose Route Start Last Admin Trade Name Freq PRN Reason Stop Dose Admin Acetaminophen 650 mg 08/25/24 15:31 08/28/24 05:45 Acetaminophen 325 Mg Tablet PO 09/24/24 15:30 650 mg Q6H PRN Administration Pain 1-3 and/or Fever >100.1 Amiodarone HCl 100 mg 08/26/24 09:00 08/28/24 08:21 Amiodarone Hcl 200 Mg Tablet PO 09/25/24 08:59 100 mg BID HOSSEIN Administration Apixaban 2.5 mg 08/28/24 09:00 08/28/24 08:23 Apixaban 2.5 Mg Tablet PO 09/27/24 08:59 2.5 mg BID HOSSEIN Administration Clonidine 0.1 mg 08/26/24 23:00 08/26/24 23:54 Clonidine Hcl 0.1 Mg Tablet PO 09/25/24 22:59 0.1 mg BID PRN Administration hypertension Hydralazine HCl 100 mg 08/27/24 14:00 08/28/24 13:44 Hydralazine Hcl 25 Mg Tablet PO 09/26/24 13:59 100 mg TID HOSSEIN Administration Hydroxyzine HCl 25 mg 08/28/24 10:15 08/28/24 11:56 Hydroxyzine Hcl 25 Mg Tablet PO 09/27/24 10:14 25 mg BID HOSSEIN Administration Labetalol HCl 100 mg 08/26/24 09:00 08/28/24 08:23 Labetalol 100 Mg Tablet PO 09/25/24 08:59 100 mg BID HOSSEIN Administration Nifedipine 60 mg 08/26/24 09:00 08/28/24 08:24 Nifedipine Xl 30 Mg Tabcr PO 09/25/24 08:59 60 mg BID HOSSEIN Administration Ondansetron HCl 4 mg 08/25/24 15:31 08/25/24 16:12 Ondansetron Inj 2 Mg/Ml Inj 2 Ml IV 09/24/24 15:30 4 mg Q6H PRN Administration NAUSEA OR VOMITING Protocol Paroxetine HCl 10 mg 08/26/24 09:00 08/28/24 08:23 Paroxetine Hcl 10 Mg Tablet PO 09/25/24 08:59 10 mg QDAY HOSSEIN Administration Sennosides 1 tab 08/26/24 09:00 08/28/24 08:22 Senna Tablet PO 09/25/24 08:59 1 tab QDAY HOSSEIN Administration Protocol Plan 79-year-old female with past medical history of end-stage renal disease (M/W/F), anxiety, status post CVA with left-sided deficits, atrial fibrillation, hypertension and CHF who presented with episode of ground-level fall on Wednesday 08/23 after she was attempting to ambulate from her wheelchair to the bathroom will be admitted for left hip fracture and assessed by orthopedic surgery for surgical needs; moreover, will need cardiac clearance as well as nephrology for dialysis inpatient. #Acute displaced angulated fracture left femoral neck #Ground-level fall POD#1 left hip hemiarthroplasty As noted in HPI, patient had a ground-level fall on Wednesday 08/23 Presenting with acute pain on the left side Imaging findings included hip pelvis x-ray which showed acute angulated displaced fracture of the femoral neck, shoulder x-ray which was negative, cervical CT spine which showed no acute cervical fracture but there was pronounced anterolisthesis of the C4 on C5, head CT was negative for any acute process, femur x-ray showed confirmed acute displaced angulated fracture of the left femoral neck Dr. Andrews contacted - is planning on doing surgery Sunday 08/27 if/when patient is stabilized and cleared by cardiology XR of b/l ankles is negative for any acute fractures Orthopedics consulted, appreciate recommendations Surgery completed on 08/27/2024 Plan: Multimodal pain management Continue PT Will discontinue [place] upon physical therapy Patient would prefer to go home vs. SNF; hospice #ESRD on HD (M/W/F) #Hypertensive emergency #Hypertension #Primary hyperaldosteronism #Hyperkalemia, improving Patient follows Dr. Muller outpatient for dialysis; last session was Sunday08/22/24 Presenting today with hypertensive emergency Potassium of 5.8 and worsened kidney function Patient has a L-sided upper extremity AVF which is patent w/thrill Completed HD on 08/25 and 08/[address] Muller Patient has extensive history of resistant hypertension on 5 different medications; moreover, on past admission patient had workup for secondary causes of hypertension along with renin/aldosterone ratio Patient has a increased level of aldosterone and likely has primary hyperaldosteronism Patient has itchiness, ongoing since HD started; on home hydoxyzine 25mg PO BID Plan: Nephrology consulted, appreciate recommendations Continue patient's labetalol, nifedipine, hydralazine, clonidine, home dose Restarted home hydroxyzine Will consider restarting spironolactone on discharge to prevent hypokalemia secondary to hyperaldosteronism Monitor with morning labs #Atrial fibrillation, rate controlled [id number] score 7 Patient on labetalol 100 mg twice daily at home Currently regular, rate controlled rhythm Plan: Tele Continue patient's amiodarone 100 mg p.o. twice daily #Congestive heart failure, not in acute exacerbation #Chronic respiratory failure secondary to CHF #History of CVA with left-sided deficits Patient reports history of congestive heart failure Last echo done in 2022 shows ejection fraction 60 to 65% Currently does not appear fluid overloaded though chest x-ray does show pulmonary edema On 2 to 3 L oxygen at home Echo from 06/2024 shows: Normal LV size and function. Mild LVH. Estimated EF 60- 65%. RV mildly dilated. Normal RV function. Estimated RVSP 74mmHg. LA severely dilated. The mitral valve is mildly thicken. Moderate MR. Aortic LCC is mildly calcified. Mild AI. Mild to moderate TR. Pleural effusion present. Plan: Strict I&O Daily weight Fluid restriction 1800ml Supplemental oxygen as needed Plan: Continue supplemental oxygen as needed #Anemia of chronic disease Patient has end-stage renal disease, per chart review hemoglobin has been low Plan: Monitor with morning labs #History of depression/anxiety Patient currently on paroxetine daily Plan: Continue paroxetine 10 mg daily Hospital Management: Lines: PIV, [place] Diet: N.p.o. after midnight Bowel: Senna GI Prophylaxis: Not needed DVT Prophylaxis: heparin subq Dispo: Surgery completed with Dr. Andrews on 08/27, physical therapy ongoing Code: DNR Patient seen and assessed with attending Dr. Allred and senior resident Dr. Ida Borges, PGY-1 Attending Provider Attestation/Addendum I have examined the patient, reviewed labs and imaging findings, discussed the case with the resident(s), and reviewed entered orders. I agree with the plan of care as outlined in this note, with these additional summaries/recommendations: Patient seen at bedside. No acute overnight events. Patient reports her pain is controlled this morning and has no new symptoms to report. Patient is POD #1 s/p left hip hemiarthroplasty. Patient reports her pain is currently controlled. She is encouraged to work with physical therapy. Patient started on Eliquis for DVT prophylaxis. Patients SBP is labile but overall continues to be uncontrolled. SBP trending into the 170s today. Will continue to adjust antihypertensive regimen as needed. Previous studies indicate hyperaldosteronism although would recommend repeating this study outpatient given history of ESRD. Leukocytosis is present although most likely reactive and no growth on urine culture. DC antibiotic. Continue amiodarone for atrial fibrillation. Patient updated on the plan and in agreement. Repeat hematology and chemistry panel in AM. Patient will be discharged back on hospice when medically cleared. Dr. Chalino MD
[2024-08-28] MEDS: cloNIDine HCL 0.1 MG TABLET PO (18:33)
[2024-08-28] MEDS: HYDROcodone/APAP 5/325 TABLET 1 TAB PO (19:31)
[2024-08-28] MEDS: LIDOCAINE 5% 1 PATCH TOP (21:32)
[2024-08-29] VITALS (29 sets, daily range): BP systolic 136–169; BP diastolic 46–84; PULSE 60–75; RESP 14–25; TEMP 35.8–37.7; O2SAT 93–98
[2024-08-29] MEDS: HYDROcodone/APAP 5/325 TABLET 1 TAB PO ×3 (01:04→14:24)
[2024-08-29] MEDS: hydrALAZINE HCL 25 MG TABLET 100 MG PO ×3 (05:20→21:11)
--- NOTE | 2024-08-29 07:34 | PC.SS ---
PT note submitted on [facility] to SNF's.
--- NOTE | 2024-08-29 07:38 | PC.SS ---
Patient to participate with dialysis today.
--- NOTE | 2024-08-29 08:14 | PC.NURSE ---
C/o hip pain 01/01, Hydrocodone 5/325 mg PO given.
[2024-08-29 08:21] LABS: Basophils % (Auto) 0 % (0-2.5); Eosinophils # (Auto) 0.5 Thou/mm3 (0.0-0.5); Eosinophils % (Auto) 5 % (0-10); Hematocrit 23.3 % (36.0-46.0); Immature Granulocytes % (Auto) 0 % (0-0); Immature Granulocytes Auto 0.04 Thou/mm3 (0.00-0.00); Lymphocytes % (Auto) 9 % (10-50); Mean Corpuscular HGB Conc 32.6 g/dl (31.0-37.0); Mean Corpuscular Hemoglobin 29.1 pg (25.0-35.0); Mean Corpuscular Volume 89 fL (80-100); Monocytes # (Auto) 1.2 Thou/mm3 (0.0-0.8); Monocytes % (Auto) 11 % (0-12); Neutrophils # (Auto) 8.5 Thou/mm3 (1.8-7.7); Neutrophils % (Auto) 75 % (37-80); Nucleated Red Blood Cell % 0 /100 WBC (0); Platelet Count 368 Thou/mm3 (140-440); RDW Standard Deviation 53.1 fL (36.4-46.3); Red Blood Count 2.61 Miln/mm3 (4.00-5.20); White Blood Count 11.2 Thou/mm3 (3.6-11.0)
[2024-08-29 08:51] LABS: Alanine Aminotransferase 7 U/L (10-49); Albumin, Serum 3.3 gm/dL (3.4-4.8); Albumin/Globulin Ratio 1.2 (1.2-2.2); Alkaline Phosphatase 44 U/L (46-116); Anion Gap 9 (7-16); Aspartate Amino Transferase 14 U/L (0-34); BUN/Creatinine Ratio 10 Ratio (12-20); Bilirubin,Total < 0.2 mg/dL (0.3-1.2); Blood Urea Nitrogen 38 mg/dL (9-23); Calcium (Corrected) 9.6 mg/dL (8.5-10.1); Chloride 102 mMol/L (98-107); Estimated Creatinine Clearance 9.3 mL/min (>60); Globulin 2.7 gm/dL (2.3-3.5); Glucose 130 mg/dL (74-106); Osmolality,Calculated 284 (275-295); Potassium 4.1 mMol/L (3.4-5.1); Sodium 137 mMol/L (136-145); eGFR 11 See Note
[2024-08-29 08:55] LABS: Hemoglobin 7.6 g/dL (12.0-16.0)
--- NOTE | 2024-08-29 09:31 | PD.RESPRO ---
Documentation for date of: 08/29/24 Subjective Subjective Interval history: Ms. Chen is a 79-year-old female with past medical history of ESRD on HD [M/W/F], CVA with residual left-sided deficits, anxiety, depression, atrial fibrillation, hypertension and CHF( under Dr. Kuo) presented to the hospital with chief complaints of ground-level fall on 08/23/2024. Patient was mostly wheelchair-bound, on the day of the fall patient was trying to get up from the wheelchair to go to the bathroom during which she felt dizzy and had a fall. Patient denies palpitations, skipped beats, loss of consciousness, involuntary movements at the time of the fall. Patient's called the ambulance but patient denied admission to hospital for which she received some pain medications. As patient is still not able to mobilize and skipped her dialysis session on Sunday and on the day of admission, called the ambulance following which patient was brought to the ED. Complaining of severe pain at the site of left hip fracture. Nephrology is consulted as the patient is on HD 3 times per week and missed last 2 dialysis sessions. ED Course: -Initial vitals were 175/108 mmHg, pulse rate 73 bpm, respiratory rate 17/min, temperature 98.7 ?F, SpO2 92% with oxygen through nasal cannula. -Labs significant for WBC 14.4, Hb 10.8, platelets 438, sodium 128, potassium 5.8, chloride 90, BUN 45, creatinine 5.8, corrected calcium 10.2, ALP 66. -Hip and pelvis x-ray showed acute angulated displaced fracture humeral neck. Shoulder x-ray showed no fracture or dislocation. Cervical spine CT showed no acute cervical fracture. Head CT showed no acute hemorrhage, mass effect or midline shift. Femur x-ray showed acute displaced angulated fracture of left femoral neck. Chest x-ray showed mild to moderate CHF. EKG showed normal sinus rhythm. -In the ED, patient was given hydromorphone, fentanyl -Patient was admitted for acute left hip fracture. 08/26/2024 Patient was seen and examined at bedside in the telemetry No acute overnight events. But patient seems to be pretty much confused and called ambulance 30 times during night Patient received Dilaudid for her pain following which she had auditory hallucinations, seems pretty anxious and endorsed that she wants to get out of the hospital, likely sensitive to the Dilaudid On physical examination, there is a ejection systolic murmur heard at the aortic area and PSM heard at tricuspid area Will continue dialysis as per her routine schedule 08/27/2024 Patient was seen and examined at bedside in the dialysis unit Patient is still confused and very emotional. Scheduled for surgery today Patient is tolerating dialysis well. Will continue dialysis as per her routine schedule. 08/28/2024 Patient was seen and examined at bedside in the telemetry Patient underwent successful hip surgery on 08/27/2024 Patient still appears to be confused and complaining of pain at the back of head, on examination unremarkable Will continue dialysis as per her routine schedule Recommended to adjust pain medications as it might be worsening the confusion 08/29/2024 Patient was seen and examined at the bedside in the dialysis unit Doing well and still seems to be mildly confused but getting better. C/o pain at the site of surgery Tolerating the dialysis well. Exam Vital Signs Temp Pulse Resp BP Pulse Ox O2 Del Method O2 Flow Rate 98.0 F 64 19 144/66 H 97 Nasal Cannula 2 08/29/24 08:00 08/29/24 09:15 08/29/24 08:00 08/29/24 09:15 08/29/24 08:00 08/29/24 08:00 08/29/24 08:00 Narrative Exam General: Awake. frail looking HEENT: Normocephalic, atraumatic, mucous membranes moist. Heart: Regular rate and rhythm, no murmurs. Lungs: Clear to auscultation with no wheezing or crackles. Abdomen: Soft, nondistended, nontender, positive bowel sounds. ?No guarding or rebound tenderness. Neurologic: mild confusion, no gross neurological deficit, and patient able to move all 4 extremities. Extremities: No edema. Skin: No rash or ecchymoses. Objective Labs 08/30/24 05:21 08/30/24 05:21 Labs: Laboratory Results - last 24 hr 08/29/24 08:00 WBC 11.2 H RBC 2.61 L Hgb 7.6 L Hct 23.3 L MCV 89 MCH 29.1 MCHC 32.6 RDW Std Deviation 53.1 H Plt Count 368 Neut % (Auto) 75 Lymph % (Auto) 9 L [place] % (Auto) 11 Eos % (Auto) 5 Baso % (Auto) 0 Neut # (Auto) 8.5 H Lymph # (Auto) 1.0 [place] # (Auto) 1.2 H Eos # (Auto) 0.5 Baso # (Auto) 0.0 Immature Gran # (Auto) 0.04 H Absolute Nucleated RBC 0.00 Immature Gran % 0 Nucleated RBC % 0 Sodium 137 Potassium 4.1 Chloride 102 Carbon Dioxide 26.0 Anion Gap 9 BUN 38 H Creatinine 4.0 H D Estim Creat Clear Calc 9.3 L eGFR 11 L* BUN/Creatinine Ratio 10 L Glucose 130 H Calculated Osmolality 284 Calcium 9.0 Corrected Calcium 9.6 Total Bilirubin < 0.2 L AST 14 ALT 7 L Alkaline Phosphatase 44 L Total Protein 6.0 Albumin 3.3 L D Globulin 2.7 Albumin/Globulin Ratio 1.2 Quality Measures Quality Measures VTE prophylaxis Advance care planning discussed with:: patient Assessment & Plan Assessment Current Active Medications: Generic Name Dose Route Start Last Admin Trade Name Freq PRN Reason Stop Dose Admin Acetaminophen 650 mg 08/25/24 15:31 08/28/24 15:02 Acetaminophen 325 Mg Tablet PO 09/24/24 15:30 650 mg Q6H PRN Administration Pain 1-3 and/or Fever >100.1 Hydrocodone Bitart/Acetaminophen 1 tab 08/28/24 17:36 08/29/24 08:12 Hydrocodone/Apap 5/325 Tablet PO 09/02/24 17:35 1 tab Q6HR PRN Administration PAIN SCALE 4-10(Mod-Sev Amiodarone HCl 100 mg 08/26/24 09:00 08/28/24 21:29 Amiodarone Hcl 200 Mg Tablet PO 09/25/24 08:59 100 mg BID HOSSEIN Administration Apixaban 2.5 mg 08/28/24 09:00 08/28/24 21:29 Apixaban 2.5 Mg Tablet PO 09/27/24 08:59 2.5 mg BID HOSSEIN Administration Clonidine 0.1 mg 08/26/24 23:00 08/28/24 18:33 Clonidine Hcl 0.1 Mg Tablet PO 09/25/24 22:59 0.1 mg BID PRN Administration hypertension Hydralazine HCl 100 mg 08/27/24 14:00 08/29/24 05:20 Hydralazine Hcl 25 Mg Tablet PO 09/26/24 13:59 100 mg TID HOSSEIN Administration Hydroxyzine HCl 25 mg 08/28/24 10:15 08/28/24 21:29 Hydroxyzine Hcl 25 Mg Tablet PO 09/27/24 10:14 25 mg BID HOSSEIN Administration Labetalol HCl 100 mg 08/26/24 09:00 08/28/24 20:13 Labetalol 100 Mg Tablet PO 09/25/24 08:59 100 mg BID HOSSEIN Administration Nifedipine 60 mg 08/26/24 09:00 08/28/24 20:13 Nifedipine Xl 30 Mg Tabcr PO 09/25/24 08:59 60 mg BID HOSSEIN Administration Ondansetron HCl 4 mg 08/25/24 15:31 08/25/24 16:12 Ondansetron Inj 2 Mg/Ml Inj 2 Ml IV 09/24/24 15:30 4 mg Q6H PRN Administration NAUSEA OR VOMITING Protocol Paroxetine HCl 10 mg 08/26/24 09:00 08/28/24 08:23 Paroxetine Hcl 10 Mg Tablet PO 09/25/24 08:59 10 mg QDAY HOSSEIN Administration Sennosides 1 tab 08/26/24 09:00 08/28/24 08:22 Senna Tablet PO 09/25/24 08:59 1 tab QDAY HOSSEIN Administration Protocol Plan A 79-year-old female with past medical history of ESRD on HD [M/W/F], CVA with residual left-sided deficits, anxiety, atrial fibrillation, HCV, hypertension and CHF presented to the hospital with chief complaints of ground-level fall on 08/23/2024 and admitted for left hip fracture. Consulted for hemodialysis # ESRD on hemodialysis [M/W/F] -Patient is on hospice and continues to receive hemodialysis 3 times per week -Patient is mostly wheelchair-bound and ambulates only for minimal activities -Per patient , patient missed 2 dialysis sessions before the day of admission -Does not appear to be fluid overloaded as of now -Labs on 08/29/2024 showed BUN 38 , creatinine 4 Plan -Patient underwent dialysis on 08/25/2024, 08/27, 08/29 -Will continue further sessions as per her routine schedule -Avoid nephrotoxic medications and renally dose medications. # Hypertension, uncontrolled -Patient has uncontrolled hypertension for more than 20 years. -Plasma aldosterone levels done in 06/2024 is 16, renin levels are 0.12 -Metanephrines, normetanephrine's done in 2022 seems to be elevated -CT abdomen/pelvis done in 2022 did not show any adrenal tumor. -Blood pressure at the time of admission is 175/108 mmHg -Still blood pressures tend to be around 160-180/70-75 -Patient is currently receiving hydralazine 100 Mg p.o. thrice daily, labetalol 100 Mg p.o. twice daily and nifedipine 60 Mg p.o. twice daily Plan -Continue blood pressure medications -Recommended to monitor her blood pressures and adjust the medications as needed # Hyperkalemia, resolved -Potassium at the time of admission is 5.8, likely due to ESRD and patient missed her dialysis sessions -Potassium as of 08/29/2024 is 4.1 Plan -Started on her routine dialysis schedule -Recommended to monitor potassium levels # Hypoosmolar hyponatremia, resolved -Likely due to poor oral intake, as patient looks clinically dehydrated at the time of admission. Plan -Recommended to monitor serum electrolytes. # Mild hypercalcemia, resolved Likely due to immobilisation vs dehydration -Monitor electrolytes -Calcium and phosphorus levels are within normal limits since 08/26/2024 -PTH levels are 398.4, which is appropriately elevated for ESRD -25-hydroxy vitamin D levels are within normal limits #Anemia of chronic disease Hemoglobin at the time of admission is 10.8 Plan: Will give erythropoietin injection during dialysis Continue to monitor CBC #Acute displaced angulated fracture left femoral neck #Ground-level fall #Leukocytosis #Likely urinary tract infection? #Atrial fibrillation, rate controlled #Congestive heart failure, not in acute exacerbation #Chronic respiratory failure secondary to CHF # History of CVA with left-sided deficits #History of depression/anxiety -As per primary team Thank you for allowing us to participate in the care of the patient Patient plan of care was discussed with the attending physician,Dr. Renzo Howe, PGY1 Attending Provider Attestation/Addendum Patient seen and examined with resident physician Dr. Bentley. Note reviewed, agree with findings and recommendations. Patient currently seen on dialysis. Tolerating dialysis without any problems. Hemodialysis for 3 hours, 2K, ultrafiltration 0 L, Epogen 6000, no heparin ordered. Plan of care discussed with the dialysis nurse. Please see dialysis flowsheet for further details. Patient still remains little bit confused. Status post left hip fracture and fixation
--- NOTE | 2024-08-29 09:51 | PC.SS ---
SS was informed by physicians pt is d/c for today. SS followed up with to inform him. SS contacted Cheryl from [facility] who is agreeable to accept pt today once insurance authorization is received. Pt is having dialysis at this morning. Patient's health insurance, [employer] is aware.
[2024-08-29] MEDS: EPOETIN ALFA-EPBX INJ 10,000 UNIT/ML VIAL (ESRD) 10000 UNIT SC ×2 (10:52→10:54)
--- NOTE | 2024-08-29 11:31 | PC.SS ---
Addendum entered by Saumya Maddox 08/29/24 12:38: SS was informed by bedside nurseCarline pt is waiting for bowel movement. Pt has not had bowel movement. Bedside nurse is aware to contact SS to setup transportation once pt has had BM. Addendum entered by Saumya Maddox 08/29/24 11:51: SS spoke to Dominik at [facility] who states he will close assessment today. Original Note: SS was informed by Cheryl at [facility] she has received insurance authorization from [employer], patient's health insurance. Pt is aware and is agreeable to [facility]. SS spoke to Miriam at [facility] who explained patient's dialysis chair time is MWF 11-13:45 and caregiver, Naima provides transport. Cheryl at [facility] is aware.
[2024-08-29] MEDS: SENNA TABLET 1 TAB PO (11:45)
[2024-08-29] MEDS: hydrOXYzine HCL 25 MG TABLET PO ×2 (11:46→20:55)
[2024-08-29] MEDS: LABETALOL 100 MG TABLET PO ×2 (11:46→20:55)
[2024-08-29] MEDS: PARoxetine HCL 10 MG TABLET PO (11:46)
[2024-08-29] MEDS: APIXABAN 2.5 MG TABLET PO ×2 (11:46→20:55)
[2024-08-29] MEDS: AMIODARONE HCL 200 MG TABLET 100 MG PO ×2 (11:47→20:55)
[2024-08-29] MEDS: NIFEdipine XL 30 MG TABCR 60 MG PO ×2 (11:47→20:57)
[2024-08-29] MEDS: bisacodyL 10 MG SUPP PR (12:55)
--- NOTE | 2024-08-29 14:02 | ESDS_ITS ---
Planned Discharge Date 08/29/24 DS: Providers Provider Date of admission: 08/25/24 15:31 Primary care physician: Physician No Primary/Family Admitting Provider: Rocco Santiago MD Attending Provider on Admission: Melvin Allred MD Consults: 08/25/24 14:56 Consult to Orthopedic Stat Comment: Consulting Provider: Eben Andrews 08/25/24 15:31 Consult to Nephrology Stat Comment: Dialysis Consulting Provider: Jaylene Muller 08/25/24 15:35 Consult to Cardiology Routine Comment: Cardiac clearance for L hip fracture Consulting Provider: Chris Maza 08/28/24 07:00 Referral Physical Therapy Routine Comment: Physician Instructions: Attending Provider on DC: Larry Borges MD Discharging Provider: Larry Borges MD DS: Diagnosis Problem List Completed Was Problem List Reviewed/Reconciled?: Yes Hospital Course Hospital Course Hospital course: 79-year-old female with past medical history of ESRD on HD, anxiety, CVA with left-sided deficits, atrial fibrillation, hypertension, CHF, hospice presenting to the ED on 08/25/2024 secondary to a ground-level fall which she sustained while ambulating to the bathroom. Patient had imaging studies done in the ED which showed acute angulated displaced fracture of the femoral neck but there were no signs of any other fractures and head CT was negative for any acute process. Patient was admitted for orthopedic consultation and cardiac clearance for surgery. During admission, patient also required dialysis, as a result nephrology was consulted and provided dialysis sessions while patient was in the hospital. Patient obtained an echo cardiogram for cardiac clearance and was eventually cleared by cardiology. On 08/27/2024, left hip hemiarthroplasty was completed by orthopedic surgery without any acute complications. Patient's pain was controlled with multimodal analgesia and remaining chronic medical conditions were managed with home medications. Patient will be discharged to a fdc facility with the following strict instructions. Please take Eliquis 2.5mg twice a day as your CHADVASc score is high and you have atrial fibrillation Take Dilaudid 2mg every 6 hours for three additional day as needed for Pain 4-10 Continue taking all your home medications as prescribed Continue Dialysis (M/W/F) sessions outpatient If your symptoms worsen or you develop new shortness of breath, chest pain or dizziness - please come back to the ED immediately. Hospital Diagnosis: #Acute displaced angulated fracture left femoral neck #Ground-level fall #ESRD on HD (M/W/F) #Hypertensive emergency #Hypertension #Primary hyperaldosteronism #Hyperkalemia, improving #Atrial fibrillation, rate controlled #Congestive heart failure, not in acute exacerbation #Chronic respiratory failure secondary to CHF #History of CVA with left-sided deficits #Anemia of chronic disease #History of depression/anxiety Laryr Borges, PGY-1 Status at Discharge Overall status at discharge: patient is progressing back to baseline Time Spent with Patient Time attestation: Total time spent providing and/or coordinating discharge services: 45 minutes Time spent: Greater than 30 minutes Home Health Home Health Referral Orders: 08/29/24 09:44 Home Health Referral Routine Reason For Exam: physical therapy Home-Bound The patient must either because of illness or injury, need the aid of supportive devices such as crutches, canes, wheelchairs, and walkers; the use of special transportation; or the assistance of another person in order to leave their place of residence; OR have a condition such that leaving his or her home is medically contraindicated. In addition, the patient also meets the following criteria: patient is normally unable to leave the home and leaving home requires considerable taxing effort. Addendum to Home Health Certification Practitioner's Certification: I certify that the patient has been under my care in the hospital and the care of attending physician (see below). We had a [id number] encounter on (see date below). My clinical findings indicate that the patient is home bound per the above criteria and the Home Health Services noted in these orders are medically necessary. The primary reason for the [id number] encounter is related to the fact that the patient requires home health services. Date Certifying [id number] Physician Encounter: 08/25/24 Physician's Name who will Assume Oversight for HH Services: Physician No Primary/Family [employer] AND SCI[employer]ES DEPARTMENT CHAIR - Community Resources: No PT to Evaluate: Yes PT to evaluate and provide a treatmnet plan to increase patient's mobility and strength. Wound Care: No IV Therapy: No RN Safety Evaluation: Yes RN to evaluate and create a plan of care that will produce positive outcomes. Palliative Treatment: No Palliative treatment and evaluate the need for hospice. Home Health Aide - Personal Care: Yes Home Health Aide to assist with any ADL's. Exam Vital Signs Temp Pulse Resp BP Pulse Ox O2 Del Method O2 Flow Rate 99.0 F 70 17 167/62 H 97 Nasal Cannula 2 08/29/24 12:00 08/29/24 12:00 08/29/24 12:00 08/29/24 12:00 08/29/24 12:00 08/29/24 12:00 08/29/24 12:00 Narrative Exam Physical Exam: GENERAL: Awake, answering questions appropriately but is in mild/moderate pain secondary to hip fracture postop, appears stated age HEENT: NC/AT. Moist mucosa. PERRLA/EOMI. CARDIO: Heart RRR, no obvious murmurs, no JVD. PULM: No coughing or visible SOB. Lungs CTA B/L. Patient on 1-2 L nasal cannula GI: Abdomen soft, NT/ND, +BS. SKIN/MSK/EXT: Patient has a patent (with thrill) left upper extremity AV fistula noted. No wounds/discoloration/rashes/edema/amputations noted. +Pedal pulses present B/L. NEURO: Oriented x3, no focal neurologic deficits noted Discharge Plan Plan Patient Disposition: Xfer Skilled Nsg Fac (SNF) Patient condition on transfer: Stable Care Plan Goals: Please take Eliquis 2.5mg twice a day as your CHADVASc score is high and you have atrial fibrillation Take Dilaudid 2mg every 6 hours for three additional day as needed for Pain 4-10 Continue taking all your home medications as prescribed Continue Dialysis (M/W/F) sessions outpatient If your symptoms worsen or you develop new shortness of breath, chest pain or dizziness - please come back to the ED immediately. Prescriptions/Referrals Prescriptions/Med Rec: New Eliquis 2.5 mg Tablet 2.5 mg PO BID 30 Days Qty: 60 0RF hydromorphone 2 mg Tablet 2 mg PO Q6H MDD 8mg hydromorphone PRN (Reason: Pain 4-10) 3 Days Qty: 12 0RF Continued Shilpi-Janusz 0.8 mg tablet 1 tab PO DAILY alprazolam 0.5 mg Tablet 0.5 mg PO TID cyclobenzaprine 5 mg tablet 5 mg PO HS PRN (Reason: Spasms) paroxetine HCl 10 mg Tablet 10 mg PO QDAY pantoprazole 20 mg Tablet,Delayed Release (Dr/Ec) 20 mg PO QDAY hydralazine 100 mg Tablet 100 mg PO BID labetalol 100 mg Tablet 100 mg PO BID valsartan-hydrochlorothiazide 320-12.5 mg Tablet 1 tab PO QDAY Qty: 30 0RF Benadryl 2 % gel 1 applic topical BID Qty: 103 0RF hydrocodone-acetaminophen 10-325 mg Tablet 1 tab PO BID PRN (Reason: Pain, Moderate) hydroxyzine HCl 25 mg Tablet 25 mg PO BID calcium acetate(phosphat bind) 667 mg Capsule 667 mg PO TID nifedipine 60 mg tablet extended release 60 mg PO BID Qty: 14 0RF spironolactone 25 mg tablet 25 mg PO BID amiodarone 100 mg tablet 100 mg PO BID Patient Comments: TAKE 1 TABLET BY MOUTH TWICE A DAY oxycodone-acetaminophen 10-325 mg tablet 1 tab PO Q4H PRN (Reason: pain) Rx Instructions: oxycodone hydrochloride/acetaminophen clonidine HCl 0.1 mg tablet 0.1 mg PO BID PRN (Reason: hypertension) Nephro Vitamins 0.8 mg tablet 1 tab PO QDAY ondansetron 4 mg tablet,disintegrating 4 mg PO Q4H PRN (Reason: nausea ) Patient Comments: TAKE 1 TABLET BY MOUTH EVERY FOUR HOURS NEEDED sennosides-docusate sodium [Senna Plus] 8.6-50 mg tablet 1 tab-cap PO BID PRN (Reason: constipation) lidocaine 4 % adhesive patch,medicated 1 patch topical Q24H Rx Instructions: may leave on for up to 12 hrs. 12 hrs on, 12 hrs off. docusate sodium 50 mg capsule 100 mg PO HS PRN (Reason: constipation) bisacodyl [Dulcolax (bisacodyl)] 10 mg suppository 10 mg [place] Q72H PRN (Reason: constipation) Rx Instructions: Every 3 days prn fluocinonide-emollient [Fluocinonide-E] 0.05 % cream 1 applic topical BID Rx Instructions: apply to head lesions hyoscyamine sulfate 0.125 mg/5 mL elixir 1 ml PO .q2hrs PRN (Reason: oral secretions) Rx Instructions: Q2hrs prn hydrocodone-acetaminophen 10-325 mg tablet 1 tab PO Q6H PRN (Reason: pain) acetaminophen 500 mg capsule 1,000 mg PO Q6H PRN (Reason: fever or pain) acetaminophen 650 mg suppository 650 mg KY Q4H PRN (Reason: fever) Rx Instructions: q4-6 hrs prn T>100.4 F Referrals: No Primary/Family,Physician [Primary Care Provider] - Patient/Caregiver Discharge Instructions Education Materials: Surgery Anesthesia After, Preventing Surgical Site Infections Print Language: Nauruan Stand Alone Forms: Felisa Award Info., Patient Portal Info Letter Quality Discharge Quality Measures VTE prophylaxis MD Attestestation MD Attestation I have examined the patient, reviewed labs and imaging findings, discussed the case with the resident(s), and reviewed entered orders. I agree with the plan of care as outlined in this note. Dr. Chalino MD
--- NOTE | 2024-08-29 15:14 | PC.SS ---
SS attempted to contact 2 times before setting up transportation but was unsuccessful. 's voicemail was unable to receive messages. SS setup gurney transportation with [facility]. Pt does not have Medical to cover the transportation. Pt is requiring 2 liters of O2 and [facility] [employer] is unable to provide O2 for transport. has sent patient's facesheet, CONTRERAS form, and ambulance form to [facility] using [employer]. Transportation has been setup for 6pm to [facility]. Cheryl at [facility] is aware. Pt is aware. is aware. Bedside nurse, Concepción is aware. Caregiver, Oralia is aware. has sent PASRR to [facility] using file exchange.
[2024-08-29] MEDS: HYDROMORPHONE HCL 2 MG TABLET PO ×2 (16:42→17:48)
--- NOTE | 2024-08-29 17:49 | XR_ITS ---
Examination: Bilateral hips, AP pelvis, 5 views Technique: AP, lateral views both hips, AP pelvis, 5 views Exam date and time: September 08, 2024 1803 hrs. Indications: Severe pelvic pain today. Findings: Prominent osteopenia Moderate narrowing right hip joint No right hip fracture or dislocation Status post left hip bipolar hemiarthroplasty with satisfactory alignment No prosthetic hip dislocation Impression: No acute right hip or pelvic fracture Left hip bipolar hemiarthroplasty with satisfactory alignment
[2024-08-29 18:17] LABS: Hematocrit 26.8 % (36.0-46.0)
[2024-08-29 18:20] LABS: Hemoglobin 8.5 g/dL (12.0-16.0)
[2024-08-29] MEDS: ACETAMINOPHEN 325 MG TABLET 650 MG PO (21:11)
--- NOTE | 2024-08-29 21:43 | ESPR_ITS ---
<Statement entered by Chris Maza MD - 08/31/24 16:56> I examined the patient with DR WOO PGY 2, agree with assessment and recommendations, has ESRD and hypertension stable today controlled well Documentation for date of: 08/29/24 Subjective Subjective Interval history: The patient is seen today at the bedside. systolic blood pressure in the 160s, patient was teary-eyed, accompanied by her at the bedside, stated that IV Dilaudid was discontinued in anticipation of [facility] in the day, started on Hammond's but complaining of discomfort despite p.o. Hammond's, oxygen requirements stable, maintaining oxygen saturation, no active chest pain or discomfort, no arrhythmias overnight. Exam Vital Signs Temp Pulse Resp BP Pulse Ox O2 Del Method O2 Flow Rate 98.2 F 66 18 166/65 H 97 Nasal Cannula 2 08/29/24 20:00 08/29/24 21:11 08/29/24 20:00 08/29/24 21:11 08/29/24 20:00 08/29/24 20:00 08/29/24 20:00 Narrative Exam General: alert oriented x 3 Skin: Intact, no cyanosis or edema noted. HEENT: Atraumatic/normocephalic, SINDI, neck supple Heart: RRR, S1 and S2 and systolic murmur grade 4/6, more prominent mitral area. Lungs: Clear on auscultation bilaterally, no difficulty breathing Abdomen: Soft, nontender. Bowel sounds present . Vascular: Peripheral pulses palpable, AVF fistula bruit present Neuro: slight Motor weakness left extremity when compared to right side, but able to move against gravity. Objective Labs 08/29/24 18:00 08/29/24 08:00 Labs: Laboratory Results - last 24 hr 08/26/24 08/29/24 08/29/24 12:22 08:00 18:00 WBC 11.2 H RBC 2.61 L Hgb 7.6 L 8.5 L Hct 23.3 L 26.8 L MCV 89 MCH 29.1 MCHC 32.6 RDW Std Deviation 53.1 H Plt Count 368 Neut % (Auto) 75 Lymph % (Auto) 9 L Trinity % (Auto) 11 Eos % (Auto) 5 Baso % (Auto) 0 Neut # (Auto) 8.5 H Lymph # (Auto) 1.0 Trinity # (Auto) 1.2 H Eos # (Auto) 0.5 Baso # (Auto) 0.0 Immature Gran # (Auto) 0.04 H Absolute Nucleated RBC 0.00 Immature Gran % 0 Nucleated RBC % 0 Sodium 137 Potassium 4.1 Chloride 102 Carbon Dioxide 26.0 Anion Gap 9 BUN 38 H Creatinine 4.0 H D Estim Creat Clear Calc 9.3 L eGFR 11 L* BUN/Creatinine Ratio 10 L Glucose 130 H Calculated Osmolality 284 Calcium 9.0 Corrected Calcium 9.6 Total Bilirubin < 0.2 L AST 14 ALT 7 L Alkaline Phosphatase 44 L Total Protein 6.0 Albumin 3.3 L D Globulin 2.7 Albumin/Globulin Ratio 1.2 Crossmatch See Detail Quality Measures Quality Measures VTE prophylaxis Advance care planning discussed with:: patient and spouse Assessment & Plan Assessment Current Active Medications: Generic Name Dose Route Start Last Admin Trade Name Freq PRN Reason Stop Dose Admin Acetaminophen 650 mg 08/25/24 15:31 08/29/24 21:11 Acetaminophen 325 Mg Tablet PO 09/24/24 15:30 650 mg Q6H PRN Administration Pain 1-3 and/or Fever >100.1 Amiodarone HCl 100 mg 08/26/24 09:00 08/29/24 20:55 Amiodarone Hcl 200 Mg Tablet PO 09/25/24 08:59 100 mg BID HOSSEIN Administration Apixaban 2.5 mg 08/28/24 09:00 08/29/24 20:55 Apixaban 2.5 Mg Tablet PO 09/27/24 08:59 2.5 mg BID HOSSEIN Administration Clonidine 0.1 mg 08/26/24 23:00 08/28/24 18:33 Clonidine Hcl 0.1 Mg Tablet PO 09/25/24 22:59 0.1 mg BID PRN Administration hypertension Hydralazine HCl 100 mg 08/27/24 14:00 08/29/24 21:11 Hydralazine Hcl 25 Mg Tablet PO 09/26/24 13:59 100 mg TID HOSSEIN Administration Hydromorphone HCl 2 mg 08/29/24 14:32 08/29/24 16:42 Hydromorphone Hcl 2 Mg Tablet PO 09/03/24 14:31 2 mg Q3HR PRN Administration Pain 4-10 Hydroxyzine HCl 25 mg 08/28/24 10:15 08/29/24 20:55 Hydroxyzine Hcl 25 Mg Tablet PO 09/27/24 10:14 25 mg BID HOSSEIN Administration Labetalol HCl 100 mg 08/26/24 09:00 08/29/24 20:55 Labetalol 100 Mg Tablet PO 09/25/24 08:59 100 mg BID HOSSEIN Administration Nifedipine 60 mg 08/26/24 09:00 08/29/24 20:57 Nifedipine Xl 30 Mg Tabcr PO 09/25/24 08:59 60 mg BID HOSSEIN Administration Ondansetron HCl 4 mg 08/25/24 15:31 08/25/24 16:12 Ondansetron Inj 2 Mg/Ml Inj 2 Ml IV 09/24/24 15:30 4 mg Q6H PRN Administration NAUSEA OR VOMITING Protocol Paroxetine HCl 10 mg 08/26/24 09:00 08/29/24 11:46 Paroxetine Hcl 10 Mg Tablet PO 09/25/24 08:59 10 mg QDAY HOSSEIN Administration Sennosides 1 tab 08/26/24 09:00 08/29/24 11:45 Senna Tablet PO 09/25/24 08:59 1 tab QDAY HOSSEIN Administration Protocol Plan The patient is a 79 y/o female, past medical history of CKD, Afib, hx of AVM, uncontrolled hypertension, CVA with residual deficits, atrial fibrillation, heart failure with preserved ejection fraction, history of pulmonary mass, was previously on hospice, who presented to the ER following a mechanical fall and increased left hip pain, found to have left acute angulated displaced fracture of femoral neck, orthopedic consult Dr. Andrews was placed, tentative plan for surgery on Sunday. Home medications include amiodarone 100 mg twice daily, clonidine 0.1 mg twice daily as needed, hydralazine 100 mg 3 times daily, labetalol 100 mg twice daily, nifedipine 60 mg twice daily, paroxetine 10 mg daily, pantoprazole 20 mg daily, spironolactone 25 mg twice daily, hydroxyzine 25 mg twice daily, Hammond as needed for pain, docusate, bisacodyl, multivitamins, alprazolam for anxiety. Problems: 1. Heart failure with preserved ejection fraction 2. Resistant hypertension 3. History of atrial fibrillation, now in sinus rhythm 4. Moderate Tricuspid regurgitation, mild MR 5. Pulmonary hypertension, type 2 - Echocardiogram shows concentric LVH, EF 65%, moderate to severe pulmonary hypertension, mild MR moderate TR, aortic valve sclerosis. Chest x-ray shows pulmonary vascular congestion irregularity, prominent right superior mediastinum, pulmonary mass not reported on this imaging study, but present on prior chest imaging results. Given that patient is clinically dry, no peripheral edema, no JV distention, no acute worsening and oxygen requirements as noted, will hold off on aggressive diuresis at this point. Hemodialysis per schedule. Stable pulmonary HTN, maintiaing o2 sats on 3L 02 via NC. 6. End-stage renal disease, on hemodialysis 7. Hyperkalemia- now resolved - Hemodialysis per schedule, Nephrology following. 8. Displaced fracture left femoral neck - Management per Orthopedics, multimodal analgesia per primary team. Patient will be cleared for surgery, keeping in mind hightened risks due to multiple comorbids and patient's informed decision to proceed with surgery despite risks involved. 9. Hyperaldosteronism Of note, chart review showed patient was worked up for resistant hypertension despite multiple antihypertensive drugs when she was in ICU last month renin levels 0.12, aldosterone levels 16, renin aldosterone ratio > 30, which is virtually diagnostic of hyperaldosteronism, though given patient's overall clinical picture, being on hospice and multiple comorbidities likely will hold off on any aggressive intervention at this point, but it continues to be of academic interest. Also noted medications affecting Renin levels including Clonidine and spironolactone, which can alter serum renin levels, as well as concurrent hemodialysis . will reach out to cell room supervisor about resuming MRA/spironolactone due to likely diagnosis of hyperaldosteronism. Plan of care was discussed with my attending hood fitter Dr. Darien Woo PGY2
[2024-08-30] VITALS (9 sets, daily range): BP systolic 156–174; BP diastolic 61–72; PULSE 61–74; RESP 14–23; TEMP 36.5–37; O2SAT 91–95; BMI 18.8
[2024-08-30] MEDS: hydrALAZINE HCL 25 MG TABLET 100 MG PO (05:10)
[2024-08-30 05:48] LABS: Basophils # (Auto) 0.1 Thou/mm3 (0.0-0.2); Basophils % (Auto) 1 % (0-2.5); Eosinophils # (Auto) 0.6 Thou/mm3 (0.0-0.5); Eosinophils % (Auto) 5 % (0-10); Hematocrit 28.9 % (36.0-46.0); Hemoglobin 9.3 g/dL (12.0-16.0); Immature Granulocytes % (Auto) 0 % (0-0); Immature Granulocytes Auto 0.04 Thou/mm3 (0.00-0.00); Lymphocytes # (Auto) 1.1 Thou/mm3 (1.0-4.8); Lymphocytes % (Auto) 9 % (10-50); Mean Corpuscular HGB Conc 32.2 g/dl (31.0-37.0); Mean Corpuscular Hemoglobin 29.2 pg (25.0-35.0); Mean Corpuscular Volume 91 fL (80-100); Monocytes # (Auto) 1.2 Thou/mm3 (0.0-0.8); Monocytes % (Auto) 10 % (0-12); Neutrophils # (Auto) 9.1 Thou/mm3 (1.8-7.7); Neutrophils % (Auto) 76 % (37-80); Nucleated Red Blood Cell % 0 /100 WBC (0); Platelet Count 423 Thou/mm3 (140-440); RDW Standard Deviation 53.6 fL (36.4-46.3); Red Blood Count 3.19 Miln/mm3 (4.00-5.20); White Blood Count 12.1 Thou/mm3 (3.6-11.0)
[2024-08-30 06:34] LABS: Alanine Aminotransferase 8 U/L (10-49); Albumin, Serum 3.9 gm/dL (3.4-4.8); Albumin/Globulin Ratio 1.3 (1.2-2.2); Alkaline Phosphatase 52 U/L (46-116); Anion Gap 10 (7-16); Aspartate Amino Transferase 18 U/L (0-34); BUN/Creatinine Ratio 9 Ratio (12-20); Bilirubin,Total 0.2 mg/dL (0.3-1.2); Blood Urea Nitrogen 28 mg/dL (9-23); Calcium 9.7 mg/dL (8.3-10.6); Calcium (Corrected) 9.8 mg/dL (8.5-10.1); Chloride 99 mMol/L (98-107); Creatinine (Component) 3.1 mg/dL (0.6-1.3); Estimated Creatinine Clearance 11.5 mL/min (>60); Globulin 3.1 gm/dL (2.3-3.5); Glucose 110 mg/dL (74-106); Osmolality,Calculated 280 (275-295); Sodium 137 mMol/L (136-145); eGFR 15 See Note
[2024-08-30] MEDS: hydrOXYzine HCL 25 MG TABLET PO (09:06)
[2024-08-30] MEDS: AMIODARONE HCL 200 MG TABLET 100 MG PO (09:06)
[2024-08-30] MEDS: LABETALOL 100 MG TABLET PO (09:07)
[2024-08-30] MEDS: APIXABAN 2.5 MG TABLET PO (09:08)
[2024-08-30] MEDS: SENNA TABLET 1 TAB PO (09:08)
[2024-08-30] MEDS: PARoxetine HCL 10 MG TABLET PO (09:08)
[2024-08-30] MEDS: NIFEdipine XL 30 MG TABCR 60 MG PO (09:09)
--- NOTE | 2024-08-30 09:37 | ESPR_ITS ---
<Statement entered by Harriet Prieto MD - 08/31/24 00:36> Patient was seen and examined by me personally. I have directly supervised and reviewed documentation by the team resident and agree with its findings with any exceptions or additional findings as below. Plan of care was discussed with the attending, Dr. Allred. Discharge held yesterday secondary to pain which was not controlled. Today the patient reports improvement in pain. Patient will discharge to [facility] today for acute rehab, hospice is on hold for now. Recommendations given for pain control with PO Dilaudid as patient has reported adequate pain relief with this medication. Continue with Eliquis 2.5 mg BID for DVT prophylaxis and afib, and continue dialysis per M// schedule. Harriet Prieto, PGY-2 Documentation for date of: 08/30/24 Subjective Subjective Interval history: 08/30/2024: No acute overnight events to report. Patient was supposed to be discharged on 08/29; however, due to pain secondary to left hip surgery (postop day 3) decided to keep the patient for monitoring. Patient's pain is better controlled today and plan is to discharge her to a SNF. Exam Vital Signs Temp Pulse Resp BP Pulse Ox O2 Del Method O2 Flow Rate 98.2 F 74 18 171/72 H 92 L Nasal Cannula 2 08/30/24 08:00 08/30/24 09:09 08/30/24 08:00 08/30/24 09:09 08/30/24 08:00 08/30/24 08:00 08/30/24 08:00 Narrative Exam Physical Exam: GENERAL: Awake, answering questions appropriately but is in mild/moderate pain secondary to hip fracture postop, appears stated age HEENT: NC/AT. Moist mucosa. PERRLA/EOMI. CARDIO: Heart RRR, no obvious murmurs, no JVD. PULM: No coughing or visible SOB. Lungs CTA B/L. Patient on 1-2 L nasal cannula GI: Abdomen soft, NT/ND, +BS. SKIN/MSK/EXT: Patient has a patent (with thrill) left upper extremity AV fistula noted. No wounds/discoloration/rashes/edema/amputations noted. +Pedal pulses present B/L. NEURO: Oriented x3, no focal neurologic deficits noted Objective Labs 08/30/24 05:21 08/30/24 05:21 Labs: Laboratory Results - last 24 hr 08/26/24 08/29/24 08/30/24 12:22 18:00 05:21 WBC 12.1 H RBC 3.19 L Hgb 8.5 L 9.3 L Hct 26.8 L 28.9 L MCV 91 MCH 29.2 MCHC 32.2 RDW Std Deviation 53.6 H Plt Count 423 D Neut % (Auto) 76 Lymph % (Auto) 9 L [place] % (Auto) 10 Eos % (Auto) 5 Baso % (Auto) 1 Neut # (Auto) 9.1 H Lymph # (Auto) 1.1 [place] # (Auto) 1.2 H Eos # (Auto) 0.6 H Baso # (Auto) 0.1 Immature Gran # (Auto) 0.04 H Absolute Nucleated RBC 0.00 Immature Gran % 0 Nucleated RBC % 0 Sodium 137 Potassium 4.0 Chloride 99 Carbon Dioxide 28.0 Anion Gap 10 BUN 28 H Creatinine 3.1 H D Estim Creat Clear Calc 11.5 L eGFR 15 L BUN/Creatinine Ratio 9 L Glucose 110 H Calculated Osmolality 280 Calcium 9.7 Corrected Calcium 9.8 Total Bilirubin 0.2 L AST 18 ALT 8 L Alkaline Phosphatase 52 Total Protein 7.0 Albumin 3.9 D Globulin 3.1 Albumin/Globulin Ratio 1.3 Crossmatch See Detail Quality Measures Quality Measures VTE prophylaxis Advance care planning discussed with:: patient and spouse Assessment & Plan Assessment Current Active Medications: Generic Name Dose Route Start Last Admin Trade Name Freq PRN Reason Stop Dose Admin Acetaminophen 650 mg 08/25/24 15:31 08/29/24 21:11 Acetaminophen 325 Mg Tablet PO 09/24/24 15:30 650 mg Q6H PRN Administration Pain 1-3 and/or Fever >100.1 Amiodarone HCl 100 mg 08/26/24 09:00 08/30/24 09:06 Amiodarone Hcl 200 Mg Tablet PO 09/25/24 08:59 100 mg BID HOSSEIN Administration Apixaban 2.5 mg 08/28/24 09:00 08/30/24 09:08 Apixaban 2.5 Mg Tablet PO 09/27/24 08:59 2.5 mg BID HOSSEIN Administration Clonidine 0.1 mg 08/26/24 23:00 08/28/24 18:33 Clonidine Hcl 0.1 Mg Tablet PO 09/25/24 22:59 0.1 mg BID PRN Administration hypertension Hydralazine HCl 100 mg 08/27/24 14:00 08/30/24 05:10 Hydralazine Hcl 25 Mg Tablet PO 09/26/24 13:59 100 mg TID HOSSEIN Administration Hydromorphone HCl 2 mg 08/29/24 14:32 08/29/24 16:42 Hydromorphone Hcl 2 Mg Tablet PO 09/03/24 14:31 2 mg Q3HR PRN Administration Pain 4-10 Hydroxyzine HCl 25 mg 08/28/24 10:15 08/30/24 09:06 Hydroxyzine Hcl 25 Mg Tablet PO 09/27/24 10:14 25 mg BID HOSSEIN Administration Labetalol HCl 100 mg 08/26/24 09:00 08/30/24 09:07 Labetalol 100 Mg Tablet PO 09/25/24 08:59 100 mg BID HOSSEIN Administration Nifedipine 60 mg 08/26/24 09:00 08/30/24 09:09 Nifedipine Xl 30 Mg Tabcr PO 09/25/24 08:59 60 mg BID HOSSEIN Administration Ondansetron HCl 4 mg 08/25/24 15:31 08/25/24 16:12 Ondansetron Inj 2 Mg/Ml Inj 2 Ml IV 09/24/24 15:30 4 mg Q6H PRN Administration NAUSEA OR VOMITING Protocol Paroxetine HCl 10 mg 08/26/24 09:00 08/30/24 09:08 Paroxetine Hcl 10 Mg Tablet PO 09/25/24 08:59 10 mg QDAY HOSSEIN Administration Sennosides 1 tab 08/26/24 09:00 08/30/24 09:08 Senna Tablet PO 09/25/24 08:59 1 tab QDAY HOSSEIN Administration Protocol Plan 79-year-old female with past medical history of ESRD on HD, anxiety, CVA with left-sided deficits, atrial fibrillation, hypertension, CHF, hospice presenting to the ED on 08/25/2024 secondary to a ground-level fall which she sustained while ambulating to the bathroom. Patient had imaging studies done in the ED which showed acute angulated displaced fracture of the femoral neck but there were no signs of any other fractures and head CT was negative for any acute process. Patient was admitted for orthopedic consultation and cardiac clearance for surgery. During admission, patient also required dialysis, as a result nephrology was consulted and provided dialysis sessions while patient was in the hospital. Patient obtained an echo cardiogram for cardiac clearance and was eventually cleared by cardiology. On 08/27/2024, left hip hemiarthroplasty was completed by orthopedic surgery without any acute complications. Patient's pain was controlled with multimodal analgesia and remaining chronic medical conditions were managed with home medications. Patient will be discharged to a fpc facility with the following strict instructions. Please take Eliquis 2.5mg twice a day as your CHADVASc score is high and you have atrial fibrillation Take Dilaudid 2mg every 6 hours for three additional day as needed for Pain 4-10 Continue taking all your home medications as prescribed Continue Dialysis (//F) sessions outpatient If your symptoms worsen or you develop new shortness of breath, chest pain or dizziness - please come back to the ED immediately. Hospital Diagnosis: #Acute displaced angulated fracture left femoral neck #Ground-level fall #ESRD on HD (M/W/F) #Hypertensive emergency #Hypertension #Primary hyperaldosteronism #Hyperkalemia, improving #Atrial fibrillation, rate controlled #Congestive heart failure, not in acute exacerbation #Chronic respiratory failure secondary to CHF #History of CVA with left-sided deficits #Anemia of chronic disease #History of depression/anxiety Larry Borges, PGY-1 Attending Provider Attestation/Addendum I have examined the patient, reviewed labs and imaging findings, discussed the case with the resident(s), and reviewed entered orders. I agree with the plan of care as outlined in this note. Dr. Chalino MD
[2024-08-30] MEDS: ACETAMINOPHEN 325 MG TABLET 650 MG PO (10:55)
--- NOTE | 2024-08-30 11:21 | ESPR_ITS ---
Documentation for date of: 08/30/24 Subjective Subjective Interval history: Ms. Chen is a 79-year-old female with past medical history of ESRD on HD [M/W/F], CVA with residual left-sided deficits, anxiety, depression, atrial fibrillation, hypertension and CHF( under Dr. Kuo) presented to the hospital with chief complaints of ground-level fall on 08/23/2024. Patient was mostly wheelchair-bound, on the day of the fall patient was trying to get up from the wheelchair to go to the bathroom during which she felt dizzy and had a fall. Patient denies palpitations, skipped beats, loss of consciousness, involuntary movements at the time of the fall. Patient's called the ambulance but patient denied admission to hospital for which she received some pain medications. As patient is still not able to mobilize and skipped her dialysis session on Sunday and on the day of admission, called the ambulance following which patient was brought to the ED. Complaining of severe pain at the site of left hip fracture. 08/30/2024 patient currently seen in telemetry. She is able to recognize me. More alert and awake. S/p left hip fracture and fixation. Did receive dialysis yesterday. Labs, medications reviewed. Pending placement to rehab Review of Systems Review of Systems Narrative Review of Systems: CONSTITUTIONAL: Patient denies any fever, chills. HEENT: Patient has visual problems CARDIOVASCULAR: Patient denies any chest pain, shortness of breath, swelling in the lower extremities. PULMONARY: Patient denies any shortness of breath, cough. GASTROINTESTINAL: Patient denies any abdominal pain, nausea, vomiting, diarrhea. Does have constipation problems GENITOURINARY: Patient denies any urinary symptoms of burning or frequency or hematuria, denies any form in the urine. SKIN: Denies any rash. MUSCULOSKELETAL: Complaining of left hip pain NEUROLOGICAL: History of stroke. Patient stated she sometimes has word finding difficulty from the stroke. 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 No masses. Normal bowel sounds. AV fistula EXTREMITIES: No edema, clubbing or cyanosis. SKIN: Skin exam normal without any rashes MUSCULOSKELETAL: In bed. Status post left hip fracture and fixation PSYCHIATRIC: Has anxiety LYMPHATICS: No lymphadenopathy noted NEUROLOGICAL : Alert and awake. Mild left right-sided weakness Objective Labs 08/30/24 05:21 08/30/24 05:21 Labs: Laboratory Results - last 24 hr 08/26/24 08/29/24 08/30/24 12:22 18:00 05:21 WBC 12.1 H RBC 3.19 L Hgb 8.5 L 9.3 L Hct 26.8 L 28.9 L MCV 91 MCH 29.2 MCHC 32.2 RDW Std Deviation 53.6 H Plt Count 423 D Neut % (Auto) 76 Lymph % (Auto) 9 L [place] % (Auto) 10 Eos % (Auto) 5 Baso % (Auto) 1 Neut # (Auto) 9.1 H Lymph # (Auto) 1.1 [place] # (Auto) 1.2 H Eos # (Auto) 0.6 H Baso # (Auto) 0.1 Immature Gran # (Auto) 0.04 H Absolute Nucleated RBC 0.00 Immature Gran % 0 Nucleated RBC % 0 Sodium 137 Potassium 4.0 Chloride 99 Carbon Dioxide 28.0 Anion Gap 10 BUN 28 H Creatinine 3.1 H D Estim Creat Clear Calc 11.5 L eGFR 15 L BUN/Creatinine Ratio 9 L Glucose 110 H Calculated Osmolality 280 Calcium 9.7 Corrected Calcium 9.8 Total Bilirubin 0.2 L AST 18 ALT 8 L Alkaline Phosphatase 52 Total Protein 7.0 Albumin 3.9 D Globulin 3.1 Albumin/Globulin Ratio 1.3 Crossmatch See Detail Assessment & Plan Assessment and plan (1) Left displaced femoral neck fracture: Status: Acute Additional Assessment & Plan Additional Plan: Ms. Beth Chen is a 79-year-old female with past medical history of anxiety, CVA with left-sided residuals, ESRD dialysis Sunday, A-fib, and hypertension that presented to the ED with left hip pain and fracture ESRD HD MWF Next dialysis scheduled for Sunday Hypertension uncontrolled Continue with home medications Left hip fracture and fixation Will be going to rehab. A-fib Patient has history of chronic A-fib Currently sinus rhythm Eliquis was never given due to recurrent GI bleed H/o CVA Dementia- mild Chronic low back pain--patient on hospice at home for pain management.
--- NOTE | 2024-08-30 12:27 | PC.SS ---
[employer] set up transportation via [facility] care for pt via [employer] for 1400, [employer] updated nurse and STC on ETA.
--- NOTE | 2024-08-30 13:30 | PC.NURSE ---
SPOKE TO NEAL MORRISON AT [facility], TO GIVE DISCHARGE REPORT
== END 2024-08-30 14:06 | disposition skilled nursing facility (03) | DRG 521 ==
LOC: SERX 14:57 → SERHOLD 16:31 → S2NX 08-26 06:09
PROVIDERS: Orthopaedic Surgery Adult Reconstructive Orthopaedic Surgery; Registered Nurse General Practice; Admitting Provider Internal Medicine; Emergency Provider Emergency Medicine; Visit Provider Student in an Organized Health Care Education/Training Program
PROC: 0SRR0JZ Replacement of Right Hip Joint, Femoral Surface with Synthetic Substitute, Open Approach (ICD-10-PCS; CPT 27125; principal; 2024-08-27 15:30)
DX: S72.002A Fracture of unspecified part of neck of left femur, initial encounter for closed fracture (principal); N18.6 End stage renal disease; I50.32 Chronic diastolic (congestive) heart failure; I13.2 Hypertensive heart and chronic kidney disease with heart failure and with stage 5 chronic kidney disease, or end stage renal disease; I16.1 Hypertensive emergency; J96.10 Chronic respiratory failure, unspecified whether with hypoxia or hypercapnia; I48.20 Chronic atrial fibrillation, unspecified; E87.1 Hypo-osmolality and hyponatremia; D63.1 Anemia in chronic kidney disease; I69.30 Unspecified sequelae of cerebral infarction; F41.9 Anxiety disorder, unspecified; F32.A Depression, unspecified; E87.5 Hyperkalemia; G89.29 Other chronic pain; E83.52 Hypercalcemia; E86.0 Dehydration; E26.09 Other primary hyperaldosteronism; J44.9 Chronic obstructive pulmonary disease, unspecified; D72.829 Elevated white blood cell count, unspecified; I27.20 Pulmonary hypertension, unspecified; F03.90 Unspecified dementia, unspecified severity, without behavioral disturbance, psychotic disturbance, mood disturbance, and anxiety; W01.0XXA Fall on same level from slipping, tripping and stumbling without subsequent striking against object, initial encounter; Z66 Do not resuscitate; Z99.2 Dependence on renal dialysis; Z87.891 Personal history of nicotine dependence; Z79.899 Other long term (current) drug therapy; Z99.3 Dependence on wheelchair; Z99.81 Dependence on supplemental oxygen
CPT/HCPCS: 36415; 70450; 71045; 72125; 73030; 73501; 73502; 73521; 73552; 73600; 80053; 81001; 82306; 83735; 83970; 84100; 85014; 85018; 85025; 85610; 85730; 86850; 86900; 86901; 86923; 87081; 87086; 93005; 93306; 96374; 96375; 97162; 99285; J0360; J0736; J0744; J1200; J1643; J1815; J2250; J2405; J2704; J3010; J3490; J7999; Q5105; Q5106; Z7610; A9270; J1920